=== PATIENT | female | born 1970 | race Caucasian/White ===

== ENCOUNTER 2016-09-13 22:39 | Inpatient (IN) ==
[2016-09-13 23:31] LABS: Basophils % 0.4 %; Eosinophils # 0.3 K/mcL (0.0-0.6); Eosinophils % 2.6 %; Hematocrit 38.8 % (35.3-44.9); Hemoglobin 12.3 g/dL (11.5-15.4); Immature Granulocytes % 0.3 % (0-4); Immature Platelets 3.5 % (1.1-6.1); Lymphocytes # 3.1 K/mcL (0.6-4.6); Lymphocytes % 28.1 %; Mean Corpuscular HGB Conc 31.7 g/dL (31.6-35.5); Mean Corpuscular Hemoglobin 29.4 pg (28.0-33.3); Mean Corpuscular Volume 92.6 fL (83.0-100.0); Mean Platelet Volume 9.7 fL (9.4-12.4); Monocytes # 0.9 K/mcL (0.0-1.3); Monocytes % 8.6 %; Neutrophils # 6.6 K/mcL (1.6-8.9); Platelet Count 336 K/mcL (140-400); Red Blood Count 4.19 M/mcL (3.82-4.97); Red Cell Distribution Width 13.5 % (11.5-14.5)
[2016-09-13 23:36] LABS: INR 1.1; Prothrombin Time 11.4 Seconds (9.4-12.1)
[2016-09-13 23:39] LABS: Activated Partial Thrombo Time 29.7 Seconds (26.0-36.0)
[2016-09-13 23:43] LABS: BUN/Creatinine Ratio 13 (6-26); Blood Urea Nitrogen 10 mg/dL (7-20); Calcium 8.6 mg/dL (8.6-10.8); Carbon Dioxide 24 mEq/L (19-29); Chloride 104 mEq/L (98-109); Glucose 146 mg/dL (70-99); Osmolality,Calculated 288 (280-300); Potassium 4.5 mEq/L (3.5-4.5); Sodium 138 mEq/L (136-145); eGFR For African Americans > 60 (> 60); eGFR For Non-African Americans > 60 (> 60)
[2016-09-14] MEDS ORDERED: 0.9 % Sodium Chloride 1,000 ML IVC ONE ×2 (00:11→02:40)
[2016-09-14] MEDS ORDERED: Ondansetron 4 MG/2 ML VIAL IVP ONE (00:11)
[2016-09-14] MEDS ORDERED: Aspirin 81 MG TAB.CHEW PO ONE (00:12)
--- NOTE | 2016-09-14 00:16 | Emergency Department Note ---
Disposition Clinical Impression: Syncope and collapse Disposition: Admitted As Inpatient Condition: Fair Referrals: Unassigned,Provider [Non-Partnered Physician] - Forms: ED Satisfaction Letter Time of Disposition: 02:39 Syncope HPI - General Chief Complaint: ED Syncope Stated Complaint: syncope Time Seen by Provider: 09/13/16 23:57 Source: patient, family Limitations: no limitations Nursing Notes Reviewed: Yes Vital Signs Reviewed: Yes - History of Present Illness HPI Narrative: 45-year-old nontoxic-appearing female presents to the emergency department with multiple complaints. The patient states that just prior to arrival, she was standing in her kitchen, when she experienced a syncopal episode. She complains of prodromal symptoms of left-sided chest pain, and lightheadedness. She states that everything went dark and then she passed out, striking her chest against a kitchen chair, and her chin against the same chair as she fell. She now complains of a headache that she rates a 7 out of 10 on a 10 point scale. She states she has had intermittent left-sided chest pain for "quite some time now". She complains of multiple syncopal episodes as of recent. She states that she was evaluated at [facility] this past Friday for the same. She complains of intermittent left-sided chest pain that occurs at rest. She denies any fever, cough, abdominal pain, or diarrhea. She does complain of frequent episodes of nausea. She states that she has a history of migraines on an almost daily basis. She states that immediately after she collapsed, her checked her blood pressure at home, and states that it was "extremely low". Pt Subjective Complaint: loss of consciousness, collapsed Onset (ago): Just [employer] Prodromal Symptoms: headache, lightheaded, chest pain, nausea/vomiting Witnessed: yes - by bystander Injuries Sustained Associated with Event: head, chest (chest wall pain) Current Symptoms: lightheaded, headache, chest pain, shortness of breath, nausea - Related Data Home Medications Medication Instructions Recorded Confirmed Duloxetine [Cymbalta] 30 mg PO DAILY 04/05/15 05/30/16 Exenatide Microspheres [Bydureon] 2 mg SQ QWEEK 04/05/15 05/30/16 FLUoxetine HCl [Fluoxetine HCl] 60 mg PO QAM 04/05/15 05/30/16 Gabapentin [Neurontin] 300 mg PO HS 04/05/15 05/30/16 Loratadine [Claritin] 10 mg PO DAILY PRN 04/05/15 05/30/16 Montelukast [Singulair] 10 mg PO DAILY 04/05/15 05/30/16 Naratriptan HCl [Amerge] 2.5 mg PO DAILY PRN 04/05/15 05/30/16 Ondansetron HCl [Zofran] 4 - 8 mg PO Q8H PRN 04/05/15 05/30/16 Ropinirole [Requip] 1 mg PO HS 04/05/15 05/30/16 Topiramate [Topiramate ER] 50 mg PO DAILY 04/05/15 05/30/16 Trazodone HCl 300 mg PO HS 04/05/15 05/30/16 Albuterol Neb [Proventil Neb] 2.5 mg IH QID PRN 05/30/16 05/30/16 Amitriptyline [Elavil] 50 mg PO HS 05/30/16 05/30/16 Fluticasone Propionate Nasal 50 mcg NS DAILY 05/30/16 05/30/16 [Flonase] Fluticasone/Salmeterol [Advair Hfa 2 puff IH BID 05/30/16 05/30/16 115-21 Mcg Inhaler] Ipratropium [place] 2 spray NS BID 05/30/16 05/30/16 Lidocaine Patch [Lidoderm 5% patch] 1 each TP DAILY 05/30/16 05/30/16 Meclizine [Antivert] 25 mg PO Q6H PRN 05/30/16 05/30/16 Oxycodone HCl/Acetaminophen 1 each PO TID PRN 05/30/16 05/30/16 [Percocet 7.5-325 mg Tablet] Tizanidine HCl [Zanaflex] 4 mg PO TID PRN 05/30/16 05/30/16 Previous Rx's Medication Instructions Recorded Promethazine [Phenergan] 25 mg PO Q6HR PRN #16 tablet 02/24/16 Cyanocobalamin (Vitamin B-12) 1,000 mcg IM QMONTH #12 mls 04/03/16 [Vitamin B-12] Bisacodyl [Dulcolax] 5 mg PO DAILY PRN #20 tablet 06/05/16 Docusate [Colace] 100 mg PO BID #30 capsule 06/05/16 Hydrocodone/Acetaminophen [[place] 1 tab PO Q6H PRN #10 tab 06/27/16 5-325 Tablet] Ibuprofen [Motrin] 600 mg PO Q6HR PRN #20 tablet 06/27/16 Butalb/Acetaminophen/Caffeine 1 each PO Q6HR PRN #10 capsule 08/12/16 [Fioricet 50-300-40 mg Capsule] Allergies Allergy/AdvReac Type Severity Reaction Status Date / Time sumatriptan [From Imitrex] Allergy Swelling Verified 02/24/16 17:33 of Lip/Tongue/Throat All systems ED: reviewed and negative except as stated. Constitutional: Denies: fever, chills, weakness, weight change Eyes: Denies: eye pain, eye discharge, vision change ENT ED: Denies: ear pain, throat pain, dental pain, hearing loss, epistaxis, congestion, dysphagia Cardiovascular: Reports: as per HPI, chest pain, dyspnea on exertion. Denies: palpitations, edema, syncope Respiratory: Denies: cough, dyspnea, wheezes, hemoptysis, stridor Gastrointestinal: Reports: as per HPI, nausea. Denies: abdominal pain, vomiting , diarrhea, constipation, hematemesis, melena, hematochezia Genitourinary: Denies: dysuria, frequency, hematuria, discharge Musculoskeletal: Denies: back pain, neck pain, arthralgia, myalgia Integumentary: Denies: rash, abrasion, lesions Neurological: Reports: as per HPI, headache, other (Intermittent episodes of facial numbness). Denies: weakness, numbness, paresthesias, confusion, abnormal gait, vertigo Psychiatric: Denies: anxiety, depression, suicidal thoughts, homicidal thoughts , auditory hallucinations, visual hallucinations Endocrine: Denies: fatigue Hematological/Lymphatic: Denies: easy bleeding, easy bruising Allergic/Immunologic: Denies: facial swelling, urticaria Past Medical History - Past Medical History Attestation: Yes The following information was validated with the patient. Source: patient Medical history: Reports: diabetes, kidney stones, migraine Surgical history: Reports: cholecystectomy, orthopedic, other, other (gastric bypass surgery) Psychiatric history: Reports: anxiety, depression, PTSD DAMPPROOFER history: Reports: bilateral tubal ligation, other - Social History Smoking Status: Never smoker Smokeless Tobacco Status: No Alcohol use: Reports: none Drug use: Reports: none Physical Exam - General Limitations: no limitations General appearance: alert, in no apparent distress - Head Head exam: atraumatic, normocephalic, normal inspection - Eye Eye exam: Present: normal appearance, PERRL, EOMI. Absent: nystagmus - Expanded Eye Exam Pupils: Bilateral: regular, round, reactive, size (2) - ENT ENT exam: mucous membranes moist - Neck Neck exam: Present: normal inspection, full ROM, trachea midline. Absent: tenderness, lymphadenopathy - Chest Chest inspection: Present: normal inspection, symmetric chest wall rise. Absent : tenderness - Respiratory Respiratory exam: Present: normal lung sounds bilaterally. Absent: respiratory distress, wheezes, stridor, accessory muscle use, prolonged expiratory phase - Cardiovascular Cardiovascular exam: Present: regular rate, normal rhythm, normal heart sounds - Abdominal Exam Abdominal exam: Present: soft, Non-Tender, normal bowel sounds. Absent: tenderness, distention, guarding, rebound, rigidity, trauma - Extremities Exam Extremities exam: Present: normal inspection, full ROM. Absent: tenderness, pedal edema - Back Exam Back exam: Present: normal inspection, full ROM. Absent: tenderness - Neurological Exam Neurological exam: Present: alert, oriented X3 - Psychiatric Psychiatric exam: Present: normal affect, normal mood - Skin Skin exam: Present: warm, dry, intact, normal color. Absent: rash, cyanosis, diaphoresis, erythema, pallor, mottled Course Course Narrative: I discussed his case with Dr. Mcqueen. Dr. Mcqueen had a [id number] evaluation with the patient. Dr. Mcqueen recommends admission to the hospital service for further evaluation of syncope. [id number]: Spoke with Dr. Novak of the hospitalist service. Dr. Novak accepts patient for admission to the hospital. Vital Signs Temperature 97.5 F L 09/13/16 22:40 Pulse Rate 77 09/13/16 22:40 Respiratory Rate 20 09/13/16 22:40 Blood Pressure 98/70 09/13/16 22:40 O2 Sat by Pulse Oximetry 97 09/13/16 22:40 Temperature 97.5 F L 09/13/16 22:40 Pulse Rate 74 09/14/16 00:56 Respiratory Rate 20 09/14/16 00:56 Blood Pressure 101/64 09/14/16 00:56 O2 Sat by Pulse Oximetry 99 09/14/16 00:56 Oxygen Delivery Oxygen Delivery Room Air Syncope - Lab Data Result diagrams: 09/13/16 23:24 09/13/16 23:24 Lab Results 09/13/16 09/13/16 09/13/16 Range/Units 23:24 23:24 23:24 WBC 10.9 (4.3-11.1) K/mcL RBC 4.19 (3.82-4.97) M/mcL Hgb 12.3 (11.5-15.4) g/dL Hct 38.8 (35.3-44.9) % MCV 92.6 (83.0-100.0) fL MCH 29.4 (28.0-33.3) pg MCHC 31.7 (31.6-35.5) g/dL RDW 13.5 (11.5-14.5) % Plt Count 336 (140-400) K/mcL MPV 9.7 (9.4-12.4) fL Immature Gran % 0.3 (0-4) % Seg Neutrophils % 60.0 % Lymphocytes % 28.1 % Monocytes % 8.6 % Eosinophils % 2.6 % Basophils % 0.4 % Neutrophils # 6.6 (1.6-8.9) K/mcL Lymphocytes # 3.1 (0.6-4.6) K/mcL Monocytes # 0.9 (0.0-1.3) K/mcL Eosinophils # 0.3 (0.0-0.6) K/mcL Basophils # 0.0 (0.0-0.2) K/mcL Immature Plt Fraction 3.5 (1.1-6.1) % PT 11.4 (9.4-12.1) Seconds INR 1.1 APTT 29.7 (26.0-36.0) Seconds Sodium 138 (136-145) mEq/L Potassium 4.5 (3.5-4.5) mEq/L Chloride 104 (98-109) mEq/L Carbon Dioxide 24 (19-29) mEq/L BUN 10 (7-20) mg/dL Creatinine 0.77 (0.57-1.11) mg/dL Est GFR ( Amer) > 60 (> 60) Est GFR (Non-Af Amer) > 60 (> 60) BUN/Creatinine Ratio 13 (6-26) Glucose 146 H (70-99) mg/dL Calculated Osmolality 288 (280-300) Calcium 8.6 (8.6-10.8) mg/dL Troponin I (0-0.03) ng/mL Urine Color (Yellow) Urine Clarity (Clear) Urine pH (5.0-8.0) pH Units Ur Specific [place] (1.010-1.025) Urine Protein (Neg-Trace) mg/dL Urine Glucose (UA) (Normal) mg/dL Urine Ketones (Negative) mg/dL Urine Blood (Negative) Urine Nitrite (Negative) Urine Bilirubin (Negative) Urine Urobilinogen (Normal) mg/dL Ur Leukocyte Esterase (Negative) Urine Microscopic RBC (0-3) per hpf Urine Microscopic WBC (0-3) per hpf Ur Squamous Epith Cells (None-Few) per lpf Urine Bacteria (None-Few) per hpf Hyaline Casts (None-Few) per lpf Ur Culture Indicated? (NO) Urine Opiates Screen (Jaitxa=579) ng/mL Ur Barbiturates Screen (Celzvz=530) ng/mL Ur Phencyclidine Scrn (Cutoff=25) ng/mL Ur Amphetamines Screen (Oulfui=6506) ng/mL U Benzodiazepines Scrn (Redksb=954) ng/mL Urine Cocaine Screen (Cutoff= 300) ng/mL U Marijuana (THC) Screen (Cutoff = 50) ng/mL 09/13/16 09/14/16 09/14/16 Range/Units 23:24 01:13 01:22 WBC (4.3-11.1) K/mcL RBC (3.82-4.97) M/mcL Hgb (11.5-15.4) g/dL Hct (35.3-44.9) % MCV (83.0-100.0) fL MCH (28.0-33.3) pg MCHC (31.6-35.5) g/dL RDW (11.5-14.5) % Plt Count (140-400) K/mcL MPV (9.4-12.4) fL Immature Gran % (0-4) % Seg Neutrophils % % Lymphocytes % % Monocytes % % Eosinophils % % Basophils % % Neutrophils # (1.6-8.9) K/mcL Lymphocytes # (0.6-4.6) K/mcL Monocytes # (0.0-1.3) K/mcL Eosinophils # (0.0-0.6) K/mcL Basophils # (0.0-0.2) K/mcL Immature Plt Fraction (1.1-6.1) % PT (9.4-12.1) Seconds INR APTT (26.0-36.0) Seconds Sodium (136-145) mEq/L Potassium (3.5-4.5) mEq/L Chloride (98-109) mEq/L Carbon Dioxide (19-29) mEq/L BUN (7-20) mg/dL Creatinine (0.57-1.11) mg/dL Est GFR ( Amer) (> 60) Est GFR (Non-Af Amer) (> 60) BUN/Creatinine Ratio (6-26) Glucose (70-99) mg/dL Calculated Osmolality (280-300) Calcium (8.6-10.8) mg/dL Troponin I 0.00 (0-0.03) ng/mL Urine Color Yellow (Yellow) Urine Clarity Cloudy A (Clear) Urine pH 6.0 (5.0-8.0) pH Units Ur Specific [place] 1.009 L (1.010-1.025) Urine Protein Negative (Neg-Trace) mg/dL Urine Glucose (UA) Normal (Normal) mg/dL Urine Ketones Negative (Negative) mg/dL Urine Blood Negative (Negative) Urine Nitrite Positive A (Negative) Urine Bilirubin Negative (Negative) Urine Urobilinogen Normal (Normal) mg/dL Ur Leukocyte Esterase Small H (Negative) Urine Microscopic RBC 0-3 (0-3) per hpf Urine Microscopic WBC 5-15 H (0-3) per hpf Ur Squamous Epith Cells Many H (None-Few) per lpf Urine Bacteria Moderate H (None-Few) per hpf Hyaline Casts None Seen (None-Few) per lpf Ur Culture Indicated? YES A (NO) Urine Opiates Screen Negative (Qzdooe=338) ng/mL Ur Barbiturates Screen Positive H (Ucetpv=044) ng/mL Ur Phencyclidine Scrn Negative (Cutoff=25) ng/mL Ur Amphetamines Screen Negative (Mmtvxe=6556) ng/mL U Benzodiazepines Scrn Positive H (Ojnqvv=857) ng/mL Urine Cocaine Screen Negative (Cutoff= 300) ng/mL U Marijuana (THC) Screen Negative (Cutoff = 50) ng/mL
[2016-09-14 01:21] LABS: Bilirubin,Urine Negative (Negative); Blood,Urine Negative (Negative); Clarity,Urine Cloudy (Clear); Color,Urine Yellow (Yellow); Glucose,Urine (UA) Normal (Normal); Ketones,Urine Negative (Negative); Leukocyte Esterase,Urine Small (Negative); Nitrite,Urine Positive (Negative); Protein,Urine Negative (Neg-Trace); Specific Gravity,Urine 1.009 (1.010-1.025); Urobilinogen,Urine Normal (Normal)
[2016-09-14 01:24] LABS: Bacteria,Urine Moderate per hpf (None-Few); Hyaline Casts,Urine None Seen per lpf (None-Few); RBC,Urine 0-3 per hpf (0-3); Squamous Epithelial Cell,Urine Many per lpf (None-Few)
[2016-09-14 01:36] LABS: Amphetamine Screen,Urine Negative ng/mL (Cutoff=1000); Benzodiazepines Screen,Urine Positive ng/mL (Cutoff=200); Cannabinoid Screen,Urine Negative ng/mL (Cutoff = 50); Cocaine Screen,Urine Negative ng/mL (Cutoff= 300); Opiate Screen,Urine Negative ng/mL (Cutoff=300); Phencyclidine Screen,Urine Negative ng/mL (Cutoff=25)
[2016-09-14 01:37] LABS: Barbiturate Screen,Urine Positive ng/mL (Cutoff=200)
--- NOTE | 2016-09-14 03:54 | Internal Med History&Physical ---
<GustafsonPavan - Last Filed: 09/14/16 04:44> Date of Encounter: 09/14/16 Time of Encounter: 03:51 Assessment and Plan (1) Syncope Status: Acute Etiology unclear at this time; working up metabolic vs. cardiac vs. vascular; cannot rule out psychiatric Certainly polypharmacy may play a role as she is on many psychiatric/sedating medications Will obtain carotid and echocardiogram, B12, folate, MMA, TSH levels Obtain lipid panel, orthostatic vital signs, MRI for further evaluation Start on ASA/statin and consult neurology; appreciate recommendations She may be candidate for EEG and outpatient sleep study Qualifiers: Qualified Code(s): R55 - Syncope and collapse (2) UTI (urinary tract infection) Status: Suspected Patient does not have signs/symptoms of UTI and initial UA may be contaminant of vaginal saba Will re-obtain UA via straight cath prior to initiating antibiotics Qualifiers: Qualified Code(s): N39.0 - Urinary tract infection, site not specified (3) Non-insulin dependent type 2 diabetes mellitus Status: Chronic Discontinue home anti-diabetics while in hospital Start on low dose SSI ACHS accuchecks (4) DVT prophylaxis Status: Acute Heparin 5000 units BID Internal Medicine - H&P: HPI Chief complaint: Syncope Admitted From: Home Plans for Post Hospital Care: Home History of present illness: Ms. Mora is a 45 year old female who presents with a syncopal episode that occurred earlier this evening. She states that she was standing up in the kitchen and felt some left-sided chest pain and lightheadedness, and fell forward hitting her chest and chin on a chair. was nearby and witnessed the event. He states that she was only unconscious for a few seconds and when she regained consciousness she was herself and not confused. checked her blood pressure shortly after this episode and states it was 70/40. She denies any tongue bite, incontinence but does complain of headache and mild shortness of breath. She states that these syncopal episodes and left side chest pain began roughly 2 months ago. She has been seen by doctors in the past for this, however had not found the etiology. Of note, she states that she had a syncopal episode Friday which cause her to fracture her right ankle. She is currently in a brace but is still able to ambulate. She complains of constant nausea and has a history of migraines and vertigo. Patient denies any fever or chills, constipation. Past Med Surg Social Fam HX - Past Medical History Medical history: diabetes, kidney stones, migraine Psychiatric history: anxiety, depression, PTSD - Past Surgical History Surgical History: cholecystectomy, orthopedic, other, other (gastric bypass surgery) - Social History Smoking Status: Never smoker Smokeless Tobacco Status: No Alcohol use: none Drug use: none - Family History Mother Adopted: Yes Internal Medicine - H&P: Meds Duloxetine [Cymbalta] 30 mg PO DAILY 04/05/15 [History] Exenatide Microspheres [Bydureon] 2 mg SQ QWEEK 04/05/15 [History] FLUoxetine HCl [Fluoxetine HCl] 60 mg PO QAM 04/05/15 [History] Gabapentin [Neurontin] 300 mg PO HS 04/05/15 [History] Loratadine [Claritin] 10 mg PO DAILY PRN 04/05/15 [History] Naratriptan HCl [Amerge] 2.5 mg PO DAILY PRN 04/05/15 [History] Ondansetron HCl [Zofran] 4 - 8 mg PO Q8H PRN 04/05/15 [History] Ropinirole [Requip] 1 mg PO HS 04/05/15 [History] Promethazine [Phenergan] 25 mg PO Q6HR PRN #16 tablet 02/24/16 [Rx] Cyanocobalamin (Vitamin B-12) [Vitamin B-12] 1,000 mcg IM QMONTH #12 mls [Rx] Albuterol Neb [Proventil Neb] 2.5 mg IH QID PRN 05/30/16 [History] Amitriptyline [Elavil] 50 mg PO HS 05/30/16 [History] Fluticasone Propionate Nasal [Flonase] 50 mcg NS DAILY 05/30/16 [History] Oxycodone HCl/Acetaminophen [Percocet 7.5-325 mg Tablet] 1 tab PO TID PRN [History] Tizanidine HCl [Zanaflex] 4 mg PO TID PRN 05/30/16 [History] Bisacodyl [Dulcolax] 5 mg PO DAILY PRN #20 tablet 06/05/16 [Rx] Docusate [Colace] 100 mg PO BID #30 capsule 06/05/16 [Rx] Escitalopram [Lexapro] 10 mg PO DAILY 09/14/16 [History] Rizatriptan Benzoate [Rizatriptan] 10 mg PO AD PRN 09/14/16 [History] Topiramate [Topamax] 25 mg PO HS 09/14/16 [History] Cefdinir [Omnicef] 300 mg PO BID #8 capsule 09/17/16 [Rx] Allergies Hydromorphone [From Dilaudid] Allergy (Severe, Verified 09/14/16 14:43) Anaphylaxis sumatriptan [From Imitrex] Allergy (Severe, Verified 09/14/16 14:43) Anaphylaxis adhesive tape Allergy (Verified 09/14/16 14:43) Rash ziconotide [From Prialt] Adverse Reaction (Verified 09/14/16 14:43) Hallucinating All Systems PM: A 10-system review of systems was performed and is negative for pertinent findings except as documented above in the HPI. - Constitutional Constitutional: falls, no chills, no fever(s), no night sweats - EENT Eyes: no change in vision, no discharge, no pain, no photophobia Ears: no ear discharge, no ear pain, no tinnitus Nose, mouth and throat: no dysphagia, no nasal discharge, no neck pain, no sore throat - Cardiovascular Cardiovascular ROS IM: chest pain, dyspnea, lightheadedness, syncope, no diaphoresis, no palpitations - Respiratory Respiratory: dyspnea, no cough, no wheezing, no excessive phlegm production - Gastrointestinal Gastrointestinal: nausea, no abdominal pain, no diarrhea, no hematemesis, no hematochezia, no melena, no vomiting - Genitourinary Genitourinary: no change in urinary stream, no dysuria, no flank pain, no hematuria - Musculoskeletal Musculoskeletal ROS IM: no numbness, no tingling - Integumentary Integumentary IM: no rash, no unusual bruising - Neurological Neurological ROS: no confusion, no convulsions, no focal weakness, no numbness, no tingling, no tremor(s) - Hematologic/Lymphatic Hematologic/Lymphatic: no easy bruising - Constitutional Vitals: Temp Pulse Resp BP Pulse Ox 97.5 F L 74 20 105/70 99 09/13/16 22:40 09/14/16 00:56 09/14/16 03:27 09/14/16 03:27 09/14/16 00:56 General appearance: Present: cooperative, pleasant, no acute distress, answers questions appropriately - Head Head exam: Present: atraumatic, normocephalic - Eye Eye exam: Present: PERRL, conjuntiva pink, sclera anicteric - Neck Neck exam general surgery: Present: supple, trachea midline. Absent: lymphadenopathy - Respiratory Respiratory exam: Present: CTAB. Absent: accessory muscle use, rales, rhonchi, wheezes - Cardiovascular Cardiovascular exam: Present: RRR, +S1, +S2. Absent: diastolic murmur, gallop, rubs, systolic murmur - GI/Abdominal GI/Abdominal exam: Present: normal bowel sounds, soft, no peritoneal signs. Absent: distended, tenderness - Extremities Exam Extremities exam: Present: warm, radial pulses palpable and symetrical. Absent : calf tenderness, cyanotic, pedal edema Additional comments: brace on right ankle s/p fracture - Neurological Exam Neurological exam: Present: alert, no focal deficits. Absent: facial droop, speech deficit - Skin Skin exam: Present: dry, intact Internal Med - H&P Results - Labs CBC & Chem 7: 09/13/16 23:24 09/13/16 23:24 <Kendall Villegas - Last Filed: 09/18/16 01:03> Assessment and Plan (1) Acute chest wall pain Status: Acute . (2) Chest pain, rule out acute myocardial infarction Status: Acute . (3) Chest pain with low risk of acute coronary syndrome Status: Acute . (4) Chronic headache disorder Status: Chronic . Qualifiers: Headache type: unspecified Intractability: not intractable Qualified Code (s): R51 - Headache (5) Postural hypotension Status: Acute . (6) Postural dizziness with near syncope Status: Acute . (7) H/O atypical migraine Status: Chronic . (8) Anxiety associated with depression Status: Chronic . (9) History of posttraumatic stress disorder (PTSD) Status: Chronic . (10) Polypharmacy Status: Chronic . (11) At risk for accident in home Status: Acute . (12) At risk for activity intolerance Status: Acute . (13) At risk for acute confusion Status: Acute . (14) At risk for adverse drug event Status: Acute . (15) At risk for abuse of opiates Status: Acute . (16) Obesity (BMI 30-39.9) Status: Chronic . (17) Restless legs syndrome (RLS) Status: Chronic . (18) RAD (reactive airway disease) Status: Chronic . Qualifiers: Asthma severity: unspecified severity Asthma complication type: uncomplicated Qualified Code(s): J45.909 - Unspecified asthma, uncomplicated (19) POTS (postural orthostatic tachycardia syndrome) Status: Acute . (20) Chronic pain associated with significant psychosocial dysfunction Status: Chronic . (21) H/O fracture of ankle Status: Acute . (22) Multiple falls Status: Chronic . (23) History of Erin-en-Y gastric bypass Status: Chronic . (24) Bipolar 1 disorder Status: Chronic . (25) Fibromyalgia affecting multiple sites Status: Chronic . (26) Fibromyalgia syndrome Status: Chronic . (27) Vitamin deficiency syndrome Status: Chronic . (28) Folate deficiency Status: Chronic . (29) B12 deficiency Status: Chronic . (30) Multiple contusions Status: Acute . (31) Sinus tachycardia Status: Acute . (32) Syncope and collapse Status: Acute . (33) UTI (urinary tract infection) Status: Acute . Qualifiers: Urinary tract infection type: acute cystitis Hematuria presence: without hematuria Qualified Code(s): N30.00 - Acute cystitis without hematuria (34) Chest wall soft tissue injury Status: Acute . Qualifiers: Encounter type: sequela Qualified Code(s): S29.9XXS - Unspecified injury of thorax, sequela (35) ANA (iron deficiency anemia) Status: Chronic . Qualifiers: Iron deficiency anemia type: unspecified iron deficiency Qualified Code(s) : D50.9 - Iron deficiency anemia, unspecified (36) Type 2 diabetes mellitus Status: Chronic . 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 Internal Medicine - H&P: HPI History of present illness: Ms. Mora is a 45 year old female was admitted to [facility] via the emergency department when she presented with chief complaint of acute loss of consciousness (syncope). The patient was visited and interviewed and examined. For this encounter, I have reviewed the documentation, treatment plan, and medical decision making. I examined this patient and my medical decision-making was reviewed with the Resident Physician. I agree with the documented findings, disposition and treatment plan as described except to the extent set forth below. Cumulative laboratory and radiographic database was reviewed, considered and discussed. Given the patient's presenting concerns, past medical history, clinical findings and symptoms, she is admitted at this time to undergo further evaluation and disposition. Orders written. Past Med Surg Social Fam HX - Past Medical History Source: old records reviewed Medical history: arthritis (Failed back surgery syndrome.), asthma, diabetes, fibromyalgia (Plantar fasciitis. Disorder of sacrum. Chronic fatigue. Flank pain. Right arm weakness. Right shoulder pain. Cervicalgia.), GERD, hypertension, kidney stones, migraine, osteoporosis, renal disease (Polycystic ovarian disease.), syncope, other (Iron deficiency anemia secondary to Erin-en- Y gastric bypass. Vitamin B12 deficiency.. Folic acid deficiency.) Psychiatric history: anxiety, bipolar, depression, PTSD, other - Past Surgical History Surgical History: cholecystectomy, orthopedic, other (Cervical disc surgery. Spondylolisthesis back surgery.), other (Gastric bypass Erin-en-Y. Eye surgery. ) - Social History Occupational status: disabled Current living situation: With Family Activity Level: Independent ambulation, Mostly sedentary Recent Out of Country Travel Within the Last 8 Weeks: No Exposure or Possible Exposure to Illness During Travel: No All Systems PM: A 10-system review of systems was performed and is negative for pertinent findings except as documented above in the HPI. - Constitutional Vitals: Temp Pulse Resp BP Pulse Ox 98.0 F 97 16 127/81 95 09/17/16 10:48 09/17/16 10:48 09/17/16 10:48 09/17/16 10:48 09/17/16 10:48 Internal Med - H&P Results - Labs CBC & Chem 7: 09/16/16 04:27 09/16/16 04:27 Labs: Vital Signs Temp Pulse Resp BP Pulse Ox 09/17/16 10:48 98.0 F 97 16 127/81 95 09/17/16 09:30 95 09/17/16 06:46 97.9 F 99 16 121/86 95 09/17/16 04:07 97.9 F 80 16 142/89 96 Intake and Output 09/17/16 09/17/16 09/18/16 15:59 23:59 07:59 Intake Total 1440 / 1440 Output Total 1150 / 1150 Balance 290 / 290 Intake: IV Fluids 1200 / 1200 0.9 % Sodium Chloride 1, 1100 / 1100 000 ML @ 100 mls/hr IVC . Q10H ROC Rx#:[id number] Rocephin 1,000 MG In 100 / 100 Dextrose 5% (Minibag+) 100 ML 100 ML @ 200 mls/ hr IVPB Q24H ROC Rx#: [id number] Oral 240 / 240 Output: Urine 100 / 100 Catheter 1050 / 1050 Other: Meal Lunch Percent of Meal Consumed 85% Blood Glucose* 156 - Impressions Abnormal lab results WBC 12.4 K/mcL (4.3-11.1) H 09/16/16 04:27 MCHC 31.2 g/dL (31.6-35.5) L 09/16/16 04:27 ESR 52 mm/hr (0-15) H 09/14/16 15:50 BUN 5 mg/dL (7-20) L 09/16/16 04:27 Glucose 134 mg/dL (70-99) H 09/16/16 04:27 POC Glucose 122 (58-89) H 09/16/16 20:31 Hemoglobin A1c 6.0 % (-5.6) H 09/14/16 04:56 Alkaline Phosphatase 128 Units/L (38-126) H 09/14/16 04:56 C-Reactive Protein 5 mg/L (Less than 5) H 09/14/16 04:56 Serum Total Protein 5.9 g/dL (6.0-8.3) L 09/14/16 04:56 Albumin 2.4 g/dL (3.5-5.0) L 09/14/16 04:56 Albumin/Globulin Ratio 0.7 (1.1-2.2) L 09/14/16 04:56 Folate 5.2 ng/mL (7.0-31.4) L 09/14/16 04:56 Urine Clarity Cloudy (Clear) A 09/15/16 10:06 Ur Specific [place] > 1.030 (1.010-1.025) H 09/15/16 10:06 Urine Nitrite Positive (Negative) A 09/15/16 10:06 Ur Leukocyte Esterase Small (Negative) H 09/15/16 10:06 Urine Microscopic WBC 15-30 per hpf (0-3) H 09/15/16 10:06 Ur Squamous Epith Cells Moderate per lpf (None-Few) H 09/15/16 10:06 Urine Bacteria Many per hpf (None-Few) H 09/15/16 10:06 Ur Culture Indicated? YES (NO) A 09/15/16 10:06 Ur Barbiturates Screen Positive ng/mL (Yjhaxy=103) H 09/14/16 01:22 U Benzodiazepines Scrn Positive ng/mL (Cltuji=000) H 09/14/16 01:22 Laboratory Results WBC 12.4 K/mcL (4.3-11.1) H 09/16/16 04:27 RBC 4.60 M/mcL (3.82-4.97) 09/16/16 04:27 Hgb 13.3 g/dL (11.5-15.4) 09/16/16 04:27 Hct 42.6 % (35.3-44.9) 09/16/16 04:27 MCV 92.6 fL (83.0-100.0) 09/16/16 04:27 MCH 28.9 pg (28.0-33.3) 09/16/16 04:27 MCHC 31.2 g/dL (31.6-35.5) L 09/16/16 04:27 RDW 13.7 % (11.5-14.5) 09/16/16 04:27 Plt Count 312 K/mcL (140-400) 09/16/16 04:27 MPV 10.0 fL (9.4-12.4) 09/16/16 04:27 Immature Gran % 0.4 % (0-4) 09/15/16 05:09 Seg Neutrophils % 64.8 % 09/15/16 05:09 Lymphocytes % 24.5 % 09/15/16 05:09 Monocytes % 9.4 % 09/15/16 05:09 Eosinophils % 0.5 % 09/15/16 05:09 Basophils % 0.4 % 09/15/16 05:09 Neutrophils # 6.6 K/mcL (1.6-8.9) 09/15/16 05:09 Lymphocytes # 2.5 K/mcL (0.6-4.6) 09/15/16 05:09 Monocytes # 1.0 K/mcL (0.0-1.3) 09/15/16 05:09 Eosinophils # 0.1 K/mcL (0.0-0.6) 09/15/16 05:09 Basophils # 0.0 K/mcL (0.0-0.2) 09/15/16 05:09 Immature Plt Fraction 3.5 % (1.1-6.1) 09/13/16 23:24 ESR 52 mm/hr (0-15) H 09/14/16 15:50 PT 11.4 Seconds (9.4-12.1) 09/13/16 23:24 INR 1.1 09/13/16 23:24 APTT 29.7 Seconds (26.0-36.0) 09/13/16 23:24 Sodium 138 mEq/L (136-145) 09/16/16 04:27 Potassium 4.1 mEq/L (3.5-4.5) 09/16/16 04:27 Chloride 104 mEq/L (98-109) 09/16/16 04:27 Carbon Dioxide 25 mEq/L (19-29) 09/16/16 04:27 BUN 5 mg/dL (7-20) L 09/16/16 04:27 Creatinine 0.67 mg/dL (0.57-1.11) 09/16/16 04:27 Est GFR ( Amer) > 60 (> 60) 09/16/16 04:27 Est GFR (Non-Af Amer) > 60 (> 60) 09/16/16 04:27 BUN/Creatinine Ratio 7 (6-26) 09/16/16 04:27 Glucose 134 mg/dL (70-99) H 09/16/16 04:27 POC Glucose 122 (58-89) H 09/16/16 20:31 Est Mean Plasma Glucose 126 mg/dl 09/14/16 04:56 Hemoglobin A1c 6.0 % (-5.6) H 09/14/16 04:56 Calculated Osmolality 285 (280-300) 09/16/16 04:27 Lactic Acid 1.1 mmol/L (0.5-2.2) 09/16/16 08:53 Calcium 8.9 mg/dL (8.6-10.8) 09/16/16 04:27 Total Bilirubin 0.2 mg/dL (0.2-1.2) 09/14/16 04:56 Direct Bilirubin 0.1 mg/dL (0.0-0.5) 09/14/16 04:56 Indirect Bilirubin 0.1 mg/dL (0.0-1.2) 09/14/16 04:56 AST 15 Units/L (5-34) 09/14/16 04:56 ALT 15 Units/L (0-55) 09/14/16 04:56 Alkaline Phosphatase 128 Units/L (38-126) H 09/14/16 04:56 Troponin I 0.00 ng/mL (0-0.03) 09/13/16 23:24 C-Reactive Protein 5 mg/L (Less than 5) H 09/14/16 04:56 Serum Total Protein 5.9 g/dL (6.0-8.3) L 09/14/16 04:56 Albumin 2.4 g/dL (3.5-5.0) L 09/14/16 04:56 Globulin 3.5 g/dL (2.4-3.5) 09/14/16 04:56 Albumin/Globulin Ratio 0.7 (1.1-2.2) L 09/14/16 04:56 Triglycerides 115 mg/dL (< 150) 09/14/16 04:56 Cholesterol 138 mg/dL (< 200) 09/14/16 04:56 LDL Cholesterol, Calc 62 mg/dL (0-99) 09/14/16 04:56 VLDL Cholesterol, Calc 23 mg/dL (< 31) 09/14/16 04:56 HDL Cholesterol 53 mg/dL (40-59) 09/14/16 04:56 Cholesterol/HDL Ratio 2.6 (0-4.9) 09/14/16 04:56 Vitamin B12 604 pg/mL (213-816) 09/14/16 04:56 Folate 5.2 ng/mL (7.0-31.4) L 09/14/16 04:56 TSH 1.785 mcIU/mL (0.350-4.840) 09/14/16 04:56 Urine Color Yellow (Yellow) 09/15/16 10:06 Urine Clarity Cloudy (Clear) A 09/15/16 10:06 Urine pH 6.5 pH Units (5.0-8.0) 09/15/16 10:06 Ur Specific [place] > 1.030 (1.010-1.025) H 09/15/16 10:06 Urine Protein Negative mg/dL (Neg-Trace) 09/15/16 10:06 Urine Glucose (UA) Normal mg/dL (Normal) 09/15/16 10:06 Urine Ketones Negative mg/dL (Negative) 09/15/16 10:06 Urine Blood Negative (Negative) 09/15/16 10:06 Urine Nitrite Positive (Negative) A 09/15/16 10:06 Urine Bilirubin Negative (Negative) 09/15/16 10:06 Urine Urobilinogen Normal mg/dL (Normal) 09/15/16 10:06 Ur Leukocyte Esterase Small (Negative) H 09/15/16 10:06 Urine Microscopic RBC 0-3 per hpf (0-3) 09/15/16 10:06 Urine Microscopic WBC 15-30 per hpf (0-3) H 09/15/16 10:06 Ur Squamous Epith Cells Moderate per lpf (None-Few) H 09/15/16 10:06 Urine Bacteria Many per hpf (None-Few) H 09/15/16 10:06 Hyaline Casts None Seen per lpf (None-Few) 09/15/16 10:06 Ur Culture Indicated? YES (NO) A 09/15/16 10:06 Urine Opiates Screen Negative ng/mL (Qlkfok=146) 09/14/16 01:22 Ur Barbiturates Screen Positive ng/mL (Qqznku=065) H 09/14/16 01:22 Ur Phencyclidine Scrn Negative ng/mL (Cutoff=25) 09/14/16 01:22 Ur Amphetamines Screen Negative ng/mL (Nyobuj=3447) 09/14/16 01:22 U Benzodiazepines Scrn Positive ng/mL (Deblte=009) H 09/14/16 01:22 Urine Cocaine Screen Negative ng/mL (Cutoff= 300) 09/14/16 01:22 U Marijuana (THC) Screen Negative ng/mL (Cutoff = 50) 09/14/16 01:22 Impressions Chest X-Ray 09/13/16 22:47 IMPRESSION: No acute cardiopulmonary abnormality. D/ / Clay Arshad MD / Clay Arshad MD Interpreting Provider: Clay Arshad MD Head CT 09/14/16 00:11 IMPRESSION: No acute intracranial abnormality. D/ / Edgar Acuña MD / Edgar Acuña MD Interpreting Provider: Edgar Acuña MD Brain MRI 09/14/16 04:42 IMPRESSION: 1. There are a few scattered nonspecific white matter lesions noted supratentorially. These are likely related to minimal chronic microvascular white matter ischemic disease. Other etiologies could include vasculitis and migraine headaches. 2. No evidence of acute infarct or intracranial mass. D/ / 09/14/2016 10:10:32 Alvarado Umanzor MD / zachary Interpreting Provider: Alvarado Umanzor MD Chest CTA 09/15/16 00:00 IMPRESSION: 1. No definite scan evidence for pulmonary embolus. 2. Soft tissue gas and inflammatory changes surrounding the right pectoralis musculature. D/ / Paul Beltran MD / Paul Beltran MD Interpreting Provider: Paul Beltran MD - Attending Attestation My signature below is to certify that this patient is under my care and that I, or the Resident Physician working with me, has had a [id number] encounter with this patient. Plan of care has been reviewed and discussed in detail with the patient. Questions addressed. Advance care directive discussion briefly addressed. Patient does not declare any healthcare restrictions at this time. Outpatient medications schedules will be reviewed, confirmed and facilitated as appropriate. Reconciliation of home treatments including adjustments, substitutions and reintroduction into the treatment regimen will address necessary maintenance therapies for chronic pre-existing medical conditions. Smoking cessation counseling briefly addressed. The patient declares herself a nonsmoker. Hospital course will be dependent upon clinical findings, treatment response and potential consultative interventions. The patient is at risk for acute clinical decline and morbidity given this presenting chief complaint, findings and comorbidities. Condition is serious. Prognosis is guarded. CODE STATUS is full.
[2016-09-14] MEDS ORDERED: *HR* Dextrose 50 % in Water (Syg) 50 ML SYRINGE IVP PRN (04:32)
[2016-09-14] MEDS ORDERED: Naloxone 0.4 MG/ML INJ IVP PRN (04:32)
[2016-09-14] MEDS ORDERED: D5% in Water 1,000 ML IV PRN (04:32)
[2016-09-14] MEDS ORDERED: Dextrose Gel 15 GM PO PRN ×2 (04:32)
[2016-09-14 05:23] LABS: Albumin 2.4 g/dL (3.5-5.0); Albumin/Globulin Ratio 0.7 (1.1-2.2); Bilirubin,Direct 0.1 mg/dL (0.0-0.5); Bilirubin,Indirect 0.1 mg/dL (0.0-1.2); Bilirubin,Total 0.2 mg/dL (0.2-1.2); Chol/HDL Ratio 2.6 (0-4.9); Globulin 3.5 g/dL (2.4-3.5); Total Protein 5.9 g/dL (6.0-8.3)
[2016-09-14] MEDS: *HR* OxyCODONE/APAP 7.5/325 TABLET PO PRN ×2 (05:27→20:15)
[2016-09-14] MEDS: *HR* Heparin 5,000 UNIT/ML VIAL SQ SCH ×2 (05:28→18:16)
[2016-09-14] MEDS: Albuterol 2.5 MG/3 ML NEBULIZER IH SCH ×4 (05:32→22:27)
[2016-09-14 05:56] LABS: Folate 5.2 ng/mL (7.0-31.4)
[2016-09-14] MEDS ORDERED: Ondansetron 4 MG/2 ML VIAL IVP PRN (06:20)
[2016-09-14] MEDS ORDERED: Acetaminophen 325 MG TABLET PO PRN (06:20)
[2016-09-14] MEDS ORDERED: 0.9 % Sodium Chloride 1,000 ML IVC SCH ×2 (06:30→16:30)
[2016-09-14] MEDS: Aspirin 81 MG TAB.CHEW PO SCH (10:01)
[2016-09-14] MEDS: Insulin LISPRO 300 UNITS/3 ML VIAL SQ SCH ×4 (10:01→22:25)
[2016-09-14] MEDS: *HR* OxyCODONE Immed Rel 5 MG TABLET PO PRN (10:04)
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
[2016-09-14] MEDS: *HR* LORazepam 2 MG/ML VIAL IVP PRN ×2 (13:49→18:51)
--- NOTE | 2016-09-14 14:06 | Event Note ---
<Naseem Dejesus - Last Filed: 09/14/16 14:00> Date of Encounter: 09/14/16 Time of Encounter: 14:00 Was paged by RN that patient was tachycardic and complaining of Headache and facial numbness. I arrived to the room shortly after. Patietn appears anxious. She was hyperventlating and complaining of perioral numbness. Numbness resolved after I had her breath slowly. She stated that her headache was all over and that lights and sounds made this worse. She stated that " dilauded and pushed phenergan" were the only thing that worked. We repeated her vitals. Notable for HR in the 140s and Systolic blood pressure of 173. Normal O2 saturation on room air. EKG showed sinus tachycardia. she did state that this was similar to her " episodes". Given this I think that a psychiatic reason or possibly psychogenic nonepileptic seizure disorder should be consider as the cause of her syncope. However given her injuries and incontinence I think we will still need to R/O epilepsy. We may also consider psychiatric consultation depending on her clinical course. we will continue to follow her closely. <Thierry Bingham - Last Filed: 09/14/16 15:26> Date of Encounter: 09/14/16 CT gloria of chest
[2016-09-14] MEDS: *HR* Morphine 2 MG/ML SYRINGE IVP PRN ×2 (14:56→18:13)
[2016-09-14] MEDS: Acetaminophen/Butalbital/CaffeineTABLET PO PRN (14:56)
--- NOTE | 2016-09-14 15:33 | ECHO - Doppler Report ---
Echocardiogram Name: Isabella Mora Date of Study: 09/14/2016 Date: 1970 Ht: 62.0 in Medical Record#: [id number] Age: 45 Wt: 220.0 lb Gender: Female BSA: 1.99 Order #: [id number] Location: [facility] Room #: 3B12 Reading Physician: Yanna Jones DO Twisting Frame Fixer: Katya Flynn RVT, [facility] Ordering Physician: Pavan Gustafson DO Primary Physician: Alfa Santos MD Indications: Syncope Impressions: LVEF 70%. Indeterminate LV diastolic function. Normal right ventricular size and function. No significant valvular dysfunction. No pulmonary hypertension. Left Ventricular Wall Motion: Rest Echo Findings All wall segments showed normal motion. Findings: Study Quality * Technically adequate exam. ECG Findings * Sinus tachycardia. Left Ventricle * Indeterminate diastolic function. * Normal LV chamber size, wall thickness and function. * LVEF 70%. Aortic Valve * Aortic valve not well visualized. * No aortic stenosis. * Trace aortic regurgitation. Mitral Valve * No mitral regurgitation. * Normal mitral valve structure. * No mitral stenosis. Tricuspid Valve * Tricuspid valve not well visualized. * No tricuspid regurgitation. * Estimated RA pressure is 3 mmHg. Pulmonic Valve * Pulmonic valve is not well visualized. * No pulmonic stenosis. * No pulmonic regurgitation. Pulmonary Artery * Pulmonary artery not well visualized. Right Ventricle * Normal right ventricular structure and function. Left Atrium * Normal left atrial size. Right Atrium * Normal right atrial size. IVC * Normal IVC dimensions and inspiratory collapse. Interatrial Septum * Interatrial septum not well evaluated. Pericardium * There is no pericardial effusion present. Aorta * Normally sized aortic root. History Diabetes Measurements: BP: 134/ 85 2D Normal Values IVSd: 1.20 cm 0.6 - 1.0 cm LVIDd: 3.70 cm 3.7 - 5.6 cm LVPWd: 1.20 cm 0.6 - 1.1 cm LVIDs: 2.60 cm 1.5 - 3.6 cm AO: 2.80 cm < 4.0 cm LA: 2.70 cm 2.0 - 4.0cm %FS: 29.70 cm >25 % LA volume: 27 Mitral Valve Dec Time:222.00 msec Peak E:.81 m/sec Peak A:1.11 m/sec E/A Ratio:0.7 Peak E' Lat Feliciano:12.5 cm/s Peak E' Med Feliciano:8.19 cm/s E/E' Lat Ratio:6.5 E/E' Med Ratio:9.9 Aortic Valve AI pressure Half-time: 273.00 msec Updated by Yanna Jones on 09/14/2016 3:28:49 PM electronically signed on 09/14/2016 3:29:31 PM with status of Final Wall Motion Purcell: 1=Normal, 2=Hypokinesis, 3=Akinesis, 4=Dyskinesis, 5=Aneurysmal, 6=Hyperkinetic, X=Not Visualized (Blank)=Missing
--- NOTE | 2016-09-14 16:13 | Carotid Imaging Report ---
Carotid Duplex Patient Name:Isabella Mora Order Number:[id number] Procedure Date:09/14/2016 Date:1970Age:45 yrs Gender:Female Lt BP:130 / 60 mmHg Location:[facility] Room #: 3B12 Farm Operator:Katya Flynn, RVT, CS Referring MD:Pavan Gustafson DO turbine engineer:Alfa Santos MD Reading MD:Naseem Puga MD Primary Indications:SYNCOPE Risk Factors Yes/No Diabetes Yes Hypertension No Hypercholesterolemia No Smoking Current No Impressions: The right internal carotid artery has a 40-59% stenosis. The left internal carotid artery has a 40-59% stenosis. Recommendations: Risk factor reduction. Follow-up carotid duplex in 1 year. Findings Carotid Duplex: Right: The right proximal common carotid artery has a PSV of 95 cm/s and a EDV of 25 cm/s. The right mid common carotid artery has turbulent flow without plaque with a PSV of 120 cm/s and a EDV of 28 cm/s. The right distal common carotid artery has turbulent flow without plaque with a PSV of 112 cm/s and a EDV of 28 cm/s. The right bifurcation has a PSV of 92 cm/s and a EDV of 18 cm/s. There is 40-59% stenosis in the right proximal internal carotid artery with a PSV of 142 cm/s and a EDV of 23 cm/s. There is 40-59% stenosis in the right mid internal carotid artery with a PSV of 155 cm/s and a EDV of 34 cm/s. The right distal internal carotid artery has a PSV of 107 cm/s and a EDV of 31 cm/s. The right eca has a PSV of 109 cm/s and a EDV of 20 cm/s. The right vertebral artery has a PSV of 55 cm/s and a EDV of 16 cm/s. Left: The left proximal common carotid artery has turbulent flow without plaque with a PSV of 140 cm/s and a EDV of 35 cm/s. The left mid common carotid artery has turbulent flow without plaque with a PSV of 129 cm/s and a EDV of 27 cm/s. The left distal common carotid artery has turbulent flow without plaque with a PSV of 127 cm/s and a EDV of 37 cm/s. The left bifurcation has turbulent flow with plaque with a PSV of 119 cm/s and a EDV of 30 cm/s. There is smooth homogeneous plaque. There is 40-59% stenosis in the left proximal internal carotid artery with a PSV of 142 cm/s and a EDV of 44 cm/s. The left mid internal carotid artery has a PSV of 92 cm/s and a EDV of 38 cm/s. The left distal internal carotid artery has a PSV of 106 cm/s and a EDV of 39 cm/s. The left eca has a PSV of 160 cm/s and a EDV of 30 cm/s. The left vertebral artery has a PSV of 79 cm/s and a EDV of 26 cm/s. Carotid Results Right PSV EDV Assessment Proximal CCA 95 25 Mid CCA 120 28 Distal CCA 112 28 Bifurcation 92 18 Proximal ICA 142 23 40-59% stenosis Mid ICA 155 34 40-59% stenosis Distal ICA 107 31 Normal ECA 109 20 Normal Vertebral Artery 55 16 Normal Left PSV EDV Assessment Proximal CCA 140 35 Mid CCA 129 27 Distal CCA 127 37 Bifurcation 119 30 Proximal ICA 142 44 40-59% stenosis Mid ICA 92 38 Distal ICA 106 39 ECA 160 30 Vertebral Artery 79 26 Normal Ratio's Right ICA/CCA Ratio: 1.29 Left ICA/CCA Ratio: 0.10 Updated by Naseem Puga MD on 09/14/2016 4:07:12 PM electronically signed on 09/14/2016 4:07:26 PM with status of Final
[2016-09-14] MEDS: Ondansetron ODT 4 MG TAB.RAPDIS SL PRN (17:40)
[2016-09-14] MEDS ORDERED: *HR* Promethazine 25 MG/ML VIAL IVP ONE (18:41)
[2016-09-14] MEDS: traZODone 50 MG TABLET PO SCH (20:15)
[2016-09-14] MEDS ORDERED: *HR* LORazepam 1 MG TABLET PO STA (21:02)
[2016-09-15] MEDS: *HR* Morphine 2 MG/ML SYRINGE IVP PRN ×4 (00:03→21:06)
[2016-09-15] MEDS ORDERED: *HR* Promethazine 25 MG/ML VIAL IVP ONE (01:09)
[2016-09-15] MEDS: *HR* LORazepam 2 MG/ML VIAL IVP PRN (01:57)
[2016-09-15] MEDS: Albuterol 2.5 MG/3 ML NEBULIZER IH SCH ×4 (05:02→22:48)
[2016-09-15 05:39] LABS: Basophils % 0.4 %; Eosinophils # 0.1 K/mcL (0.0-0.6); Eosinophils % 0.5 %; Hematocrit 40.5 % (35.3-44.9); Hemoglobin 12.8 g/dL (11.5-15.4); Immature Granulocytes % 0.4 % (0-4); Lymphocytes # 2.5 K/mcL (0.6-4.6); Lymphocytes % 24.5 %; Mean Corpuscular HGB Conc 31.6 g/dL (31.6-35.5); Mean Corpuscular Hemoglobin 29.2 pg (28.0-33.3); Mean Corpuscular Volume 92.5 fL (83.0-100.0); Mean Platelet Volume 9.7 fL (9.4-12.4); Monocytes % 9.4 %; Neutrophils # 6.6 K/mcL (1.6-8.9); Platelet Count 325 K/mcL (140-400); Red Blood Count 4.38 M/mcL (3.82-4.97); Red Cell Distribution Width 13.9 % (11.5-14.5); Segmented Neutrophils % 64.8 %
[2016-09-15 05:58] LABS: BUN/Creatinine Ratio 10 (6-26); Blood Urea Nitrogen 6 mg/dL (7-20); Calcium 8.5 mg/dL (8.6-10.8); Carbon Dioxide 24 mEq/L (19-29); Chloride 107 mEq/L (98-109); Glucose 97 mg/dL (70-99); Osmolality,Calculated 286 (280-300); Potassium 3.9 mEq/L (3.5-4.5); Sodium 139 mEq/L (136-145); eGFR For African Americans > 60 (> 60); eGFR For Non-African Americans > 60 (> 60)
[2016-09-15] MEDS: *HR* Heparin 5,000 UNIT/ML VIAL SQ SCH ×2 (07:24→17:31)
[2016-09-15] MEDS: Insulin LISPRO 300 UNITS/3 ML VIAL SQ SCH ×4 (07:30→20:49)
[2016-09-15] MEDS: *HR* OxyCODONE/APAP 7.5/325 TABLET PO PRN (07:58)
[2016-09-15] MEDS: Aspirin 81 MG TAB.CHEW PO SCH (07:58)
--- NOTE | 2016-09-15 08:44 | Internal Med Progress Note ---
<Naseem Dejesus - Last Filed: 09/15/16 08:41> Date of Encounter: 09/15/16 Time of Encounter: 08:41 - Assessment and plan (1) Syncope Current Visit: Yes Status: Acute Assessment and plan: No further events overnight. I reviewed her telemetry over the past 24 hours. Notable only for some occasional PVCs and sinus tachycardia. MRI revealed no acute findings. TTE and carotids were ordered and are pending. EEG pending. Mild elevation in ESR. Will follow up with results from above testing and also Neurologies input and recommendations. (2) Diabetes Current Visit: Yes Status: Acute Assessment and plan: well controlled with HgA1C of 6.0 continue sliding scale insulin (3) Ankle fracture Current Visit: Yes Status: Acute Assessment and plan: reportedly this past friday. we do not have those images in our system. will attempt to obtain to confirm. She will also need a follow up with an orthopedist as she states she dose not have a follow up appointment. (4) Memory loss Current Visit: Yes Status: Acute Assessment and plan: patient reports ongoing short term memory loss that she states began 7 years ago. (5) Chest wall soft tissue injury Current Visit: Yes Status: Acute Assessment and plan: Ct of the chest reveals some air in the right pectoralis muscle. She has very minimal pain on exam and without crepitus. Possibly from hitting her table? If clinically worsens will consider further investigation however at this time she has very benign clinical findings. (6) Sinus tachycardia Current Visit: Yes Status: Acute Assessment and plan: Likely from anxiety. We will continue to monitor her. (7) DVT prophylaxis Current Visit: Yes Status: Acute Assessment and plan: SQ heparin - Subjective Interval history: No major events overnight. The patient states that she slept well overnight and that she did not have any further "episodes". She states that her headache has improved but not completely resolved. she denies any chest pain or tenderness. She denies any dyspnea. She has no further complaints or concerns at this time. - Constitutional Vitals: Temp Pulse Resp BP Pulse Ox 98.5 F 120 16 159/86 91 L 09/15/16 06:52 09/15/16 06:52 09/15/16 06:52 09/15/16 06:52 09/15/16 06:52 General appearance: Present: cooperative, A&O X 3, morbidly obese, pleasant, no acute distress, answers questions appropriately - Head Head exam: Present: atraumatic, normal inspection, normocephalic - Eye Eye exam: Present: PERRL, conjuntiva pink, sclera anicteric Pupils: Present: PERRL - Neck Neck exam general surgery: Present: supple, trachea midline. Absent: lymphadenopathy - Respiratory Respiratory exam: Present: CTAB. Absent: accessory muscle use, rales, rhonchi, wheezes - Cardiovascular Cardiovascular exam: Present: RRR, +S1, +S2, tachycardia (mild). Absent: diastolic murmur, gallop, rubs, systolic murmur Additional comments: Palpation of the right chest wall reveals no crepitus. She has mild tenderness. She states this is where she hit the table. - GI/Abdominal GI/Abdominal exam: Present: normal bowel sounds, soft, no peritoneal signs. Absent: distended, tenderness Additional comments: obese. striae present. - Extremities Exam Extremities exam: Present: warm, radial pulses palpable and symetrical. Absent : calf tenderness, cyanotic, pedal edema Additional comments: right leg in brace. - Skin Skin exam: Present: dry, intact Internal Medicine: Result - Labs CBC & Chem 7: 09/15/16 05:09 09/15/16 05:09 Labs: Short CBC 09/15/16 Range/Units 05:09 WBC 10.2 (4.3-11.1) K/mcL Hgb 12.8 (11.5-15.4) g/dL Hct 40.5 (35.3-44.9) % Plt Count 325 (140-400) K/mcL Neutrophils # 6.6 (1.6-8.9) K/mcL BMP 09/15/16 05:09 Sodium 139 Potassium 3.9 Chloride 107 Carbon Dioxide 24 BUN 6 L Creatinine 0.60 Glucose 97 Calcium 8.5 L - ABG Interpretation ABG results: PT/INR, D-dimer PT 11.4 Seconds (9.4-12.1) 09/13/16 23:24 - Impressions Impressions Brain MRI 09/14/16 04:42 IMPRESSION: 1. There are a few scattered nonspecific white matter lesions noted supratentorially. These are likely related to minimal chronic microvascular white matter ischemic disease. Other etiologies could include vasculitis and migraine headaches. 2. No evidence of acute infarct or intracranial mass. D/ / 09/14/2016 10:10:32 Alvarado Umanzor MD / zachary Interpreting Provider: Alvarado Umanzor MD Chest CTA 09/15/16 00:00 IMPRESSION: 1. No definite scan evidence for pulmonary embolus. 2. Soft tissue gas and inflammatory changes surrounding the right pectoralis musculature. D/ / Paul Beltran MD / Paul Beltran MD Interpreting Provider: Paul Beltran MD - VTE Documentation of Mechanical Device: Graduated compression elastic hosiery Consult Discharge Plan - Plan Referrals: Alfa Santos MD [Primary Care Provider] - <Thierry Bingham - Last Filed: 09/15/16 09:51> Date of Encounter: 09/15/16 - Constitutional Vitals: Temp Pulse Resp BP Pulse Ox 98.5 F 120 16 159/86 91 L 09/15/16 06:52 09/15/16 06:52 09/15/16 06:52 09/15/16 06:52 09/15/16 06:52 Internal Medicine: Result - Labs CBC & Chem 7: 09/15/16 05:09 09/15/16 05:09 Labs: Short CBC 09/15/16 Range/Units 05:09 WBC 10.2 (4.3-11.1) K/mcL Hgb 12.8 (11.5-15.4) g/dL Hct 40.5 (35.3-44.9) % Plt Count 325 (140-400) K/mcL Neutrophils # 6.6 (1.6-8.9) K/mcL BMP 09/15/16 05:09 Sodium 139 Potassium 3.9 Chloride 107 Carbon Dioxide 24 BUN 6 L Creatinine 0.60 Glucose 97 Calcium 8.5 L - ABG Interpretation ABG results: PT/INR, D-dimer PT 11.4 Seconds (9.4-12.1) 09/13/16 23:24 - Impressions Impressions Brain MRI 09/14/16 04:42 IMPRESSION: 1. There are a few scattered nonspecific white matter lesions noted supratentorially. These are likely related to minimal chronic microvascular white matter ischemic disease. Other etiologies could include vasculitis and migraine headaches. 2. No evidence of acute infarct or intracranial mass. D/ / 09/14/2016 10:10:32 Alvarado Umanzor MD / zachary Interpreting Provider: Alvarado Umanzor MD Chest CTA 09/15/16 00:00 IMPRESSION: 1. No definite scan evidence for pulmonary embolus. 2. Soft tissue gas and inflammatory changes surrounding the right pectoralis musculature. D/ / Paul Beltran MD / Paul Beltran MD Interpreting Provider: Paul Beltran MD - Attending Attestation repeat ua start Rocephin for possible UTI ( no clear source for tachycardia) I examined this patient and my medical decision-making was reviewed with the GEOGRAPHY PROFESSOR/PA/Advanced Practice Nurse/Resident Physician. I agree with the documented findings, disposition and treatment plan as described except to the extent set forth below.
[2016-09-15 10:21] LABS: Bilirubin,Urine Negative (Negative); Blood,Urine Negative (Negative); Clarity,Urine Cloudy (Clear); Color,Urine Yellow (Yellow); Glucose,Urine (UA) Normal (Normal); Ketones,Urine Negative (Negative); Leukocyte Esterase,Urine Small (Negative); Nitrite,Urine Positive (Negative); PH,Urine 6.5 pH Units (5.0-8.0); Protein,Urine Negative (Neg-Trace); Specific Gravity,Urine > 1.030 (1.010-1.025); Urobilinogen,Urine Normal (Normal)
[2016-09-15 10:23] LABS: Bacteria,Urine Many per hpf (None-Few); Hyaline Casts,Urine None Seen per lpf (None-Few); RBC,Urine 0-3 per hpf (0-3); Squamous Epithelial Cell,Urine Moderate per lpf (None-Few); WBC,Urine 15-30 per hpf (0-3)
--- NOTE | 2016-09-15 13:49 | Neurology - Consult Note ---
Date of Encounter: 09/15/16 Time of Encounter: 13:42 Assessment and Plan (1) Syncope Current Visit: Yes Status: Acute At this juncture a primary neurologic etiology to explain this presentation particularly going back over the last 3 years is doubtful. She has had a previous EEG which was negative, and generally speaking a central nervous system etiology for syncope in most cases is rare. Certainly she has had hypotensive readings around the time of admission which may be contributory. I am also doubtful that she has epilepsy. It would be unusual to develop recurrent seizure in mid-life without an easily identifiable cause. Her neuroimaging, EEG and neurologic exam are normal. I do not recommend starting AED's at this time. Polypharmacy may be contributing as well. I will interpret her EEG tomorrow. Psychogenic etiologies are likely contributing. Qualifiers: Qualified Code(s): R55 - Syncope and collapse History of Present Illness HPI: Ms. Mora is a 45 year old female who is being seen for neurologic consultation regarding ongoing spells of altered consciusness and intractable headaches. I' ve seen her multiple times in 2016 as an outpatient for treatment of her headachs which were ultimately unresponsive even to Botox. She was seen by Dr. Jimenes in 2014 for syncope. EEG in 2016 was normal. She has apparently been having more episodes of abrupt altered consciousness without a clear cause. MRI of the brain reveals a few scattered punctate white matter hyperintensities, common in migraineurs. She is currently awake and alert in NAD. She was reported to have been hypotensive with a systolic of 70 which may certainly have cause an episode of syncope. She is on multiple different meds, owning to polypharmacy. EEG is pending. Urine was positive for nitrites, small amount of leukocyte esterase and bacteria were present. Perhaps a UTI may be contributing. Past Med Surg Social Fam HX - Past Medical History Medical history: diabetes, kidney stones, migraine Psychiatric history: anxiety, depression, PTSD - Past Surgical History Surgical History: cholecystectomy, orthopedic, other, other (gastric bypass surgery) - Social History Smoking Status: Never smoker Smokeless Tobacco Status: No Alcohol use: none Drug use: none - Family History Maternal Grandmother Living Status: Hx Family Endocrine Disorder: Yes Mother Adopted: Yes Living Status: Hx Family Cancer: Yes (Liver cancer and hepatitis.) Medications and Allergies Duloxetine [Cymbalta] 30 mg PO DAILY 04/05/15 [History] Exenatide Microspheres [Bydureon] 2 mg SQ QWEEK 04/05/15 [History] FLUoxetine HCl [Fluoxetine HCl] 60 mg PO QAM 04/05/15 [History] Gabapentin [Neurontin] 300 mg PO HS 04/05/15 [History] Loratadine [Claritin] 10 mg PO DAILY PRN 04/05/15 [History] Naratriptan HCl [Amerge] 2.5 mg PO DAILY PRN 04/05/15 [History] Ondansetron HCl [Zofran] 4 - 8 mg PO Q8H PRN 04/05/15 [History] Ropinirole [Requip] 1 mg PO HS 04/05/15 [History] Promethazine [Phenergan] 25 mg PO Q6HR PRN #16 tablet 02/24/16 [Rx] Cyanocobalamin (Vitamin B-12) [Vitamin B-12] 1,000 mcg IM QMONTH #12 mls [Rx] Albuterol Neb [Proventil Neb] 2.5 mg IH QID PRN 05/30/16 [History] Amitriptyline [Elavil] 50 mg PO HS 05/30/16 [History] Fluticasone Propionate Nasal [Flonase] 50 mcg NS DAILY 05/30/16 [History] Oxycodone HCl/Acetaminophen [Percocet 7.5-325 mg Tablet] 1 tab PO TID PRN [History] Tizanidine HCl [Zanaflex] 4 mg PO TID PRN 05/30/16 [History] Bisacodyl [Dulcolax] 5 mg PO DAILY PRN #20 tablet 06/05/16 [Rx] Docusate [Colace] 100 mg PO BID #30 capsule 06/05/16 [Rx] Escitalopram [Lexapro] 10 mg PO DAILY 09/14/16 [History] Rizatriptan Benzoate [Rizatriptan] 10 mg PO AD PRN 09/14/16 [History] Topiramate [Topamax] 25 mg PO HS 09/14/16 [History] Allergies Hydromorphone [From Dilaudid] Allergy (Severe, Verified 09/14/16 14:43) Anaphylaxis sumatriptan [From Imitrex] Allergy (Severe, Verified 09/14/16 14:43) Anaphylaxis adhesive tape Allergy (Verified 09/14/16 14:43) Rash ziconotide [From Prialt] Adverse Reaction (Verified 09/14/16 14:43) Hallucinating All Systems: A 10-system review of systems was performed and is negative for pertinent findings except as documented above in the HPI. Review of Systems: 10 point review of systems is consistent with a history of present illness and otherwise negative. Physical Examination - Vital Signs Vital Signs: Initial Vital Signs Temp Pulse Resp BP Pulse Ox 97.5 F L 77 20 98/70 97 09/13/16 22:40 09/13/16 22:40 09/13/16 22:40 09/13/16 22:40 09/13/16 22:40 - Exam Exam: Mental status exam finds that the patient was sleeping when I entered the room she is easily arousable to voice. She does recognize me as I have seen her multiple times in the outpatient setting. She is currently alert and oriented 3. No agnosia, aphasia, or apraxia are present. She follows commands and answers questions appropriately. Cranial nerve examination-pupils are equal and reactive to light and accommodation, extraocular motility is intact, sensory to face is intact, mastication is intact, there is no facial asymmetry, speech is not dysarthric. Hearing was intact symmetrically. Soft palate elevates bilaterally upon phonation. Tongue protrudes midline. Cerebellar exam-no dysdiadochokinesis or dysmetria. She performs finger-to- nose and [id number] without ataxia. I did not assess her gait. Motor exam-she does have diffuse weakness of the upper and lower extremities throughout. However she has normal bulk and tone throughout. No involuntary movements or atrophy are present. She does have an ankle support brace on the right ankle. Sensory exam-light touch and deep touch are globally intact. Deep tendon reflexes-symmetrically of the biceps triceps and brachial radialis and patellar. The left Achilles reflexes 2/4. No long tract signs are identified on her examination. Results - Laboratory Findings CBC and BMP: 09/15/16 05:09 09/15/16 05:09 Abnormal lab findings: Abnormal lab results ESR 52 mm/hr (0-15) H 09/14/16 15:50 BUN 6 mg/dL (7-20) L 09/15/16 05:09 POC Glucose 117 (58-89) H 09/15/16 11:08 Hemoglobin A1c 6.0 % (-5.6) H 09/14/16 04:56 Calcium 8.5 mg/dL (8.6-10.8) L 09/15/16 05:09 Alkaline Phosphatase 128 Units/L (38-126) H 09/14/16 04:56 C-Reactive Protein 5 mg/L (Less than 5) H 09/14/16 04:56 Serum Total Protein 5.9 g/dL (6.0-8.3) L 09/14/16 04:56 Albumin 2.4 g/dL (3.5-5.0) L 09/14/16 04:56 Albumin/Globulin Ratio 0.7 (1.1-2.2) L 09/14/16 04:56 Folate 5.2 ng/mL (7.0-31.4) L 09/14/16 04:56 Urine Clarity Cloudy (Clear) A 09/15/16 10:06 Ur Specific [place] > 1.030 (1.010-1.025) H 09/15/16 10:06 Urine Nitrite Positive (Negative) A 09/15/16 10:06 Ur Leukocyte Esterase Small (Negative) H 09/15/16 10:06 Urine Microscopic WBC 15-30 per hpf (0-3) H 09/15/16 10:06 Ur Squamous Epith Cells Moderate per lpf (None-Few) H 09/15/16 10:06 Urine Bacteria Many per hpf (None-Few) H 09/15/16 10:06 Ur Culture Indicated? YES (NO) A 09/15/16 10:06 Ur Barbiturates Screen Positive ng/mL (Peonya=918) H 09/14/16 01:22 U Benzodiazepines Scrn Positive ng/mL (Xbvdjp=414) H 09/14/16 01:22 Consult Discharge Plan - Plan Referrals: Alfa Santos MD [Primary Care Provider] -
[2016-09-15] MEDS: *HR* OxyCODONE Immed Rel 5 MG TABLET PO PRN (13:59)
[2016-09-15] MEDS: *HR* Promethazine 25 MG/ML VIAL IVP PRN ×2 (14:12→20:32)
[2016-09-15] MEDS: traZODone 50 MG TABLET PO SCH (20:32)
[2016-09-16] MEDS: *HR* Morphine 2 MG/ML SYRINGE IVP PRN (03:24)
[2016-09-16] MEDS: *HR* LORazepam 2 MG/ML VIAL IVP PRN ×2 (03:25→11:46)
[2016-09-16] MEDS: Albuterol 2.5 MG/3 ML NEBULIZER IH SCH ×4 (04:35→23:08)
[2016-09-16 05:51] LABS: Hematocrit 42.6 % (35.3-44.9); Hemoglobin 13.3 g/dL (11.5-15.4); Mean Corpuscular HGB Conc 31.2 g/dL (31.6-35.5); Mean Corpuscular Hemoglobin 28.9 pg (28.0-33.3); Mean Corpuscular Volume 92.6 fL (83.0-100.0); Platelet Count 312 K/mcL (140-400); Red Cell Distribution Width 13.7 % (11.5-14.5)
[2016-09-16 06:05] LABS: BUN/Creatinine Ratio 7 (6-26); Calcium 8.9 mg/dL (8.6-10.8); Carbon Dioxide 25 mEq/L (19-29); Chloride 104 mEq/L (98-109); Glucose 134 mg/dL (70-99); Osmolality,Calculated 285 (280-300); Potassium 4.1 mEq/L (3.5-4.5); Sodium 138 mEq/L (136-145); eGFR For African Americans > 60 (> 60); eGFR For Non-African Americans > 60 (> 60)
[2016-09-16 06:08] LABS: Blood Urea Nitrogen 5 mg/dL (7-20)
[2016-09-16] MEDS: *HR* Heparin 5,000 UNIT/ML VIAL SQ SCH ×2 (06:20→16:59)
[2016-09-16] MEDS: *HR* Promethazine 25 MG/ML VIAL IVP PRN (06:27)
[2016-09-16] MEDS: Aspirin 81 MG TAB.CHEW PO SCH (08:14)
[2016-09-16] MEDS: *HR* OxyCODONE/APAP 7.5/325 TABLET PO PRN ×2 (08:14→18:34)
[2016-09-16] MEDS: Insulin LISPRO 300 UNITS/3 ML VIAL SQ SCH ×4 (08:15→22:57)
[2016-09-16] MEDS ORDERED: CefTRIAXone 1,000 MG VIAL ONE (10:35)
--- NOTE | 2016-09-16 11:44 | Internal Med Progress Note ---
<Ivana Mejia - Last Filed: 09/16/16 13:22> Date of Encounter: 09/16/16 Time of Encounter: 11:42 - Assessment and plan (1) Syncope Current Visit: Yes Status: Acute Assessment and plan: No further events overnight. I reviewed her telemetry over the past 24 hours. Notable only for some occasional PVCs and sinus tachycardia. MRI revealed no acute findings. ECHO LVEF 70%, indetermnate diastolic dysfunctin, normal valvular function Carotid US, pending. EEG pending. Mild elevation in ESR. Will follow up with results from above testing and also Neurologies input and recommendations. Qualifiers: Syncope type: unspecified Qualified Code(s): R55 - Syncope and collapse (2) Migraine Current Visit: Yes Status: Acute (3) Memory loss Current Visit: Yes Status: Acute Assessment and plan: patient reports ongoing short term memory loss that she states began 7 years ago. (4) Sinus tachycardia Current Visit: Yes Status: Acute Assessment and plan: Likely from anxiety. We will continue to monitor her. (5) Ankle fracture Current Visit: Yes Status: Acute Assessment and plan: Records requested from [facility] Qualifiers: Laterality: right Qualified Code(s): S82.891A - Other fracture of right lower leg, initial encounter for closed fracture (6) Diabetes Current Visit: Yes Status: Acute (7) DVT prophylaxis Current Visit: Yes Status: Acute Assessment and plan: SQ heparin - Time Spent With Patient 25 - 35 minutes (including time with patient and coordination of care) - Subjective Interval history: Patient is complaining of headache at this time. Headache is located in frontal scalp. Despite treatment with morphine, the headache persists. She states that she gets migraines on a daily basis. She denies any chest pain, dyspnea, abdominal pain, nausea, vomiting, diarrhea, constipation. - Constitutional Vitals: Temp Pulse Resp BP Pulse Ox 98.2 F 122 20 155/95 96 09/16/16 07:58 09/16/16 07:58 09/16/16 07:58 09/16/16 07:58 09/16/16 08:37 General appearance: Present: cooperative, disheveled, A&O X 3, morbidly obese, pleasant, no acute distress, answers questions appropriately - Head Head exam: Present: atraumatic, normocephalic - Eye Eye exam: Present: EOMI, PERRL, conjuntiva pink, sclera anicteric Pupils: Present: PERRL - Neck Neck exam general surgery: Present: supple, trachea midline - Respiratory Respiratory exam: Present: CTAB. Absent: accessory muscle use, rales, rhonchi, wheezes - Cardiovascular Cardiovascular exam: Present: +S1, +S2, tachycardia (regular rhythm). Absent: diastolic murmur, gallop, rubs, systolic murmur - GI/Abdominal GI/Abdominal exam: Present: normal bowel sounds, soft, no peritoneal signs. Absent: distended - Extremities Exam Extremities exam: Present: warm. Absent: calf tenderness, cyanotic, pedal edema Additional comments: Right foot in boot cast - Neurological Exam Neurological exam: Present: CN II-XII intact, oriented X3, no focal deficits. Absent: pronater drift, facial droop, speech deficit - Skin Skin exam: Present: dry, intact Internal Medicine: Result - Labs CBC & Chem 7: 09/16/16 04:27 09/16/16 04:27 Labs: Short CBC 09/16/16 Range/Units 04:27 WBC 12.4 H (4.3-11.1) K/mcL Hgb 13.3 (11.5-15.4) g/dL Hct 42.6 (35.3-44.9) % Plt Count 312 (140-400) K/mcL BMP 09/16/16 04:27 Sodium 138 Potassium 4.1 Chloride 104 Carbon Dioxide 25 BUN 5 L Creatinine 0.67 Glucose 134 H Calcium 8.9 - ABG Interpretation ABG results: PT/INR, D-dimer PT 11.4 Seconds (9.4-12.1) 09/13/16 23:24 - VTE Documentation of Mechanical Device: Graduated compression elastic hosiery Consult Discharge Plan - Plan Referrals: Alfa Santos MD [Primary Care Provider] - <Thierry Bingham H - Last Filed: 09/16/16 14:25> Date of Encounter: 09/16/16 - Constitutional Vitals: Temp Pulse Resp BP Pulse Ox 97.7 F 126 16 140/64 95 09/16/16 12:28 09/16/16 12:28 09/16/16 12:28 09/16/16 12:28 09/16/16 12:28 Internal Medicine: Result - Labs CBC & Chem 7: 09/16/16 04:27 09/16/16 04:27 Labs: Short CBC 09/16/16 Range/Units 04:27 WBC 12.4 H (4.3-11.1) K/mcL Hgb 13.3 (11.5-15.4) g/dL Hct 42.6 (35.3-44.9) % Plt Count 312 (140-400) K/mcL BMP 09/16/16 04:27 Sodium 138 Potassium 4.1 Chloride 104 Carbon Dioxide 25 BUN 5 L Creatinine 0.67 Glucose 134 H Calcium 8.9 - ABG Interpretation ABG results: PT/INR, D-dimer PT 11.4 Seconds (9.4-12.1) 09/13/16 23:24 - Attending Attestation please read/refer to the progress note written later
[2016-09-16] MEDS: Ondansetron ODT 4 MG TAB.RAPDIS SL PRN (12:39)
--- NOTE | 2016-09-16 13:41 | Internal Med Progress Note ---
Date of Encounter: 09/16/16 Time of Encounter: 13:35 - Time Spent With Patient 1. Syncopal episodes likely secondary to sepsis from urinary tract infection, last culture grew Escherichia coli pansensitive Continue Rocephin IV day 2 Second culture growing gram-negative bacteria, final report pending. Start IV fluids due to dehydration and tachycardia Brain MRI 09/14/16 04:42 IMPRESSION: 1. There are a few scattered nonspecific white matter lesions noted supratentorially. These are likely related to minimal chronic microvascular white matter ischemic disease. Other etiologies could include vasculitis and migraine headaches. 2. No evidence of acute infarct or intracranial mass. Chest CTA 09/15/16 00:00 IMPRESSION: 1. No definite scan evidence for pulmonary embolus. 2. Soft tissue gas and inflammatory changes surrounding the right pectoralis musculature. Was evaluated by neurology, EEG was performed earlier today, final report pending Unlikely seizure disorder 2. Dehydration secondary to sepsis Continue IV fluids 3. Diabetes type 2 well controlled, continue sliding scale 4. Right ankle fracture. Stable continue brace and follow-up as an outpatient. 5. Ct of the chest reveals some air in the right pectoralis muscle. Patient is asymptomatic She has very minimal pain on exam and without crepitus. Possibly from hitting her table? High risk for falling . Greater than 35 minutes - Subjective Interval history: Patient is very sleepy, gets very anxious at times, denies any dysuria but has still tachycardia, denies any abdominal pain, no diarrhea. No fevers, no chest pain or shortness of breath - Constitutional Vitals: Temp Pulse Resp BP Pulse Ox 97.7 F 126 16 140/64 95 09/16/16 12:28 09/16/16 12:28 09/16/16 12:28 09/16/16 12:28 09/16/16 12:28 General appearance: Present: cooperative, disheveled, A&O X 3, morbidly obese, pleasant, no acute distress, answers questions appropriately - Head Head exam: Present: atraumatic, normocephalic - Eye Eye exam: Present: PERRL, conjuntiva pink, sclera anicteric Pupils: Present: PERRL - Neck Neck exam general surgery: Present: supple, trachea midline. Absent: lymphadenopathy - Respiratory Respiratory exam: Present: CTAB. Absent: accessory muscle use, rales, rhonchi, wheezes - Cardiovascular Cardiovascular exam: Present: RRR, +S1, +S2, tachycardia. Absent: diastolic murmur, gallop, rubs, systolic murmur - GI/Abdominal GI/Abdominal exam: Present: normal bowel sounds, soft, no peritoneal signs. Absent: distended, tenderness - Extremities Exam Extremities exam: Present: warm, radial pulses palpable and symetrical. Absent : calf tenderness, cyanotic, pedal edema Additional comments: Right ankle brace - Neurological Exam Neurological exam: Present: CN II-XII intact, oriented X3, no focal deficits. Absent: pronater drift, facial droop, speech deficit - Skin Skin exam: Present: dry, intact Internal Medicine: Result - Labs CBC & Chem 7: 09/16/16 04:27 09/16/16 04:27 Labs: Short CBC 09/16/16 Range/Units 04:27 WBC 12.4 H (4.3-11.1) K/mcL Hgb 13.3 (11.5-15.4) g/dL Hct 42.6 (35.3-44.9) % Plt Count 312 (140-400) K/mcL BMP 09/16/16 04:27 Sodium 138 Potassium 4.1 Chloride 104 Carbon Dioxide 25 BUN 5 L Creatinine 0.67 Glucose 134 H Calcium 8.9 - ABG Interpretation ABG results: PT/INR, D-dimer PT 11.4 Seconds (9.4-12.1) 09/13/16 23:24 - VTE Documentation of Mechanical Device: Graduated compression elastic hosiery Consult Discharge Plan - Plan Referrals: Alfa Santos MD [Primary Care Provider] -
[2016-09-16] MEDS: Acetaminophen/Butalbital/CaffeineTABLET PO PRN ×2 (14:27→23:26)
[2016-09-16] MEDS: 0.9 % Sodium Chloride 1,000 ML IVC SCH (14:48)
--- NOTE | 2016-09-16 15:46 | Electrocardiograph Report ---
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
--- NOTE | 2016-09-16 17:44 | EEG/EMG/Oth Biometrics Report ---
EEG Procedure Report Date of procedure: 09/16/16 EEG Procedure: Routine EEG Procedure Note: This is a report of a 21 channel bipolar and referential montage EEG. The posterior dominant rhythm starts off with mixed theta and beta frequencies of low voltage. This rhythm does not attenuate with eye opening. Patient moves from drowsiness to stage I and stage II sleep is referenced by dropout of posterior dominant rhythm and emergence of vertex activity K complexes and sleep spindles. Frequencies are identified anteriorly during brief periods of wakefulness. Over the subject remains drowsy and in stage II sleep throughout much of the recording. Hyperventilation is not performed due to recording Photic stimulation is performed and produces a symmetric driving response. The EKG rhythm strip reveals sinus tachycardia at 114 bpm. Impressions: This EEG recording is within normal limits. There is no evidence of epileptiform activity identified during this study. During much of the recording the subject is drowsy and in stage II sleep. Comment: Beta frequencies are indeed recognized as a normal variant. They may also however be reflective of a host of metabolic conditions, anxiety, and medication effect. Please correlate clinically. The documentation in the history of HPI and plan were at least partially created by [employer] voice recognition technology by Dr. Rendon. Errors in grammar, wording or other phrases may exist. If errors are found after the documentation signed, they will be addressed individually in the addendum section of this document when appropriate.
[2016-09-16] MEDS ORDERED: Topiramate 25 MG TABLET PO SCH (21:00)
[2016-09-16] MEDS ORDERED: Gabapentin 300 MG CAPSULE PO SCH (21:00)
[2016-09-16] MEDS ORDERED: rOPINIRole 1 MG TABLET PO SCH (21:00)
[2016-09-16] MEDS: traZODone 50 MG TABLET PO SCH (22:54)
[2016-09-17] MEDS: 0.9 % Sodium Chloride 1,000 ML IVC SCH ×2 (01:04→11:05)
[2016-09-17] MEDS: Albuterol 2.5 MG/3 ML NEBULIZER IH SCH ×2 (05:15→10:29)
[2016-09-17] MEDS: *HR* Heparin 5,000 UNIT/ML VIAL SQ SCH (05:37)
--- NOTE | 2016-09-17 06:10 | Electrocardiograph Report ---
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
[2016-09-17] MEDS: Insulin LISPRO 300 UNITS/3 ML VIAL SQ SCH ×2 (06:45→12:04)
[2016-09-17] MEDS: Aspirin 81 MG TAB.CHEW PO SCH (09:48)
[2016-09-17] MEDS: *HR* OxyCODONE Immed Rel 5 MG TABLET PO PRN (09:54)
[2016-09-17 10:53] VITALS: BP 127/81
[2016-09-17] MEDS: *HR* LORazepam 2 MG/ML VIAL IVP PRN (12:04)
[2016-09-17] MEDS: Acetaminophen/Butalbital/CaffeineTABLET PO PRN (13:20)
--- NOTE | 2016-09-17 13:49 | Discharge Summary ---
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 insulin use: without longterm use Qualified Code(s): E11.9 - Type 2 diabetes mellitus without complications (4) UTI (urinary tract infection) Priority: Primary Status: Acute Qualifiers: Urinary tract infection type: acute cystitis Hematuria presence: without hematuria Qualified Code(s): N30.00 - Acute cystitis without hematuria (5) Diabetes Priority: Secondary Status: Chronic Qualifiers: Diabetes mellitus type: type 2 Diabetes mellitus complication status: without complication Diabetes mellitus spa manager/esthetician insulin use: without longterm use Qualified Code(s): E11.9 - Type 2 diabetes mellitus without complications (6) Chest wall soft tissue injury Priority: Secondary Status: Chronic Qualifiers: Encounter type: sequela Qualified Code(s): S29.9XXS - Unspecified injury of thorax, sequela - Discharge Medications Prescriptions: Cefdinir [Omnicef] 300 mg PO BID #8 capsule Home Medications: Duloxetine [Cymbalta] 30 mg PO DAILY 04/05/15 [History] Exenatide Microspheres [Bydureon] 2 mg SQ QWEEK 04/05/15 [History] FLUoxetine HCl [Fluoxetine HCl] 60 mg PO QAM 04/05/15 [History] Gabapentin [Neurontin] 300 mg PO HS 04/05/15 [History] Loratadine [Claritin] 10 mg PO DAILY PRN 04/05/15 [History] Naratriptan HCl [Amerge] 2.5 mg PO DAILY PRN 04/05/15 [History] Ondansetron HCl [Zofran] 4 - 8 mg PO Q8H PRN 04/05/15 [History] Ropinirole [Requip] 1 mg PO HS 04/05/15 [History] Promethazine [Phenergan] 25 mg PO Q6HR PRN #16 tablet 02/24/16 [Rx] Cyanocobalamin (Vitamin B-12) [Vitamin B-12] 1,000 mcg IM QMONTH #12 mls [Rx] Albuterol Neb [Proventil Neb] 2.5 mg IH QID PRN 05/30/16 [History] Amitriptyline [Elavil] 50 mg PO HS 05/30/16 [History] Fluticasone Propionate Nasal [Flonase] 50 mcg NS DAILY 05/30/16 [History] Oxycodone HCl/Acetaminophen [Percocet 7.5-325 mg Tablet] 1 tab PO TID PRN [History] Tizanidine HCl [Zanaflex] 4 mg PO TID PRN 05/30/16 [History] Bisacodyl [Dulcolax] 5 mg PO DAILY PRN #20 tablet 06/05/16 [Rx] Docusate [Colace] 100 mg PO BID #30 capsule 06/05/16 [Rx] Escitalopram [Lexapro] 10 mg PO DAILY 09/14/16 [History] Rizatriptan Benzoate [Rizatriptan] 10 mg PO AD PRN 09/14/16 [History] Topiramate [Topamax] 25 mg PO HS 09/14/16 [History] Cefdinir [Omnicef] 300 mg PO BID #8 capsule 09/17/16 [Rx] Allergies/Adverse Reactions: Allergies Hydromorphone [From Dilaudid] Allergy (Severe, Verified 09/14/16 14:43) Anaphylaxis sumatriptan [From Imitrex] Allergy (Severe, Verified 09/14/16 14:43) Anaphylaxis adhesive tape Allergy (Verified 09/14/16 14:43) Rash ziconotide [From Prialt] Adverse Reaction (Verified 09/14/16 14:43) Hallucinating Date of admission: 09/16/16 17:58 Primary care physician: Alfa Santos MD Discharging clinician: Thiago Broussard Anticipated date of discharge: 09/17/16 - Patient Status Disposition: Home, Self-Care Condition: Fair Functional capacity at discharge: independent ambulation Overall status at discharge: patient is back to baseline - Discharge Instructions Instructions: Cefdinir (By mouth), Syncope (GEN), Diabetes Mellitus Type 2 in Adults, 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 was nearby and witnessed the event. He states that she was only unconscious for a few seconds and when she regained consciousness she was herself and not confused. checked her blood pressure shortly after this episode and states it was 70/40. She denies any tongue bite, incontinence but does complain of headache and mild shortness of breath. She states that these syncopal episodes and left side chest pain began roughly 2 months ago She has a PMH of diabetes, kidney stones, migraine, anxiety, depression, PTSD Physical examination upon admission was remarkable for initial low blood pressure, otherwise unremarkable Etiology is possible orthostatic vs vasovagal vs psychogenic/psychiatric Patient on multiple sedating medications especially psych and opiates She has episodes of tachycardia related to anxiety and possible withdrawal from psych meds while awaiting confrmation of medications from pharmacy Work up included carotid doppler with non-obstructive plaques, Brain MRI and EEG unremarkable for acute events or seizure activity respectively Patient was evaluated by neurology and recommendations were followed Echocardiogram, B12, folate, MMA, TSH levels, A1C all WNL UA showed UTI, with kim-sensitive E.coli Chest CT revealed soft tissue inflammation and gas possibly from trauma as patient had a history of hitting her chest on a chair during fall, no crepitus on exam Patient seen at bedside, no new complains She is stable clinically and is stable to discharge home Of note, patient requesting benzodiazepines and opiates prescriptions to go home with. Patient with drug seeking behaviour On checking OARSS, patient received a prescription for Percocet from her PCP for 30 days, she has been in the hospital since around midnight 09/13. Also, Patient not on any forms of benzodiazepines, but Utox resulted at 0100 revealed NO OPIATES IN URINE, BUT BENZO AND BARBITURATES present Patient will be discharged on oral antibiotics, to follow up with PCP 2/27, medications needs to be titrated down slowly, patient educated Plan of care discussed , verbalized understanding - Time Spent with Patient Total time spent providing and/or coordinating discharge services: Greater than 30 minutes (50 minutes spent reviewing chart, face to face with patient, checking OARSS, prescrptions and documentation) - Constitutional Vitals: Temp Pulse Resp BP Pulse Ox 98.0 F 97 16 127/81 95 09/17/16 10:48 09/17/16 10:48 09/17/16 10:48 09/17/16 10:48 09/17/16 10:48 General appearance: Present: cooperative, disheveled, A&O X 3, morbidly obese, pleasant, no acute distress, answers questions appropriately - Head Head exam: Present: atraumatic, normocephalic - Eye Eye exam: Present: PERRL, conjuntiva pink, sclera anicteric Pupils: Present: PERRL - Neck Neck exam general surgery: Present: supple, trachea midline. Absent: lymphadenopathy - Respiratory Respiratory exam: Present: CTAB. Absent: accessory muscle use, rales, rhonchi, wheezes Additional comments: No chest wall crepitus - Cardiovascular Cardiovascular exam: Present: RRR, +S1, +S2. Absent: diastolic murmur, gallop, rubs, systolic murmur - GI/Abdominal GI/Abdominal exam: Present: normal bowel sounds, soft, no peritoneal signs. Absent: distended, tenderness - Extremities Exam Extremities exam: Present: warm, radial pulses palpable and symetrical. Absent : calf tenderness, cyanotic, pedal edema Additional comments: R ankle in boots - Neurological Exam Neurological exam: Present: CN II-XII intact, oriented X3, no focal deficits. Absent: pronater drift, facial droop, speech deficit - Skin Skin exam: Present: dry, intact - VTE Documentation of Mechanical Device: Graduated compression elastic hosiery
== END 2016-09-17 15:21 | disposition home or self-care (01) | DRG 690 ==
LOC: 3BNU 22:39 → EMEROO 22:39 → SUATTDRO 09-14 03:08 → 3BNU 09-14 03:27 → SUATTDRO 09-16 17:58
PROVIDERS: ADMIT Internal Medicine; ATTEND Internal Medicine

== ENCOUNTER 2016-11-19 16:56 | Observation (INO) ==
[2016-11-19] MEDS ORDERED: 0.9 % Sodium Chloride 1,000 ML IVC ONE ×2 (17:26→19:02)
--- NOTE | 2016-11-19 17:49 | Emergency Department Note ---
Disposition Clinical Impression: UTI (urinary tract infection), Altered mental status Disposition: Admitted As Inpatient Weakness HPI - General Chief complaint: ED Weakness Stated complaint: weak, sluggish Time Seen by Provider: 11/19/16 17:00 Source: patient, family Mode of arrival: wheelchair Limitations: no limitations Nursing Notes Reviewed: Yes Vital Signs Reviewed: Yes - History of Present Illness HPI Narrative: 45 yo F with PMH revios syncopal episodes, gastric bypass, chronic pain, depression, anxiety,c/o generalized weakness and near syncopal episode at about 5 pm today. Pt was sitting at restaurant with family for dinner. At that time pt's states she appeared very pale and developed a "cold clammy sweat and looked like she was going to pass out. . Pt states that she has seemed more confused and "out of it" since almost passing out earlier. Pt states that she has been randomly fainting for the past 6 months. She cannot think of anything related to the episodes. She states she has been worked up several times for her passing out and nothing has been uncovered yet. Pt does admit to some watery diarrhea earlier today, which she has on and off after her gastric bypass. Pt denies confusion, chest pain, palpitations, headache, dizziness, dyspnea, numbness/tingling prior to or after near syncope. Pt did not have LOC or trauma to head or anywhere else. She denies change in medications, nausea, vomiting, blood in stools or urine. Pt Subjective Complaint: generalized weakness/fatigue Onset (ago): minute(s) Duration: intermittent Location: generalized Migration: none Pain Severity: severe Pain Scale: 8 If pain, quality: aching Improves with: none Worsens with: movement, exertion Context: other - Related Data Home Medications Medication Instructions Recorded Confirmed Duloxetine [Cymbalta] 30 mg PO DAILY 04/05/15 11/19/16 Exenatide Microspheres [Bydureon] 2 mg SQ QWEEK 04/05/15 11/19/16 Gabapentin [Neurontin] 300 mg PO HS 04/05/15 11/19/16 Loratadine [Claritin] 10 mg PO DAILY PRN 04/05/15 11/19/16 Naratriptan HCl [Amerge] 2.5 mg PO DAILY PRN 04/05/15 11/19/16 Ondansetron HCl [Zofran] 4 - 8 mg PO Q8H PRN 04/05/15 11/19/16 Ropinirole [Requip] 1 mg PO HS 04/05/15 11/19/16 Albuterol Neb [Proventil Neb] 2.5 mg IH QID PRN 05/30/16 11/19/16 Amitriptyline [Elavil] 50 mg PO HS 05/30/16 11/19/16 Fluticasone Propionate Nasal 50 mcg NS DAILY 05/30/16 11/19/16 [Flonase] Tizanidine HCl [Zanaflex] 4 mg PO TID PRN 05/30/16 11/19/16 Escitalopram [Lexapro] 10 mg PO DAILY 09/14/16 11/19/16 Rizatriptan Benzoate [Rizatriptan] 10 mg PO AD PRN 09/14/16 11/19/16 Topiramate [Topamax] 25 mg PO HS 09/14/16 11/19/16 Acetaminophen/Butalbital/Caffe 1 each PO BID 10/23/16 11/19/16 [Fioricet] Hydroxyzine HCl 25 mg PO TID PRN 10/23/16 11/19/16 Meclizine HCl [Verticalm] 25 mg PO Q6H PRN 10/23/16 11/19/16 Metoclopramide [Reglan] 10 mg PO Q8H 10/23/16 11/19/16 Montelukast [Singulair] 10 mg PO DAILY 10/23/16 11/19/16 Propranolol [Inderal] 20 mg PO BID 10/23/16 11/19/16 Trazodone HCl 300 mg PO HS 10/23/16 11/19/16 Oxycodone HCl/Acetaminophen 1 each PO Q6H PRN 11/19/16 11/19/16 [Percocet 7.5-325 mg Tablet] SUMAtriptan Succinate [Imitrex] 4 mg SQ ONCE PRN 11/19/16 11/19/16 SUMAtriptan [Imitrex] 6 mg SQ ONCE PRN 11/19/16 11/19/16 Previous Rx's Medication Instructions Recorded Promethazine [Phenergan] 25 mg PO Q6HR PRN #16 tablet 02/24/16 Folic Acid 1 mg PO DAILY #30 tablet 10/26/16 Cyanocobalamin (Vitamin B-12) 1,000 mcg IM QMONTH #12 mls 10/29/16 [Vitamin B-12] Allergies Allergy/AdvReac Type Severity Reaction Status Date / Time Hydromorphone [From Dilaudid] Allergy Severe Anaphylaxis Verified 11/19/16 17:11 adhesive tape Allergy Rash Verified 11/19/16 17:11 morphine AdvReac Severe Anaphylaxis Verified 11/20/16 03:19 ziconotide [From Prialt] AdvReac Hallucinati Verified 11/19/16 17:11 ng All systems ED: reviewed and negative except as stated. Constitutional: Reports: weakness. Denies: fever, chills, weight change Eyes: Denies: eye pain, eye discharge, vision change ENT ED: Denies: ear pain, throat pain, dental pain, hearing loss, epistaxis, congestion, dysphagia Cardiovascular: Reports: syncope. Denies: chest pain, palpitations, dyspnea on exertion, orthopnea, edema Respiratory: Denies: cough, dyspnea, wheezes, hemoptysis Gastrointestinal: Reports: diarrhea. Denies: abdominal pain, nausea, vomiting, hematemesis, melena, hematochezia Genitourinary: Denies: urgency, dysuria, frequency, hematuria, discharge Musculoskeletal: Denies: back pain, neck pain Integumentary: Denies: rash, abrasion, lesions Neurological: Reports: weakness, confusion Psychiatric: Reports: anxiety Endocrine: Denies: fatigue Hematological/Lymphatic: Denies: easy bleeding, easy bruising Allergic/Immunologic: Denies: facial swelling, urticaria Past Medical History - Past Medical History Attestation: Yes The following information was validated with the patient. Source: patient, old records reviewed, obtained from family Medical history: Reports: arthritis, asthma, diabetes, fibromyalgia, GERD, hypertension, kidney stones, migraine, osteoporosis, renal disease, syncope, other Surgical history: Reports: cholecystectomy, orthopedic, other (Cervical disc surgery. Spondylolisthesis back surgery.), other (Gastric bypass [place] 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 Absent: tenderness, lymphadenopathy - Chest Chest inspection: Present: normal inspection, symmetric chest wall rise. Absent : tenderness, rash - Respiratory Respiratory exam: Present: normal lung sounds bilaterally. Absent: respiratory distress, wheezes, stridor, accessory muscle use, prolonged expiratory phase - Cardiovascular Cardiovascular exam: Present: regular rate, normal rhythm, normal heart sounds, +S1, +S2 - Abdominal Exam Abdominal exam: Present: soft, Non-Tender, other (superficial burn to RLQ skin) . Absent: tenderness, distention, guarding, rebound, rigidity - Rectal Exam Rectal exam: Present: deferred - Extremities Exam Extremities exam: Present: normal capillary refill, pedal edema (trace). Absent : tenderness, joint swelling, calf tenderness - Back Exam Back exam: Present: full ROM, CVA tenderness (R). Absent: CVA tenderness (L), muscle spasm - Neurological Exam Neurological exam: Present: alert, oriented X3, CN II-XII intact - Psychiatric Psychiatric exam: Present: agitated, anxious - Skin Skin exam: Present: warm, intact, diaphoresis, pallor Course Course Narrative: pt hypotensive and diaphoretic alternates between lethargy and agitation IVF bolus UDS, UA CBC, CMP EKG NSR Vital Signs Temperature 97.7 F 11/19/16 17:05 Pulse Rate 96 11/19/16 17:05 Respiratory Rate 20 11/19/16 17:05 Blood Pressure 86/49 11/19/16 17:05 O2 Sat by Pulse Oximetry 20 11/19/16 17:05 Temperature 97.9 F 11/20/16 07:14 Pulse Rate 79 11/20/16 07:14 Respiratory Rate 16 11/20/16 07:14 Blood Pressure 133/91 11/20/16 07:14 O2 Sat by Pulse Oximetry 95 11/20/16 07:14 Oxygen Delivery Oxygen Delivery Room Air Weakness - MDM Narrative Medical decision making narrative: pt hypotensive,diaphoretic with lethargy and intermittent agitation unclear etiology: electrolyte abnormality, vs bleed, intoxication, withdrawal, anemia, metabolic disturbance EKG NSR glucose 227 hepatic panel, ammonia, CBC, CMP, Mg - Medical Records Medical records reviewed: Yes I reviewed the patient's medical records. - Lab Data Lab results reviewed: Yes I reviewed the patient's lab results. Result diagrams: 11/19/16 17:53 11/19/16 17:53 Lab Results 11/19/16 11/19/16 11/19/16 Range/Units 16:58 17:52 17:52 WBC (4.3-11.1) K/mcL RBC (3.82-4.97) M/mcL Hgb (11.5-15.4) g/dL Hct (35.3-44.9) % MCV (83.0-100.0) fL MCH (28.0-33.3) pg MCHC (31.6-35.5) g/dL RDW (11.5-14.5) % Plt Count (140-400) K/mcL MPV (9.4-12.4) fL Immature Gran % (0-4) % Seg Neutrophils % % Lymphocytes % % Monocytes % % Eosinophils % % Basophils % % Neutrophils # (1.6-8.9) K/mcL Lymphocytes # (0.6-4.6) K/mcL Monocytes # (0.0-1.3) K/mcL Eosinophils # (0.0-0.6) K/mcL Basophils # (0.0-0.2) K/mcL PT (9.4-12.1) Seconds INR APTT (26.0-36.0) Seconds Sodium (136-145) mEq/L Potassium (3.5-4.5) mEq/L Chloride (98-109) mEq/L Carbon Dioxide (19-29) mEq/L BUN (7-20) mg/dL Creatinine (0.57-1.11) mg/dL Est GFR ( Amer) (> 60) Est GFR (Non-Af Amer) (> 60) BUN/Creatinine Ratio (6-26) Glucose (70-99) mg/dL POC Glucose 227 H (58-89) Calculated Osmolality (280-300) Lactic Acid 2.3 H (0.5-2.2) mmol/L Calcium (8.6-10.8) mg/dL Phosphorus (2.3-4.7) mg/dL Magnesium (1.6-2.6) mg/dL Total Bilirubin (0.2-1.2) mg/dL Direct Bilirubin (0.0-0.5) mg/dL Indirect Bilirubin (0.0-1.2) mg/dL AST (5-34) Units/L ALT (0-55) Units/L Alkaline Phosphatase (38-126) Units/L Ammonia 24 (18-72) mcmol/L Troponin I (0-0.03) ng/mL Serum Total Protein (6.0-8.3) g/dL Albumin (3.5-5.0) g/dL Globulin (2.4-3.5) g/dL Albumin/Globulin Ratio (1.1-2.2) TSH (0.350-4.840) mcIU/mL Urine Color (Yellow) Urine Clarity (Clear) Urine pH (5.0-8.0) pH Units Ur Specific [place] (1.010-1.025) Urine Protein (Neg-Trace) mg/dL Urine Glucose (UA) (Normal) mg/dL Urine Ketones (Negative) mg/dL Urine Blood (Negative) Urine Nitrite (Negative) Urine Bilirubin (Negative) Urine Urobilinogen (Normal) mg/dL Ur Leukocyte Esterase (Negative) Urine Microscopic RBC (0-3) per hpf Urine Microscopic WBC (0-3) per hpf Ur Squamous Epith Cells (None-Few) per lpf Calcium Oxalate Crystal Urine Bacteria (None-Few) per hpf Hyaline Casts (None-Few) per lpf Urine Mucus (Few) Urine Opiates Screen (Uoivbs=242) ng/mL Ur Barbiturates Screen (Jdxvah=897) ng/mL Ur Phencyclidine Scrn (Cutoff=25) ng/mL Ur Amphetamines Screen (Wfvoxi=7154) ng/mL U Benzodiazepines Scrn (Kwceno=004) ng/mL Urine Cocaine Screen (Cutoff= 300) ng/mL U Marijuana (THC) Screen (Cutoff = 50) ng/mL Ethyl Alcohol (0-10) mg/dL 11/19/16 11/19/16 11/19/16 Range/Units 17:53 17:53 17:53 WBC 13.0 H (4.3-11.1) K/mcL RBC 3.91 (3.82-4.97) M/mcL Hgb 11.4 L (11.5-15.4) g/dL Hct 36.3 (35.3-44.9) % MCV 92.8 (83.0-100.0) fL MCH 29.2 (28.0-33.3) pg MCHC 31.4 L (31.6-35.5) g/dL RDW 13.2 (11.5-14.5) % Plt Count 317 (140-400) K/mcL MPV 9.4 (9.4-12.4) fL Immature Gran % 0.5 (0-4) % Seg Neutrophils % 71.7 % Lymphocytes % 19.9 % Monocytes % 7.1 % Eosinophils % 0.6 % Basophils % 0.2 % Neutrophils # 9.3 H (1.6-8.9) K/mcL Lymphocytes # 2.6 (0.6-4.6) K/mcL Monocytes # 0.9 (0.0-1.3) K/mcL Eosinophils # 0.1 (0.0-0.6) K/mcL Basophils # 0.0 (0.0-0.2) K/mcL PT 9.9 (9.4-12.1) Seconds INR 0.9 APTT 26.8 (26.0-36.0) Seconds Sodium 140 (136-145) mEq/L Potassium 3.6 (3.5-4.5) mEq/L Chloride 108 (98-109) mEq/L Carbon Dioxide 24 (19-29) mEq/L BUN 13 (7-20) mg/dL Creatinine 0.75 (0.57-1.11) mg/dL Est GFR ( Amer) > 60 (> 60) Est GFR (Non-Af Amer) > 60 (> 60) BUN/Creatinine Ratio 17 (6-26) Glucose 113 H (70-99) mg/dL POC Glucose (58-89) Calculated Osmolality 291 (280-300) Lactic Acid (0.5-2.2) mmol/L Calcium 8.4 L (8.6-10.8) mg/dL Phosphorus 4.0 (2.3-4.7) mg/dL Magnesium 1.5 L (1.6-2.6) mg/dL Total Bilirubin 0.2 (0.2-1.2) mg/dL Direct Bilirubin (0.0-0.5) mg/dL Indirect Bilirubin (0.0-1.2) mg/dL AST 13 (5-34) Units/L ALT 14 (0-55) Units/L Alkaline Phosphatase 144 H (38-126) Units/L Ammonia (18-72) mcmol/L Troponin I (0-0.03) ng/mL Serum Total Protein 6.1 (6.0-8.3) g/dL Albumin 2.4 L (3.5-5.0) g/dL Globulin 3.7 H (2.4-3.5) g/dL Albumin/Globulin Ratio 0.6 L (1.1-2.2) TSH (0.350-4.840) mcIU/mL Urine Color (Yellow) Urine Clarity (Clear) Urine pH (5.0-8.0) pH Units Ur Specific [place] (1.010-1.025) Urine Protein (Neg-Trace) mg/dL Urine Glucose (UA) (Normal) mg/dL Urine Ketones (Negative) mg/dL Urine Blood (Negative) Urine Nitrite (Negative) Urine Bilirubin (Negative) Urine Urobilinogen (Normal) mg/dL Ur Leukocyte Esterase (Negative) Urine Microscopic RBC (0-3) per hpf Urine Microscopic WBC (0-3) per hpf Ur Squamous Epith Cells (None-Few) per lpf Calcium Oxalate Crystal Urine Bacteria (None-Few) per hpf Hyaline Casts (None-Few) per lpf Urine Mucus (Few) Urine Opiates Screen (Qkxjio=538) ng/mL Ur Barbiturates Screen (Hvyxga=859) ng/mL Ur Phencyclidine Scrn (Cutoff=25) ng/mL Ur Amphetamines Screen (Jqmcpq=9049) ng/mL U Benzodiazepines Scrn (Sqjqsf=025) ng/mL Urine Cocaine Screen (Cutoff= 300) ng/mL U Marijuana (THC) Screen (Cutoff = 50) ng/mL Ethyl Alcohol (0-10) mg/dL 11/19/16 11/19/16 11/19/16 Range/Units 17:53 17:53 17:53 WBC (4.3-11.1) K/mcL RBC (3.82-4.97) M/mcL Hgb (11.5-15.4) g/dL Hct (35.3-44.9) % MCV (83.0-100.0) fL MCH (28.0-33.3) pg MCHC (31.6-35.5) g/dL RDW (11.5-14.5) % Plt Count (140-400) K/mcL MPV (9.4-12.4) fL Immature Gran % (0-4) % Seg Neutrophils % % Lymphocytes % % Monocytes % % Eosinophils % % Basophils % % Neutrophils # (1.6-8.9) K/mcL Lymphocytes # (0.6-4.6) K/mcL Monocytes # (0.0-1.3) K/mcL Eosinophils # (0.0-0.6) K/mcL Basophils # (0.0-0.2) K/mcL PT (9.4-12.1) Seconds INR APTT (26.0-36.0) Seconds Sodium (136-145) mEq/L Potassium (3.5-4.5) mEq/L Chloride (98-109) mEq/L Carbon Dioxide (19-29) mEq/L BUN (7-20) mg/dL Creatinine (0.57-1.11) mg/dL Est GFR ( Amer) (> 60) Est GFR (Non-Af Amer) (> 60) BUN/Creatinine Ratio (6-26) Glucose (70-99) mg/dL POC Glucose (58-89) Calculated Osmolality (280-300) Lactic Acid (0.5-2.2) mmol/L Calcium (8.6-10.8) mg/dL Phosphorus (2.3-4.7) mg/dL Magnesium (1.6-2.6) mg/dL Total Bilirubin 0.2 (0.2-1.2) mg/dL Direct Bilirubin 0.1 (0.0-0.5) mg/dL Indirect Bilirubin 0.1 (0.0-1.2) mg/dL AST 13 (5-34) Units/L ALT 13 (0-55) Units/L Alkaline Phosphatase 145 H (38-126) Units/L Ammonia (18-72) mcmol/L Troponin I 0.00 (0-0.03) ng/mL Serum Total Protein 6.2 (6.0-8.3) g/dL Albumin 2.4 L (3.5-5.0) g/dL Globulin 3.8 H (2.4-3.5) g/dL Albumin/Globulin Ratio 0.6 L (1.1-2.2) TSH 1.646 (0.350-4.840) mcIU/mL Urine Color (Yellow) Urine Clarity (Clear) Urine pH (5.0-8.0) pH Units Ur Specific [place] (1.010-1.025) Urine Protein (Neg-Trace) mg/dL Urine Glucose (UA) (Normal) mg/dL Urine Ketones (Negative) mg/dL Urine Blood (Negative) Urine Nitrite (Negative) Urine Bilirubin (Negative) Urine Urobilinogen (Normal) mg/dL Ur Leukocyte Esterase (Negative) Urine Microscopic RBC (0-3) per hpf Urine Microscopic WBC (0-3) per hpf Ur Squamous Epith Cells (None-Few) per lpf Calcium Oxalate Crystal Urine Bacteria (None-Few) per hpf Hyaline Casts (None-Few) per lpf Urine Mucus (Few) Urine Opiates Screen (Kndtto=592) ng/mL Ur Barbiturates Screen (Yryxtf=155) ng/mL Ur Phencyclidine Scrn (Cutoff=25) ng/mL Ur Amphetamines Screen (Apzgrz=1852) ng/mL U Benzodiazepines Scrn (Jigktw=539) ng/mL Urine Cocaine Screen (Cutoff= 300) ng/mL U Marijuana (THC) Screen (Cutoff = 50) ng/mL Ethyl Alcohol < 10 (0-10) mg/dL 11/19/16 11/19/16 Range/Units 18:31 18:33 WBC (4.3-11.1) K/mcL RBC (3.82-4.97) M/mcL Hgb (11.5-15.4) g/dL Hct (35.3-44.9) % MCV (83.0-100.0) fL MCH (28.0-33.3) pg MCHC (31.6-35.5) g/dL RDW (11.5-14.5) % Plt Count (140-400) K/mcL MPV (9.4-12.4) fL Immature Gran % (0-4) % Seg Neutrophils % % Lymphocytes % % Monocytes % % Eosinophils % % Basophils % % Neutrophils # (1.6-8.9) K/mcL Lymphocytes # (0.6-4.6) K/mcL Monocytes # (0.0-1.3) K/mcL Eosinophils # (0.0-0.6) K/mcL Basophils # (0.0-0.2) K/mcL PT (9.4-12.1) Seconds INR APTT (26.0-36.0) Seconds Sodium (136-145) mEq/L Potassium (3.5-4.5) mEq/L Chloride (98-109) mEq/L Carbon Dioxide (19-29) mEq/L BUN (7-20) mg/dL Creatinine (0.57-1.11) mg/dL Est GFR ( Amer) (> 60) Est GFR (Non-Af Amer) (> 60) BUN/Creatinine Ratio (6-26) Glucose (70-99) mg/dL POC Glucose (58-89) Calculated Osmolality (280-300) Lactic Acid (0.5-2.2) mmol/L Calcium (8.6-10.8) mg/dL Phosphorus (2.3-4.7) mg/dL Magnesium (1.6-2.6) mg/dL Total Bilirubin (0.2-1.2) mg/dL Direct Bilirubin (0.0-0.5) mg/dL Indirect Bilirubin (0.0-1.2) mg/dL AST (5-34) Units/L ALT (0-55) Units/L Alkaline Phosphatase (38-126) Units/L Ammonia (18-72) mcmol/L Troponin I (0-0.03) ng/mL Serum Total Protein (6.0-8.3) g/dL Albumin (3.5-5.0) g/dL Globulin (2.4-3.5) g/dL Albumin/Globulin Ratio (1.1-2.2) TSH (0.350-4.840) mcIU/mL Urine Color Yellow (Yellow) Urine Clarity Cloudy A (Clear) Urine pH 5.5 (5.0-8.0) pH Units Ur Specific [place] 1.025 (1.010-1.025) Urine Protein Negative (Neg-Trace) mg/dL Urine Glucose (UA) Normal (Normal) mg/dL Urine Ketones Trace H (Negative) mg/dL Urine Blood Negative (Negative) Urine Nitrite Positive A (Negative) Urine Bilirubin Small H (Negative) Urine Urobilinogen Normal (Normal) mg/dL Ur Leukocyte Esterase Moderate H (Negative) Urine Microscopic RBC 0-3 (0-3) per hpf Urine Microscopic WBC 15-30 H (0-3) per hpf Ur Squamous Epith Cells Many H (None-Few) per lpf Calcium Oxalate Crystal Present Urine Bacteria Many H (None-Few) per hpf Hyaline Casts Moderate H (None-Few) per lpf Urine Mucus Moderate H (Few) Urine Opiates Screen Negative (Oeesvf=712) ng/mL Ur Barbiturates Screen Positive H (Rzsniu=127) ng/mL Ur Phencyclidine Scrn Negative (Cutoff=25) ng/mL Ur Amphetamines Screen Negative (Pkxjyb=4135) ng/mL U Benzodiazepines Scrn Positive H (Xjarjt=190) ng/mL Urine Cocaine Screen Negative (Cutoff= 300) ng/mL U Marijuana (THC) Screen Negative (Cutoff = 50) ng/mL Ethyl Alcohol (0-10) mg/dL - Radiology Data Radiology results reviewed: Yes I reviewed the patient's radiology results. - EKG Data EKG attestation: Yes I reviewed and interpreted this EKG. EKG shows normal: sinus rhythm Rate: normal Rhythm: NSR Interpretation: normal EKG - Core Measures AMI Core Measures Followed: Yes Critical Care Time Critical Care Time: No S.B.A.R. - S.B.A.R. Recommendation: Recommendation based on pending studies, treatments, or consults S.B.A.R. Report Given to: Dr. Lewis S.B.A.R. Repor Time: 19:00 Attestation Statement - Attestation Attestation: I examined this patient and my medical decision-making was reviewed with the SUPERVISOR HISTOLOGY/PA/Advanced Practice Nurse/Resident Physician. I agree with the documented findings, disposition and treatment plan as described except to the extent set forth below. [id number] time with the patient patient comes in with altered mental status acting more tired according the and sluggish. Physical examination the patient arouses but is somnolent. Will obtain lab and imaging. Patient's initial blood pressure was 78 systolic was given a liter fluid with improvement to 101.
[2016-11-19 18:04] LABS: Basophils % 0.2 %; Eosinophils # 0.1 K/mcL (0.0-0.6); Eosinophils % 0.6 %; Hematocrit 36.3 % (35.3-44.9); Hemoglobin 11.4 g/dL (11.5-15.4); Immature Granulocytes % 0.5 % (0-4); Lymphocytes # 2.6 K/mcL (0.6-4.6); Lymphocytes % 19.9 %; Mean Corpuscular HGB Conc 31.4 g/dL (31.6-35.5); Mean Corpuscular Hemoglobin 29.2 pg (28.0-33.3); Mean Corpuscular Volume 92.8 fL (83.0-100.0); Mean Platelet Volume 9.4 fL (9.4-12.4); Monocytes # 0.9 K/mcL (0.0-1.3); Monocytes % 7.1 %; Neutrophils # 9.3 K/mcL (1.6-8.9); Platelet Count 317 K/mcL (140-400); Red Blood Count 3.91 M/mcL (3.82-4.97); Red Cell Distribution Width 13.2 % (11.5-14.5); Segmented Neutrophils % 71.7 %
[2016-11-19 18:11] LABS: INR 0.9; Prothrombin Time 9.9 Seconds (9.4-12.1)
[2016-11-19 18:13] LABS: Activated Partial Thrombo Time 26.8 Seconds (26.0-36.0)
[2016-11-19 18:19] LABS: Alanine Aminotransferase 13 Units/L (0-55); Albumin 2.4 g/dL (3.5-5.0); Albumin/Globulin Ratio 0.6 (1.1-2.2); Alkaline Phosphatase 145 Units/L (38-126); Aspartate Amino Transferase 13 Units/L (5-34); Bilirubin,Direct 0.1 mg/dL (0.0-0.5); Bilirubin,Indirect 0.1 mg/dL (0.0-1.2); Bilirubin,Total 0.2 mg/dL (0.2-1.2); Globulin 3.8 g/dL (2.4-3.5); Total Protein 6.2 g/dL (6.0-8.3)
[2016-11-19 18:20] LABS: Alanine Aminotransferase 14 Units/L (0-55); Albumin 2.4 g/dL (3.5-5.0); Albumin/Globulin Ratio 0.6 (1.1-2.2); Alkaline Phosphatase 144 Units/L (38-126); Aspartate Amino Transferase 13 Units/L (5-34); BUN/Creatinine Ratio 17 (6-26); Bilirubin,Total 0.2 mg/dL (0.2-1.2); Blood Urea Nitrogen 13 mg/dL (7-20); Calcium 8.4 mg/dL (8.6-10.8); Carbon Dioxide 24 mEq/L (19-29); Chloride 108 mEq/L (98-109); Ethanol < 10 mg/dL (0-10); Globulin 3.7 g/dL (2.4-3.5); Glucose 113 mg/dL (70-99); Magnesium 1.5 mg/dL (1.6-2.6); Osmolality,Calculated 291 (280-300); Potassium 3.6 mEq/L (3.5-4.5); Sodium 140 mEq/L (136-145); Total Protein 6.1 g/dL (6.0-8.3); eGFR For African Americans > 60 (> 60); eGFR For Non-African Americans > 60 (> 60)
[2016-11-19 18:39] LABS: Bilirubin,Urine Small (Negative); Blood,Urine Negative (Negative); Clarity,Urine Cloudy (Clear); Color,Urine Yellow (Yellow); Glucose,Urine (UA) Normal (Normal); Ketones,Urine Trace mg/dL (Negative); Leukocyte Esterase,Urine Moderate (Negative); Nitrite,Urine Positive (Negative); PH,Urine 5.5 pH Units (5.0-8.0); Protein,Urine Negative (Neg-Trace); Specific Gravity,Urine 1.025 (1.010-1.025); Urobilinogen,Urine Normal (Normal)
[2016-11-19 18:41] LABS: Bacteria,Urine Many per hpf (None-Few); Squamous Epithelial Cell,Urine Many per lpf (None-Few); WBC,Urine 15-30 per hpf (0-3)
[2016-11-19 18:47] LABS: Amphetamine Screen,Urine Negative ng/mL (Cutoff=1000); Benzodiazepines Screen,Urine Positive ng/mL (Cutoff=200); Cannabinoid Screen,Urine Negative ng/mL (Cutoff = 50); Cocaine Screen,Urine Negative ng/mL (Cutoff= 300); Opiate Screen,Urine Negative ng/mL (Cutoff=300); Phencyclidine Screen,Urine Negative ng/mL (Cutoff=25)
[2016-11-19 18:49] LABS: Barbiturate Screen,Urine Positive ng/mL (Cutoff=200)
[2016-11-19] MEDS ORDERED: 0.9 % Sodium Chloride 1,000 ML ONE (18:57)
[2016-11-19 19:05] LABS: Calcium Oxalate Crystals,Urine Present; Hyaline Casts,Urine Moderate per lpf (None-Few); Mucus,Urine Moderate (Few); RBC,Urine 0-3 per hpf (0-3)
--- NOTE | 2016-11-19 20:07 | Emergency Department Note ---
Disposition Clinical Impression: UTI (urinary tract infection) Qualifiers: Urinary tract infection type: acute cystitis Hematuria presence: without hematuria Qualified Code(s): N30.00 - Acute cystitis without hematuria Altered mental status Qualifiers: Altered mental status type: unspecified Qualified Code(s): R41.82 - Altered mental status, unspecified Disposition: Admitted As Inpatient Time of Disposition: 22:20 Weakness HPI - General Chief complaint: ED Weakness Stated complaint: weak, sluggish Time Seen by Provider: 11/19/16 17:00 Source: patient, family Mode of arrival: wheelchair Limitations: no limitations Nursing Notes Reviewed: Yes Vital Signs Reviewed: Yes - History of Present Illness HPI Narrative: 45 year old female with HX of weakness and fatigue with chills that started today when she was at a restaurant eating. Mikal state that it hit her all of a sudden and she felt increasingly more drowsy and fatigue. Patient states denies fevers, vomitting, chest pain, shortnesss of breath, cold like symptoms. She states that two days ago she did burn herself on the RLQ of her abdomen with a hot kim when she was pulling out a turkey from the oven, however it appears to be healing well and denies any increased drainage. Clive states that she feels a bit more drowsy than from her baseline and attributes this to her many medications she takes. Clive states that she typically has a blood pressure in the 90s and is hardly ever in the 100s systolic. Zain sates that a few days ago her blood presssure droppe dinto the 70s systolic and she appeared increasingly drowsy then as well. NO HX OF CAD, no HX OF PEs, or recent surgeries or cancer. Clive states that she is being worked up for recurrent syncope and has had increased falls in the past and supposedly has a fracture to her leg due to it but is unsure of the fracture type and usually wears a boot but did not today. Clive states she is going to follow up with [facility] for her recent syncopal episodes. But she DID NOT have a syncopal episode today. Pt Subjective Complaint: generalized weakness/fatigue Location: generalized Pain Severity: severe Pain Scale: 8 If pain, quality: aching Improves with: none Worsens with: movement, exertion Context: other - Related Data Home Medications Medication Instructions Recorded Confirmed Duloxetine [Cymbalta] 30 mg PO DAILY 04/05/15 11/19/16 Exenatide Microspheres [Bydureon] 2 mg SQ QWEEK 04/05/15 11/19/16 Gabapentin [Neurontin] 300 mg PO HS 04/05/15 11/19/16 Loratadine [Claritin] 10 mg PO DAILY PRN 04/05/15 11/19/16 Naratriptan HCl [Amerge] 2.5 mg PO DAILY PRN 04/05/15 11/19/16 Ondansetron HCl [Zofran] 4 - 8 mg PO Q8H PRN 04/05/15 11/19/16 Ropinirole [Requip] 1 mg PO HS 04/05/15 11/19/16 Albuterol Neb [Proventil Neb] 2.5 mg IH QID PRN 05/30/16 11/19/16 Amitriptyline [Elavil] 50 mg PO HS 05/30/16 11/19/16 Fluticasone Propionate Nasal 50 mcg NS DAILY 05/30/16 11/19/16 [Flonase] Tizanidine HCl [Zanaflex] 4 mg PO TID PRN 05/30/16 11/19/16 Escitalopram [Lexapro] 10 mg PO DAILY 09/14/16 11/19/16 Rizatriptan Benzoate [Rizatriptan] 10 mg PO AD PRN 09/14/16 11/19/16 Topiramate [Topamax] 25 mg PO HS 09/14/16 11/19/16 Acetaminophen/Butalbital/Caffe 1 each PO BID 10/23/16 11/19/16 [Fioricet] Hydroxyzine HCl 25 mg PO TID PRN 10/23/16 11/19/16 Meclizine HCl [Verticalm] 25 mg PO Q6H PRN 10/23/16 11/19/16 Metoclopramide [Reglan] 10 mg PO Q8H 10/23/16 11/19/16 Montelukast [Singulair] 10 mg PO DAILY 10/23/16 11/19/16 Propranolol [Inderal] 20 mg PO BID 10/23/16 11/19/16 Trazodone HCl 300 mg PO HS 10/23/16 11/19/16 Oxycodone HCl/Acetaminophen 1 each PO Q6H PRN 11/19/16 11/19/16 [Percocet 7.5-325 mg Tablet] SUMAtriptan Succinate [Imitrex] 4 mg SQ ONCE PRN 11/19/16 11/19/16 SUMAtriptan [Imitrex] 6 mg SQ ONCE PRN 11/19/16 11/19/16 Previous Rx's Medication Instructions Recorded Promethazine [Phenergan] 25 mg PO Q6HR PRN #16 tablet 02/24/16 Folic Acid 1 mg PO DAILY #30 tablet 10/26/16 Cyanocobalamin (Vitamin B-12) 1,000 mcg IM QMONTH #12 mls 10/29/16 [Vitamin B-12] Allergies Allergy/AdvReac Type Severity Reaction Status Date / Time Hydromorphone [From Dilaudid] Allergy Severe Anaphylaxis Verified 11/19/16 17:11 adhesive tape Allergy Rash Verified 11/19/16 17:11 morphine AdvReac Severe Anaphylaxis Verified 11/20/16 03:19 ziconotide [From Prialt] AdvReac Hallucinati Verified 11/19/16 17:11 ng Constitutional: Reports: weakness. Denies: fever, chills, weight change Eyes: Denies: eye pain, eye discharge, vision change ENT ED: Denies: ear pain, throat pain, dental pain, hearing loss, epistaxis, congestion, dysphagia Cardiovascular: Reports: syncope. Denies: chest pain, palpitations, dyspnea on exertion, orthopnea, edema Respiratory: Denies: cough, dyspnea, wheezes, hemoptysis Gastrointestinal: Reports: diarrhea. Denies: abdominal pain, nausea, vomiting, hematemesis, melena, hematochezia Genitourinary: Denies: urgency, dysuria, frequency, hematuria, discharge Musculoskeletal: Denies: back pain, neck pain Integumentary: Denies: rash, abrasion, lesions Neurological: Reports: weakness, confusion Psychiatric: Reports: anxiety Endocrine: Denies: fatigue Hematological/Lymphatic: Denies: easy bleeding, easy bruising Allergic/Immunologic: Denies: facial swelling, urticaria Past Medical History - Past Medical History Medical history: Reports: arthritis, asthma, diabetes, fibromyalgia, GERD, hypertension, kidney stones, migraine, osteoporosis, renal disease, syncope, other Surgical history: Reports: cholecystectomy, orthopedic, other (Cervical disc surgery. Spondylolisthesis back surgery.), other (Gastric bypass [place]. Eye surgery.) Psychiatric history: Reports: anxiety, bipolar, depression, PTSD, other [employer] history: Reports: bilateral tubal ligation, other - Social History Smoking Status: Never smoker Smokeless Tobacco Status: No Alcohol use: Reports: rarely Drug use: Reports: none Physical Exam - General Limitations: no limitations General appearance: alert, anxious, lethargic - Head Head exam: atraumatic, normocephalic, normal inspection - Eye Eye exam: Present: normal appearance, PERRL, EOMI - Expanded Eye Exam Pupils: Left: reactive - ENT ENT exam: normal exam, normal oropharynx, mucous membranes moist - Expanded ENT Exam External ear exam: Present: normal external inspection Mouth exam: Present: normal external inspection Teeth exam: Present: normal inspection Throat exam: Present: normal inspection - Neck Neck exam: Present: normal inspection, full ROM, trachea midline - Chest Chest inspection: Present: normal inspection, symmetric chest wall rise - Respiratory Respiratory exam: Present: normal lung sounds bilaterally - Cardiovascular Cardiovascular exam: Present: regular rate, normal rhythm, normal heart sounds - Abdominal Exam Abdominal exam: Present: soft, Non-Tender, other (RLQ superficial burn without signs of infection with flunctuant areas. Erytematous, dried, and crusted. ). Absent: tenderness, distention, guarding, rebound, rigidity - Extremities Exam Extremities exam: Present: normal inspection, full ROM. Absent: tenderness, pedal edema - Expanded Upper Extremity Exam Shoulder exam: Present: normal inspection, full ROM Arm exam: Present: normal inspection, full ROM Elbow exam: Present: normal inspection, full ROM Forearm/Wrist exam: Present: normal inspection, full ROM Hand exam: Present: normal inspection, full ROM Vascular exam: Normal: capillary refill, radial pulse - Expanded Lower Extremity Exam Hip/Pelvis exam: Present: normal inspection, full ROM Upper leg exam: Present: normal inspection, full ROM Knee exam: Present: normal inspection, full ROM Lower leg exam: Present: normal inspection, full ROM Ankle exam: Present: normal inspection, full ROM Foot/toe exam: Present: normal inspection, full ROM Neurovascular/Tendon exam: Absent: motor deficit, sensory deficit, tendon deficit - Back Exam Back exam: Present: normal inspection, full ROM. Absent: tenderness - Neurological Exam Neurological exam: Present: alert, oriented X3 - Expanded Neurological Exam Patient oriented to: Present: person, place, time Speech: Present: fluid speech Cranial nerves: EOM function (II, III, IV, ): Normal, facial sensation (V): Normal, facial palsy (VII): Normal, gag reflex (IX): Normal Cerebellar function: finger to nose: Normal Motor strength - LUE: 4/5 Motor strength - RUE: 4/5 Motor strength - LLE: 4/5 Motor strength - RLE: 4/5 Upper motor neuron exam: jose m neglect: Absent bilaterally, pronator drift: Absent bilaterally Sensory exam upper extremity: light touch: Normal, pin prick: Normal Sensory exam lower extremity: light touch: Normal, pin prick: Normal Coma Scale Eye Opening: Spontaneous Coma Scale Motor Response: Obeys Commands Coma Scale Verbal Response: Oriented Coma Scale Total: 15 - Psychiatric Psychiatric exam: Present: normal affect, normal mood - Skin Skin exam: Present: warm, dry, intact, normal color Course Course Narrative: we will likely admit patinet due to increased fall risk and SIRS with source and likely early sepsis with an elevated lactic acid of 2.3 after 2L of NS. Patinets blood pressure is not 97/60. Rocephin given for therapy. Vital Signs Temperature 97.7 F 11/19/16 17:05 Pulse Rate 96 11/19/16 17:05 Respiratory Rate 20 11/19/16 17:05 Blood Pressure 86/49 11/19/16 17:05 O2 Sat by Pulse Oximetry 20 11/19/16 17:05 Temperature 98.2 F 11/19/16 23:57 Pulse Rate 85 11/19/16 23:57 Respiratory Rate 16 11/19/16 23:57 Blood Pressure 104/63 11/19/16 23:57 O2 Sat by Pulse Oximetry 96 11/20/16 02:25 Oxygen Delivery Oxygen Delivery Room Air Weakness - Lab Data Result diagrams: 11/19/16 17:53 11/19/16 17:53 Lab Results 11/19/16 11/19/16 11/19/16 Range/Units 16:58 17:52 17:52 WBC (4.3-11.1) K/mcL RBC (3.82-4.97) M/mcL Hgb (11.5-15.4) g/dL Hct (35.3-44.9) % MCV (83.0-100.0) fL MCH (28.0-33.3) pg MCHC (31.6-35.5) g/dL RDW (11.5-14.5) % Plt Count (140-400) K/mcL MPV (9.4-12.4) fL Immature Gran % (0-4) % Seg Neutrophils % % Lymphocytes % % Monocytes % % Eosinophils % % Basophils % % Neutrophils # (1.6-8.9) K/mcL Lymphocytes # (0.6-4.6) K/mcL Monocytes # (0.0-1.3) K/mcL Eosinophils # (0.0-0.6) K/mcL Basophils # (0.0-0.2) K/mcL PT (9.4-12.1) Seconds INR APTT (26.0-36.0) Seconds Sodium (136-145) mEq/L Potassium (3.5-4.5) mEq/L Chloride (98-109) mEq/L Carbon Dioxide (19-29) mEq/L BUN (7-20) mg/dL Creatinine (0.57-1.11) mg/dL Est GFR ( Amer) (> 60) Est GFR (Non-Af Amer) (> 60) BUN/Creatinine Ratio (6-26) Glucose (70-99) mg/dL POC Glucose 227 H (58-89) Calculated Osmolality (280-300) Lactic Acid 2.3 H (0.5-2.2) mmol/L Calcium (8.6-10.8) mg/dL Phosphorus (2.3-4.7) mg/dL Magnesium (1.6-2.6) mg/dL Total Bilirubin (0.2-1.2) mg/dL Direct Bilirubin (0.0-0.5) mg/dL Indirect Bilirubin (0.0-1.2) mg/dL AST (5-34) Units/L ALT (0-55) Units/L Alkaline Phosphatase (38-126) Units/L Ammonia 24 (18-72) mcmol/L Troponin I (0-0.03) ng/mL Serum Total Protein (6.0-8.3) g/dL Albumin (3.5-5.0) g/dL Globulin (2.4-3.5) g/dL Albumin/Globulin Ratio (1.1-2.2) TSH (0.350-4.840) mcIU/mL Urine Color (Yellow) Urine Clarity (Clear) Urine pH (5.0-8.0) pH Units Ur Specific [place] (1.010-1.025) Urine Protein (Neg-Trace) mg/dL Urine Glucose (UA) (Normal) mg/dL Urine Ketones (Negative) mg/dL Urine Blood (Negative) Urine Nitrite (Negative) Urine Bilirubin (Negative) Urine Urobilinogen (Normal) mg/dL Ur Leukocyte Esterase (Negative) Urine Microscopic RBC (0-3) per hpf Urine Microscopic WBC (0-3) per hpf Ur Squamous Epith Cells (None-Few) per lpf Calcium Oxalate Crystal Urine Bacteria (None-Few) per hpf Hyaline Casts (None-Few) per lpf Urine Mucus (Few) Urine Opiates Screen (Ibimut=444) ng/mL Ur Barbiturates Screen (Xulefv=559) ng/mL Ur Phencyclidine Scrn (Cutoff=25) ng/mL Ur Amphetamines Screen (Xmxkwg=1068) ng/mL U Benzodiazepines Scrn (Bzwbzm=391) ng/mL Urine Cocaine Screen (Cutoff= 300) ng/mL U Marijuana (THC) Screen (Cutoff = 50) ng/mL Ethyl Alcohol (0-10) mg/dL 11/19/16 11/19/16 11/19/16 Range/Units 17:53 17:53 17:53 WBC 13.0 H (4.3-11.1) K/mcL RBC 3.91 (3.82-4.97) M/mcL Hgb 11.4 L (11.5-15.4) g/dL Hct 36.3 (35.3-44.9) % MCV 92.8 (83.0-100.0) fL MCH 29.2 (28.0-33.3) pg MCHC 31.4 L (31.6-35.5) g/dL RDW 13.2 (11.5-14.5) % Plt Count 317 (140-400) K/mcL MPV 9.4 (9.4-12.4) fL Immature Gran % 0.5 (0-4) % Seg Neutrophils % 71.7 % Lymphocytes % 19.9 % Monocytes % 7.1 % Eosinophils % 0.6 % Basophils % 0.2 % Neutrophils # 9.3 H (1.6-8.9) K/mcL Lymphocytes # 2.6 (0.6-4.6) K/mcL Monocytes # 0.9 (0.0-1.3) K/mcL Eosinophils # 0.1 (0.0-0.6) K/mcL Basophils # 0.0 (0.0-0.2) K/mcL PT 9.9 (9.4-12.1) Seconds INR 0.9 APTT 26.8 (26.0-36.0) Seconds Sodium 140 (136-145) mEq/L Potassium 3.6 (3.5-4.5) mEq/L Chloride 108 (98-109) mEq/L Carbon Dioxide 24 (19-29) mEq/L BUN 13 (7-20) mg/dL Creatinine 0.75 (0.57-1.11) mg/dL Est GFR ( Amer) > 60 (> 60) Est GFR (Non-Af Amer) > 60 (> 60) BUN/Creatinine Ratio 17 (6-26) Glucose 113 H (70-99) mg/dL POC Glucose (58-89) Calculated Osmolality 291 (280-300) Lactic Acid (0.5-2.2) mmol/L Calcium 8.4 L (8.6-10.8) mg/dL Phosphorus 4.0 (2.3-4.7) mg/dL Magnesium 1.5 L (1.6-2.6) mg/dL Total Bilirubin 0.2 (0.2-1.2) mg/dL Direct Bilirubin (0.0-0.5) mg/dL Indirect Bilirubin (0.0-1.2) mg/dL AST 13 (5-34) Units/L ALT 14 (0-55) Units/L Alkaline Phosphatase 144 H (38-126) Units/L Ammonia (18-72) mcmol/L Troponin I (0-0.03) ng/mL Serum Total Protein 6.1 (6.0-8.3) g/dL Albumin 2.4 L (3.5-5.0) g/dL Globulin 3.7 H (2.4-3.5) g/dL Albumin/Globulin Ratio 0.6 L (1.1-2.2) TSH (0.350-4.840) mcIU/mL Urine Color (Yellow) Urine Clarity (Clear) Urine pH (5.0-8.0) pH Units Ur Specific [place] (1.010-1.025) Urine Protein (Neg-Trace) mg/dL Urine Glucose (UA) (Normal) mg/dL Urine Ketones (Negative) mg/dL Urine Blood (Negative) Urine Nitrite (Negative) Urine Bilirubin (Negative) Urine Urobilinogen (Normal) mg/dL Ur Leukocyte Esterase (Negative) Urine Microscopic RBC (0-3) per hpf Urine Microscopic WBC (0-3) per hpf Ur Squamous Epith Cells (None-Few) per lpf Calcium Oxalate Crystal Urine Bacteria (None-Few) per hpf Hyaline Casts (None-Few) per lpf Urine Mucus (Few) Urine Opiates Screen (Jizled=161) ng/mL Ur Barbiturates Screen (Hhywvz=213) ng/mL Ur Phencyclidine Scrn (Cutoff=25) ng/mL Ur Amphetamines Screen (Nxnlhl=8049) ng/mL U Benzodiazepines Scrn (Dnvdbt=239) ng/mL Urine Cocaine Screen (Cutoff= 300) ng/mL U Marijuana (THC) Screen (Cutoff = 50) ng/mL Ethyl Alcohol (0-10) mg/dL 11/19/16 11/19/16 11/19/16 Range/Units 17:53 17:53 17:53 WBC (4.3-11.1) K/mcL RBC (3.82-4.97) M/mcL Hgb (11.5-15.4) g/dL Hct (35.3-44.9) % MCV (83.0-100.0) fL MCH (28.0-33.3) pg MCHC (31.6-35.5) g/dL RDW (11.5-14.5) % Plt Count (140-400) K/mcL MPV (9.4-12.4) fL Immature Gran % (0-4) % Seg Neutrophils % % Lymphocytes % % Monocytes % % Eosinophils % % Basophils % % Neutrophils # (1.6-8.9) K/mcL Lymphocytes # (0.6-4.6) K/mcL Monocytes # (0.0-1.3) K/mcL Eosinophils # (0.0-0.6) K/mcL Basophils # (0.0-0.2) K/mcL PT (9.4-12.1) Seconds INR APTT (26.0-36.0) Seconds Sodium (136-145) mEq/L Potassium (3.5-4.5) mEq/L Chloride (98-109) mEq/L Carbon Dioxide (19-29) mEq/L BUN (7-20) mg/dL Creatinine (0.57-1.11) mg/dL Est GFR ( Amer) (> 60) Est GFR (Non-Af Amer) (> 60) BUN/Creatinine Ratio (6-26) Glucose (70-99) mg/dL POC Glucose (58-89) Calculated Osmolality (280-300) Lactic Acid (0.5-2.2) mmol/L Calcium (8.6-10.8) mg/dL Phosphorus (2.3-4.7) mg/dL Magnesium (1.6-2.6) mg/dL Total Bilirubin 0.2 (0.2-1.2) mg/dL Direct Bilirubin 0.1 (0.0-0.5) mg/dL Indirect Bilirubin 0.1 (0.0-1.2) mg/dL AST 13 (5-34) Units/L ALT 13 (0-55) Units/L Alkaline Phosphatase 145 H (38-126) Units/L Ammonia (18-72) mcmol/L Troponin I 0.00 (0-0.03) ng/mL Serum Total Protein 6.2 (6.0-8.3) g/dL Albumin 2.4 L (3.5-5.0) g/dL Globulin 3.8 H (2.4-3.5) g/dL Albumin/Globulin Ratio 0.6 L (1.1-2.2) TSH 1.646 (0.350-4.840) mcIU/mL Urine Color (Yellow) Urine Clarity (Clear) Urine pH (5.0-8.0) pH Units Ur Specific [place] (1.010-1.025) Urine Protein (Neg-Trace) mg/dL Urine Glucose (UA) (Normal) mg/dL Urine Ketones (Negative) mg/dL Urine Blood (Negative) Urine Nitrite (Negative) Urine Bilirubin (Negative) Urine Urobilinogen (Normal) mg/dL Ur Leukocyte Esterase (Negative) Urine Microscopic RBC (0-3) per hpf Urine Microscopic WBC (0-3) per hpf Ur Squamous Epith Cells (None-Few) per lpf Calcium Oxalate Crystal Urine Bacteria (None-Few) per hpf Hyaline Casts (None-Few) per lpf Urine Mucus (Few) Urine Opiates Screen (Iobwdl=482) ng/mL Ur Barbiturates Screen (Pahxrg=203) ng/mL Ur Phencyclidine Scrn (Cutoff=25) ng/mL Ur Amphetamines Screen ([place]=2368) ng/mL U Benzodiazepines Scrn (Edbhis=843) ng/mL Urine Cocaine Screen (Cutoff= 300) ng/mL U Marijuana (THC) Screen (Cutoff = 50) ng/mL Ethyl Alcohol < 10 (0-10) mg/dL 11/19/16 11/19/16 Range/Units 18:31 18:33 WBC (4.3-11.1) K/mcL RBC (3.82-4.97) M/mcL Hgb (11.5-15.4) g/dL Hct (35.3-44.9) % MCV (83.0-100.0) fL MCH (28.0-33.3) pg MCHC (31.6-35.5) g/dL RDW (11.5-14.5) % Plt Count (140-400) K/mcL MPV (9.4-12.4) fL Immature Gran % (0-4) % Seg Neutrophils % % Lymphocytes % % Monocytes % % Eosinophils % % Basophils % % Neutrophils # (1.6-8.9) K/mcL Lymphocytes # (0.6-4.6) K/mcL Monocytes # (0.0-1.3) K/mcL Eosinophils # (0.0-0.6) K/mcL Basophils # (0.0-0.2) K/mcL PT (9.4-12.1) Seconds INR APTT (26.0-36.0) Seconds Sodium (136-145) mEq/L Potassium (3.5-4.5) mEq/L Chloride (98-109) mEq/L Carbon Dioxide (19-29) mEq/L BUN (7-20) mg/dL Creatinine (0.57-1.11) mg/dL Est GFR ( Amer) (> 60) Est GFR (Non-Af Amer) (> 60) BUN/Creatinine Ratio (6-26) Glucose (70-99) mg/dL POC Glucose (58-89) Calculated Osmolality (280-300) Lactic Acid (0.5-2.2) mmol/L Calcium (8.6-10.8) mg/dL Phosphorus (2.3-4.7) mg/dL Magnesium (1.6-2.6) mg/dL Total Bilirubin (0.2-1.2) mg/dL Direct Bilirubin (0.0-0.5) mg/dL Indirect Bilirubin (0.0-1.2) mg/dL AST (5-34) Units/L ALT (0-55) Units/L Alkaline Phosphatase (38-126) Units/L Ammonia (18-72) mcmol/L Troponin I (0-0.03) ng/mL Serum Total Protein (6.0-8.3) g/dL Albumin (3.5-5.0) g/dL Globulin (2.4-3.5) g/dL Albumin/Globulin Ratio (1.1-2.2) TSH (0.350-4.840) mcIU/mL Urine Color Yellow (Yellow) Urine Clarity Cloudy A (Clear) Urine pH 5.5 (5.0-8.0) pH Units Ur Specific [place] 1.025 (1.010-1.025) Urine Protein Negative (Neg-Trace) mg/dL Urine Glucose (UA) Normal (Normal) mg/dL Urine Ketones Trace H (Negative) mg/dL Urine Blood Negative (Negative) Urine Nitrite Positive A (Negative) Urine Bilirubin Small H (Negative) Urine Urobilinogen Normal (Normal) mg/dL Ur Leukocyte Esterase Moderate H (Negative) Urine Microscopic RBC 0-3 (0-3) per hpf Urine Microscopic WBC 15-30 H (0-3) per hpf Ur Squamous Epith Cells Many H (None-Few) per lpf Calcium Oxalate Crystal Present Urine Bacteria Many H (None-Few) per hpf Hyaline Casts Moderate H (None-Few) per lpf Urine Mucus Moderate H (Few) Urine Opiates Screen Negative (Bgovlq=884) ng/mL Ur Barbiturates Screen Positive H (Ksewpd=764) ng/mL Ur Phencyclidine Scrn Negative (Cutoff=25) ng/mL Ur Amphetamines Screen Negative (Qjqlkn=2201) ng/mL U Benzodiazepines Scrn Positive H (Lpnxkd=662) ng/mL Urine Cocaine Screen Negative (Cutoff= 300) ng/mL U Marijuana (THC) Screen Negative (Cutoff = 50) ng/mL Ethyl Alcohol (0-10) mg/dL - EKG Data EKG attestation: Yes I reviewed and interpreted this EKG. EKG results narrative: NSR with rate of 95. NO STEMI. normal intervals. no old ekg. 1709 Critical Care Time Critical Care Time: Yes Total Critical Care Time: 30 Attestation: The high probability of a clinically significant, sudden or life threatening deterioration of the [] system(s) required my full and direct attention, intervention and personal management. The aggregate critical care time was [30] minutes. This time is in addition to time spent performing reported procedures but includes the following: [X] Data Review and interpretation [X] Patient assessment and monitoring of vital signs [X] Documentation [X] Medication orders and management Attestation Statement - Attestation Attestation: I personally interviewed and examined this patient and my medical decision- making was reviewed with the ED Resident Physician, Dr. Pabon. I agree with the documented findings, disposition and treatment plan as described except to the extent set forth below. She is a 45-year-old white female who was signed out as by Dr. Srinivasan for presentation of generalized weakness and near syncope today. After speaking with the patient at length at bedside patient states that she has been having recurrent syncopal episodes at home for which she has had an exhaustive medical evaluation and found no etiology. Patient states she is actually scheduled for an appointment at the [facility] next week for further testing to determine the cause of these recurrent syncopal episodes. Patient states she even fell approximately a week ago and sustained a proximal fibular head fracture to her left lower extremity secondary to the syncope. Patient states today she and her were at a restaurant she was just feeling generally weak and somewhat chilled and then began to feel worse over the course of the time they were at the restaurant. Patient states that she felt lightheaded and was concerned with her current history of syncope that she may pass out. Patient denies any fevers, no URI sore throat or cough, no diaphoresis, no chest pain shortness of breath, no abdominal pain or flank pain and no urinary symptoms. She is also on a number of sedating medications for anxiety which include barbiturates and benzos which were both found in her drug screen. Prior to my arrival in the department patient had a full lab evaluation and upon review of the lab results patient has a mild leukocytosis with a left shift , urinalysis is positive for UTI and patient's blood pressure has been continuous throughout her ED course. On arrival for Dr. Srinivasan she was hypotensive she received 1 L fluid bolus and had a nice response with a systolic blood pressure of 110. Patient again was hypotensive was given a second liter just prior to my taking over the case at 1900. Patient has had a total of 2 L and were starting a maintenance IV at this time and she still remains hypotensive with a systolic blood pressure at 86. Patient is not tachycardic or febrile. We added a lactate to her laboratory evaluation and this was mildly elevated at 2.3. Point to go ahead and send off the urine for culture and administer IV antibiotics and continue IV fluids for possible early sepsis. Patient at this time is not having any mental status change she is awake alert and oriented 4, GCS of 15 with no focal neurologic deficits on exam. Patient has no complaints of abdominal pain, flank pain, nausea vomiting , or urinary enzymes. I am also concerned with her current state as well as her current nonweightbearing status on her left lower extremity that she is an extreme fall risk and risk for recurrent syncopal episodes at home. Our plan is to admit the patient for ongoing antibiotic therapy and close observation of her blood pressure.
[2016-11-19] MEDS ORDERED: Ondansetron 4 MG/2 ML VIAL IVP ONE (22:39)
[2016-11-20] MEDS: 0.9 % Sodium Chloride 1,000 ML IVC SCH ×3 (01:37→20:15)
[2016-11-20] MEDS ORDERED: Loratadine 10 MG TABLET PO PRN (01:44)
[2016-11-20] MEDS ORDERED: hydrOXYzine pamoate 25 MG CAPSULE PO PRN (01:44)
[2016-11-20] MEDS ORDERED: Albuterol 2.5 MG/3 ML NEBULIZER IH PRN (01:44)
[2016-11-20] MEDS ORDERED: Magnesium Sulfate 2 GM in D5% in Water 100 ML IVPB ONE (02:05)
[2016-11-20] MEDS ORDERED: Calcium Gluconate 1,000 MG in D5% in Water 100 ML IVPB ONE (02:05)
[2016-11-20] MEDS ORDERED: Naloxone 0.4 MG/ML INJ IVP PRN (02:10)
[2016-11-20] MEDS ORDERED: Ketorolac 30 MG/ML VIAL IVP PRN (02:10)
[2016-11-20] MEDS ORDERED: Acetaminophen 325 MG TABLET PO PRN (02:10)
[2016-11-20] MEDS ORDERED: *HR* Promethazine 25 MG/ML VIAL IVP PRN (02:10)
[2016-11-20] MEDS ORDERED: *HR* OxyCODONE Immed Rel 5 MG TABLET PO PRN (02:10)
[2016-11-20] MEDS: *HR* OxyCODONE/APAP 7.5/325 TABLET PO PRN ×3 (02:12→20:48)
--- NOTE | 2016-11-20 02:16 | Internal Med History&Physical ---
Date of Encounter: 11/20/16 Time of Encounter: 02:00 Assessment and Plan (1) UTI (urinary tract infection) Status: Acute . Qualifiers: Urinary tract infection type: acute cystitis Hematuria presence: without hematuria Qualified Code(s): N30.00 - Acute cystitis without hematuria (2) Multiple falls Status: Acute . (3) Generalized weakness Status: Acute . Internal Medicine - H&P: HPI Chief complaint: Frequent falls. UTI. Admitted From: Emergency Dept Plans for Post Hospital Care: Home History of present illness: Ms. Mora is a 45 year old female with history significant of major depression/ anxiety/bipolar, reactive airway disease/asthma, BRISSA?OHS, type II dm, GERD/ gastroparesis, anemia/iron def, RLS, nephrolithiasis, OA/OP, chr pain synd/ postlaminectomy synd, migraine H/As, morbid obesity/bariatric surgery, former smoker, etc.. Patient was admitted to [facility] via the emergency department when she presented following an acute near syncopal episode and mechanical fall reporting generalized weakness and easy fatigability. Repeated falling has recurred for many years this became more frequent in the last 6 months. Today's episode began approximately 5 PM while sitting at a restaurant with family for dinner. Family witnessed her to acutely appear pale developed cold clammy profuse sweating and appears that she might pass out. Cannot relate anything consistent with these episodes. She has undergone multiple evaluations. A definitive cause has not been given. In fact she is scheduled an appointment at the [facility] next week to undergo further testing to determine the cause of these recurrent syncopal/near syncopal episodes. Denied postevent confusion chest pain palpitations or headache dizziness and dyspnea paresthesias or altered mental status. She did not formally have loss of consciousness nor did she suffered trauma with fall. There has not been any significant changes in her medications. She has not experienced any associated fevers chills sweats nausea vomiting diarrhea. Findings in the ED temperature 98.9 pulse 78-96 respirations 16-20 BP 86-101/49- 90 O2 saturation 98% room air. Lactic acid 2.3. Glucose 227. Ammonia 24. WBC 13. Hemoglobin 11.4 platelets 317,000. Differential most increase in neutrophils. PT 9.9 INR 0.9. Comprehensive metabolic panel normal except as 113 osmolality 291. Calcium 8.4 and magnesium 1.5. Alkaline phosphatase 144. Albumin 2.4 TP 6.1. TSH 1.646. Troponin 0.00. Alcohol less than 10. UDS positive for barbiturates and benzodiazepine. Urinalysis trace ketones positive nitrite and small bilirubin moderate leukocyte esterase. 3 RBC. 30 WBC. Many epithelial cells. Calcium oxalate crystals. Many bacteria. Moderate hyalin casts. Moderate mucus. Patient presents today, continue to history of recurring episodes of syncope and near-syncope of unclear etiology. Her history of diabetes mellitus and known gastroparesis may point to an underlying autonomic dysfunction with episodes of postural hypotension or episodes of postural orthostatic tachycardia or vasovagal/neurocardiogenic events. Further evaluation is important. Studies support the presence of urinary tract sediment consistent with infection. The patient is at risk for further clinical decline and morbidity. Workup and treatments will proceed comprehensively. The patient was visited and interviewed and examined. Cumulative laboratory and radiographic data base will be considered and discussed. Pertinent ancillary medical records including ECW and PCI documentation when available was reviewed and considered. Given the patient's presenting concerns, past medical history, clinical findings and symptoms, she is admitted at this time will undergo further evaluation and disposition. Orders were written as per the computerized physician order filler system.......................................................................... .................... Consultative opinions will be sought as clinical circumstances justify. Pain management needs will be addressed. Laboratory+radiographic data base will be updated as appropriate. Studies include: Cultures of blood and urine and sputum, prolactin, pt/inr, aptt, ddimer , UA, UDS, cardiac injury panel, BNP, metabolic and hematologic panel, magnesium, phosphorus, ionized calcium, thyroid panel, lipid profile, A1c, C- peptide, CRP, sedimentation rate, respiratory virus panel, blood gas, lactic acid, cortisol, serologies, etc. Precautions: Aspiration, fall, delirium protocol/surveillance initiated. Telemetry with continuous hemodynamic monitoring and pulse oximetry initiated. Orthostatic vital signs Empiric antibiotic coverage: Intravenous Rocephin pending culture data. Special studies: CT chest, chest x-ray, telemetry, EKG, 2D echo. Pulmonary toilet: Incentive spirometry, aerosol bronchodilator, mucolytic, antitussive, supplemental oxygen. Corticosteroid therapyPRN. CPAP/BiPAP supplemental oxygen delivery employedPRN. Aerosol Mucomyst therapy may be employedPRN. Fluid and electrolyte repletion efforts will proceed. Careful attention to fluid balance and renal recovery will be emphasized. Avoidance of nephrotoxic exposure and adverse drug drug interaction in the setting of impaired renal function will be monitored closely. Acute coronary syndrome protocol/surveillance initiated. DVT and PUD prophylaxis initiated: PPI therapy, intermittent pneumatic cuffs. Subcutaneous heparin/Lovenox. Early ambulation will be encouraged. Immunization updates recommended. Influenza and pneumococcal vaccinations as part of ongoing preventative healthcare recommendations strongly recommended. Smoking cessation counseling briefly addressed. Patient is a former smoker. Advanced care directive discussion briefly addressed. Patient does not declare any healthcare restrictions at this time. Cardiovascular risk appraisal and cardiovascular risk reduction efforts will be emphasized. Physical+occupational therapy asked to evaluate patient's functional capacity and progressive mobility if her circumstances justify. Sliding scale insulin, ADA dietary restraint, scheduled and as needed fingerstick glucose assessments initiated. Nutrition/diabetes education counseling may be considered as circumstances justify. Outpatient medication schedules will be reviewed, confirmed and facilitated as appropriate. Reconciliation of home treatments including adjustments, substitutions and reintroduction into the treatment regimen will address necessary maintenance therapies for chronic pre-existing medical conditions. Plan of care has been reviewed and discussed in detail with the patient. Questions addressed. Hospital course dictated by clinical findings, treatment response and potential consultative interventions. Patient is at risk for further acute clinical decline due to her presenting chief complaints and comorbid conditions. Condition is serious. Prognosis is guarded. CODE STATUS is full. Past Med Surg Social Fam HX - Past Medical History Source: old records reviewed Medical history: arthritis, asthma, diabetes, fibromyalgia, GERD, hypertension, kidney stones, migraine, renal disease (CKD III. Polycsytic ovarian synd.), syncope, other Psychiatric history: anxiety, bipolar, depression, panic disorder, PTSD, other - Past Surgical History Surgical History: , cholecystectomy, orthopedic, other, other, bariatric surgery - Social History Smoking Status: Never smoker Smokeless Tobacco Status: No Alcohol use: rarely, occasionally Drug use: none, unknown Occupational status: unemployed Current living situation: Home, With Family Activity Level: Independent ambulation, Uses cane/walker, Mostly sedentary Recent Out of Country Travel Within the Last 8 Weeks: No Exposure or Possible Exposure to Illness During Travel: No - Family History Maternal Grandmother Living Status: Hx Family Endocrine Disorder: Yes Mother Adopted: Yes Living Status: Cause of : Liver Cancer Hx Family Cardiac Disorders: No Hx Family Cancer: Yes Hx Family Endocrine Disorder: Yes Hx Family Neuromuscular Disorders: Yes Internal Medicine - H&P: Meds Duloxetine [Cymbalta] 30 mg PO DAILY 04/05/15 [History] Exenatide Microspheres [Bydureon] 2 mg SQ QWEEK 04/05/15 [History] Loratadine [Claritin] 10 mg PO DAILY PRN 04/05/15 [History] Ropinirole [Requip] 1 mg PO HS 04/05/15 [History] Albuterol Neb [Proventil Neb] 2.5 mg IH QID PRN 05/30/16 [History] Amitriptyline [Elavil] 50 mg PO HS 05/30/16 [History] Fluticasone Propionate Nasal [Flonase] 50 mcg NS DAILY 05/30/16 [History] Escitalopram [Lexapro] 10 mg PO DAILY 09/14/16 [History] Topiramate [Topamax] 25 mg PO HS 09/14/16 [History] Acetaminophen/Butalbital/Caffe [Fioricet] 1 each PO BID 10/23/16 [History] Hydroxyzine HCl 25 mg PO TID PRN 10/23/16 [History] Trazodone HCl 300 mg PO HS 10/23/16 [History] Folic Acid 1 mg PO DAILY #30 tablet 10/26/16 [Rx] Cyanocobalamin (Vitamin B-12) [Vitamin B-12] 1,000 mcg IM QMONTH #12 mls [Rx] Oxycodone HCl/Acetaminophen [Percocet 7.5-325 mg Tablet] 1 each PO Q6H PRN #10 tablet 11/23/16 [Rx] Allergies Hydromorphone [From Dilaudid] Allergy (Severe, Verified 11/19/16 17:11) Anaphylaxis Pt states "only in high doses. I used to have a pain pump." adhesive tape Allergy (Verified 11/19/16 17:11) Rash morphine Adverse Reaction (Severe, Verified 11/20/16 03:19) Anaphylaxis States allergic to Morphine in "high doses" reports used to have a pain pump that has since been removed. ziconotide [From Prialt] Adverse Reaction (Verified 11/19/16 17:11) Hallucinating All Systems PM: A 10-system review of systems was performed and is negative for pertinent findings except as documented above in the HPI. - Constitutional Constitutional: as per HPI, fatigue, falls, malaise, weakness, other, no chills , no fever(s), no night sweats - EENT Eyes: as per HPI, no change in vision, no discharge, no pain, no photophobia Ears: as per HPI, no ear discharge, no ear pain, no tinnitus Nose, mouth and throat: as per HPI, no dysphagia, no nasal discharge, no neck pain, no sore throat - Cardiovascular Cardiovascular ROS IM: as per HPI, diaphoresis, lightheadedness, syncope, no chest pain, no dyspnea, no palpitations - Respiratory Respiratory: as per HPI, no cough, no dyspnea, no wheezing, no excessive phlegm production - Gastrointestinal Gastrointestinal: as per HPI, no abdominal pain, no diarrhea, no hematemesis, no hematochezia, no melena, no nausea, no vomiting - Genitourinary Genitourinary: as per HPI, no change in urinary stream, no dysuria, no flank pain, no hematuria - Musculoskeletal Musculoskeletal ROS IM: as per HPI, no numbness, no tingling - Integumentary Integumentary IM: as per HPI, no rash, no unusual bruising - Neurological Neurological ROS: as per HPI, no confusion, no convulsions, no focal weakness, no numbness, no tingling, no tremor(s) - Psychiatric Psychiatric: as per HPI - Endocrine Endocrine IM: as per HPI - Hematologic/Lymphatic Hematologic/Lymphatic: as per HPI, no easy bruising - Allergic/Immunologic Allergic/Immunologic: as per HPI - Constitutional Vitals: Temp Pulse Resp BP Pulse Ox 98.2 F 85 16 104/63 94 11/19/16 23:57 11/19/16 23:57 11/19/16 23:57 11/19/16 23:57 11/19/16 23:57 Vital Signs Temp Pulse Resp BP Pulse Ox 11/19/16 23:57 98.2 F 85 16 104/63 94 11/19/16 21:30 15 95/60 11/19/16 19:45 98.9 F 11/19/16 19:37 96.8 F L 78 16 97/63 98 11/19/16 19:03 80 16 86/63 97 11/19/16 18:33 82 16 85/58 96 11/19/16 17:47 88 16 101/90 96 11/19/16 17:31 90 16 78/59 95 11/19/16 17:05 97.7 F 96 20 86/49 20 Intake and Output 11/19/16 11/19/16 11/20/16 15:59 23:59 07:59 Intake Total 1999 Balance 1999 Intake: IV Fluids 1999 0.9 % Sodium Chloride 1, 1000 / 1000 000 ML As .ROUTE .STK-MED ONE Rx#:[id number] 0.9 % Sodium Chloride 1, 1000 / 1000 000 ML @ 3750 mls/hr IVC .Q16M ONE Rx#:[id number] Other: Weight 102.2 kg Blood Glucose* 134 General appearance: Present: mild distress, A&O X 3, morbidly obese, answers questions appropriately - Head Head exam: Present: atraumatic, normocephalic - Eye Eye exam: Present: EOMI, PERRL, conjuntiva pink, sclera anicteric Pupils: Present: normal accommodation, PERRL - ENT ENT exam: Present: mucous membranes moist, normal oropharynx - Neck Neck exam general surgery: Present: supple, trachea midline. Absent: lymphadenopathy - Respiratory Respiratory exam: Present: decreased breath sounds, CTAB. Absent: accessory muscle use, rales, rhonchi, wheezes - Cardiovascular Cardiovascular exam: Present: distant heart sounds, RRR, +S1, +S2. Absent: diastolic murmur, gallop, rubs, systolic murmur - GI/Abdominal GI/Abdominal exam: Present: normal bowel sounds, soft, no peritoneal signs. Absent: distended, tenderness - Extremities Exam Extremities exam: Present: full ROM, warm, radial pulses palpable and symetrical. Absent: calf tenderness, cyanotic, pedal edema - Neurological Exam Neurological exam: Present: alert, CN II-XII intact, oriented X3, no focal deficits. Absent: pronater drift, facial droop, speech deficit - Psychiatric Psychiatric exam: Present: normal affect, normal mood - Skin Skin exam: Present: dry, intact Internal Med - H&P Results - Labs CBC & Chem 7: 11/23/16 05:41 11/23/16 05:41 Labs: Short CBC 11/19/16 Range/Units 17:53 WBC 13.0 H (4.3-11.1) K/mcL Hgb 11.4 L (11.5-15.4) g/dL Hct 36.3 (35.3-44.9) % Plt Count 317 (140-400) K/mcL Neutrophils # 9.3 H (1.6-8.9) K/mcL BMP 11/19/16 Range/Units 17:53 Sodium 140 (136-145) mEq/L Potassium 3.6 (3.5-4.5) mEq/L Chloride 108 (98-109) mEq/L Carbon Dioxide 24 (19-29) mEq/L BUN 13 (7-20) mg/dL Creatinine 0.75 (0.57-1.11) mg/dL Glucose 113 H (70-99) mg/dL Calcium 8.4 L (8.6-10.8) mg/dL Cardiac Enzymes 11/19/16 Range/Units 17:53 Troponin I 0.00 (0-0.03) ng/mL Liver Function 11/19/16 11/19/16 Range/Units 17:53 17:53 Total Bilirubin 0.2 0.2 (0.2-1.2) mg/dL Direct Bilirubin 0.1 (0.0-0.5) mg/dL AST 13 13 (5-34) Units/L ALT 13 14 (0-55) Units/L Alkaline Phosphatase 145 H 144 H (38-126) Units/L Albumin 2.4 L 2.4 L (3.5-5.0) g/dL Urine 11/19/16 Range/Units 18:33 Urine Color Yellow (Yellow) Urine Clarity Cloudy A (Clear) Urine pH 5.5 (5.0-8.0) pH Units Ur Specific [place] 1.025 (1.010-1.025) Urine Protein Negative (Neg-Trace) mg/dL Urine Glucose (UA) Normal (Normal) mg/dL Abnormal lab results WBC 13.0 K/mcL (4.3-11.1) H 11/19/16 17:53 Hgb 11.4 g/dL (11.5-15.4) L 11/19/16 17:53 MCHC 31.4 g/dL (31.6-35.5) L 11/19/16 17:53 Neutrophils # 9.3 K/mcL (1.6-8.9) H 11/19/16 17:53 Glucose 113 mg/dL (70-99) H 11/19/16 17:53 POC Glucose 227 (58-89) H 11/19/16 16:58 Lactic Acid 2.3 mmol/L (0.5-2.2) H 11/19/16 17:52 Calcium 8.4 mg/dL (8.6-10.8) L 11/19/16 17:53 Magnesium 1.5 mg/dL (1.6-2.6) L 11/19/16 17:53 Alkaline Phosphatase 144 Units/L (38-126) H 11/19/16 17:53 Albumin 2.4 g/dL (3.5-5.0) L 11/19/16 17:53 Globulin 3.7 g/dL (2.4-3.5) H 11/19/16 17:53 Albumin/Globulin Ratio 0.6 (1.1-2.2) L 11/19/16 17:53 Urine Clarity Cloudy (Clear) A 11/19/16 18:33 Urine Ketones Trace mg/dL (Negative) H 11/19/16 18:33 Urine Nitrite Positive (Negative) A 11/19/16 18:33 Urine Bilirubin Small (Negative) H 11/19/16 18:33 Ur Leukocyte Esterase Moderate (Negative) H 11/19/16 18:33 Urine Microscopic WBC 15-30 per hpf (0-3) H 11/19/16 18:33 Ur Squamous Epith Cells Many per lpf (None-Few) H 11/19/16 18:33 Urine Bacteria Many per hpf (None-Few) H 11/19/16 18:33 Hyaline Casts Moderate per lpf (None-Few) H 11/19/16 18:33 Urine Mucus Moderate (Few) H 11/19/16 18:33 Ur Barbiturates Screen Positive ng/mL (Nywddv=372) H 11/19/16 18:31 U Benzodiazepines Scrn Positive ng/mL (Magpjd=930) H 11/19/16 18:31 Laboratory Results WBC 13.0 K/mcL (4.3-11.1) H 11/19/16 17:53 RBC 3.91 M/mcL (3.82-4.97) 11/19/16 17:53 Hgb 11.4 g/dL (11.5-15.4) L 11/19/16 17:53 Hct 36.3 % (35.3-44.9) 11/19/16 17:53 MCV 92.8 fL (83.0-100.0) 11/19/16 17:53 MCH 29.2 pg (28.0-33.3) 11/19/16 17:53 MCHC 31.4 g/dL (31.6-35.5) L 11/19/16 17:53 RDW 13.2 % (11.5-14.5) 11/19/16 17:53 Plt Count 317 K/mcL (140-400) 11/19/16 17:53 MPV 9.4 fL (9.4-12.4) 11/19/16 17:53 Immature Gran % 0.5 % (0-4) 11/19/16 17:53 Seg Neutrophils % 71.7 % 11/19/16 17:53 Lymphocytes % 19.9 % 11/19/16 17:53 Monocytes % 7.1 % 11/19/16 17:53 Eosinophils % 0.6 % 11/19/16 17:53 Basophils % 0.2 % 11/19/16 17:53 Neutrophils # 9.3 K/mcL (1.6-8.9) H 11/19/16 17:53 Lymphocytes # 2.6 K/mcL (0.6-4.6) 11/19/16 17:53 Monocytes # 0.9 K/mcL (0.0-1.3) 11/19/16 17:53 Eosinophils # 0.1 K/mcL (0.0-0.6) 11/19/16 17:53 Basophils # 0.0 K/mcL (0.0-0.2) 11/19/16 17:53 PT 9.9 Seconds (9.4-12.1) 11/19/16 17:53 INR 0.9 11/19/16 17:53 APTT 26.8 Seconds (26.0-36.0) 11/19/16 17:53 Sodium 140 mEq/L (136-145) 11/19/16 17:53 Potassium 3.6 mEq/L (3.5-4.5) 11/19/16 17:53 Chloride 108 mEq/L (98-109) 11/19/16 17:53 Carbon Dioxide 24 mEq/L (19-29) 11/19/16 17:53 BUN 13 mg/dL (7-20) 11/19/16 17:53 Creatinine 0.75 mg/dL (0.57-1.11) 11/19/16 17:53 Est GFR ( Amer) > 60 (> 60) 11/19/16 17:53 Est GFR (Non-Af Amer) > 60 (> 60) 11/19/16 17:53 BUN/Creatinine Ratio 17 (6-26) 11/19/16 17:53 Glucose 113 mg/dL (70-99) H 11/19/16 17:53 POC Glucose 227 (58-89) H 11/19/16 16:58 Calculated Osmolality 291 (280-300) 11/19/16 17:53 Lactic Acid 2.3 mmol/L (0.5-2.2) H 11/19/16 17:52 Calcium 8.4 mg/dL (8.6-10.8) L 11/19/16 17:53 Phosphorus 4.0 mg/dL (2.3-4.7) 11/19/16 17:53 Magnesium 1.5 mg/dL (1.6-2.6) L 11/19/16 17:53 Total Bilirubin 0.2 mg/dL (0.2-1.2) 11/19/16 17:53 Direct Bilirubin 0.1 mg/dL (0.0-0.5) 11/19/16 17:53 Indirect Bilirubin 0.1 mg/dL (0.0-1.2) 11/19/16 17:53 AST 13 Units/L (5-34) 11/19/16 17:53 ALT 14 Units/L (0-55) 11/19/16 17:53 Alkaline Phosphatase 144 Units/L (38-126) H 11/19/16 17:53 Ammonia 24 mcmol/L (18-72) 11/19/16 17:52 Troponin I 0.00 ng/mL (0-0.03) 11/19/16 17:53 Serum Total Protein 6.1 g/dL (6.0-8.3) 11/19/16 17:53 Albumin 2.4 g/dL (3.5-5.0) L 11/19/16 17:53 Globulin 3.7 g/dL (2.4-3.5) H 11/19/16 17:53 Albumin/Globulin Ratio 0.6 (1.1-2.2) L 11/19/16 17:53 TSH 1.646 mcIU/mL (0.350-4.840) 11/19/16 17:53 Urine Color Yellow (Yellow) 11/19/16 18:33 Urine Clarity Cloudy (Clear) A 11/19/16 18:33 Urine pH 5.5 pH Units (5.0-8.0) 11/19/16 18:33 Ur Specific [place] 1.025 (1.010-1.025) 11/19/16 18:33 Urine Protein Negative mg/dL (Neg-Trace) 11/19/16 18:33 Urine Glucose (UA) Normal mg/dL (Normal) 11/19/16 18:33 Urine Ketones Trace mg/dL (Negative) H 11/19/16 18:33 Urine Blood Negative (Negative) 11/19/16 18:33 Urine Nitrite Positive (Negative) A 11/19/16 18:33 Urine Bilirubin Small (Negative) H 11/19/16 18:33 Urine Urobilinogen Normal mg/dL (Normal) 11/19/16 18:33 Ur Leukocyte Esterase Moderate (Negative) H 11/19/16 18:33 Urine Microscopic RBC 0-3 per hpf (0-3) 11/19/16 18:33 Urine Microscopic WBC 15-30 per hpf (0-3) H 11/19/16 18:33 Ur Squamous Epith Cells Many per lpf (None-Few) H 11/19/16 18:33 Calcium Oxalate Crystal Present 11/19/16 18:33 Urine Bacteria Many per hpf (None-Few) H 11/19/16 18:33 Hyaline Casts Moderate per lpf (None-Few) H 11/19/16 18:33 Urine Mucus Moderate (Few) H 11/19/16 18:33 Urine Opiates Screen Negative ng/mL (Gzbgfm=339) 11/19/16 18:31 Ur Barbiturates Screen Positive ng/mL (Natwtv=356) H 11/19/16 18:31 Ur Phencyclidine Scrn Negative ng/mL (Cutoff=25) 11/19/16 18:31 Ur Amphetamines Screen Negative ng/mL (Qbziox=5039) 11/19/16 18:31 U Benzodiazepines Scrn Positive ng/mL (Asohmd=378) H 11/19/16 18:31 Urine Cocaine Screen Negative ng/mL (Cutoff= 300) 11/19/16 18:31 U Marijuana (THC) Screen Negative ng/mL (Cutoff = 50) 11/19/16 18:31 Ethyl Alcohol < 10 mg/dL (0-10) 11/19/16 17:53 Impressions Chest X-Ray 11/19/16 17:27 IMPRESSION: Negative portable study. D/ / Melanie Alicea Cha, MD / Melanie Alicea Cha, MD Interpreting Provider: Melanie Alicea Cha, MD Head CT 11/19/16 17:28 IMPRESSION: No acute intracranial abnormality. D/ / Myron Mayes MD / Myron Mayes MD Interpreting Provider: Myron Mayes MD
[2016-11-20 04:23] LABS: Chol/HDL Ratio 2.5 (0-4.9)
[2016-11-20] MEDS: Pantoprazole 40 MG VIAL IVP SCH (05:18)
[2016-11-20] MEDS ORDERED: Dextrose Gel 15 GM PO PRN ×2 (05:39)
[2016-11-20] MEDS ORDERED: *HR* Dextrose 50 % in Water (Syg) 50 ML SYRINGE IVP PRN (05:39)
[2016-11-20] MEDS ORDERED: D5% in Water 1,000 ML IVC PRN (05:39)
--- NOTE | 2016-11-20 08:24 | Event Note ---
Date of Encounter: 11/20/16 Time of Encounter: 08:21 PCP: Dr. Bojorquez 45-year-old female Admitted with presyncopal episode. She has been extensively worked up in the past for the same. Her workup in terms of MRI brain/ultrasound carotid/echocardiogram/EEG was within normal limits. Patient is presently on IV ceftriaxone for possible UTI. Noted that on arrival to the emergency room her blood pressure was 70 systolic. Lactic acid was mildly elevated. Her blood pressure is within the normal range now. We will repeat lactic acid now. We will continue present treatment. She needs close follow-up with the PCP/neurology as outpatient.
[2016-11-20] MEDS: Insulin LISPRO 300 UNITS/3 ML VIAL SQ SCH ×3 (08:31→17:30)
[2016-11-20] MEDS: Acetaminophen/Butalbital/CaffeineTABLET PO SCH ×2 (09:27→20:47)
--- NOTE | 2016-11-20 18:22 | Electrocardiograph Report ---
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
[2016-11-20] MEDS: rOPINIRole 1 MG TABLET PO SCH (20:47)
[2016-11-20] MEDS: Gabapentin 300 MG CAPSULE PO SCH (20:47)
[2016-11-20] MEDS: Topiramate 25 MG TABLET PO SCH (20:47)
[2016-11-20] MEDS: traZODone 50 MG TABLET PO SCH (20:48)
[2016-11-20] MEDS: Promethazine 12.5 MG in 0.9 % Sodium Chloride 50 ML IVPB PRN (21:39)
[2016-11-21] MEDS: 0.9 % Sodium Chloride 1,000 ML IVC SCH (04:20)
[2016-11-21 05:01] LABS: Basophils # 0.1 K/mcL (0.0-0.2); Basophils % 0.5 %; Eosinophils # 0.3 K/mcL (0.0-0.6); Hematocrit 36.5 % (35.3-44.9); Hemoglobin 11.6 g/dL (11.5-15.4); Immature Granulocytes % 0.4 % (0-4); Lymphocytes # 3.3 K/mcL (0.6-4.6); Lymphocytes % 33.9 %; Mean Corpuscular HGB Conc 31.8 g/dL (31.6-35.5); Mean Corpuscular Hemoglobin 29.9 pg (28.0-33.3); Mean Corpuscular Volume 94.1 fL (83.0-100.0); Mean Platelet Volume 9.2 fL (9.4-12.4); Monocytes # 0.7 K/mcL (0.0-1.3); Monocytes % 7.5 %; Neutrophils # 5.2 K/mcL (1.6-8.9); Platelet Count 282 K/mcL (140-400); Red Blood Count 3.88 M/mcL (3.82-4.97); Red Cell Distribution Width 13.3 % (11.5-14.5); Segmented Neutrophils % 54.7 %
[2016-11-21 05:20] LABS: BUN/Creatinine Ratio 11 (6-26); Blood Urea Nitrogen 7 mg/dL (7-20); Calcium 8.2 mg/dL (8.6-10.8); Carbon Dioxide 27 mEq/L (19-29); Chloride 109 mEq/L (98-109); Glucose 98 mg/dL (70-99); Osmolality,Calculated 292 (280-300); Potassium 3.8 mEq/L (3.5-4.5); Sodium 142 mEq/L (136-145); eGFR For African Americans > 60 (> 60); eGFR For Non-African Americans > 60 (> 60)
[2016-11-21] MEDS: Pantoprazole 40 MG VIAL IVP SCH (06:13)
[2016-11-21] MEDS: Insulin LISPRO 300 UNITS/3 ML VIAL SQ SCH ×3 (09:29→17:32)
[2016-11-21] MEDS: Acetaminophen/Butalbital/CaffeineTABLET PO SCH ×2 (09:37→20:26)
[2016-11-21] MEDS: *HR* OxyCODONE/APAP 7.5/325 TABLET PO PRN ×2 (09:38→17:55)
[2016-11-21] MEDS: tiZANidine 4 MG TABLET PO PRN ×2 (12:32→17:55)
--- NOTE | 2016-11-21 17:33 | Internal Med Progress Note ---
Date of Encounter: 11/21/16 Time of Encounter: 17:33 - Assessment and plan (1) UTI (urinary tract infection) Current Visit: Yes Status: Acute Assessment and plan: Sepsis: Likely source urinary system. Noted that lactic acid was elevated. Patient responded well to hydration and antibiotics treatment. Plan: Will continue same medication/treatment for now. Possible home tomorrow. Qualifiers: Urinary tract infection type: acute cystitis Hematuria presence: without hematuria Qualified Code(s): N30.00 - Acute cystitis without hematuria (2) Altered mental status Current Visit: Yes Status: Acute Assessment and plan: Patient is now alert oriented 3. The etiology for altered mental status is likely secondary to sepsis. Her altered mental status is completely resolved now. Qualifiers: Altered mental status type: unspecified Qualified Code(s): R41.82 - Altered mental status, unspecified (3) Multiple falls Current Visit: Yes Status: Acute Assessment and plan: Possibility of fall is secondary to sepsis. Patient has been extensively worked up in the past. Her EKG/echocardiogram/MRI brain/EEG/ultrasound carotid was within normal limits. - Subjective Interval history: Patient seen and examined. Chart reviewed. Patient's and kids at the bedside. Patient denies dizziness, chest pain, palpitations, shortness of breath, abdominal pain or vomiting. - Constitutional Vitals: Temp Pulse Resp BP Pulse Ox 98.1 F 81 18 117/73 97 11/21/16 16:43 11/21/16 16:43 11/21/16 16:43 11/21/16 16:43 11/21/16 16:43 General appearance: Present: mild distress, A&O X 3, morbidly obese, answers questions appropriately - Head Head exam: Present: atraumatic, normocephalic - Eye Eye exam: Present: PERRL, conjuntiva pink, sclera anicteric Pupils: Present: PERRL - Neck Neck exam general surgery: Present: supple, trachea midline. Absent: lymphadenopathy - Respiratory Respiratory exam: Present: CTAB. Absent: accessory muscle use, rales, rhonchi, wheezes - Cardiovascular Cardiovascular exam: Present: RRR, +S1, +S2. Absent: diastolic murmur, gallop, rubs, systolic murmur - GI/Abdominal GI/Abdominal exam: Present: normal bowel sounds, soft, no peritoneal signs. Absent: distended, tenderness - Extremities Exam Extremities exam: Present: warm, radial pulses palpable and symetrical. Absent : calf tenderness, cyanotic, pedal edema - Neurological Exam Neurological exam: Present: CN II-XII intact, oriented X3, no focal deficits. Absent: pronater drift, facial droop, speech deficit - Skin Skin exam: Present: dry, intact Internal Medicine: Result - Labs CBC & Chem 7: 11/21/16 04:50 11/21/16 04:50 Labs: Short CBC 11/21/16 Range/Units 04:50 WBC 9.6 (4.3-11.1) K/mcL Hgb 11.6 (11.5-15.4) g/dL Hct 36.5 (35.3-44.9) % Plt Count 282 (140-400) K/mcL Neutrophils # 5.2 (1.6-8.9) K/mcL BMP 11/21/16 04:50 Sodium 142 Potassium 3.8 Chloride 109 Carbon Dioxide 27 BUN 7 Creatinine 0.63 Glucose 98 Calcium 8.2 L - ABG Interpretation ABG results: PT/INR, D-dimer PT 9.9 Seconds (9.4-12.1) 11/19/16 17:53 Consult Discharge Plan - Plan Referrals: Alfa Santos MD [Primary Care Provider] - 11/28/16 10:00 am
[2016-11-21] MEDS: rOPINIRole 1 MG TABLET PO SCH (20:26)
[2016-11-21] MEDS: Topiramate 25 MG TABLET PO SCH (20:26)
[2016-11-21] MEDS: Gabapentin 300 MG CAPSULE PO SCH (20:26)
[2016-11-21] MEDS: traZODone 50 MG TABLET PO SCH (20:27)
[2016-11-21] MEDS: Promethazine 12.5 MG in 0.9 % Sodium Chloride 50 ML IVPB PRN (20:30)
[2016-11-22] MEDS: *HR* OxyCODONE/APAP 7.5/325 TABLET PO PRN ×3 (03:46→16:27)
[2016-11-22] MEDS: Pantoprazole 40 MG VIAL IVP SCH (08:29)
[2016-11-22] MEDS: Insulin LISPRO 300 UNITS/3 ML VIAL SQ SCH ×3 (08:30→18:02)
[2016-11-22] MEDS: Acetaminophen/Butalbital/CaffeineTABLET PO SCH ×2 (09:43→21:08)
[2016-11-22] MEDS: levoFLOXacin 500 MG TABLET PO SCH (09:43)
[2016-11-22] MEDS: tiZANidine 4 MG TABLET PO PRN ×2 (09:44→16:27)
--- NOTE | 2016-11-22 18:51 | Internal Med Progress Note ---
Date of Encounter: 11/22/16 Time of Encounter: 18:46 - Assessment and plan (1) UTI (urinary tract infection) Current Visit: Yes Status: Acute Assessment and plan: Sepsis: Likely source urinary system. Noted that lactic acid was elevated. Patient responded well to hydration and antibiotics treatment. Plan: Will continue same medication/treatment for now. Possible home tomorrow. 11/22/2016 Symptoms getting better. Lactic acid downward trend. We will continue present treatment. Likely home tomorrow Qualifiers: Urinary tract infection type: acute cystitis Hematuria presence: without hematuria Qualified Code(s): N30.00 - Acute cystitis without hematuria (2) Altered mental status Current Visit: Yes Status: Acute Assessment and plan: Patient is now alert oriented 3. The etiology for altered mental status is likely secondary to sepsis. Her altered mental status is completely resolved now. Qualifiers: Altered mental status type: unspecified Qualified Code(s): R41.82 - Altered mental status, unspecified (3) Multiple falls Current Visit: Yes Status: Acute Assessment and plan: Possibility of fall is secondary to sepsis. Patient has been extensively worked up in the past. Her EKG/echocardiogram/MRI brain/EEG/ultrasound carotid was within normal limits. - Subjective Interval history: Patient seen and examined. Chart reviewed. Patient's and kids at the bedside. Patient denies dizziness, chest pain, palpitations, shortness of breath, abdominal pain or vomiting. 11/22/2016 Patient seen and examined. Chart reviewed. Patient's family at bedside. Patient denies any chest pain, shortness of breath, abdominal pain, dysuria. - Constitutional Vitals: Temp Pulse Resp BP Pulse Ox 98.3 F 86 18 112/77 96 11/22/16 15:19 11/22/16 15:19 11/22/16 15:19 11/22/16 15:19 11/22/16 15:19 General appearance: Present: mild distress, A&O X 3, morbidly obese, answers questions appropriately - Head Head exam: Present: atraumatic, normocephalic - Eye Eye exam: Present: PERRL, conjuntiva pink, sclera anicteric Pupils: Present: PERRL - Neck Neck exam general surgery: Present: supple, trachea midline. Absent: lymphadenopathy - Respiratory Respiratory exam: Present: CTAB. Absent: accessory muscle use, rales, rhonchi, wheezes - Cardiovascular Cardiovascular exam: Present: RRR, +S1, +S2. Absent: diastolic murmur, gallop, rubs, systolic murmur - GI/Abdominal GI/Abdominal exam: Present: normal bowel sounds, soft, no peritoneal signs. Absent: distended, tenderness - Extremities Exam Extremities exam: Present: warm, radial pulses palpable and symetrical. Absent : calf tenderness, cyanotic, pedal edema - Neurological Exam Neurological exam: Present: CN II-XII intact, oriented X3, no focal deficits. Absent: pronater drift, facial droop, speech deficit - Skin Skin exam: Present: dry, intact Internal Medicine: Result - Labs CBC & Chem 7: 11/21/16 04:50 11/21/16 04:50 - ABG Interpretation ABG results: PT/INR, D-dimer PT 9.9 Seconds (9.4-12.1) 11/19/16 17:53 Consult Discharge Plan - Plan Referrals: Alfa Santos MD [Primary Care Provider] - 11/28/16 10:00 am
[2016-11-22] MEDS: traZODone 50 MG TABLET PO SCH (21:08)
[2016-11-22] MEDS: Gabapentin 300 MG CAPSULE PO SCH (21:08)
[2016-11-22] MEDS: Topiramate 25 MG TABLET PO SCH (21:08)
[2016-11-22] MEDS: rOPINIRole 1 MG TABLET PO SCH (21:08)
[2016-11-23 06:11] LABS: Basophils % 0.4 %; Eosinophils # 0.2 K/mcL (0.0-0.6); Hematocrit 33.6 % (35.3-44.9); Hemoglobin 10.6 g/dL (11.5-15.4); Immature Granulocytes % 0.4 % (0-4); Lymphocytes # 2.3 K/mcL (0.6-4.6); Lymphocytes % 28.6 %; Mean Corpuscular HGB Conc 31.5 g/dL (31.6-35.5); Mean Corpuscular Hemoglobin 29.5 pg (28.0-33.3); Mean Corpuscular Volume 93.6 fL (83.0-100.0); Mean Platelet Volume 9.6 fL (9.4-12.4); Monocytes # 0.7 K/mcL (0.0-1.3); Monocytes % 8.4 %; Neutrophils # 4.9 K/mcL (1.6-8.9); Platelet Count 261 K/mcL (140-400); Red Blood Count 3.59 M/mcL (3.82-4.97); Red Cell Distribution Width 13.2 % (11.5-14.5); Segmented Neutrophils % 60.2 %
[2016-11-23] MEDS: *HR* OxyCODONE/APAP 7.5/325 TABLET PO PRN (06:20)
[2016-11-23 06:31] LABS: Alanine Aminotransferase 11 Units/L (0-55); Albumin 2.2 g/dL (3.5-5.0); Albumin/Globulin Ratio 0.6 (1.1-2.2); Alkaline Phosphatase 97 Units/L (38-126); Aspartate Amino Transferase 10 Units/L (5-34); BUN/Creatinine Ratio 19 (6-26); Bilirubin,Total 0.1 mg/dL (0.2-1.2); Blood Urea Nitrogen 12 mg/dL (7-20); Calcium 8.6 mg/dL (8.6-10.8); Carbon Dioxide 29 mEq/L (19-29); Chloride 106 mEq/L (98-109); Globulin 3.5 g/dL (2.4-3.5); Glucose 98 mg/dL (70-99); Osmolality,Calculated 288 (280-300); Potassium 3.7 mEq/L (3.5-4.5); Sodium 139 mEq/L (136-145); Total Protein 5.7 g/dL (6.0-8.3); eGFR For African Americans > 60 (> 60); eGFR For Non-African Americans > 60 (> 60)
[2016-11-23] MEDS: levoFLOXacin 500 MG TABLET PO SCH (08:59)
[2016-11-23] MEDS: Acetaminophen/Butalbital/CaffeineTABLET PO SCH (08:59)
[2016-11-23] MEDS: Insulin LISPRO 300 UNITS/3 ML VIAL SQ SCH ×2 (09:00→12:23)
[2016-11-23 15:06] VITALS: BP 107/79
--- NOTE | 2016-11-23 15:17 | Discharge Summary ---
Date of Encounter: 11/23/16 Time of Encounter: 15:12 - Discharge Diagnosis (1) UTI (urinary tract infection) Priority: Primary Status: Acute Qualifiers: Urinary tract infection type: acute cystitis Hematuria presence: without hematuria Qualified Code(s): N30.00 - Acute cystitis without hematuria (2) Altered mental status Priority: Primary Status: Acute Qualifiers: Altered mental status type: unspecified Qualified Code(s): R41.82 - Altered mental status, unspecified (3) Multiple falls Priority: Secondary Status: Acute - Discharge Medications Prescriptions: Oxycodone HCl/Acetaminophen [Percocet 7.5-325 mg Tablet] 1 each PO Q6H PRN #10 tablet PRN Reason: Pain Home Medications: Duloxetine [Cymbalta] 30 mg PO DAILY 04/05/15 [History] Exenatide Microspheres [Bydureon] 2 mg SQ QWEEK 04/05/15 [History] Loratadine [Claritin] 10 mg PO DAILY PRN 04/05/15 [History] Ropinirole [Requip] 1 mg PO HS 04/05/15 [History] Albuterol Neb [Proventil Neb] 2.5 mg IH QID PRN 05/30/16 [History] Amitriptyline [Elavil] 50 mg PO HS 05/30/16 [History] Fluticasone Propionate Nasal [Flonase] 50 mcg NS DAILY 05/30/16 [History] Escitalopram [Lexapro] 10 mg PO DAILY 09/14/16 [History] Topiramate [Topamax] 25 mg PO HS 09/14/16 [History] Acetaminophen/Butalbital/Caffe [Fioricet] 1 each PO BID 10/23/16 [History] Hydroxyzine HCl 25 mg PO TID PRN 10/23/16 [History] Trazodone HCl 300 mg PO HS 10/23/16 [History] Folic Acid 1 mg PO DAILY #30 tablet 10/26/16 [Rx] Cyanocobalamin (Vitamin B-12) [Vitamin B-12] 1,000 mcg IM QMONTH #12 mls [Rx] Oxycodone HCl/Acetaminophen [Percocet 7.5-325 mg Tablet] 1 each PO Q6H PRN #10 tablet 11/23/16 [Rx] Allergies/Adverse Reactions: Allergies Hydromorphone [From Dilaudid] Allergy (Severe, Verified 11/19/16 17:11) Anaphylaxis Pt states "only in high doses. I used to have a pain pump." adhesive tape Allergy (Verified 11/19/16 17:11) Rash morphine Adverse Reaction (Severe, Verified 11/20/16 03:19) Anaphylaxis States allergic to Morphine in "high doses" reports used to have a pain pump that has since been removed. ziconotide [From Prialt] Adverse Reaction (Verified 11/19/16 17:11) Hallucinating Date of admission: 11/19/16 21:12 Primary care physician: Alfa Santos MD Consults: 11/20/16 02:13 Consult to Occupational Therapy [CONS] Routine Comment: Evaluate, develop and implement POC Consult to Physical Therapy [CONS] Routine Comment: Evaluate, develop and implement POC 11/20/16 03:42 Consult to Corporate Webmaster [CONS] Routine Reason for SW Consult: Financial concerns 11/20/16 03:43 Consult to Pastoral Services [CONS] Routine Comment: Discharging clinician: Stanley Santacruz - Patient Status Disposition: Home, Self-Care Condition: Good Functional capacity at discharge: independent ambulation Overall status at discharge: patient is progressing back to baseline - Discharge Instructions Follow Up With: Alfa Santos MD [Primary Care Provider] - 11/28/16 10:00 am Myron Rendon DO [Partnered Physician] - - Diet and Activity Activity: increase activity as tolerated Diet: diabetic diet, low fat, low cholesterol, low salt diet Interval History: Ms. Mora is a 45 year old female with history significant of major depression/ anxiety/bipolar, reactive airway disease/asthma, BRISSA?OHS, type II dm, GERD/ gastroparesis, anemia/iron def, RLS, nephrolithiasis, OA/OP, chr pain synd/ postlaminectomy synd, migraine H/As, morbid obesity/bariatric surgery, former smoker, etc.. Patient was admitted to [facility] via the emergency department when she presented following an acute near syncopal episode and mechanical fall reporting generalized weakness and easy fatigability. Repeated falling has recurred for many years this became more frequent in the last 6 months. Today's episode began approximately 5 PM while sitting at a restaurant with family for dinner. Family witnessed her to acutely appear pale developed cold clammy profuse sweating and appears that she might pass out. Cannot relate anything consistent with these episodes. She has undergone multiple evaluations. A definitive cause has not been given. In fact she is scheduled an appointment at the [facility] next week to undergo further testing to determine the cause of these recurrent syncopal/near syncopal episodes. Denied postevent tiny confusion chest pain palpitations or headache dizziness and dyspnea paresthesias or altered mental status. She did not formally have loss of consciousness nor did she suffered trauma with fall. There has not been any significant changes in her medications. She has not experienced any associated fevers chills sweats nausea vomiting diarrhea. Findings in the ED temperature 98.9 pulse 78-96 respirations 16-20 BP 86-101/49- 90 O2 saturation 98% room air. Lactic acid 2.3. Glucose 227. Ammonia 24. WBC 13. Hemoglobin 11.4 platelets 317,000. Differential most increase in neutrophils. PT 9.9 INR 0.9. Comprehensive metabolic panel normal except as 113 osmolality 291. Calcium 8.4 and magnesium 1.5. Alkaline phosphatase 144. Albumin 2.4 TP 6.1. TSH 1.646. Troponin 0.00. Alcohol less than 10. UDS positive for barbiturates and benzodiazepine. Urinalysis trace ketones positive nitrite and small bilirubin moderate leukocyte esterase. 3 RBC. 30 WBC. Many epithelial cells. Calcium oxalate crystals. Many bacteria. Moderate hyalin casts. Moderate mucus. Patient presents today, continue to history of recurring episodes of syncope and near-syncope of unclear etiology. Her history of diabetes mellitus and known gastroparesis may point to an underlying autonomic dysfunction with episodes of postural hypotension or episodes of postural orthostatic tachycardia or vasovagal/neurocardiogenic event. Further evaluation is important. Studies support the presence of urinary tract sediment consistent with infection. Hospital course: Patient was hospitalized. She decided IV fluids. She started on IV ceftriaxone. Patient responded to IV antibiotics/IV fluids extremely well. Her lactic acid was trending down. Patient was switched to oral antibiotics. I discussed at length with the patient and her family regarding possibility of a multiple syncopal episodes/prolonged headaches. Patient had a previous bariatric surgery. To me, this is most likely a dumping syndrome which is etiological factor for her multiple passing out episodes/headaches. Past patient's to get all the medications from home. Patient's brought the medication in a big bag. I counted altogether medication bottles with 69. Week classified medication according to the need for which they were prescribed. We realized that many of his medications where duplicate. I reconciled all her medications. Recommended patient to take only medications which are necessary. Please see medication reconsultation. Plan Home today. I gave her 10 tablets of pain pills and recommended her to gradually wean off pain medication. I also recommended to have a follow-up with neurology in 1-2 weeks. I also recommended follow-up with primary care provider in 1-2 weeks. Patient might benefit from evaluation by bariatric surgery center for possible dumping syndrome. Follow explained to the patient and she verbalized understanding Patient's family at bedside. At the time of discharge patient does not have any questions, concerns, update or recommendations. - Time Spent with Patient Total time spent providing and/or coordinating discharge services: - Constitutional Vitals: Temp Pulse Resp BP Pulse Ox 97.8 F 75 16 107/79 98 11/23/16 15:03 11/23/16 15:03 11/23/16 15:03 11/23/16 15:03 11/23/16 15:03 General appearance: Present: mild distress, A&O X 3, morbidly obese, answers questions appropriately - Head Head exam: Present: atraumatic, normocephalic - Eye Eye exam: Present: PERRL, conjuntiva pink, sclera anicteric Pupils: Present: PERRL - Neck Neck exam general surgery: Present: supple, trachea midline. Absent: lymphadenopathy - Respiratory Respiratory exam: Present: CTAB. Absent: accessory muscle use, rales, rhonchi, wheezes - Cardiovascular Cardiovascular exam: Present: RRR, +S1, +S2. Absent: diastolic murmur, gallop, rubs, systolic murmur - GI/Abdominal GI/Abdominal exam: Present: normal bowel sounds, soft, no peritoneal signs. Absent: distended, tenderness - Extremities Exam Extremities exam: Present: warm, radial pulses palpable and symetrical. Absent : calf tenderness, cyanotic, pedal edema - Neurological Exam Neurological exam: Present: CN II-XII intact, oriented X3, no focal deficits. Absent: pronater drift, facial droop, speech deficit - Skin Skin exam: Present: dry, intact
== END 2016-11-23 17:27 | disposition home or self-care (01) ==
LOC: EMEROO 16:56 → 2NENU 16:56
PROVIDERS: ADMIT Family Medicine; ATTEND Internal Medicine

== ENCOUNTER 2016-12-02 19:19 | Inpatient (IN) ==
[2016-12-02] MEDS ORDERED: *HR* LORazepam 2 MG/ML VIAL IM ONE (19:27)
--- NOTE | 2016-12-02 19:39 | Emergency Department Note ---
Disposition Clinical Impression: Suicidal ideation Depression Qualifiers: Depression Type: unspecified Qualified Code(s): F32.9 - Major depressive disorder, single episode, unspecified Migraine headache Qualifiers: Migraine type: unspecified Status migrainosus presence: without status migrainosus Intractability: not intractable Qualified Code(s): G43.909 - Migraine, unspecified, not intractable, without status migrainosus Disposition: Still a Patient Referrals: NO,PCP [Primary Care Provider] - Forms: ED Satisfaction Letter Time of Disposition: 22:42 Psych HPI - General Chief Complaint: ED Psychiatric Symptoms Stated Complaint: SI Time Seen by Provider: 12/02/16 19:21 Source: patient, family Mode of arrival: ambulatory Limitations: other Nursing Notes Reviewed: Yes Vital Signs Reviewed: Yes (Hypertensive, tachycardic) - History of Present Illness HPI Narrative: Patient feels depressed and suicidal. She has a history of bipolar disorder. She has been experiencing anxiety lately. She has a remote history of hearing auditory hallucinations and experiencing visual hallucinations. She denies drug or alcohol use Pt complaint: suicidal ideation, feels depressed, anxiety Onset (ago): day(s) Duration: constant History of similar episodes: Yes Improves with: none Worsens with: none Associated Psychiatric Symptoms: depression, suicidal ideation, anxiety Associated symptoms: Reports: other (Chronic back and neck pain) Traumatic symptoms: denies traumatic injury Treatments prior to arrival: other (Prescribed Xanax last week) Self harm or harm to others: admits thoughts of self harm - Related Data Home Medications Medication Instructions Recorded Confirmed Duloxetine [Cymbalta] 30 mg PO DAILY 04/05/15 11/19/16 Exenatide Microspheres [Bydureon] 2 mg SQ QWEEK 04/05/15 11/19/16 Loratadine [Claritin] 10 mg PO DAILY PRN 04/05/15 11/19/16 Ropinirole [Requip] 1 mg PO HS 04/05/15 11/19/16 Albuterol Neb [Proventil Neb] 2.5 mg IH QID PRN 05/30/16 11/19/16 Amitriptyline [Elavil] 50 mg PO HS 05/30/16 11/19/16 Fluticasone Propionate Nasal 50 mcg NS DAILY 05/30/16 11/19/16 [Flonase] Escitalopram [Lexapro] 10 mg PO DAILY 09/14/16 11/19/16 Topiramate [Topamax] 25 mg PO HS 09/14/16 11/19/16 Acetaminophen/Butalbital/Caffe 1 each PO BID 10/23/16 11/19/16 [Fioricet] Hydroxyzine HCl 25 mg PO TID PRN 10/23/16 11/19/16 Trazodone HCl 300 mg PO HS 10/23/16 11/19/16 Previous Rx's Medication Instructions Recorded Folic Acid 1 mg PO DAILY #30 tablet 10/26/16 Cyanocobalamin (Vitamin B-12) 1,000 mcg IM QMONTH #12 mls 10/29/16 [Vitamin B-12] Oxycodone HCl/Acetaminophen 1 each PO Q6H PRN #10 tablet 11/23/16 [Percocet 7.5-325 mg Tablet] LORazepam [Ativan] 1 mg PO TID PRN #7 tablet 11/30/16 Allergies Allergy/AdvReac Type Severity Reaction Status Date / Time Hydromorphone [From Dilaudid] Allergy Severe Anaphylaxis Verified 11/19/16 17:11 adhesive tape Allergy Rash Verified 11/19/16 17:11 morphine AdvReac Severe Anaphylaxis Verified 11/20/16 03:19 ziconotide [From Prialt] AdvReac Hallucinati Verified 11/19/16 17:11 ng All systems ED: reviewed and negative except as stated. Constitutional: Reports: as per HPI Eyes: Reports: as per HPI ENT ED: Reports: as per HPI Cardiovascular: Reports: as per HPI Respiratory: Reports: as per HPI Gastrointestinal: Reports: as per HPI Genitourinary: Reports: as per HPI Musculoskeletal: Reports: back pain, neck pain Integumentary: Reports: as per HPI Neurological: Reports: headache Psychiatric: Reports: anxiety, depression, suicidal thoughts Endocrine: Reports: as per HPI Hematological/Lymphatic: Reports: as per HPI Allergic/Immunologic: Reports: as per HPI Past Medical History - Past Medical History Source: patient Medical history: Reports: arthritis, asthma, diabetes, fibromyalgia, GERD, hypertension, kidney stones, migraine, renal disease, syncope, other Surgical history: Reports: , cholecystectomy, orthopedic, other, other , bariatric surgery Psychiatric history: Reports: anxiety, bipolar, depression, panic disorder, PTSD , other SUPPORT DBA history: Reports: bilateral tubal ligation, other - Social History Smoking Status: Never smoker Smokeless Tobacco Status: No Alcohol use: Reports: rarely, occasionally Drug use: Reports: none Physical Exam Flat affect and very anxious. teary - General Limitations: no limitations, other General appearance: alert, anxious, other - Head Head exam: atraumatic - Eye Eye exam: Present: normal appearance - ENT ENT exam: normal exam - Neck Neck exam: Present: normal inspection - Chest Chest inspection: Present: normal inspection, symmetric chest wall rise - Respiratory Respiratory exam: Present: normal lung sounds bilaterally - Cardiovascular Cardiovascular exam: Present: tachycardia, normal heart sounds - Rectal Exam Rectal exam: Present: deferred - Extremities Exam Extremities exam: Present: normal inspection - Neurological Exam Neurological exam: Present: alert, oriented X3, CN II-XII intact - Psychiatric Psychiatric exam: Present: anxious, flat affect - Skin Skin exam: Present: warm, dry, intact Course Course Narrative: She presents feeling suicidal. I will attempt to clear her medically for behavioral evaluation. She is anxious appearing intramuscular benzodiazepines offered. - Reevaluation(s) Reevaluation #1: 1A called at 21:10 Reevaluation #2: Care to be endorsed to at 23:00 pending psychiatric disposition Vital Signs Temperature 99.1 F 12/02/16 19:21 Pulse Rate 112 12/02/16 19:21 Respiratory Rate 18 12/02/16 19:21 Blood Pressure 177/136 12/02/16 19:21 O2 Sat by Pulse Oximetry 97 12/02/16 19:21 Temperature 98.6 F 12/02/16 20:54 Pulse Rate 90 12/02/16 20:54 Respiratory Rate 20 12/02/16 20:54 Blood Pressure 153/110 12/02/16 20:54 O2 Sat by Pulse Oximetry 100 12/02/16 20:54 Oxygen Delivery Oxygen Delivery Room Air Psych - Lab Data Lab results reviewed: Yes I reviewed the patient's lab results. Result diagrams: 12/02/16 19:34 12/02/16 19:34 Lab Results 12/02/16 12/02/16 12/02/16 Range/Units 19:34 19:34 20:38 WBC 10.5 (4.3-11.1) K/mcL RBC 4.58 (3.82-4.97) M/mcL Hgb 13.8 (11.5-15.4) g/dL Hct 43.3 (35.3-44.9) % MCV 94.5 (83.0-100.0) fL MCH 30.1 (28.0-33.3) pg MCHC 31.9 (31.6-35.5) g/dL RDW 13.6 (11.5-14.5) % Plt Count 396 (140-400) K/mcL MPV 9.9 (9.4-12.4) fL Immature Gran % 0.2 (0-4) % Seg Neutrophils % 64.0 % Lymphocytes % 27.0 % Monocytes % 6.8 % Eosinophils % 1.4 % Basophils % 0.6 % Neutrophils # 6.7 (1.6-8.9) K/mcL Lymphocytes # 2.8 (0.6-4.6) K/mcL Monocytes # 0.7 (0.0-1.3) K/mcL Eosinophils # 0.2 (0.0-0.6) K/mcL Basophils # 0.1 (0.0-0.2) K/mcL Immature Plt Fraction 4.0 (1.1-6.1) % Sodium 143 (136-145) mEq/L Potassium 3.7 (3.5-4.5) mEq/L Chloride 111 H (98-109) mEq/L Carbon Dioxide 23 (19-29) mEq/L BUN 8 (7-20) mg/dL Creatinine 0.86 (0.57-1.11) mg/dL Est GFR ( Amer) > 60 (> 60) Est GFR (Non-Af Amer) > 60 (> 60) BUN/Creatinine Ratio 9 (6-26) Glucose 181 H (70-99) mg/dL POC Glucose (58-89) Calculated Osmolality 299 (280-300) Calcium 9.0 (8.6-10.8) mg/dL TSH 0.584 (0.350-4.840) mcIU/mL Urine Color Yellow (Yellow) Urine Clarity Cloudy A (Clear) Urine pH 5.5 (5.0-8.0) pH Units Ur Specific Sisters 1.026 H (1.010-1.025) Urine Protein Negative (Neg-Trace) mg/dL Urine Glucose (UA) Normal (Normal) mg/dL Urine Ketones Negative (Negative) mg/dL Urine Blood Negative (Negative) Urine Nitrite Negative (Negative) Urine Bilirubin Negative (Negative) Urine Urobilinogen Normal (Normal) mg/dL Ur Leukocyte Esterase Negative (Negative) Urine Microscopic RBC 0-3 (0-3) per hpf Urine Microscopic WBC 0-3 (0-3) per hpf Ur Squamous Epith Cells Many H (None-Few) per lpf Urine Bacteria None Seen (None-Few) per hpf Urine Mucus Few (Few) Salicylates < 5.0 L (15-30) mg/dL Urine Opiates Screen (Zfqpva=996) ng/mL Acetaminophen < 1.0 L (10-30) mcg/mL Ur Barbiturates Screen (Tvxioq=454) ng/mL Ur Phencyclidine Scrn (Cutoff=25) ng/mL Ur Amphetamines Screen (Wqpjcb=3135) ng/mL U Benzodiazepines Scrn (Ncvqqo=452) ng/mL Urine Cocaine Screen (Cutoff= 300) ng/mL U Marijuana (THC) Screen (Cutoff = 50) ng/mL Ethyl Alcohol < 10 (0-10) mg/dL 12/02/16 12/02/16 Range/Units 20:38 20:50 WBC (4.3-11.1) K/mcL RBC (3.82-4.97) M/mcL Hgb (11.5-15.4) g/dL Hct (35.3-44.9) % MCV (83.0-100.0) fL MCH (28.0-33.3) pg MCHC (31.6-35.5) g/dL RDW (11.5-14.5) % Plt Count (140-400) K/mcL MPV (9.4-12.4) fL Immature Gran % (0-4) % Seg Neutrophils % % Lymphocytes % % Monocytes % % Eosinophils % % Basophils % % Neutrophils # (1.6-8.9) K/mcL Lymphocytes # (0.6-4.6) K/mcL Monocytes # (0.0-1.3) K/mcL Eosinophils # (0.0-0.6) K/mcL Basophils # (0.0-0.2) K/mcL Immature Plt Fraction (1.1-6.1) % Sodium (136-145) mEq/L Potassium (3.5-4.5) mEq/L Chloride (98-109) mEq/L Carbon Dioxide (19-29) mEq/L BUN (7-20) mg/dL Creatinine (0.57-1.11) mg/dL Est GFR ( Amer) (> 60) Est GFR (Non-Af Amer) (> 60) BUN/Creatinine Ratio (6-26) Glucose (70-99) mg/dL POC Glucose 116 H (58-89) Calculated Osmolality (280-300) Calcium (8.6-10.8) mg/dL TSH (0.350-4.840) mcIU/mL Urine Color (Yellow) Urine Clarity (Clear) Urine pH (5.0-8.0) pH Units Ur Specific Sisters (1.010-1.025) Urine Protein (Neg-Trace) mg/dL Urine Glucose (UA) (Normal) mg/dL Urine Ketones (Negative) mg/dL Urine Blood (Negative) Urine Nitrite (Negative) Urine Bilirubin (Negative) Urine Urobilinogen (Normal) mg/dL Ur Leukocyte Esterase (Negative) Urine Microscopic RBC (0-3) per hpf Urine Microscopic WBC (0-3) per hpf Ur Squamous Epith Cells (None-Few) per lpf Urine Bacteria (None-Few) per hpf Urine Mucus (Few) Salicylates (15-30) mg/dL Urine Opiates Screen Negative (Gobmii=761) ng/mL Acetaminophen (10-30) mcg/mL Ur Barbiturates Screen Positive H (Cycvdp=715) ng/mL Ur Phencyclidine Scrn Negative (Cutoff=25) ng/mL Ur Amphetamines Screen Negative (Rlczsm=7117) ng/mL U Benzodiazepines Scrn Positive H (Pzwdhx=204) ng/mL Urine Cocaine Screen Negative (Cutoff= 300) ng/mL U Marijuana (THC) Screen Negative (Cutoff = 50) ng/mL Ethyl Alcohol (0-10) mg/dL Psychiatric Medical Clearance - Medical Clearance Checklist Medical History: No Social History Section defined Current Vitals: Last Vital Signs Temp 98.6 F 12/02/16 20:54 Pulse 90 12/02/16 20:54 Resp 20 12/02/16 20:54 BP 153/110 12/02/16 20:54 Pulse Ox 100 12/02/16 20:54 Psychiatric Lab Panel: Drug Levels and Toxicity 12/02/16 12/02/16 19:34 20:38 Urine Opiates Screen Negative Acetaminophen < 1.0 L Ur Barbiturates Screen Positive H Ur Phencyclidine Scrn Negative Ur Amphetamines Screen Negative U Benzodiazepines Scrn Positive H Urine Cocaine Screen Negative U Marijuana (THC) Screen Negative Ethyl Alcohol < 10 Abnormal Labs: Abnormal lab results Chloride 111 mEq/L (98-109) H 12/02/16 19:34 Glucose 181 mg/dL (70-99) H 12/02/16 19:34 POC Glucose 116 (58-89) H 12/02/16 20:50 Urine Clarity Cloudy (Clear) A 12/02/16 20:38 Ur Specific Sisters 1.026 (1.010-1.025) H 12/02/16 20:38 Ur Squamous Epith Cells Many per lpf (None-Few) H 12/02/16 20:38 Salicylates < 5.0 mg/dL (15-30) L 12/02/16 19:34 Acetaminophen < 1.0 mcg/mL (10-30) L 12/02/16 19:34 Ur Barbiturates Screen Positive ng/mL (Wosieu=233) H 12/02/16 20:38 U Benzodiazepines Scrn Positive ng/mL (Nqjmiy=275) H 12/02/16 20:38 Statement of Medical Clearance: I have evaluated the patient, reviewed diagnostic information, and certify that the patient's medical condition is sufficiently stable that transfer to the psychiatric unit does not pose a significant risk of deterioration.
[2016-12-02 19:50] LABS: Basophils # 0.1 K/mcL (0.0-0.2); Basophils % 0.6 %; Eosinophils # 0.2 K/mcL (0.0-0.6); Eosinophils % 1.4 %; Hematocrit 43.3 % (35.3-44.9); Hemoglobin 13.8 g/dL (11.5-15.4); Immature Granulocytes % 0.2 % (0-4); Lymphocytes # 2.8 K/mcL (0.6-4.6); Mean Corpuscular HGB Conc 31.9 g/dL (31.6-35.5); Mean Corpuscular Hemoglobin 30.1 pg (28.0-33.3); Mean Corpuscular Volume 94.5 fL (83.0-100.0); Mean Platelet Volume 9.9 fL (9.4-12.4); Monocytes # 0.7 K/mcL (0.0-1.3); Monocytes % 6.8 %; Neutrophils # 6.7 K/mcL (1.6-8.9); Platelet Count 396 K/mcL (140-400); Red Blood Count 4.58 M/mcL (3.82-4.97); Red Cell Distribution Width 13.6 % (11.5-14.5)
[2016-12-02 20:04] LABS: BUN/Creatinine Ratio 9 (6-26); Blood Urea Nitrogen 8 mg/dL (7-20); Carbon Dioxide 23 mEq/L (19-29); Chloride 111 mEq/L (98-109); Glucose 181 mg/dL (70-99); Osmolality,Calculated 299 (280-300); Potassium 3.7 mEq/L (3.5-4.5); Sodium 143 mEq/L (136-145); eGFR For African Americans > 60 (> 60); eGFR For Non-African Americans > 60 (> 60)
[2016-12-02 20:05] LABS: Acetaminophen < 1.0 mcg/mL (10-30); Ethanol < 10 mg/dL (0-10); Salicylate < 5.0 mg/dL (15-30)
[2016-12-02 20:24] LABS: Thyroid Stimulating Hormone 0.584 mcIU/mL (0.350-4.840)
[2016-12-02 20:47] LABS: Bilirubin,Urine Negative (Negative); Blood,Urine Negative (Negative); Clarity,Urine Cloudy (Clear); Color,Urine Yellow (Yellow); Glucose,Urine (UA) Normal (Normal); Ketones,Urine Negative (Negative); Leukocyte Esterase,Urine Negative (Negative); Nitrite,Urine Negative (Negative); PH,Urine 5.5 pH Units (5.0-8.0); Protein,Urine Negative (Neg-Trace); Specific Gravity,Urine 1.026 (1.010-1.025); Urobilinogen,Urine Normal (Normal)
[2016-12-02 20:49] LABS: Bacteria,Urine None Seen per hpf (None-Few); RBC,Urine 0-3 per hpf (0-3); Squamous Epithelial Cell,Urine Many per lpf (None-Few); WBC,Urine 0-3 per hpf (0-3)
[2016-12-02 20:54] LABS: Amphetamine Screen,Urine Negative ng/mL (Cutoff=1000); Benzodiazepines Screen,Urine Positive ng/mL (Cutoff=200); Cannabinoid Screen,Urine Negative ng/mL (Cutoff = 50); Cocaine Screen,Urine Negative ng/mL (Cutoff= 300); Opiate Screen,Urine Negative ng/mL (Cutoff=300); Phencyclidine Screen,Urine Negative ng/mL (Cutoff=25)
[2016-12-02 21:02] LABS: Barbiturate Screen,Urine Positive ng/mL (Cutoff=200)
[2016-12-02 21:09] LABS: Mucus,Urine Few (Few)
[2016-12-02] MEDS ORDERED: SUMAtriptan succinate 50 MG TABLET PO ONE (21:23)
[2016-12-02] MEDS ORDERED: *HR* LORazepam 1 MG TABLET PO PRN (23:53)
[2016-12-02] MEDS ORDERED: *HR* LORazepam 2 MG/ML VIAL IM PRN (23:53)
[2016-12-02] MEDS ORDERED: Haloperidol Lactate 5 MG/ML VIAL IM PRN (23:53)
[2016-12-02] MEDS ORDERED: Albuterol 2.5 MG/3 ML NEBULIZER IH PRN (23:57)
[2016-12-02] MEDS ORDERED: Loratadine 10 MG TABLET PO PRN (23:57)
--- NOTE | 2016-12-03 01:08 | Emergency Department Note ---
Disposition Clinical Impression: Suicidal ideation Depression Qualifiers: Depression Type: unspecified Qualified Code(s): F32.9 - Major depressive disorder, single episode, unspecified Migraine headache Qualifiers: Migraine type: unspecified Status migrainosus presence: without status migrainosus Intractability: not intractable Qualified Code(s): G43.909 - Migraine, unspecified, not intractable, without status migrainosus Disposition: Admitted As Inpatient Condition: Good Time of Disposition: 23:45 Psych HPI - General Chief Complaint: ED Psychiatric Symptoms Stated Complaint: SI Time Seen by Provider: 12/02/16 19:21 Source: patient, family Mode of arrival: ambulatory Limitations: no limitations Nursing Notes Reviewed: Yes Vital Signs Reviewed: Yes - History of Present Illness Duration: constant Improves with: none Worsens with: none Associated symptoms: Reports: other (Chronic back and neck pain) Treatments prior to arrival: other (Prescribed Xanax last week) - Related Data Home Medications Medication Instructions Recorded Confirmed Duloxetine [Cymbalta] 30 mg PO DAILY 04/05/15 11/19/16 Exenatide Microspheres [Bydureon] 2 mg SQ QWEEK 04/05/15 11/19/16 Loratadine [Claritin] 10 mg PO DAILY PRN 04/05/15 11/19/16 Ropinirole [Requip] 1 mg PO HS 04/05/15 11/19/16 Albuterol Neb [Proventil Neb] 2.5 mg IH QID PRN 05/30/16 11/19/16 Amitriptyline [Elavil] 50 mg PO HS 05/30/16 11/19/16 Fluticasone Propionate Nasal 50 mcg NS DAILY 05/30/16 11/19/16 [Flonase] Escitalopram [Lexapro] 10 mg PO DAILY 09/14/16 11/19/16 Topiramate [Topamax] 25 mg PO HS 09/14/16 11/19/16 Acetaminophen/Butalbital/Caffe 1 each PO BID 10/23/16 11/19/16 [Fioricet] Hydroxyzine HCl 25 mg PO TID PRN 10/23/16 11/19/16 Trazodone HCl 300 mg PO HS 10/23/16 11/19/16 Previous Rx's Medication Instructions Recorded Folic Acid 1 mg PO DAILY #30 tablet 10/26/16 Cyanocobalamin (Vitamin B-12) 1,000 mcg IM QMONTH #12 mls 10/29/16 [Vitamin B-12] Oxycodone HCl/Acetaminophen 1 each PO Q6H PRN #10 tablet 11/23/16 [Percocet 7.5-325 mg Tablet] LORazepam [Ativan] 1 mg PO TID PRN #7 tablet 11/30/16 Allergies Allergy/AdvReac Type Severity Reaction Status Date / Time Hydromorphone [From Dilaudid] Allergy Severe Anaphylaxis Verified 11/19/16 17:11 adhesive tape Allergy Rash Verified 11/19/16 17:11 morphine AdvReac Severe Anaphylaxis Verified 11/20/16 03:19 ziconotide [From Prialt] AdvReac Hallucinati Verified 11/19/16 17:11 ng Constitutional: Reports: as per HPI Eyes: Reports: as per HPI ENT ED: Reports: as per HPI Cardiovascular: Reports: as per HPI Respiratory: Reports: as per HPI Gastrointestinal: Reports: as per HPI Genitourinary: Reports: as per HPI Musculoskeletal: Reports: back pain, neck pain Integumentary: Reports: as per HPI Neurological: Reports: headache Psychiatric: Reports: anxiety, depression, suicidal thoughts Endocrine: Reports: as per HPI Hematological/Lymphatic: Reports: as per HPI Allergic/Immunologic: Reports: as per HPI Past Medical History - Past Medical History Medical history: Reports: arthritis, asthma, diabetes, fibromyalgia, GERD, hypertension, kidney stones, migraine, renal disease, syncope, other Surgical history: Reports: , cholecystectomy, orthopedic, other, other , bariatric surgery Psychiatric history: Reports: anxiety, bipolar, depression, panic disorder, PTSD , 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, other - Social History Smoking Status: Never smoker Smokeless Tobacco Status: No Alcohol use: Reports: rarely, occasionally Drug use: Reports: none Physical Exam - General Limitations: no limitations, other General appearance: alert, anxious, other Course Vital Signs Temperature 99.1 F 12/02/16 19:21 Pulse Rate 112 12/02/16 19:21 Respiratory Rate 18 12/02/16 19:21 Blood Pressure 177/136 12/02/16 19:21 O2 Sat by Pulse Oximetry 97 12/02/16 19:21 Temperature 98.1 F 12/03/16 00:25 Pulse Rate 99 05/09/17 00:25 Respiratory Rate 16 12/03/16 00:25 Blood Pressure 155/107 12/03/16 00:25 O2 Sat by Pulse Oximetry 97 12/02/16 23:15 Oxygen Delivery Oxygen Delivery Room Air Psych - MDM Narrative Medical decision making narrative: I, Carlos A Gillespie, examined this patient and my medical decision-making was reviewed with the MANAGING MANAGER/PA/Advanced Practice Nurse/Resident Physician. I agree with the documented findings, disposition and treatment plan as described except to the extent set forth below. 46-year-old female received in sign out from Dr. Russell pending behavioral health evaluation and disposition for suicidal ideation and auditory and visual hallucinations. Patient afebrile evaluated the patient in the emergency department and felt she required inpatient therapy. Patient will be admitted to the 1 a unit at [facility]. - Lab Data Result diagrams: 12/02/16 19:34 12/02/16 19:34 Lab Results 12/02/16 12/02/16 12/02/16 Range/Units 19:34 19:34 20:38 WBC 10.5 (4.3-11.1) K/mcL RBC 4.58 (3.82-4.97) M/mcL Hgb 13.8 (11.5-15.4) g/dL Hct 43.3 (35.3-44.9) % MCV 94.5 (83.0-100.0) fL MCH 30.1 (28.0-33.3) pg MCHC 31.9 (31.6-35.5) g/dL RDW 13.6 (11.5-14.5) % Plt Count 396 (140-400) K/mcL MPV 9.9 (9.4-12.4) fL Immature Gran % 0.2 (0-4) % Seg Neutrophils % 64.0 % Lymphocytes % 27.0 % Monocytes % 6.8 % Eosinophils % 1.4 % Basophils % 0.6 % Neutrophils # 6.7 (1.6-8.9) K/mcL Lymphocytes # 2.8 (0.6-4.6) K/mcL Monocytes # 0.7 (0.0-1.3) K/mcL Eosinophils # 0.2 (0.0-0.6) K/mcL Basophils # 0.1 (0.0-0.2) K/mcL Immature Plt Fraction 4.0 (1.1-6.1) % Sodium 143 (136-145) mEq/L Potassium 3.7 (3.5-4.5) mEq/L Chloride 111 H (98-109) mEq/L Carbon Dioxide 23 (19-29) mEq/L BUN 8 (7-20) mg/dL Creatinine 0.86 (0.57-1.11) mg/dL Est GFR ( Amer) > 60 (> 60) Est GFR (Non-Af Amer) > 60 (> 60) BUN/Creatinine Ratio 9 (6-26) Glucose 181 H (70-99) mg/dL POC Glucose (58-89) Calculated Osmolality 299 (280-300) Calcium 9.0 (8.6-10.8) mg/dL TSH 0.584 (0.350-4.840) mcIU/mL Urine Color Yellow (Yellow) Urine Clarity Cloudy A (Clear) Urine pH 5.5 (5.0-8.0) pH Units Ur Specific [place] 1.026 H (1.010-1.025) Urine Protein Negative (Neg-Trace) mg/dL Urine Glucose (UA) Normal (Normal) mg/dL Urine Ketones Negative (Negative) mg/dL Urine Blood Negative (Negative) Urine Nitrite Negative (Negative) Urine Bilirubin Negative (Negative) Urine Urobilinogen Normal (Normal) mg/dL Ur Leukocyte Esterase Negative (Negative) Urine Microscopic RBC 0-3 (0-3) per hpf Urine Microscopic WBC 0-3 (0-3) per hpf Ur Squamous Epith Cells Many H (None-Few) per lpf Urine Bacteria None Seen (None-Few) per hpf Urine Mucus Few (Few) Salicylates < 5.0 L (15-30) mg/dL Urine Opiates Screen (Bxnzru=317) ng/mL Acetaminophen < 1.0 L (10-30) mcg/mL Ur Barbiturates Screen (Pnheby=656) ng/mL Ur Phencyclidine Scrn (Cutoff=25) ng/mL Ur Amphetamines Screen (Hnjyuw=5147) ng/mL U Benzodiazepines Scrn (Zhzhpe=435) ng/mL Urine Cocaine Screen (Cutoff= 300) ng/mL U Marijuana (THC) Screen (Cutoff = 50) ng/mL Ethyl Alcohol < 10 (0-10) mg/dL 12/02/16 12/02/16 Range/Units 20:38 20:50 WBC (4.3-11.1) K/mcL RBC (3.82-4.97) M/mcL Hgb (11.5-15.4) g/dL Hct (35.3-44.9) % MCV (83.0-100.0) fL MCH (28.0-33.3) pg MCHC (31.6-35.5) g/dL RDW (11.5-14.5) % Plt Count (140-400) K/mcL MPV (9.4-12.4) fL Immature Gran % (0-4) % Seg Neutrophils % % Lymphocytes % % Monocytes % % Eosinophils % % Basophils % % Neutrophils # (1.6-8.9) K/mcL Lymphocytes # (0.6-4.6) K/mcL Monocytes # (0.0-1.3) K/mcL Eosinophils # (0.0-0.6) K/mcL Basophils # (0.0-0.2) K/mcL Immature Plt Fraction (1.1-6.1) % Sodium (136-145) mEq/L Potassium (3.5-4.5) mEq/L Chloride (98-109) mEq/L Carbon Dioxide (19-29) mEq/L BUN (7-20) mg/dL Creatinine (0.57-1.11) mg/dL Est GFR ( Amer) (> 60) Est GFR (Non-Af Amer) (> 60) BUN/Creatinine Ratio (6-26) Glucose (70-99) mg/dL POC Glucose 116 H (58-89) Calculated Osmolality (280-300) Calcium (8.6-10.8) mg/dL TSH (0.350-4.840) mcIU/mL Urine Color (Yellow) Urine Clarity (Clear) Urine pH (5.0-8.0) pH Units Ur Specific [place] (1.010-1.025) Urine Protein (Neg-Trace) mg/dL Urine Glucose (UA) (Normal) mg/dL Urine Ketones (Negative) mg/dL Urine Blood (Negative) Urine Nitrite (Negative) Urine Bilirubin (Negative) Urine Urobilinogen (Normal) mg/dL Ur Leukocyte Esterase (Negative) Urine Microscopic RBC (0-3) per hpf Urine Microscopic WBC (0-3) per hpf Ur Squamous Epith Cells (None-Few) per lpf Urine Bacteria (None-Few) per hpf Urine Mucus (Few) Salicylates (15-30) mg/dL Urine Opiates Screen Negative (Bihpzw=401) ng/mL Acetaminophen (10-30) mcg/mL Ur Barbiturates Screen Positive H (Rmhxpd=661) ng/mL Ur Phencyclidine Scrn Negative (Cutoff=25) ng/mL Ur Amphetamines Screen Negative (Uuombh=2060) ng/mL U Benzodiazepines Scrn Positive H (Xklrde=566) ng/mL Urine Cocaine Screen Negative (Cutoff= 300) ng/mL U Marijuana (THC) Screen Negative (Cutoff = 50) ng/mL Ethyl Alcohol (0-10) mg/dL Psychiatric Medical Clearance - Medical Clearance Checklist Medical History: No Social History Section defined Current Vitals: Last Vital Signs Temp 98.1 F 12/03/16 00:25 Pulse 99 12/03/16 00:25 Resp 16 12/03/16 00:25 BP 155/107 12/03/16 00:25 Pulse Ox 97 12/02/16 23:15 Psychiatric Lab Panel: Drug Levels and Toxicity 12/02/16 12/02/16 19:34 20:38 Urine Opiates Screen Negative Acetaminophen < 1.0 L Ur Barbiturates Screen Positive H Ur Phencyclidine Scrn Negative Ur Amphetamines Screen Negative U Benzodiazepines Scrn Positive H Urine Cocaine Screen Negative U Marijuana (THC) Screen Negative Ethyl Alcohol < 10 Abnormal Labs: Abnormal lab results Chloride 111 mEq/L (98-109) H 12/02/16 19:34 Glucose 181 mg/dL (70-99) H 12/02/16 19:34 POC Glucose 116 (58-89) H 12/02/16 20:50 Urine Clarity Cloudy (Clear) A 12/02/16 20:38 Ur Specific [place] 1.026 (1.010-1.025) H 12/02/16 20:38 Ur Squamous Epith Cells Many per lpf (None-Few) H 12/02/16 20:38 Salicylates < 5.0 mg/dL (15-30) L 12/02/16 19:34 Acetaminophen < 1.0 mcg/mL (10-30) L 12/02/16 19:34 Ur Barbiturates Screen Positive ng/mL (Qwxdeb=279) H 12/02/16 20:38 U Benzodiazepines Scrn Positive ng/mL (Dyhqot=835) H 12/02/16 20:38 Statement of Medical Clearance: I have evaluated the patient, reviewed diagnostic information, and certify that the patient's medical condition is sufficiently stable that transfer to the psychiatric unit does not pose a significant risk of deterioration.
[2016-12-03] MEDS: *HR* LORazepam 1 MG TABLET PO PRN ×3 (01:12→17:38)
[2016-12-03] MEDS: Topiramate 25 MG TABLET PO SCH ×2 (01:13→21:53)
[2016-12-03] MEDS: traZODone 50 MG TABLET PO SCH ×2 (01:13→21:53)
[2016-12-03] MEDS: rOPINIRole 1 MG TABLET PO SCH ×2 (01:13→21:53)
[2016-12-03] MEDS: *HR* OxyCODONE/APAP 7.5/325 TABLET PO PRN ×2 (01:13→11:23)
[2016-12-03] MEDS: Ibuprofen 400 MG TABLET PO PRN (07:19)
[2016-12-03] MEDS ORDERED: Cyanocobalamin (B-12) 1,000 MCG/ML VIAL IM SCH (09:00)
[2016-12-03] MEDS: Acetaminophen/Butalbital/CaffeineTABLET PO SCH ×2 (09:09→21:56)
[2016-12-03] MEDS: Folic Acid 1 MG TABLET PO SCH (09:10)
[2016-12-03] MEDS: Fluticasone Propionate Nasal 50 MCG/SPRAY BOTTLE NS SCH (09:11)
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
[2016-12-03] MEDS: Ondansetron ODT 4 MG TAB.RAPDIS SL PRN (17:39)
[2016-12-03] MEDS: hydrOXYzine pamoate 25 MG CAPSULE PO PRN (21:54)
[2016-12-04] MEDS: Ondansetron ODT 4 MG TAB.RAPDIS SL PRN ×2 (08:37→18:21)
[2016-12-04] MEDS: *HR* OxyCODONE/APAP 7.5/325 TABLET PO PRN (09:26)
[2016-12-04] MEDS: Acetaminophen/Butalbital/CaffeineTABLET PO SCH ×2 (09:26→20:58)
[2016-12-04] MEDS: Folic Acid 1 MG TABLET PO SCH (09:27)
[2016-12-04] MEDS: *HR* LORazepam 1 MG TABLET PO PRN ×2 (09:27→13:56)
[2016-12-04] MEDS: Fluticasone Propionate Nasal 50 MCG/SPRAY BOTTLE NS SCH (09:29)
[2016-12-04] MEDS: Ibuprofen 400 MG TABLET PO PRN (13:56)
--- NOTE | 2016-12-04 14:07 | Psychiatry Progress Note ---
Date of Encounter: 12/04/16 Time of Encounter: 14:00 Subjective Interval history: Looks better today. Brighter affect. Able to smile. Reports she feels better as well. Still having headaches and nausea. 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 Staff report she was sitting on her bed resting on a trash can. Isabella reports she still has a migraine today but physically she is moving around and she appears in far less distress. Feels medication changes have been helpful. Wondering if she is on too many meds. Yesterday this filing writer eliminated her SSRI and went up on her Cymbalta. Discussed maximizing doses of medications before adding new ones to help eliminate risk for med interaction. Also taking Ativan prn as she reported this was really helping her. Will see if she can get by without prn today and if she is still feeling well will plan to discharge tomorrow. Isabella reports home is a supportive environment for her. Discussed her cousin and she no longer feels homicidal thoughts toward her. Believes in "karma" and thinks her cousin will get what she deserves without Isabella needing to take any part in it. Review of Systems Constitutional: Denies: fever, chills, weakness, weight change Eyes: Denies: eye pain, vision change Ears, Nose, Throat: Denies: ear pain, throat pain, dental pain, hearing loss, congestion Cardiovascular: Denies: chest pain, palpitations, dyspnea on exertion Respiratory: Denies: cough, dyspnea, wheezes Gastrointestinal: Reports: nausea. Denies: abdominal pain, vomiting, diarrhea, constipation Musculoskeletal: Reports: back pain, myalgia. Denies: joint swelling, joint pain Neurological: Reports: headache, memory loss. Denies: weakness, numbness Objective: Exam Patient orientation: Yes Person, Yes Time, Yes Place Level of alertness: Alert Patient appearance: Appropriate, Well Groomed Behavior: calm, cooperative Psychomotor activity: Normal Eye contact: Maintains Eye Contact Mood description: Euthymic/stable Affect description: congruent with mood, full range Speech pattern: Normal rate, Normal rhythm, Normal tone Speech volume: Normal Thought process: Linear, Goal Oriented Thought content: No Suicidal ideation, No Homicidal ideation, No Overt delusions Perceptual disturbances: No Auditory hallucinations, No Visual hallucinations Judgment: Fair Insight: Partial Results - Vital Signs Vital Signs: Temp Pulse Resp BP Pulse Ox 98 F 107 16 144/110 97 12/04/16 09:00 12/04/16 09:00 12/04/16 09:00 12/04/16 09:00 12/02/16 23:15 - Labs Labs: Laboratory Results - last 24 hr 12/04/16 08:13 POC Glucose 120 H Assessment and Plan (1) Anxiety associated with depression Current visit: No Status: Acute Plan: Continue hospitalization, Close observation, Suicide Precautions per unit protocol, Encourage participation in unit milieu, Group Therapy, Monitor sleep, Monitor appetite, Secure weapons Risks, benefits, side effects, alternatives discussed w/pt: Yes Patient agreeable to treatment: Yes Consult Discharge Plan - Plan Referrals: [facility] [Outside] - 12/18/16 10:00 am (The above appointment is with Neeru Lopez for counseling. Please arrive 10 minutes early for all appointments to complete the check-in process. Please bring your insurance card or HCAP award letter, and photo ID to this appointment. If you are unable to keep this appointment, 24 hour business notice of cancellation is expected. If you miss your new patient appointment, you cannot be re-scheduled in this practice. The [facility] is the 1st building behind [facility] in [place], [place]. This is the first available appointment. You may contact the office regularly to check for cancellations that may allow you to be seen sooner. ) [facility] [employer] [facility] [Outside] - 02/26/17 1:00 pm (The above appointment is with Sheri Botello, psychiatric provider. Please arrive 15 minutes early to complete paperwork. Please bring your insurance card, photo ID and medications in their original bottles. If you do not have insurance, bring proof of income to apply for the sliding fee scale. If you are unable to keep this appointment, 24 hour business notice of cancellation is expected. This is the first available appointment. You may contact the office regularly to check for cancellations that may allow you to be seen sooner. ) Alfa Santos MD [Partnered Physician] - 12/09/16 10:00 am (The above appointment is with Dr. Santos.)
[2016-12-04] MEDS: rOPINIRole 1 MG TABLET PO SCH (20:58)
[2016-12-04] MEDS: hydrOXYzine pamoate 25 MG CAPSULE PO PRN (20:58)
[2016-12-04] MEDS: traZODone 50 MG TABLET PO SCH (20:58)
[2016-12-04] MEDS: Topiramate 25 MG TABLET PO SCH (20:59)
[2016-12-04 21:34] VITALS: BP 134/100
[2016-12-05] MEDS: *HR* OxyCODONE/APAP 7.5/325 TABLET PO PRN ×2 (06:57→13:02)
[2016-12-05] MEDS: Fluticasone Propionate Nasal 50 MCG/SPRAY BOTTLE NS SCH (08:43)
[2016-12-05] MEDS: Acetaminophen/Butalbital/CaffeineTABLET PO SCH (08:43)
[2016-12-05] MEDS: Folic Acid 1 MG TABLET PO SCH (08:44)
[2016-12-05] MEDS: *HR* LORazepam 1 MG TABLET PO PRN ×2 (08:50→15:24)
--- NOTE | 2016-12-05 13:17 | Discharge Summary ---
Date of Encounter: 12/05/16 Time of Encounter: 13:09 Diagnosis - Discharge Diagnosis (1) Anxiety associated with depression Status: Acute Medications - Discharge Medications Prescriptions: DULoxetine [Cymbalta] 60 mg PO DAILY #30 capsule. hydrOXYzine pamoate [HydrOXYzine Pamoate] 25 mg PO TID PRN #90 capsule PRN Reason: Anxiety LORazepam [Ativan] 1 mg PO TID PRN #9 tablet PRN Reason: Anxiety Oxycodone HCl/Acetaminophen [Percocet 7.5-325 mg Tablet] 1 tab PO Q6H PRN #12 tablet PRN Reason: Pain Exenatide Microspheres [Bydureon] 2 mg SQ MO 04/05/15 [History] Loratadine [Claritin] 10 mg PO DAILY PRN 04/05/15 [History] rOPINIRole [Requip] 1 mg PO HS 04/05/15 [History] Albuterol Neb [Proventil Neb] 2.5 mg IH QID PRN 05/30/16 [History] Amitriptyline [Elavil] 50 mg PO HS 05/30/16 [History] Fluticasone Propionate Nasal [Flonase] 2 spray NS DAILY 05/30/16 [History] Topiramate [Topamax] 25 mg PO HS 09/14/16 [History] Acetaminophen/Butalbital/Caffe [Fioricet] 1 each PO BID 10/23/16 [History] Trazodone HCl 300 mg PO HS 10/23/16 [History] Folic Acid 1 mg PO DAILY #30 tablet 10/26/16 [Rx] Cyanocobalamin (Vitamin B-12) [Vitamin B-12] 1,000 mcg IM QMONTH #12 mls [Rx] Gabapentin [Neurontin] 300 mg PO HS 12/03/16 [History] Naratriptan HCl [Amerge] 2.5 mg PO DAILY PRN 12/03/16 [History] Ondansetron HCl [Zofran] 4 mg PO Q4H PRN 12/03/16 [History] Propranolol [Inderal] 20 mg PO BID 12/03/16 [History] Rizatriptan Benzoate [Maxalt] 10 mg PO DAILY PRN 12/03/16 [History] SUMAtriptan [Imitrex] 6 mg SQ ONCE PRN 12/03/16 [History] Tizanidine HCl 4 mg PO TID PRN 12/03/16 [History] DULoxetine [Cymbalta] 60 mg PO DAILY #30 capsule. 12/05/16 [Rx] LORazepam [Ativan] 1 mg PO TID PRN #9 tablet 12/05/16 [Rx] Oxycodone HCl/Acetaminophen [Percocet 7.5-325 mg Tablet] 1 tab PO Q6H PRN #12 tablet 12/05/16 [Rx] Patient Taking Own Medication 1 each SQ Mckenzie@0900 each 12/05/16 [Rx] hydrOXYzine pamoate [HydrOXYzine Pamoate] 25 mg PO TID PRN #90 capsule 12/05/16 [Rx] Allergies Hydromorphone [From Dilaudid] Allergy (Severe, Verified 11/19/16 17:11) Anaphylaxis Pt states "only in high doses. I used to have a pain pump." adhesive tape Allergy (Verified 11/19/16 17:11) Rash morphine Adverse Reaction (Severe, Verified 11/20/16 03:19) Anaphylaxis States allergic to Morphine in "high doses" reports used to have a pain pump that has since been removed. ziconotide [From Prialt] Adverse Reaction (Verified 11/19/16 17:11) Hallucinating Provider Date of admission: 12/02/16 23:51 Primary care physician: PCP NO Discharging clinician: Teri Ontiveros Assessment and Plan - Patient/Caregiver Discharge Instructions Activity: resume usual activities as tolerated Diet: low fat, low cholesterol - Follow up Plan Follow up with: [facility] [Outside] - 12/18/16 10:00 am (The above appointment is with Neeru Lopez for counseling. Please arrive 10 minutes early for all appointments to complete the check-in process. Please bring your insurance card or HCAP award letter, and photo ID to this appointment. If you are unable to keep this appointment, 24 hour business notice of cancellation is expected. If you miss your new patient appointment, you cannot be re-scheduled in this practice. The [facility] is the 1st building behind [facility] in [place], [place]. This is the first available appointment. You may contact the office regularly to check for cancellations that may allow you to be seen sooner. ) [facility] [employer] [facility] [Outside] - 02/26/17 1:00 pm (The above appointment is with Sheri Botello, psychiatric provider. Please arrive 15 minutes early to complete paperwork. Please bring your insurance card, photo ID and medications in their original bottles. If you do not have insurance, bring proof of income to apply for the sliding fee scale. If you are unable to keep this appointment, 24 hour business notice of cancellation is expected. This is the first available appointment. You may contact the office regularly to check for cancellations that may allow you to be seen sooner. ) Alfa Santos MD [Partnered Physician] - 12/09/16 10:00 am (The above appointment is with Dr. Santos.) Functional capacity at discharge: independent ambulation Overall status at discharge: Stable Disposition: Home, Self-Care Hospital Course Hospital course: Ms. Mora is a 46 year old female who was initially admitted secondary to SI and HI toward her cousin. At the time of admission she was on multiple medications. She reported being over medicated and wanting to streamline her regimen. However, she was always very punctual for her pain and anxiety prns. After the first night she was denying all suicidal and homicidal ideation, plan , or intent. She continued to deny any SI or HI up through her discharge. She was smiling and she had a bright affect on the day of discharge because she learned her father had a surprise for her. She reported he was buying her a new house and she also reported he had recently bought her two new cars. Her meds were adjusted slightly during her stay. Her Lexapro was discontinued in favor of maximizing Cymbalta. She was also given prn Vistaril for sleep and anxiety and Isabella felt this medication was very effective. - Time Spent with Patient Total time spent providing and/or coordinating discharge services: Quality - Multiple Antipsychotics Patient discharged on 2 or more antipsychotic medications: No Procedures - Procedures Procedures: Medication Management, Crisis Stabilization, Supportive Therapy, Group Therapy Mental Status Exam - Mental Status Exam Patient orientation: Yes Person, Yes Time, Yes Place Level of alertness: Alert Patient appearance: Appropriate, Well Groomed Behavior: calm, cooperative Psychomotor activity: Normal Eye contact: Maintains Eye Contact Mood description: Euthymic/stable Affect description: congruent with mood, full range Speech pattern: Normal rate, Normal rhythm, Normal tone Speech Volume: Normal Thought process: Linear, Goal Oriented Thought Content: No Suicidal ideation, No Homicidal ideation, No Overt delusions Perceptual Disturbances: No Auditory hallucinations, No Visual hallucinations Judgment: Fair Insight: Partial
== END 2016-12-05 16:10 | disposition home or self-care (01) | DRG 880 ==
LOC: EMEROO 19:19 → 1ANU 23:51
PROVIDERS: ADMIT Student in an Organized Health Care Education/Training Program; ATTEND Student in an Organized Health Care Education/Training Program

== ENCOUNTER 2017-01-22 19:57 | Observation (INO) ==
--- NOTE | 2017-01-22 21:31 | Emergency Department Note ---
Disposition Clinical Impression: UTI (urinary tract infection) Qualifiers: Urinary tract infection type: acute cystitis Hematuria presence: with hematuria Qualified Code(s): N30.01 - Acute cystitis with hematuria Sepsis Qualifiers: Sepsis type: sepsis due to unspecified organism Qualified Code(s): A41.9 - Sepsis, unspecified organism Altered mental status Qualifiers: Altered mental status type: delirium Qualified Code(s): R41.0 - Disorientation , unspecified Medication overdose Qualifiers: Encounter type: initial encounter Injury intent: accidental or unintentional Qualified Code(s): T50.901A - Poisoning by unspecified drugs, medicaments and biological substances, accidental (unintentional), initial encounter Disposition: Admitted As Inpatient Condition: Fair Time of Disposition: 00:53 General Adult HPI - General Chief complaint: ED Headache Stated complaint: Migraine Time Seen by Provider: 01/22/17 20:25 Source: family Limitations: no limitations Nursing Notes Reviewed: Yes Vital Signs Reviewed: Yes - History of Present Illness HPI Narrative: Patient presenting to the emergency department complaining of a headache that started after she was discharged from the hospital earlier today. She does have an altered level of consciousness. She thinks that it is May 2017. She also thinks that she is at [facility]. Pain Scale: 9 - Related Data Home Medications Medication Instructions Recorded Confirmed Exenatide Microspheres [Bydureon] 2 mg SQ MO 04/05/15 01/22/17 Loratadine [Claritin] 10 mg PO DAILY PRN 04/05/15 01/22/17 rOPINIRole [Requip] 1 mg PO HS 04/05/15 01/22/17 Fluticasone Propionate Nasal 2 spray NS DAILY 05/30/16 01/22/17 [Flonase] Topiramate [Topamax] 25 mg PO HS 09/14/16 01/22/17 Acetaminophen/Butalbital/Caffe 1 each PO BID 10/23/16 01/22/17 [Fioricet] Trazodone HCl 300 mg PO HS 10/23/16 01/22/17 Gabapentin [Neurontin] 300 mg PO HS 12/03/16 01/22/17 Naratriptan HCl [Amerge] 2.5 mg PO DAILY PRN 12/03/16 01/22/17 Propranolol [Inderal] 20 mg PO BID 12/03/16 01/22/17 Rizatriptan Benzoate [Maxalt] 10 mg PO DAILY PRN 12/03/16 01/22/17 SUMAtriptan [Imitrex] 6 mg SQ ONCE PRN 12/03/16 01/22/17 Tizanidine HCl 4 mg PO TID PRN 12/03/16 01/22/17 Escitalopram [Lexapro] 10 mg PO DAILY 01/22/17 01/22/17 Fluticasone/Salmeterol [Advair Hfa 1 puff IH Q6H PRN 01/22/17 01/22/17 115-21 Mcg Inhaler] LORazepam [Ativan] 0.5 mg PO BID PRN 01/22/17 01/22/17 Metoclopramide [Reglan] 10 mg PO TID PRN 01/22/17 01/22/17 hydrOXYzine pamoate [HydrOXYzine 25 mg PO QID PRN 01/22/17 01/22/17 Pamoate] Previous Rx's Medication Instructions Recorded Folic Acid 1 mg PO DAILY #30 tablet 10/26/16 DULoxetine [Cymbalta] 60 mg PO DAILY #30 capsule. 12/05/16 Cyanocobalamin (Vitamin B-12) 1,000 mcg IM QMONTH #12 mls 12/31/16 [Vitamin B-12] Allergies Allergy/AdvReac Type Severity Reaction Status Date / Time Hydromorphone [From Dilaudid] Allergy Severe Anaphylaxis Verified 01/15/17 14:25 adhesive tape Allergy Rash Verified 01/15/17 14:25 morphine AdvReac Severe Anaphylaxis Verified 01/15/17 14:25 ziconotide [From Prialt] AdvReac Hallucinati Verified 01/15/17 14:25 ng Review of Systems: Patient denies any fevers or chills. She reports a headache to the right side of her head. She denies any nausea vomiting or diarrhea. She denies any chest pain or shortness of breath. She denies any abdominal pain. She denies any swelling to her extremities. All systems ED: reviewed and negative except as stated. Past Medical History - Past Medical History Medical history: Reports: arthritis, asthma, diabetes, fibromyalgia, GERD, hypertension, kidney stones, migraine, renal disease, syncope, other Surgical history: Reports: , cholecystectomy, orthopedic, other, other , bariatric surgery Psychiatric history: Reports: anxiety, depression, PTSD [employer]IPAL [employer]RARIAN history: Reports: bilateral tubal ligation, other - Social History Smoking Status: Never smoker Smokeless Tobacco Status: No Alcohol use: Reports: occasionally Drug use: Reports: none Physical Exam - General Limitations: altered mental status General appearance: alert, appears intoxicated - Head Head exam: atraumatic, normocephalic, normal inspection - Eye Eye exam: Present: normal appearance, PERRL, EOMI. Absent: scleral icterus - ENT ENT exam: normal exam, normal oropharynx, mucous membranes moist - Neck Neck exam: Present: normal inspection, full ROM, trachea midline. Absent: tenderness, meningismus, lymphadenopathy - Chest Chest inspection: Present: normal inspection, symmetric chest wall rise. Absent : tenderness - Respiratory Respiratory exam: Present: normal lung sounds bilaterally - Cardiovascular Cardiovascular exam: Present: normal rhythm, bradycardia, normal heart sounds - Abdominal Exam Abdominal exam: Present: soft, Non-Tender, normal bowel sounds. Absent: tenderness, distention, guarding, rebound, rigidity, organomegaly - Extremities Exam Extremities exam: Present: normal inspection, full ROM, normal capillary refill. Absent: tenderness, pedal edema - Back Exam Back exam: Present: normal inspection, full ROM. Absent: tenderness - Neurological Exam Neurological exam: Present: alert, oriented X3 - Skin Skin exam: Present: warm, intact, normal color, diaphoresis (About her head.). Absent: rash, cyanosis, erythema Course Course Narrative: Female patient presenting to the emergency department complaining of headache. She was seen earlier today and had a head CTA as well as a neck CTA. Patient states that after she got home her headache returned. That is her complaint today. When I walk into the room she is sitting at bedside leaning forward. Her head is diaphoretic. She has an altered level of consciousness. She thinks she is at [facility]. She tells me that is May 2017. Patient states she went home and took some of her muscle relaxers and Ativan to help with her headache. Patient said she has no relief of her headache. She describes these like her previous setting except for worse in intensity. Currently she has no family here. She states that they did bring her but they have since stayed in the waiting room. We have looked for the patient's family and triage nursing states that they decided to take the children home. Patient does not appear to be able to give a good history of what is going on. We have helped her back in bed. I placed her on a air sampling and monitoring. She is bradycardic while she is here however she is hypertensive. Unreactive. She is maintaining her airway well. Her lung sounds are clear and her heart tones are normal. Her abdomen is soft and nontender. I do not appreciate any edema to her extremities. We will get a basic lab workup on patient. She denies any trauma and not see any evidence of trauma to her body. She appears well kept. We will get basic lab workup on patient as well as a UA. She had a head CT done earlier today I do not feel that it is necessary at this time to repeat this. We will establish an IV and start patient on fluids. She was initially placed on the crash cart monitor due to her paced rhythm and altered mentation. However this was discontinued. - Reevaluation(s) Reevaluation #1: The is now at bedside. He states that after they got home from the emergency department earlier she went and sat down in the living room. She started to get a headache again so he gave her her headache medication. This was an injection. Patient states she also took some of her anxiety medicine which appears to be Ativan. She took her hydroxyzine, and her muscle relaxer. The states that every time the patient takes her muscle relaxer she begins to hallucinate and act like she is acting tonight. He states that last night she was hallucinating and stated that she saw dragons. He states that she was attempting to pet them. He states tonight on the way to the hospital she states there was dust and "stuff" in the air. This was not there. Patient denies any SI or HI at this time. She denies any visual or audio hallucinations. We are moving the patient to the [facility] so she can have a sitter. I Feel this is safer for the patient. We will work patient up. I do not feel that we need to rescan patients had a she had imaging earlier today. We will admit patient to the hospital for possible medication reaction as well as a 1 a consult. Time: 21:28 Reevaluation #2: Patient has a urinary tract infection. We are adding on a lactic acid at this time. Will give her a fluid challenge as well as Rocephin. We will admit patient to the hospital for urinary tract infection, altered mental status, medication overdose. Time: 22:39 Reevaluation #3: Patient's lactic acid is elevated. We are adding a second liter of fluid on this time. We will add urosepsis to her diagnosis. Time: 23:22 - Consultations Consultation #1: Dr Leroy accepted patient stable condition. Time: 00:31 Vital Signs Temperature 97.5 F L 01/22/17 19:58 Pulse Rate 52 01/22/17 19:58 Respiratory Rate 18 01/22/17 19:58 Blood Pressure 170/97 01/22/17 19:58 O2 Sat by Pulse Oximetry 97 01/22/17 19:58 Temperature 97.8 F 01/23/17 01:13 Pulse Rate 50 01/23/17 01:13 Respiratory Rate 14 01/23/17 01:13 Blood Pressure 142/83 01/23/17 01:13 O2 Sat by Pulse Oximetry 98 01/23/17 01:13 Oxygen Delivery Oxygen Delivery Room Air Medical Decision Making - Lab Data Lab results reviewed: Yes I reviewed the patient's lab results. Result diagrams: 01/22/17 21:05 01/22/17 21:05 Lab Results 01/22/17 01/22/17 01/22/17 Range/Units 21:05 21:05 21:05 WBC 13.3 H (4.3-11.1) K/mcL RBC 4.59 (3.82-4.97) M/mcL Hgb 13.2 (11.5-15.4) g/dL Hct 41.5 (35.3-44.9) % MCV 90.4 (83.0-100.0) fL MCH 28.8 (28.0-33.3) pg MCHC 31.8 (31.6-35.5) g/dL RDW 13.0 (11.5-14.5) % Plt Count 279 (140-400) K/mcL MPV 10.2 (9.4-12.4) fL Immature Gran % 0.5 (0-4) % Seg Neutrophils % 73.0 % Lymphocytes % 19.0 % Monocytes % 6.4 % Eosinophils % 0.7 % Basophils % 0.4 % Neutrophils # 9.7 H (1.6-8.9) K/mcL Lymphocytes # 2.5 (0.6-4.6) K/mcL Monocytes # 0.9 (0.0-1.3) K/mcL Eosinophils # 0.1 (0.0-0.6) K/mcL Basophils # 0.1 (0.0-0.2) K/mcL Sodium 140 (136-145) mEq/L Potassium 4.2 (3.5-4.5) mEq/L Chloride 106 (98-109) mEq/L Carbon Dioxide 24 (19-29) mEq/L BUN 8 (7-20) mg/dL Creatinine 0.85 (0.57-1.11) mg/dL Est GFR ( Amer) > 60 (> 60) Est GFR (Non-Af Amer) > 60 (> 60) BUN/Creatinine Ratio 9 (6-26) Glucose 200 H (70-99) mg/dL Calculated Osmolality 294 (280-300) Lactic Acid (0.5-2.2) mmol/L Calcium 8.7 (8.6-10.8) mg/dL Phosphorus (2.3-4.7) mg/dL Magnesium (1.6-2.6) mg/dL Total Bilirubin 0.3 (0.2-1.2) mg/dL Direct Bilirubin 0.1 (0.0-0.5) mg/dL Indirect Bilirubin 0.2 (0.0-1.2) mg/dL AST 28 (5-34) Units/L ALT 26 (0-55) Units/L Alkaline Phosphatase 169 H (38-126) Units/L Ammonia 25 (18-72) mcmol/L Troponin I (0-0.03) ng/mL Serum Total Protein 7.5 (6.0-8.3) g/dL Albumin 3.1 L (3.5-5.0) g/dL Globulin 4.4 H (2.4-3.5) g/dL Albumin/Globulin Ratio 0.7 L (1.1-2.2) Urine Color (Yellow) Urine Clarity (Clear) Urine pH (5.0-8.0) pH Units Ur Specific [place] (1.010-1.025) Urine Protein (Neg-Trace) mg/dL Urine Glucose (UA) (Normal) mg/dL Urine Ketones (Negative) mg/dL Urine Blood (Negative) Urine Nitrite (Negative) Urine Bilirubin (Negative) Urine Urobilinogen (Normal) mg/dL Ur Leukocyte Esterase (Negative) Urine Microscopic RBC Urine Microscopic WBC (0-3) per hpf Ur Squamous Epith Cells (None-Few) per lpf Urine Bacteria (None-Few) per hpf Hyaline Casts (None-Few) per lpf Ur Culture Indicated? (NO) Urine Opiates Screen (Bvmdfq=134) ng/mL Ur Barbiturates Screen (Dynvfp=836) ng/mL Ur Phencyclidine Scrn (Cutoff=25) ng/mL Ur Amphetamines Screen (Zswllq=7110) ng/mL U Benzodiazepines Scrn (Txsgmi=092) ng/mL Urine Cocaine Screen (Cutoff= 300) ng/mL U Marijuana (THC) Screen (Cutoff = 50) ng/mL Ethyl Alcohol < 10 (0-10) mg/dL 01/22/17 01/22/17 01/22/17 Range/Units 21:05 22:11 22:14 WBC (4.3-11.1) K/mcL RBC (3.82-4.97) M/mcL Hgb (11.5-15.4) g/dL Hct (35.3-44.9) % MCV (83.0-100.0) fL MCH (28.0-33.3) pg MCHC (31.6-35.5) g/dL RDW (11.5-14.5) % Plt Count (140-400) K/mcL MPV (9.4-12.4) fL Immature Gran % (0-4) % Seg Neutrophils % % Lymphocytes % % Monocytes % % Eosinophils % % Basophils % % Neutrophils # (1.6-8.9) K/mcL Lymphocytes # (0.6-4.6) K/mcL Monocytes # (0.0-1.3) K/mcL Eosinophils # (0.0-0.6) K/mcL Basophils # (0.0-0.2) K/mcL Sodium (136-145) mEq/L Potassium (3.5-4.5) mEq/L Chloride (98-109) mEq/L Carbon Dioxide (19-29) mEq/L BUN (7-20) mg/dL Creatinine (0.57-1.11) mg/dL Est GFR ( Amer) (> 60) Est GFR (Non-Af Amer) (> 60) BUN/Creatinine Ratio (6-26) Glucose (70-99) mg/dL Calculated Osmolality (280-300) Lactic Acid (0.5-2.2) mmol/L Calcium (8.6-10.8) mg/dL Phosphorus (2.3-4.7) mg/dL Magnesium (1.6-2.6) mg/dL Total Bilirubin (0.2-1.2) mg/dL Direct Bilirubin (0.0-0.5) mg/dL Indirect Bilirubin (0.0-1.2) mg/dL AST (5-34) Units/L ALT (0-55) Units/L Alkaline Phosphatase (38-126) Units/L Ammonia (18-72) mcmol/L Troponin I 0.00 (0-0.03) ng/mL Serum Total Protein (6.0-8.3) g/dL Albumin (3.5-5.0) g/dL Globulin (2.4-3.5) g/dL Albumin/Globulin Ratio (1.1-2.2) Urine Color Yellow (Yellow) Urine Clarity Cloudy A (Clear) Urine pH 6.0 (5.0-8.0) pH Units Ur Specific [place] > 1.030 H (1.010-1.025) Urine Protein Negative (Neg-Trace) mg/dL Urine Glucose (UA) Normal (Normal) mg/dL Urine Ketones Negative (Negative) mg/dL Urine Blood Negative (Negative) Urine Nitrite Positive A (Negative) Urine Bilirubin Negative (Negative) Urine Urobilinogen Normal (Normal) mg/dL Ur Leukocyte Esterase Moderate H (Negative) Urine Microscopic RBC Test Not Performed Urine Microscopic WBC TNTC H (0-3) per hpf Ur Squamous Epith Cells Many H (None-Few) per lpf Urine Bacteria Many H (None-Few) per hpf Hyaline Casts Moderate H (None-Few) per lpf Ur Culture Indicated? YES A (NO) Urine Opiates Screen Negative (Raenek=895) ng/mL Ur Barbiturates Screen Positive H (Xhzdgf=044) ng/mL Ur Phencyclidine Scrn Negative (Cutoff=25) ng/mL Ur Amphetamines Screen Negative (Bxdwha=5727) ng/mL U Benzodiazepines Scrn Positive H (Mjhjce=486) ng/mL Urine Cocaine Screen Negative (Cutoff= 300) ng/mL U Marijuana (THC) Screen Negative (Cutoff = 50) ng/mL Ethyl Alcohol (0-10) mg/dL 01/22/17 01/22/17 01/23/17 Range/Units 22:52 22:52 00:16 WBC (4.3-11.1) K/mcL RBC (3.82-4.97) M/mcL Hgb (11.5-15.4) g/dL Hct (35.3-44.9) % MCV (83.0-100.0) fL MCH (28.0-33.3) pg MCHC (31.6-35.5) g/dL RDW (11.5-14.5) % Plt Count (140-400) K/mcL MPV (9.4-12.4) fL Immature Gran % (0-4) % Seg Neutrophils % % Lymphocytes % % Monocytes % % Eosinophils % % Basophils % % Neutrophils # (1.6-8.9) K/mcL Lymphocytes # (0.6-4.6) K/mcL Monocytes # (0.0-1.3) K/mcL Eosinophils # (0.0-0.6) K/mcL Basophils # (0.0-0.2) K/mcL Sodium (136-145) mEq/L Potassium (3.5-4.5) mEq/L Chloride (98-109) mEq/L Carbon Dioxide (19-29) mEq/L BUN (7-20) mg/dL Creatinine (0.57-1.11) mg/dL Est GFR ( Amer) (> 60) Est GFR (Non-Af Amer) (> 60) BUN/Creatinine Ratio (6-26) Glucose (70-99) mg/dL Calculated Osmolality (280-300) Lactic Acid 2.8 H 2.6 H (0.5-2.2) mmol/L Calcium (8.6-10.8) mg/dL Phosphorus 3.7 (2.3-4.7) mg/dL Magnesium 1.7 (1.6-2.6) mg/dL Total Bilirubin (0.2-1.2) mg/dL Direct Bilirubin (0.0-0.5) mg/dL Indirect Bilirubin (0.0-1.2) mg/dL AST (5-34) Units/L ALT (0-55) Units/L Alkaline Phosphatase (38-126) Units/L Ammonia (18-72) mcmol/L Troponin I (0-0.03) ng/mL Serum Total Protein (6.0-8.3) g/dL Albumin (3.5-5.0) g/dL Globulin (2.4-3.5) g/dL Albumin/Globulin Ratio (1.1-2.2) Urine Color (Yellow) Urine Clarity (Clear) Urine pH (5.0-8.0) pH Units Ur Specific [place] (1.010-1.025) Urine Protein (Neg-Trace) mg/dL Urine Glucose (UA) (Normal) mg/dL Urine Ketones (Negative) mg/dL Urine Blood (Negative) Urine Nitrite (Negative) Urine Bilirubin (Negative) Urine Urobilinogen (Normal) mg/dL Ur Leukocyte Esterase (Negative) Urine Microscopic RBC Urine Microscopic WBC (0-3) per hpf Ur Squamous Epith Cells (None-Few) per lpf Urine Bacteria (None-Few) per hpf Hyaline Casts (None-Few) per lpf Ur Culture Indicated? (NO) Urine Opiates Screen (Ylqpvo=553) ng/mL Ur Barbiturates Screen (Ammqjg=888) ng/mL Ur Phencyclidine Scrn (Cutoff=25) ng/mL Ur Amphetamines Screen (Bqxefg=5550) ng/mL U Benzodiazepines Scrn (Wgnwwd=989) ng/mL Urine Cocaine Screen (Cutoff= 300) ng/mL U Marijuana (THC) Screen (Cutoff = 50) ng/mL Ethyl Alcohol (0-10) mg/dL Attestation Statement - Attestation Attestation: I personally interviewed and examined this patient and my medical decision- making was reviewed with the ED Resident Physician, I agree with the documented findings, disposition and treatment plan as described except to the extent set forth below. Patient is a 46-year-old white female who was seen earlier today in the emergency department and evaluated for chronic right-sided headaches who returns with ongoing headache and acute mental status change. Patient had a CTA of the head and neck a few hours ago in the emergency department, both studies were within normal limits with no acute abnormalities. Patient was discharged home to follow up with her doctor. Upon arriving home patient took a number of sedating medications as listed in the initial documentation. Patient arrives here awake verbally responsive to questions but oriented to person only. Patient was found to be bradycardic and hypertensive. We initially started management at bedside due to unstable vitals and altered mental status. Patient was placed on pacer pads, cardiac monitoring, supple no oxygen, continuous pulse ox and IV was established. Labs are drawn and sent and she was started on IV fluids. Patient was maintaining an airway with no respiratory distress or hypoxia. We suspect patient's altered mental status is multifactorial, involving self- reported numerous sedating medications. Family who are at bedside reports that on frequent occasions after taking all of these medicines in the evening patient has had altered mental status at home including hallucinations and not oriented to place or time. This is happened before and unclear whether or not patient intentionally took large doses of these medications in an attempt to harm herself. Upon review of patient's records she was recently admitted and evaluated for suicidal ideation. Patient was placed where she can be watched by a sitter. Labs showed a urinary tract infection, additional IV fluids were added and patient was started on IV antibiotics and urine was sent for culture. Blood cultures were also obtained. Patient also with an elevated lactate. Patient additionally has possible urosepsis, blood pressure has remained stable over time. Heart rate has been labile with periods of bradycardia. Patient's case was discussed with the hospitalist and patient will be admitted for further evaluation of altered mental status, UTI, early urosepsis, lactic acidosis, and medication side effects. We also feel the patient should be watched by a sitter and evaluated by psychiatry once her mental status improves.
[2017-01-22 21:37] LABS: Basophils # 0.1 K/mcL (0.0-0.2); Basophils % 0.4 %; Eosinophils # 0.1 K/mcL (0.0-0.6); Eosinophils % 0.7 %; Hematocrit 41.5 % (35.3-44.9); Hemoglobin 13.2 g/dL (11.5-15.4); Immature Granulocytes % 0.5 % (0-4); Lymphocytes # 2.5 K/mcL (0.6-4.6); Mean Corpuscular HGB Conc 31.8 g/dL (31.6-35.5); Mean Corpuscular Hemoglobin 28.8 pg (28.0-33.3); Mean Corpuscular Volume 90.4 fL (83.0-100.0); Mean Platelet Volume 10.2 fL (9.4-12.4); Monocytes # 0.9 K/mcL (0.0-1.3); Monocytes % 6.4 %; Neutrophils # 9.7 K/mcL (1.6-8.9); Platelet Count 279 K/mcL (140-400); Red Blood Count 4.59 M/mcL (3.82-4.97)
[2017-01-22 21:48] LABS: Alanine Aminotransferase 26 Units/L (0-55); Albumin 3.1 g/dL (3.5-5.0); Albumin/Globulin Ratio 0.7 (1.1-2.2); Alkaline Phosphatase 169 Units/L (38-126); Aspartate Amino Transferase 28 Units/L (5-34); BUN/Creatinine Ratio 9 (6-26); Bilirubin,Indirect 0.2 mg/dL (0.0-1.2); Bilirubin,Total 0.3 mg/dL (0.2-1.2); Blood Urea Nitrogen 8 mg/dL (7-20); Calcium 8.7 mg/dL (8.6-10.8); Carbon Dioxide 24 mEq/L (19-29); Chloride 106 mEq/L (98-109); Globulin 4.4 g/dL (2.4-3.5); Glucose 200 mg/dL (70-99); Osmolality,Calculated 294 (280-300); Potassium 4.2 mEq/L (3.5-4.5); Sodium 140 mEq/L (136-145); Total Protein 7.5 g/dL (6.0-8.3); eGFR For African Americans > 60 (> 60); eGFR For Non-African Americans > 60 (> 60)
[2017-01-22 21:56] LABS: Bilirubin,Direct 0.1 mg/dL (0.0-0.5)
[2017-01-22 22:10] LABS: Ethanol < 10 mg/dL (0-10)
[2017-01-22 22:19] LABS: Bilirubin,Urine Negative (Negative); Blood,Urine Negative (Negative); Clarity,Urine Cloudy (Clear); Color,Urine Yellow (Yellow); Glucose,Urine (UA) Normal (Normal); Ketones,Urine Negative (Negative); Leukocyte Esterase,Urine Moderate (Negative); Nitrite,Urine Positive (Negative); Protein,Urine Negative (Neg-Trace); Specific Gravity,Urine > 1.030 (1.010-1.025); Urobilinogen,Urine Normal (Normal)
[2017-01-22 22:23] LABS: Bacteria,Urine Many per hpf (None-Few); Hyaline Casts,Urine Moderate per lpf (None-Few); Squamous Epithelial Cell,Urine Many per lpf (None-Few); WBC,Urine TNTC per hpf (0-3)
[2017-01-22 22:23] LABS: Amphetamine Screen,Urine Negative ng/mL (Cutoff=1000); Benzodiazepines Screen,Urine Positive ng/mL (Cutoff=200); Cannabinoid Screen,Urine Negative ng/mL (Cutoff = 50); Cocaine Screen,Urine Negative ng/mL (Cutoff= 300); Opiate Screen,Urine Negative ng/mL (Cutoff=300); Phencyclidine Screen,Urine Negative ng/mL (Cutoff=25)
[2017-01-22 22:26] LABS: Barbiturate Screen,Urine Positive ng/mL (Cutoff=200)
[2017-01-22] MEDS ORDERED: 0.9 % Sodium Chloride 1,000 ML IVC ONE ×2 (22:36→23:21)
[2017-01-22 23:13] LABS: Magnesium 1.7 mg/dL (1.6-2.6); Phosphorous 3.7 mg/dL (2.3-4.7)
[2017-01-23] MEDS ORDERED: Naloxone 0.4 MG/ML INJ IVP PRN (02:37)
[2017-01-23] MEDS ORDERED: Ondansetron 4 MG/2 ML VIAL IVP PRN ×2 (02:37→12:51)
[2017-01-23] MEDS ORDERED: Loratadine 10 MG TABLET PO PRN (02:39)
[2017-01-23] MEDS ORDERED: Budesonide/Formoterol 80/4.5 MDI IH PRN (02:39)
[2017-01-23] MEDS: 0.9 % Sodium Chloride 1,000 ML IVC SCH ×3 (02:54→21:37)
[2017-01-23] MEDS: Ketorolac 30 MG/ML VIAL IVP PRN ×3 (02:54→20:10)
--- NOTE | 2017-01-23 03:37 | Internal Med History&Physical ---
Date of Encounter: 01/23/17 Time of Encounter: 15:05 Assessment and Plan (1) Altered mental status Current visit: Yes Status: Acute Likely secondary to polypharmacy Mental status back to baseline at this time continue to hold all sedative agents, patient will need med reconciliation prior to discharge Holding Gabapentin, Hydroxyzine, Lorazepam at this time Qualifiers: Altered mental status type: unspecified Qualified Code(s): R41.82 - Altered mental status, unspecified (2) Bradycardia Current visit: Yes Status: Acute Likely drug induced Clinically asymptomatic holding Propranolol at this time continue tele monitoring (3) Migraine headache Current visit: No Status: Chronic continue Triptan therapy consider neurology evaluation if headaches persist Qualifiers: Migraine type: unspecified Status migrainosus presence: without status migrainosus Intractability: not intractable Qualified Code(s): G43.909 - Migraine, unspecified, not intractable, without status migrainosus (4) Polypharmacy Current visit: No Status: Chronic Holding sedative agents at this time Will need med reconciliation prior to discharge patient needs to be educated further on medication administration and risks associated with polypharmacy (5) UTI (urinary tract infection) Current visit: No Status: Acute clinically asymptomatic however UA consistent with UTI started on Ceftriaxone in the ER, will continue follow up urine cultures Qualifiers: Urinary tract infection type: acute cystitis Hematuria presence: without hematuria Qualified Code(s): N30.00 - Acute cystitis without hematuria (6) Morbid obesity with BMI of 40.0-44.9, adult Current visit: Yes Status: Chronic Internal Medicine - H&P: HPI Chief complaint: change in mental status Admitted From: Home Plans for Post Hospital Care: Home History of present illness: Ms. Mora is a 46 year old female with extensive medical history who is brought to the ER by family for evaluation of severe headache and change in mental status. Patient was seen in the ER earlier today for worsening migraine headache for which she was treated and discharged to home. As per family, the patient reported of having persistent headache for which she took Ativan, Hydroxyzine, muscle relaxant, Propranolol and Sumatriptan SQ all at once. As per , shortly after her mentation changed and she started hallucinating. This has happened in the past when she takes her muscle relaxant. Upon initial evaluation in the ER, she was found to be altered and only oriented to self. At this time she is AAO x 3. Reports of still having a headache however she is sitting comfortably in her bed, watching a movie on her person laptop. Patient has history of polysubstance abuse and was recently hospitalized in psych inpatient unit for suicidal ideation. She denies any SI or HI at this time. Denies any other symptoms at this time. PMH: Major depression, Anxiety disorder, Bipolar disorder, Asthma, BRISSA, GERD, Iron def anemia, RLS, Nephrolithiasis, Chronic pain syndrome s/p laminectomy, Migraine Headaches, Morbid obesity s/p bariatric surgery, former smoker Past Med Surg Social Fam HX - Past Medical History Medical history: arthritis, asthma, diabetes, fibromyalgia, GERD, hypertension, kidney stones, migraine, renal disease, syncope, other Psychiatric history: anxiety, depression, PTSD - Past Surgical History Surgical History: , cholecystectomy, orthopedic, other, other, bariatric surgery - Social History Smoking Status: Never smoker Smokeless Tobacco Status: No Alcohol use: occasionally Drug use: none - Family History Maternal Grandmother Living Status: Hx Family Endocrine Disorder: Yes Mother Adopted: Yes Living Status: Hx Family Cardiac Disorders: No Hx Family Cancer: Yes Hx Family Endocrine Disorder: Yes Hx Family Neuromuscular Disorders: Yes Internal Medicine - H&P: Meds Exenatide Microspheres [Bydureon] 2 mg SQ MO 04/05/15 [History] Loratadine [Claritin] 10 mg PO DAILY PRN 04/05/15 [History] rOPINIRole [Requip] 1 mg PO HS 04/05/15 [History] Fluticasone Propionate Nasal [Flonase] 2 spray NS DAILY 05/30/16 [History] Topiramate [Topamax] 25 mg PO HS 09/14/16 [History] Acetaminophen/Butalbital/Caffe [Fioricet] 1 each PO BID 10/23/16 [History] Trazodone HCl 300 mg PO HS 10/23/16 [History] Folic Acid 1 mg PO DAILY #30 tablet 10/26/16 [Rx] Gabapentin [Neurontin] 300 mg PO HS 12/03/16 [History] Naratriptan HCl [Amerge] 2.5 mg PO DAILY PRN 12/03/16 [History] Propranolol [Inderal] 20 mg PO BID 12/03/16 [History] Rizatriptan Benzoate [Maxalt] 10 mg PO DAILY PRN 12/03/16 [History] SUMAtriptan [Imitrex] 6 mg SQ ONCE PRN 12/03/16 [History] Tizanidine HCl 4 mg PO TID PRN 12/03/16 [History] DULoxetine [Cymbalta] 60 mg PO DAILY #30 capsule. 12/05/16 [Rx] Cyanocobalamin (Vitamin B-12) [Vitamin B-12] 1,000 mcg IM QMONTH #12 mls [Rx] Escitalopram [Lexapro] 10 mg PO DAILY 01/22/17 [History] Fluticasone/Salmeterol [Advair Hfa 115-21 Mcg Inhaler] 1 puff IH Q6H PRN [History] LORazepam [Ativan] 0.5 mg PO BID PRN 01/22/17 [History] Metoclopramide [Reglan] 10 mg PO TID PRN 01/22/17 [History] hydrOXYzine pamoate [HydrOXYzine Pamoate] 25 mg PO QID PRN 01/22/17 [History] Allergies Hydromorphone [From Dilaudid] Allergy (Severe, Verified 01/15/17 14:25) Anaphylaxis Pt states "only in high doses. I used to have a pain pump." adhesive tape Allergy (Verified 01/15/17 14:25) Rash morphine Adverse Reaction (Severe, Verified 01/15/17 14:25) Anaphylaxis States allergic to Morphine in "high doses" reports used to have a pain pump that has since been removed. ziconotide [From Prialt] Adverse Reaction (Verified 01/15/17 14:25) Hallucinating All Systems PM: A 10-system review of systems was performed and is negative for pertinent findings except as documented above in the HPI. - Constitutional Constitutional: as per HPI, no chills, no fatigue, no fever(s) Additional comments: Denies any dysuria, urinary urgency or increased frequency - Constitutional Vitals: Temp Pulse Resp BP Pulse Ox 97.8 F 50 14 142/83 98 01/23/17 01:13 01/23/17 01:13 01/23/17 01:13 01/23/17 01:13 01/23/17 01:13 General appearance: Present: A&O X 3, morbidly obese, no acute distress, answers questions appropriately - Head Head exam: Present: atraumatic, normocephalic - Eye Eye exam: Present: normal appearance, conjuntiva pink, sclera anicteric - Respiratory Respiratory exam: Present: CTAB. Absent: respiratory distress, wheezes - Cardiovascular Cardiovascular exam: Present: bradycardia, +S1, +S2. Absent: diastolic murmur, gallop, rubs, systolic murmur - GI/Abdominal GI/Abdominal exam: Present: normal bowel sounds, soft, no peritoneal signs. Absent: distended, tenderness - Extremities Exam Extremities exam: Present: warm, radial pulses palpable and symetrical. Absent : calf tenderness, cyanotic, pedal edema - Neurological Exam Neurological exam: Present: alert, oriented X3 - Psychiatric Psychiatric exam: Present: normal mood. Absent: homicidal ideation, suicidal ideation Internal Med - H&P Results - Labs CBC & Chem 7: 01/22/17 21:05 01/22/17 21:05
[2017-01-23 04:33] LABS: Basophils # 0.1 K/mcL (0.0-0.2); Basophils % 0.5 %; Eosinophils # 0.2 K/mcL (0.0-0.6); Eosinophils % 1.6 %; Hematocrit 38.2 % (35.3-44.9); Hemoglobin 12.2 g/dL (11.5-15.4); Immature Granulocytes % 0.3 % (0-4); Lymphocytes # 4.1 K/mcL (0.6-4.6); Lymphocytes % 36.5 %; Mean Corpuscular HGB Conc 31.9 g/dL (31.6-35.5); Mean Corpuscular Hemoglobin 29.4 pg (28.0-33.3); Mean Platelet Volume 10.5 fL (9.4-12.4); Monocytes # 0.8 K/mcL (0.0-1.3); Monocytes % 7.3 %; Platelet Count 200 K/mcL (140-400); Red Blood Count 4.15 M/mcL (3.82-4.97); Red Cell Distribution Width 13.2 % (11.5-14.5); Segmented Neutrophils % 53.8 %
[2017-01-23 04:39] LABS: Chloride 112 mEq/L (98-109); Potassium 4.3 mEq/L (3.5-4.5); Sodium 137 mEq/L (136-145)
[2017-01-23 05:25] LABS: BUN/Creatinine Ratio 9 (6-26); Blood Urea Nitrogen 6 mg/dL (7-20); Carbon Dioxide 14 mEq/L (19-29); Glucose 90 mg/dL (70-99); Osmolality,Calculated 281 (280-300); Phosphorous 3.2 mg/dL (2.3-4.7); eGFR For African Americans > 60 (> 60); eGFR For Non-African Americans > 60 (> 60)
[2017-01-23 05:28] LABS: Magnesium 1.7 mg/dL (1.6-2.6)
[2017-01-23] MEDS ORDERED: *HR* LORazepam 2 MG/ML VIAL ONE (06:06)
--- NOTE | 2017-01-23 06:54 | Event Note ---
Date of Encounter: 01/23/17 Time of Encounter: 06:05 A Rapid response was called due to acute onset of seizure like activity. Patient reported of having chest pain after which she was noted to have generalized shakiness similar to generalized tonic clonic seizure like activity. She was given Ativan 2mg IV which subsided her seizure like activity. Patient has history of pseudoseizures and has had a negative neuro work up. At this time, patient is resting in bed and is hemodynamically stable. If recurrent episodes occur, consider neurology evaluation.
[2017-01-23] MEDS: Folic Acid 1 MG TABLET PO SCH (07:41)
[2017-01-23] MEDS: Fluticasone Propionate Nasal 50 MCG/SPRAY BOTTLE NS SCH (07:41)
[2017-01-23] MEDS ORDERED: hydrOXYzine pamoate 25 MG CAPSULE PO PRN (08:17)
[2017-01-23] MEDS ORDERED: *HR* LORazepam 0.5 MG TABLET PO PRN ×2 (08:17→12:50)
[2017-01-23] MEDS ORDERED: *HR* LORazepam 2 MG/ML VIAL IVP ONE (08:48)
[2017-01-23] MEDS ORDERED: *HR* Water for inj. (sterile) 10 ML VIAL IV ONE (08:48)
--- NOTE | 2017-01-23 12:43 | Event Note ---
Date of Encounter: 01/23/17 Time of Encounter: 10:30 Patient seen and examined. On examination, patient resting on her side in the bed. Patient is alert and oriented 3 and currently complains of a severe migraine. She states she has severe migraines "all the time" and states that she has essentially had a severe migraine for approximately 2 years. She was seen in the emergency department yesterday and was given a migraine cocktail and then discharged. She states that she was home for approximately half an hour when her severe migraine returned and she proceeded to take several medications in an attempt to abort her migraine. Patient denies any focal neurological weaknesses or vision changes. Patient is requesting medication to help with pain and to help her "pass out." She states she is very fatigued and did not sleep much last night. Mild leukocytosis trending down. Lactic acidosis resolved. Urinary tract infection noted the patient is on ceftriaxone with urine culture pending. Patient stating she is eating well. She is also reporting diarrhea for the past 1.5 weeks. We will check a stool culture. Regarding her chronic migraine, at home, she takes Reglan as needed, hydroxyzine as needed, terazosin and again as needed, Imitrex as needed, Maxalt as needed, nerve trip 10 as needed, Ativan as needed, as well as Fioricet twice a day. At night to help her sleep, she takes Requip, trazodone, Topamax and gabapentin. Polypharmacy noted. We will give her migraine cocktail to abort her headache. He spoke to neurologist Dr. Snow who states he will follow up with her outpatient regarding possible Botox injections as the next level of treatment as she appears to be maxed out she appears to be maxed out on all oral medications. Patient did have a nonepileptic episode earlier this morning that was consistent with a pseudoseizure. She has been worked up extensively outpatient and is not on any seizure medications. Due to her tendency to have these episodes when she is left alone, his sitter has been placed at the bedside , we will continue to reevaluate whether or not a sitter is appropriate throughout the day. Patient stating that she was admitted to inpatient psychiatry and may however she states her current mood is stable and she denies suicidal or homicidal ideations. Her biggest concern at this point is her uncontrolled headache and lack of sleep. No indication for psychiatric consult at this time. ITS Impressions Chest X-Ray 01/22/17 21:10 IMPRESSION: No acute process. D/ / Dada Moncada MD / Dada Moncada MD Interpreting Provider: Dada Moncada MD
[2017-01-23] MEDS ORDERED: Prochlorperazine 10 MG/2 ML VIAL IVP ONE ×2 (12:46→19:59)
[2017-01-23] MEDS ORDERED: *HR* Promethazine 25 MG/ML VIAL IVP PRN (12:48)
[2017-01-23] MEDS ORDERED: *HR* LORazepam 2 MG/ML VIAL IVP PRN (12:49)
[2017-01-23] MEDS ORDERED: Pantoprazole 40 MG VIAL IVP ONE (19:59)
[2017-01-23] MEDS ORDERED: Topiramate 25 MG TABLET PO SCH (21:00)
[2017-01-23] MEDS ORDERED: rOPINIRole 1 MG TABLET PO SCH (21:00)
[2017-01-23] MEDS ORDERED: traZODone 50 MG TABLET PO SCH (21:00)
[2017-01-23] MEDS ORDERED: Gabapentin 300 MG CAPSULE PO SCH (21:00)
[2017-01-24 04:34] LABS: Basophils % 0.4 %; Eosinophils # 0.1 K/mcL (0.0-0.6); Eosinophils % 1.4 %; Hematocrit 39.6 % (35.3-44.9); Hemoglobin 12.9 g/dL (11.5-15.4); Immature Granulocytes % 0.3 % (0-4); Lymphocytes # 3.3 K/mcL (0.6-4.6); Lymphocytes % 32.7 %; Mean Corpuscular HGB Conc 32.6 g/dL (31.6-35.5); Mean Corpuscular Hemoglobin 29.3 pg (28.0-33.3); Mean Platelet Volume 10.1 fL (9.4-12.4); Monocytes # 0.9 K/mcL (0.0-1.3); Monocytes % 9.2 %; Neutrophils # 5.7 K/mcL (1.6-8.9); Platelet Count 253 K/mcL (140-400); Red Cell Distribution Width 13.3 % (11.5-14.5)
[2017-01-24 05:00] LABS: BUN/Creatinine Ratio 5 (6-26); Calcium 8.8 mg/dL (8.6-10.8); Carbon Dioxide 27 mEq/L (19-29); Chloride 110 mEq/L (98-109); Glucose 97 mg/dL (70-99); Osmolality,Calculated 296 (280-300); eGFR For African Americans > 60 (> 60); eGFR For Non-African Americans > 60 (> 60)
[2017-01-24 05:01] LABS: Blood Urea Nitrogen 3 mg/dL (7-20); Potassium 3.2 mEq/L (3.5-4.5); Sodium 145 mEq/L (136-145)
[2017-01-24] MEDS: Ketorolac 30 MG/ML VIAL IVP PRN (05:37)
[2017-01-24] MEDS: Folic Acid 1 MG TABLET PO SCH (07:36)
[2017-01-24] MEDS: 0.9 % Sodium Chloride 1,000 ML IVC SCH (07:36)
[2017-01-24] MEDS: Fluticasone Propionate Nasal 50 MCG/SPRAY BOTTLE NS SCH (07:37)
[2017-01-24 14:53] VITALS: BP 141/94
--- NOTE | 2017-01-24 15:42 | Discharge Summary ---
Date of Encounter: 01/24/17 Time of Encounter: 14:00 - Discharge Diagnosis (1) Medication overdose Priority: Primary Status: Resolved (2) Altered mental status Priority: Primary Status: Resolved (3) Migraine headache Priority: Secondary Status: Chronic Comments: Responded well to migraine cocktail while admitted. There are no further migraine medications that are available. She has also tried Botox injections. Recommend follow-up outpatient. Qualifiers: Migraine type: unspecified Status migrainosus presence: without status migrainosus Intractability: not intractable Qualified Code(s): G43.909 - Migraine, unspecified, not intractable, without status migrainosus (4) UTI (urinary tract infection) Priority: Primary Status: Acute Comments: Preliminary report gram-negative rods. She was treated with ceftriaxone while admitted. She has a history of pansensitive Escherichia coli, we will send her home on Cipro. No antibiotic allergies noted. I will call her tomorrow if she needs to change antibiotics based upon sensitivity report which will be available tomorrow. (5) Psychogenic nonepileptic seizure Priority: Secondary Status: Chronic Comments: Patient had 2 episodes while admitted that were consistent with pseudoseizures. Patient was able to answer questions during her second event and per staff during her first event, she had a negative arm drop test. No postictal phases, no injuries, no incontinence. (6) Type 2 diabetes mellitus Priority: Secondary Status: Chronic Comments: Controlled, A1c 6.0%. Follow-up outpatient. Qualifiers: Diabetes mellitus complication status: with unspecified complications Diabetes mellitus fpc insulin use: without long term care phlebotomist use Qualified Code( s): E11.8 - Type 2 diabetes mellitus with unspecified complications (7) Drug-seeking behavior Priority: Primary Status: Acute Comments: Patient continually asked for IV Dilaudid during this admission, which was not indicated for migraines. (8) History of posttraumatic stress disorder (PTSD) Priority: Secondary Status: Chronic Comments: Patient was tearful at times during this admission but denied suicidal or homicidal ideations. (9) Polypharmacy Priority: Secondary Status: Chronic (10) Chronic pain associated with significant psychosocial dysfunction Priority: Secondary Status: Chronic (11) History of Erin-en-Y gastric bypass Priority: Secondary Status: Chronic (12) Fibromyalgia syndrome Priority: Secondary Status: Chronic (13) Depression Priority: Secondary Status: Chronic (14) Morbid obesity with BMI of 40.0-44.9, adult Priority: Secondary Status: Chronic (15) Bradycardia Priority: Primary Status: Resolved Comments: liekly secondary to polypharmacy. resolved; contnue BB and FU outpatient - Discharge Medications Prescriptions: Ciprofloxacin HCl [Cipro] 250 mg PO BID #14 tab Home Medications: Exenatide Microspheres [Bydureon] 2 mg SQ MO 04/05/15 [History] Loratadine [Claritin] 10 mg PO DAILY PRN 04/05/15 [History] rOPINIRole [Requip] 1 mg PO HS 04/05/15 [History] Fluticasone Propionate Nasal [Flonase] 2 spray NS DAILY 05/30/16 [History] Topiramate [Topamax] 25 mg PO HS 09/14/16 [History] Acetaminophen/Butalbital/Caffe [Fioricet] 1 each PO BID 10/23/16 [History] Trazodone HCl 300 mg PO HS 10/23/16 [History] Folic Acid 1 mg PO DAILY #30 tablet 10/26/16 [Rx] Gabapentin [Neurontin] 300 mg PO HS 12/03/16 [History] Naratriptan HCl [Amerge] 2.5 mg PO DAILY PRN 12/03/16 [History] Propranolol [Inderal] 20 mg PO BID 12/03/16 [History] Rizatriptan Benzoate [Maxalt] 10 mg PO DAILY PRN 12/03/16 [History] SUMAtriptan [Imitrex] 6 mg SQ ONCE PRN 12/03/16 [History] Tizanidine HCl 4 mg PO TID PRN 12/03/16 [History] DULoxetine [Cymbalta] 60 mg PO DAILY #30 capsule. 12/05/16 [Rx] Cyanocobalamin (Vitamin B-12) [Vitamin B-12] 1,000 mcg IM QMONTH #12 mls [Rx] Escitalopram [Lexapro] 10 mg PO DAILY 01/22/17 [History] Fluticasone/Salmeterol [Advair Hfa 115-21 Mcg Inhaler] 1 puff IH Q6H PRN [History] LORazepam [Ativan] 0.5 mg PO BID PRN 01/22/17 [History] Metoclopramide [Reglan] 10 mg PO TID PRN 01/22/17 [History] hydrOXYzine pamoate [HydrOXYzine Pamoate] 25 mg PO QID PRN 01/22/17 [History] Ciprofloxacin HCl [Cipro] 250 mg PO BID #14 tab 01/24/17 [Rx] Allergies/Adverse Reactions: Allergies Hydromorphone [From Dilaudid] Allergy (Severe, Verified 01/15/17 14:25) Anaphylaxis Pt states "only in high doses. I used to have a pain pump." adhesive tape Allergy (Verified 01/15/17 14:25) Rash morphine Adverse Reaction (Severe, Verified 01/15/17 14:25) Anaphylaxis States allergic to Morphine in "high doses" reports used to have a pain pump that has since been removed. ziconotide [From Prialt] Adverse Reaction (Verified 01/15/17 14:25) Hallucinating Procedures/tests Complete & Pending: Procedures Performed prior 72 hours Category Date Time Status ECG 12 lead ECG [ECG] Routine Y 01/23/17 06:09 Completed Date of admission: 01/23/17 00:41 Primary care physician: Alfa Santos MD Discharging clinician: Deandra Logan Anticipated date of discharge: 01/24/17 - Patient Status Disposition: Home, Self-Care Condition: Fair Functional capacity at discharge: independent ambulation Overall status at discharge: patient is back to baseline - Discharge Instructions Follow Up With: Alfa Santos MD [Primary Care Provider] - 01/31/17 9:00 am Additional Instructions: Follow-up with primary care provider as scheduled - Diet and Activity Activity: increase activity as tolerated Diet: diabetic diet, low fat, low cholesterol, low salt diet Hospital course: Ms. Mora is a 46 year old female with past medical history of asthma, diabetes , fibromyalgia, GERD, hypertension, chronic kidney disease, chronic migraines, PTSD, anxiety/depression, history of bariatric surgery. Patient presented to the emergency department with a chief complaint of a severe headache as well as altered mental status. Patient was seen in the emergency department earlier on in the same day of this presentation and at that time she was seen for worsening migraine headache. She was treated and discharged home. Family states that the patient went home and her headache persisted so she took Ativan , hydroxyzine, muscle relaxant, propanolol, and sumatriptan subcutaneously all at the same time. According to the patient's , shortly thereafter taking these medications, patient's mentation changed and she started to hallucinate. Her states this what happens in the past when she takes all his medications together. Patient was altered and only oriented 1 to self upon presentation. She was admitted to the hospitalist service for further evaluation and management. Throughout the course of her one night admission, patient was alert and oriented 3. She still complained of a severe headache consistent with her chronic migraines. Patient stating that she has had a severe migraine for approximately 2 years. She was treated with a migraine cocktail twice while admitted with some relief in her symptoms. There does not appear to be any other medications that the patient could utilize to abort her migraines. At home, patient takes Reglan as needed, hydroxyzine as needed, Teri Brown as needed, Imitrex as needed, Maxalt as needed, NARAtriptan as needed , Ativan as needed, and Fioricet twice a day. At night to help her sleep, she takes Requip, trazodone, Topamax, and gabapentin. Evidence of polypharmacy. She has also had Botox injections that were also not helpful. Patient continually asked for IV Dilaudid which she was not given as this was not indicated for a migraine. Patient had mild leukocytosis that resolved. Lactic acidosis resolved. She was noted to have a urinary tract infection was treated with ceftriaxone during the admission. On day of discharge, preliminary report consistent with gram-negative rachael. Patient has history of pansensitive Escherichia coli cultures so she was sent home on ciprofloxacin-she will be called tomorrow if her antibiotic needs to be changed. Patient was able to tolerate a regular diet while admitted. While admitted, patient had 2 episodes that were consistent with nonepileptic pseudoseizures. During the second episode, she was able to follow commands and answer questions while allegedly having a seizure. During the first episode, she had a negative drop arm test- her arm was lifted in the air by staff and the patient actively moved her arm and placed it back down her side consistent with full muscle control and pseudoseizure. She has been worked up extensively outpatient and is not on any seizure medications. Due to her tendency to have these episodes when she is left alone, she had a sitter during the first half of her admission. Patient stating that she was admitted to inpatient psychiatry in November however she stated her current mood was stable and she denied suicidal or homicidal ideations. No indication for psychiatric consult during this admission. She was discharged home in stable condition with close outpatient follow-up recommended. ITS Impressions Chest X-Ray 01/22/17 21:10 IMPRESSION: No acute process. D/ / Dada Moncada MD / Dada Moncada MD Interpreting Provider: Dada Moncada MD - Time Spent with Patient Total time spent providing and/or coordinating discharge services: - Constitutional Vitals: Temp Pulse Resp BP Pulse Ox 98.3 F 108 18 141/94 93 01/24/17 14:53 01/24/17 14:53 01/24/17 14:53 01/24/17 14:53 01/24/17 14:53 General appearance: Present: A&O X 3, morbidly obese, no acute distress, answers questions appropriately - Head Head exam: Present: atraumatic, normocephalic - Eye Eye exam: Present: PERRL, conjuntiva pink, sclera anicteric Pupils: Present: PERRL - Neck Neck exam general surgery: Present: supple, trachea midline. Absent: lymphadenopathy - Respiratory Respiratory exam: Present: CTAB. Absent: accessory muscle use, rales, respiratory distress, rhonchi, wheezes - Cardiovascular Cardiovascular exam: Present: RRR, +S1, +S2. Absent: diastolic murmur, gallop, rubs, systolic murmur - GI/Abdominal GI/Abdominal exam: Present: normal bowel sounds, soft, no peritoneal signs. Absent: distended, tenderness - Extremities Exam Extremities exam: Present: warm, radial pulses palpable and symetrical. Absent : calf tenderness, cyanotic, pedal edema - Neurological Exam Neurological exam: Present: alert, CN II-XII intact, normal gait, oriented X3, no focal deficits, strengths equal and symetr throughout. Absent: pronater drift, facial droop, speech deficit - Skin Skin exam: Present: dry, intact, normal color, warm
== END 2017-01-24 16:26 | disposition home or self-care (01) ==
LOC: EMEROO 19:57 → 3BNU 19:57
PROVIDERS: ADMIT Internal Medicine; ATTEND Nurse Practitioner Family

== ENCOUNTER 2018-03-31 07:43 | Observation (INO) ==
[2018-03-31] MEDS ORDERED: Ipratropium/Albuterol Neb 3 ML IH ONE (07:57)
[2018-03-31] MEDS ORDERED: 0.9 % Sodium Chloride 1,000 ML IVC ONE (07:57)
--- NOTE | 2018-03-31 08:12 | Emergency Department Note ---
Disposition Clinical Impression: Asthma exacerbation Qualifiers: Asthma severity: unspecified severity Asthma persistence: unspecified Qualified Code(s): J45.901 - Unspecified asthma with (acute) exacerbation Disposition: Admitted As Inpatient Condition: Good Chest Pain HPI - General Chief Complaint: ED Chest Pain Stated Complaint: CP,Cough,YEUNG Time Seen by Provider: 03/31/18 07:50 Source: patient, family Limitations: no limitations Vital Signs Reviewed: Yes Nursing Notes Reviewed: Yes - History of Present Illness HPI Narrative: Past medical history of diabetes, hypertension, hypercholesterol depression Patient presents today for evaluation of chest pressure, cough, headache. Patient states symptoms started approximately 1 week ago and been progressively worse in nature. She states she coughs worse when she lies down. Patient has no previous cardiac history. Patient's no family history as she was adopted and knows nothing about them. Worse with exertion. Worse with coughing. Patient has productive yellow sputum. Severity scale (1-10): 9 - Related Data Home Medications Medication Instructions Recorded Confirmed Exenatide Microspheres [Bydureon] 2 mg SQ QWEEK 04/05/15 03/31/18 Loratadine [Claritin] 10 mg PO DAILY PRN 04/05/15 03/31/18 Fluticasone Propionate Nasal 2 spray NS DAILY 05/30/16 03/31/18 [Flonase] Acetaminophen/Butalbital/Caffe 1 each PO BID 10/23/16 03/31/18 [Fioricet] Gabapentin [Neurontin] 300 mg PO HS 12/03/16 03/31/18 Tizanidine HCl 4 mg PO TID PRN 12/03/16 03/31/18 Fluticasone/Salmeterol [Advair Hfa 1 puff IH Q6H PRN 01/22/17 03/31/18 115-21 Mcg Inhaler] LORazepam [Ativan] 0.5 mg PO BID PRN 01/22/17 03/31/18 Atorvastatin [Lipitor] 10 mg PO HS 05/12/17 03/31/18 Escitalopram [Lexapro] 10 mg PO DAILY 05/12/17 03/31/18 DULoxetine [Cymbalta] 120 mg PO DAILY 02/06/18 03/31/18 Previous Rx's Medication Instructions Recorded Albuterol Sulfate [Albuterol 1 puff IH Q6HR PRN #1 inhaler 05/20/18 Inhaler] Cyanocobalamin (Vitamin B-12) 1,000 mcg IM QMONTH #4 mls 01/08/18 [Vitamin B-12] Allergies Allergy/AdvReac Type Severity Reaction Status Date / Time adhesive tape Allergy Rash Verified 02/06/18 15:03 ziconotide [From Prialt] AdvReac Hallucinati Verified 02/06/18 15:03 ng Review of Systems: CONSTITUTIONAL: Generalized weakness, fatigue, chills No weight loss, fever HEENT: Eyes: No visual changes. Ears, Nose, Throat: No hearing loss, difficulty talking or unable to swallow. SKIN: No rash or itching. CARDIOVASCULAR: Chest pain center chest that is worse with coughing. RESPIRATORY: As of breath worse with laying down as well as cough that is worse with lying down. GASTROINTESTINAL: No anorexia, nausea, vomiting or diarrhea. No abdominal pain or blood. GENITOURINARY: No burning on urination or hematuria. NEUROLOGICAL: Generalized headache No dizziness, syncope, paralysis, ataxia, numbness or tingling in the extremities. No change in bowel or bladder control. MUSCULOSKELETAL: Generalized body aches. Chest Pain PMH - Past Medical History Medical history: Reports: asthma, diabetes, hyperlipidemia, kidney stones, migraine, other Surgical history: Reports: , cholecystectomy, orthopedic, other, other , bariatric surgery Psychiatric history: Reports: anxiety, depression, PTSD [employer] history: Reports: bilateral tubal ligation, other - Social History Smoking Status: Never smoker Alcohol use: Reports: rarely Drug use: Reports: none Physical Exam General: Well appearing, nontoxic, no acute distress Head: Normocephalic Atraumatic Eyes: PERRL, EOMI ENT: Airway patent, no stridor Neck: supple, no meningismus Chest: Mild wheezing bilaterally. Cough with inspiration. Cardiac: Regular rate and rhythm, no murmurs, rubs or gallops Abdomen: soft, nontender, nondistended; no guarding, rebound, or tenderness to percussion Musculoskeletal: Calves symmetric, nontender, no palpable cord Skin: No rash, normal skin tone Neuro: Alert and Oriented to person, place, and time; No focal deficit - General Limitations: no limitations General appearance: alert, in no apparent distress Course - Reevaluation(s) Reevaluation #1: On reevaluation the patient has worsening wheezing. I believe that we have opened her lungs out. Troponin is negative. No EKG changes and negative d- dimer. History of asthma. Has been going on for a week since her recent upper respiratory tract infection. At this time her. Would work and vital signs and clinical appearance. Better than she feels. I will try to further improve her symptoms with steroids, further breathing treatments and a dose of magnesium as she does also have a low potassium. I do not believe that she is in acute respiratory distress at this time. She does not necessarily warrant admission and when she does not feel better after the interventions. She does improve after interventions she is a candidate to go home. Reevaluation #2: Patient was reevaluated and had significantly more wheezing after breathing treatments. Breathing treatments and steroids and magnesium have been ordered. Patient was then reevaluated and states that she feels somewhat better but is still concerned because she continues to have chest tightness which she describes as 8 out of 10. Wheezing continues. The patient has unremarkable chest x-ray and EKG. Blood work is also unremarkable. Her history of asthma has been only relatively controlled at home. She has not been using her inhaler for the last couple of days. Patient does have concerns about going home. She is requesting stay in the hospital. We did get the patient up to ambulate her and she states that her chest pain worsened as well as her dyspnea causing her to be unable to complete her ambulation trial. Patient will be admitted for continued symptoms. - Consultations Consultation #1: Discussed with hospitalist. Patient has asthma exacerbation. Patient attempted to be invalid in the emergency department without being able to complete secondary to respiratory distress. Her pulse ox was fine during this time however she does complain of chest pain. Initial troponin is negative. Chest pain is more related to her asthma as it has improved with breathing treatments however she may need repeat troponins. Vital Signs Temperature 98.5 F 03/31/18 07:47 Pulse Rate 114 03/31/18 07:47 Respiratory Rate 18 03/31/18 07:47 Blood Pressure 164/115 03/31/18 07:47 O2 Sat by Pulse Oximetry 96 03/31/18 07:47 Temperature 98.8 F 03/31/18 15:05 Pulse Rate 97 03/31/18 15:05 Respiratory Rate 15 03/31/18 15:05 Blood Pressure 158/106 03/31/18 15:05 O2 Sat by Pulse Oximetry 96 03/31/18 15:45 Oxygen Delivery Oxygen Delivery Room Air Chest Pain - Lab Data Result diagrams: 03/31/18 08:05 03/31/18 08:05 Lab Results 03/31/18 03/31/18 03/31/18 Range/Units 08:05 08:05 08:05 WBC 6.9 (4.3-11.1) K/mcL RBC 3.79 L (3.82-4.97) M/mcL Hgb 11.2 L (11.5-15.4) g/dL Hct 36.4 (35.3-44.9) % MCV 96.0 (83.0-100.0) fL MCH 29.6 (28.0-33.3) pg MCHC 30.8 L (31.6-35.5) g/dL RDW 14.1 (11.5-14.5) % Plt Count 287 (140-400) K/mcL MPV 9.4 (9.4-12.4) fL Immature Gran % 0.3 (0-4) % Seg Neutrophils % 56.6 % Lymphocytes % 29.4 % Monocytes % 10.1 % Eosinophils % 3.2 % Basophils % 0.4 % Neutrophils # 3.9 (1.6-8.9) K/mcL Lymphocytes # 2.0 (0.6-4.6) K/mcL Monocytes # 0.7 (0.0-1.3) K/mcL Eosinophils # 0.2 (0.0-0.6) K/mcL Basophils # 0.0 (0.0-0.2) K/mcL D-Dimer 423 (0-500) ng/mLFEU Sodium 139 (136-145) mEq/L Potassium 3.2 L (3.5-5.1) mEq/L Chloride 104 (98-107) mEq/L Carbon Dioxide 26 (23-29) mEq/L BUN 9 (6-20) mg/dL Creatinine 0.67 (0.60-1.20) mg/dL Est GFR ( Amer) > 60 (> 60) Est GFR (Non-Af Amer) > 60 (> 60) BUN/Creatinine Ratio 13 (6-26) Glucose 187 H (70-105) mg/dL Calculated Osmolality 292 (280-300) Calcium 9.0 (8.6-10.3) mg/dL Troponin I < 0.03 (< 0.04) ng/mL
[2018-03-31 08:18] LABS: Basophils % 0.4 %; Eosinophils # 0.2 K/mcL (0.0-0.6); Eosinophils % 3.2 %; Hematocrit 36.4 % (35.3-44.9); Hemoglobin 11.2 g/dL (11.5-15.4); Immature Granulocytes % 0.3 % (0-4); Lymphocytes % 29.4 %; Mean Corpuscular HGB Conc 30.8 g/dL (31.6-35.5); Mean Corpuscular Hemoglobin 29.6 pg (28.0-33.3); Mean Platelet Volume 9.4 fL (9.4-12.4); Monocytes # 0.7 K/mcL (0.0-1.3); Monocytes % 10.1 %; Neutrophils # 3.9 K/mcL (1.6-8.9); Platelet Count 287 K/mcL (140-400); Red Blood Count 3.79 M/mcL (3.82-4.97); Red Cell Distribution Width 14.1 % (11.5-14.5); Segmented Neutrophils % 56.6 %
[2018-03-31 08:36] LABS: BUN/Creatinine Ratio 13 (6-26); Blood Urea Nitrogen 9 mg/dL (6-20); Carbon Dioxide 26 mEq/L (23-29); Chloride 104 mEq/L (98-107); Glucose 187 mg/dL (70-105); Osmolality,Calculated 292 (280-300); Potassium 3.2 mEq/L (3.5-5.1); Sodium 139 mEq/L (136-145); eGFR For Non-African Americans > 60 (> 60)
[2018-03-31 08:37] LABS: Troponin I < 0.03 ng/mL (< 0.04)
[2018-03-31] MEDS ORDERED: methylPREDNISolone 125 MG/2 ML VIAL IVP ONE (10:15)
[2018-03-31] MEDS ORDERED: Albuterol 2.5 MG/3 ML NEBULIZER IH ONE (10:15)
[2018-03-31] MEDS ORDERED: Acetaminophen 325 MG TABLET PO PRN (14:22)
[2018-03-31] MEDS ORDERED: Naloxone 0.4 MG/ML INJ IVP PRN (14:22)
[2018-03-31] MEDS ORDERED: Ipratropium/Albuterol Neb 3 ML IH PRN (14:23)
[2018-03-31] MEDS ORDERED: Loratadine 10 MG TABLET PO PRN (14:24)
[2018-03-31] MEDS ORDERED: *HR* LORazepam 0.5 MG TABLET PO PRN (14:24)
[2018-03-31] MEDS ORDERED: tiZANidine 4 MG TABLET PO PRN (14:24)
[2018-03-31] MEDS ORDERED: MethylPREDNISolone 40 MG/ML VIAL IVP SCH (16:00)
[2018-03-31 16:14] LABS: Troponin I < 0.03 ng/mL (< 0.04)
[2018-03-31 16:28] LABS: Magnesium 2.1 mg/dL (1.6-2.6)
--- NOTE | 2018-03-31 18:00 | Internal Med History&Physical ---
Date of Encounter: 03/31/18 Time of Encounter: 16:30 Internal Medicine - H&P: HPI Chief complaint: Cough, congestion Admitted From: Emergency Dept Plans for Post Hospital Care: Home History of present illness: Ms. Mora is a 47 year old female with h/o- asthma and allergies presents to ER with 5-6 day h/o- dry cough and chest congestion. She reports upper respiratory tract symptoms of runny nose, dry cough, congestion, associated with subjective fever, shortness of breath and wheezing. Also has chest pain that is worse after a coughing bout. Patient reports positive history on almost all ROS pertinent to cardiopulmonary systems. She reports she has inhalers and nebulizers at home, however has not been using them for the last few days as inhalers given her tremors and anxiety. Patient is otherwise healthy, ADL independent, has no home oxygen. Past Med Surg Social Fam HX - Past Medical History Source: patient, old records reviewed Medical history: asthma, diabetes, hyperlipidemia, kidney stones, migraine, other Psychiatric history: anxiety, depression, PTSD - Past Surgical History Surgical History: , cholecystectomy, orthopedic, other, other ( Cervical and thoracic spine surgery, tubal ligation), bariatric surgery ( Gastric bypass surgery) Additional surgical history: laser sx on kidneys, neck, back, gastric bypass, D& C with ablasion - Social History Smoking Status: Never smoker Smokeless Tobacco Status: No Alcohol use: rarely Drug use: none Occupational status: disabled Current living situation: Home, With Family Activity Level: Independent ambulation Recent Out of Country Travel Within the Last 8 Weeks: No Exposure or Possible Exposure to Illness During Travel: No - Family History Maternal Grandmother Living Status: Hx Family Endocrine Disorder: Yes Sister Hx Family Neurologic Disorders: Yes (Multiple Scerlosis) Mother Adopted: Yes Living Status: Hx Family Cardiac Disorders: No Hx Family Cancer: Yes Hx Family Endocrine Disorder: Yes Hx Family Neuromuscular Disorders: Yes Internal Medicine - H&P: Meds Exenatide Microspheres [Bydureon] 2 mg SQ QWEEK 04/05/15 [History] Loratadine [Claritin] 10 mg PO DAILY PRN 04/05/15 [History] Fluticasone Propionate Nasal [Flonase] 2 spray NS DAILY 05/30/16 [History] Acetaminophen/Butalbital/Caffe [Fioricet] 1 each PO BID 10/23/16 [History] Gabapentin [Neurontin] 300 mg PO HS 12/03/16 [History] Tizanidine HCl 4 mg PO TID PRN 12/03/16 [History] Fluticasone/Salmeterol [Advair Hfa 115-21 Mcg Inhaler] 1 puff IH Q6H PRN [History] LORazepam [Ativan] 0.5 mg PO BID PRN 01/22/17 [History] Atorvastatin [Lipitor] 10 mg PO HS 05/12/17 [History] Escitalopram [Lexapro] 10 mg PO DAILY 05/12/17 [History] Albuterol Sulfate [Albuterol Inhaler] 1 puff IH Q6HR PRN #1 inhaler 12/14/17 [Rx ] Cyanocobalamin (Vitamin B-12) [Vitamin B-12] 1,000 mcg IM QMONTH #4 mls [Rx] DULoxetine [Cymbalta] 120 mg PO DAILY 02/06/18 [History] 3 Allergy/AdvReac Type Severity Reaction Status Date / Time adhesive tape Allergy Rash Verified 02/06/18 15:03 ziconotide [From Prialt] AdvReac Hallucinati Verified 02/06/18 15:03 ng All Systems PM: A 10-system review of systems was performed and is negative for pertinent findings except as documented above in the HPI. - Constitutional Constitutional: chills, fatigue, fever(s), malaise, weakness - EENT Eyes: discharge Ears: no ear discharge, no ear pain, no tinnitus Nose, mouth and throat: no dysphagia, no nasal discharge, no neck pain, no sore throat - Cardiovascular Cardiovascular ROS IM: chest pain, dyspnea on exertion - Respiratory Respiratory: cough, dyspnea, dyspnea on exertion, wheezing, chest congestion - Gastrointestinal Gastrointestinal: no abdominal pain, no diarrhea, no hematemesis, no hematochezia, no melena, no nausea, no vomiting - Genitourinary Genitourinary: no change in urinary stream, no dysuria, no flank pain, no hematuria - Musculoskeletal Musculoskeletal ROS IM: no numbness, no tingling - Integumentary Integumentary IM: no rash, no unusual bruising - Neurological Neurological ROS: no confusion, no convulsions, no focal weakness, no numbness, no tingling, no tremor(s) - Hematologic/Lymphatic Hematologic/Lymphatic: no easy bruising - Constitutional Vitals: Temp Pulse Resp BP Pulse Ox 98.8 F 97 15 158/106 96 03/31/18 15:05 03/31/18 15:05 03/31/18 15:05 03/31/18 15:05 03/31/18 15:45 General appearance: Present: A&O X 3, morbidly obese, answers questions appropriately Exam: . - Respiratory Respiratory exam: Present: CTAB (coarse breath sounds B/L, rare end-expiratory wheezing). Absent: accessory muscle use, rales, rhonchi, wheezes - Cardiovascular Cardiovascular exam: Present: RRR, +S1, +S2, tachycardia. Absent: diastolic murmur, gallop, rubs, systolic murmur - GI/Abdominal GI/Abdominal exam: Present: normal bowel sounds, soft (obese), no peritoneal signs. Absent: distended, tenderness - Extremities Exam Extremities exam: Present: full ROM, warm, radial pulses palpable and symmetrical. Absent: calf tenderness, cyanotic, pedal edema - Neurological Exam Neurological exam: Present: CN II-XII intact, oriented X3, no focal deficits. Absent: pronater drift, facial droop, speech deficit - Psychiatric Psychiatric exam: Present: flat affect - Skin Skin exam: Present: dry, intact Internal Med - H&P Results - Labs CBC & Chem 7: 03/31/18 08:05 03/31/18 08:05 Labs: Cardiac Enzymes 03/31/18 Range/Units 14:59 Troponin I < 0.03 (< 0.04) ng/mL - Assessment and plan (1) Asthma exacerbation Current Visit: Yes Status: Acute Assessment and plan: Patient reports history of mild intermittent asthma. Continue bronchodilators nebulization as needed, ICS, supplemental oxygen when necessary, enteral steroids. Supportive care. Qualifiers: Asthma severity: unspecified severity Asthma persistence: unspecified Qualified Code(s): J45.901 - Unspecified asthma with (acute) exacerbation (2) Morbid obesity Current Visit: Yes Status: Chronic (3) Anxiety associated with depression Current Visit: Yes Status: Chronic Assessment and plan: resume home meds; patient also has h/o- suicidal ideation in the past; mood stable currently; (4) Type 2 diabetes mellitus Current Visit: Yes Status: Chronic Assessment and plan: Steroid-induced hyperglycemia. Start basal insulin, medium dose sliding scale insulin. Continue Accu-Chek blood glucose monitoring. Diabetic diet. Check hemoglobin A1c. Qualifiers: Diabetes mellitus half-way insulin use: without half-way use Diabetes mellitus complication status: with unspecified complications Qualified Code(s) : E11.8 - Type 2 diabetes mellitus with unspecified complications - Time Spent With Patient Total time spent is greater than 50% in coordination of care (as documented) at patient's floor/unit and/or counseling patient:
[2018-03-31] MEDS ORDERED: Dextrose Gel 15 GM/37.5 ML TUBE PO PRN ×2 (18:08)
[2018-03-31] MEDS ORDERED: D5% in Water 1,000 ML IVC PRN (18:08)
[2018-03-31] MEDS ORDERED: *HR* Dextrose 50 % in Water (Syg) 50 ML SYRINGE IVP PRN (18:08)
[2018-03-31] MEDS ORDERED: Insulin LISPRO 300 UNITS/3 ML VIAL SQ SCH (21:00)
[2018-03-31] MEDS ORDERED: Gabapentin 300 MG CAPSULE PO SCH (21:00)
[2018-03-31] MEDS: Insulin DETEMIR 100 UNIT/ML X5UNITS SQ SCH (22:09)
[2018-03-31 23:20] LABS: Estimated Average Glucose 85 mg/dl; Hemoglobin A1C 4.6 %
[2018-03-31] MEDS: Budesonide/Formoterol 80/4.5 MDI IH SCH (23:36)
[2018-04-01 03:24] LABS: Basophils % 0.2 %; Hemoglobin 11.9 g/dL (11.5-15.4); Immature Granulocytes % 0.4 % (0-4); Lymphocytes # 1.4 K/mcL (0.6-4.6); Lymphocytes % 14.4 %; Mean Corpuscular HGB Conc 31.3 g/dL (31.6-35.5); Mean Corpuscular Hemoglobin 30.2 pg (28.0-33.3); Mean Corpuscular Volume 96.4 fL (83.0-100.0); Mean Platelet Volume 9.8 fL (9.4-12.4); Monocytes # 0.8 K/mcL (0.0-1.3); Monocytes % 8.6 %; Neutrophils # 7.2 K/mcL (1.6-8.9); Platelet Count 344 K/mcL (140-400); Red Blood Count 3.94 M/mcL (3.82-4.97); Segmented Neutrophils % 76.4 %
[2018-04-01 03:49] LABS: BUN/Creatinine Ratio 15 (6-26); Blood Urea Nitrogen 8 mg/dL (6-20); Calcium 9.1 mg/dL (8.6-10.3); Carbon Dioxide 27 mEq/L (23-29); Chloride 106 mEq/L (98-107); Glucose 116 mg/dL (70-105); Osmolality,Calculated 285 (280-300); Potassium 4.3 mEq/L (3.5-5.1); Sodium 138 mEq/L (136-145); eGFR For Non-African Americans > 60 (> 60)
[2018-04-01] MEDS: Budesonide/Formoterol 80/4.5 MDI IH SCH ×2 (04:53→11:26)
--- NOTE | 2018-04-01 06:13 | Electrocardiograph Report ---
[facility] Test Date: 2018-03-31 Pat Name: Isabella Mora Department: EXAM2 Room: Gender: F Cst: : 1970 Requested By: [id number] Order Number: [id number] Reading MD: Roberto Lee Measurements Intervals [place] Rate: 95 P: 42 CT: 130 QRS: -29 QRSD: 87 T: 17 QT: 365 QTc: 459 Interpretive Statements Sinus rhythm Electronically Signed On 04-01-2018 6:12:04 EDT by Roberto Lee
[2018-04-01] MEDS ORDERED: predniSONE 20 MG TABLET PO SCH (09:00)
[2018-04-01] MEDS ORDERED: Fluticasone Propionate Nasal 50 MCG/SPRAY BOTTLE NS SCH (09:00)
[2018-04-01] MEDS: Insulin LISPRO 300 UNITS/3 ML VIAL SQ SCH ×2 (09:44→11:43)
[2018-04-01] MEDS: Insulin DETEMIR 100 UNIT/ML X5UNITS SQ SCH (09:44)
[2018-04-01] MEDS ORDERED: Budesonide/Formoterol 80/4.5 MDI IH SCH (10:00)
[2018-04-01] MEDS ORDERED: Acetaminophen/Butalbital/CaffeineTABLET PO PRN (10:06)
--- NOTE | 2018-04-01 15:00 | Discharge Summary ---
- NOTES TO OUTPATIENT PROVIDER Notes to Outpatient Provider: Mild exacerbation of asthma, being discharged on steroids; to monitor BP; Date of Encounter: 04/01/18 Time of Encounter: 13:45 - Discharge Diagnosis (1) Asthma exacerbation Priority: Primary Status: Acute Qualifiers: Asthma severity: unspecified severity Asthma persistence: unspecified Qualified Code(s): J45.901 - Unspecified asthma with (acute) exacerbation (2) Morbid obesity Priority: Secondary Status: Chronic (3) Anxiety associated with depression Priority: Secondary Status: Chronic (4) Type 2 diabetes mellitus Priority: Secondary Status: Chronic Qualifiers: Diabetes mellitus assisted insulin use: without assisted use Diabetes mellitus complication status: with unspecified complications Qualified Code(s) : E11.8 - Type 2 diabetes mellitus with unspecified complications Hospital course: Ms. Mora is a 47 year old female with history of mild intermittent asthma, was admitted with worsening cough and chest congestion. Patient had no signs of sepsis, did not require supplemental oxygen since admission. Chest x-ray showed no infiltrates. She was started on bronchodilators, IV steroids and inhaled corticosteroids. She has steroid-induced hyperglycemia, which resolved with transitioning to enteral steroids. Hemoglobin A1c noted to be 4.6%. Patient is otherwise medically stable for discharge on oral steroids and outpatient follow-up. Discharge discussed with: patient, nurse - Time Spent with Patient Total time spent providing and/or coordinating discharge services: Greater than 30 minutes (40 min) - Discharge Medications Prescriptions: GuaiFENesin/Dextromethorphan [Robitussin/DM] 10 ml PO Q6HR PRN 10 Days #1 syrup PRN Reason: Cough predniSONE [PredniSONE] 40 mg PO DAILY #30 tablet Home Medications: Exenatide Microspheres [Bydureon] 2 mg SQ QWEEK 04/05/15 [History] Loratadine [Claritin] 10 mg PO DAILY PRN 04/05/15 [History] Fluticasone Propionate Nasal [Flonase] 2 spray NS DAILY 05/30/16 [History] Acetaminophen/Butalbital/Caffe [Fioricet] 1 each PO BID 10/23/16 [History] Gabapentin [Neurontin] 300 mg PO HS 12/03/16 [History] Tizanidine HCl 4 mg PO TID PRN 12/03/16 [History] Fluticasone/Salmeterol [Advair Hfa 115-21 Mcg Inhaler] 1 puff IH Q6H PRN [History] LORazepam [Ativan] 0.5 mg PO BID PRN 01/22/17 [History] Atorvastatin [Lipitor] 10 mg PO HS 05/12/17 [History] Escitalopram [Lexapro] 10 mg PO DAILY 05/12/17 [History] Albuterol Sulfate [Albuterol Inhaler] 1 puff IH Q6HR PRN #1 inhaler 12/14/17 [Rx ] Cyanocobalamin (Vitamin B-12) [Vitamin B-12] 1,000 mcg IM QMONTH #4 mls [Rx] DULoxetine [Cymbalta] 120 mg PO DAILY 02/06/18 [History] Acetaminophen [Tylenol] 650 mg PO Q6HR PRN tablet 04/01/18 [Rx] GuaiFENesin/Dextromethorphan [Robitussin/DM] 10 ml PO Q6HR PRN 10 Days #1 syrup 04/01/18 [Rx] Ipratropium/Albuterol Neb [Duoneb] 3 ml IH [id number] PRN inhsol 04/01/18 [Rx] predniSONE [PredniSONE] 40 mg PO DAILY #30 tablet 04/01/18 [Rx] Allergies/Adverse Reactions: 3 Allergy/AdvReac Type Severity Reaction Status Date / Time adhesive tape Allergy Rash Verified 02/06/18 15:03 ziconotide [From Prialt] AdvReac Hallucinati Verified 02/06/18 15:03 ng Date of admission: 03/31/18 12:53 Primary care physician: Alfa Santos MD Discharging clinician: Rachelle Gupta Anticipated date of discharge: 04/01/18 - Constitutional Vitals: Temp Pulse Resp BP Pulse Ox 98.1 F 101 16 143/97 93 04/01/18 11:33 04/01/18 11:33 04/01/18 11:33 04/01/18 11:33 04/01/18 11:33 General appearance: Present: A&O X 3, morbidly obese, answers questions appropriately Exam: . - Cardiovascular Cardiovascular exam: Present: RRR, +S1, +S2, tachycardia. Absent: diastolic murmur, gallop, rubs, systolic murmur - Patient Status Disposition: Home, Self-Care Condition: Good Functional capacity at discharge: independent ambulation Overall status at discharge: patient is progressing back to baseline - Discharge Instructions Follow Up With: Alfa Santos MD [Primary Care Provider] - Additional Instructions: F/up with PCP in 1-2 weeks - Diet and Activity Activity: resume usual activities as tolerated Diet: diabetic diet, low salt diet
[2018-04-01 15:33] VITALS: BP 143/97
== END 2018-04-01 16:40 | disposition home or self-care (01) ==
LOC: 3BNU 07:43 → EMEROOARM 07:43 → SUATTDRO 12:53 → 3BNU 14:47
PROVIDERS: ADMIT Internal Medicine; ATTEND Internal Medicine

== ENCOUNTER 2019-10-14 20:12 | Inpatient (IN) ==
[2019-10-14] MEDS ORDERED: *HR* FentaNYL (PF) 100 MCG/2 ML VIAL IVP ONE (20:25)
[2019-10-14] MEDS ORDERED: 0.9 % Sodium Chloride 1,000 ML IVC ONE (20:25)
[2019-10-14] MEDS ORDERED: Isovue-370 500 ML BOTTLE IVP ONE (20:26)
[2019-10-14] MEDS ORDERED: Ondansetron 4 MG/2 ML VIAL IVP ONE (20:29)
[2019-10-14 20:42] LABS: Basophils # 0.1 K/mcL (0.0-0.2); Basophils % 0.4 %; Eosinophils # 0.2 K/mcL (0.0-0.6); Eosinophils % 1.3 %; Hematocrit 45.2 % (35.3-44.9); Hemoglobin 14.1 g/dL (11.5-15.4); Immature Granulocytes % 0.6 % (0-4); Lymphocytes # 2.8 K/mcL (0.6-4.6); Lymphocytes % 19.5 %; Mean Corpuscular HGB Conc 31.2 g/dL (31.6-35.5); Mean Corpuscular Hemoglobin 29.1 pg (28.0-33.3); Mean Corpuscular Volume 93.4 fL (83.0-100.0); Mean Platelet Volume 9.5 fL (9.4-12.4); Monocytes # 1.1 K/mcL (0.0-1.3); Platelet Count 331 K/mcL (140-400); Red Blood Count 4.84 M/mcL (3.82-4.97); Red Cell Distribution Width 13.6 % (11.5-14.5); Segmented Neutrophils % 70.2 %; White Blood Count 14.2 K/mcL (4.3-11.1)
[2019-10-14 21:05] LABS: Alanine Aminotransferase 156 Units/L (7-52); Albumin 3.7 g/dL (3.5-5.7); Albumin/Globulin Ratio 0.9 (1.1-2.2); Alkaline Phosphatase 368 Units/L (34-104); Aspartate Amino Transferase 142 Units/L (13-39); BUN/Creatinine Ratio 16 (6-26); Bilirubin,Direct 0.1 mg/dL (0.0-0.2); Bilirubin,Indirect 0.3 mg/dL (0.0-1.0); Bilirubin,Total 0.4 mg/dL (0.3-1.0); Blood Urea Nitrogen 15 mg/dL (6-20); Carbon Dioxide 24 mEq/L (23-29); Chloride 107 mEq/L (98-107); Globulin 3.9 g/dL (2.4-3.5); Glucose 139 mg/dL (70-105); Magnesium 1.7 mg/dL (1.6-2.6); Osmolality,Calculated 289 (280-300); Phosphorous 4.6 mg/dL (2.7-4.5); Potassium 4.1 mEq/L (3.5-5.1); Sodium 138 mEq/L (136-145); Total Protein 7.6 g/dL (6.4-8.9); Troponin I < 0.03 ng/mL (< 0.04); eGFR For African Americans > 60 (> 60); eGFR For Non-African Americans > 60 (> 60)
[2019-10-14] MEDS ORDERED: Piperacillin/Tazobactam 3.375 GM in 0.9 % Sodium Chloride Mini Bag 100 ML IVPB ONE (21:10)
[2019-10-14] MEDS ORDERED: Morphine Sulfate 2 MG/ML SYRINGE IVP ONE (21:58)
[2019-10-14 22:27] LABS: Bilirubin,Urine Negative (Negative); Blood,Urine Negative (Negative); Clarity,Urine Clear (Clear); Color,Urine Yellow (Yellow); Glucose,Urine (UA) Normal (Normal); Ketones,Urine Negative (Negative); Leukocyte Esterase,Urine Negative (Negative); Nitrite,Urine Negative (Negative); Protein,Urine Negative (Neg-Trace); Specific Gravity,Urine 1.021 (1.010-1.025); Urobilinogen,Urine Normal (Normal)
[2019-10-14] MEDS ORDERED: *HR* Promethazine 25 MG/ML VIAL IVP ONE (22:45)
[2019-10-14 22:55] LABS: Hepatitis B Surface Antigen Nonreactive (Nonreactive)
[2019-10-14 23:24] LABS: Hepatitis C Virus Antibody Nonreactive (Nonreactive)
[2019-10-14 23:25] LABS: Hepatitis A Antibody IgM Nonreactive (Nonreactive); Hepatitis B Core IgM Nonreactive (Nonreactive)
[2019-10-14] MEDS ORDERED: Naloxone 0.4 MG/ML INJ IVP PRN ×2 (23:37→23:38)
[2019-10-14] MEDS ORDERED: Ringers Solution, Lactated 1,000 ML IVC SCH (23:45)
[2019-10-15] MEDS: Ondansetron 4 MG/2 ML VIAL IVP PRN ×3 (01:21→20:16)
[2019-10-15] MEDS ORDERED: Naloxone 0.4 MG/ML INJ IVP PRN (03:08)
[2019-10-15] MEDS ORDERED: MetroNIDAZOLE 500 MG/100 ML 500 MG/100 ML BAG IVPB SCH (04:00)
[2019-10-15] MEDS ORDERED: Vancomycin (wt based) 1,000 MG VIAL IVPB SCH (04:00)
[2019-10-15] MEDS ORDERED: Cefepime HCl 2,000 MG in 0.9 % Sodium Chloride Mini Bag 100 ML IVPB SCH (06:00)
[2019-10-15 06:14] LABS: Basophils # 0.1 K/mcL (0.0-0.2); Basophils % 0.6 %; Eosinophils % 0.4 %; Hematocrit 42.9 % (35.3-44.9); Hemoglobin 13.2 g/dL (11.5-15.4); Immature Granulocytes % 0.7 % (0-4); Lymphocytes # 1.4 K/mcL (0.6-4.6); Lymphocytes % 12.8 %; Mean Corpuscular HGB Conc 30.8 g/dL (31.6-35.5); Mean Corpuscular Volume 97.5 fL (83.0-100.0); Mean Platelet Volume 9.5 fL (9.4-12.4); Monocytes # 0.7 K/mcL (0.0-1.3); Monocytes % 6.7 %; Neutrophils # 8.7 K/mcL (1.6-8.9); Platelet Count 280 K/mcL (140-400); Red Cell Distribution Width 13.8 % (11.5-14.5); Segmented Neutrophils % 78.8 %
[2019-10-15 06:35] LABS: Alanine Aminotransferase 123 Units/L (7-52); Albumin 3.7 g/dL (3.5-5.7); Albumin/Globulin Ratio 1.2 (1.1-2.2); Alkaline Phosphatase 321 Units/L (34-104); Aspartate Amino Transferase 64 Units/L (13-39); BUN/Creatinine Ratio 15 (6-26); Bilirubin,Total 0.5 mg/dL (0.3-1.0); Blood Urea Nitrogen 11 mg/dL (6-20); Calcium 8.5 mg/dL (8.6-10.3); Carbon Dioxide 23 mEq/L (23-29); Chloride 106 mEq/L (98-107); Gamma Glutamyl Transpeptidase 187 Units/L (7-64); Globulin 3.2 g/dL (2.4-3.5); Glucose 219 mg/dL (70-105); Osmolality,Calculated 290 (280-300); Sodium 137 mEq/L (136-145); Total Protein 6.9 g/dL (6.4-8.9); eGFR For African Americans > 60 (> 60); eGFR For Non-African Americans > 60 (> 60)
[2019-10-15] MEDS ORDERED: 0.9 % Sodium Chloride 1,000 ML IVC SCH (08:00)
[2019-10-15 08:41] LABS: Estimated Average Glucose 171 mg/dl
[2019-10-15] MEDS: *HR* Promethazine 25 MG/ML VIAL IVP PRN ×2 (11:19→17:50)
[2019-10-15] MEDS ORDERED: D5% in Water 1,000 ML IVC PRN (13:30)
[2019-10-15] MEDS ORDERED: *HR* Dextrose 50 % in Water (Syg) 50 ML SYRINGE IVP PRN (13:30)
[2019-10-15] MEDS ORDERED: Dextrose Gel 15 GM/37.5 ML TUBE PO PRN ×2 (13:30)
[2019-10-15] MEDS ORDERED: ONABOTULINUMTOXINA 200 UNIT IM PRN (15:44)
[2019-10-15] MEDS ORDERED: Nitroglycerin 0.4 MG TAB.SUBL SL PRN ×2 (15:44→16:15)
[2019-10-15] MEDS ORDERED: Loratadine 10 MG TABLET PO PRN (15:44)
[2019-10-15] MEDS ORDERED: Cyanocobalamin (B-12) 1,000 MCG/ML VIAL IM SCH (15:45)
[2019-10-15] MEDS ORDERED: Insulin LISPRO 300 UNITS/3 ML VIAL SQ SCH ×2 (16:45→21:00)
[2019-10-15] MEDS: *HR* Heparin 5,000 UNIT/ML VIAL SQ SCH (17:50)
[2019-10-15] MEDS: Insulin LISPRO 300 UNITS/3 ML VIAL SQ SCH ×2 (17:51→20:44)
[2019-10-15] MEDS: FLUoxetine 20 MG CAPSULE PO SCH (20:15)
[2019-10-15] MEDS: Gabapentin 300 MG CAPSULE PO SCH (20:15)
[2019-10-15] MEDS: Topiramate 25 MG CAP.SPRINK PO SCH (20:15)
[2019-10-15] MEDS ORDERED: *HR* Promethazine 25 MG/ML VIAL IVP ONE (21:06)
[2019-10-15] MEDS: Ketorolac 15 MG/ML VIAL IVP PRN (21:37)
[2019-10-16 04:58] LABS: Albumin 3.2 g/dL (3.5-5.7); Albumin/Globulin Ratio 1.1 (1.1-2.2); Bilirubin,Direct 0.1 mg/dL (0.0-0.2); Bilirubin,Indirect 0.2 mg/dL (0.0-1.0); Bilirubin,Total 0.3 mg/dL (0.3-1.0); Total Protein 6.2 g/dL (6.4-8.9)
[2019-10-16] MEDS: *HR* Heparin 5,000 UNIT/ML VIAL SQ SCH ×2 (06:14→16:48)
[2019-10-16] MEDS: Topiramate 25 MG CAP.SPRINK PO SCH ×2 (08:39→20:29)
[2019-10-16] MEDS: Insulin LISPRO 300 UNITS/3 ML VIAL SQ SCH ×4 (08:39→20:30)
[2019-10-16] MEDS: Fluticasone Propionate Nasal 50 MCG/SPRAY BOTTLE NS SCH (08:40)
[2019-10-16] MEDS: Ketorolac 15 MG/ML VIAL IVP PRN (12:19)
[2019-10-16] MEDS: *HR* Promethazine 25 MG/ML VIAL IVP PRN (12:19)
[2019-10-16] MEDS: amLODIPine 5 MG TABLET PO SCH (12:20)
[2019-10-16] MEDS: Sennosides/Docusate Sodium TABLET PO SCH ×2 (12:20→20:28)
[2019-10-16] MEDS: Gabapentin 300 MG CAPSULE PO SCH (20:28)
[2019-10-16] MEDS: FLUoxetine 20 MG CAPSULE PO SCH (20:29)
[2019-10-17] MEDS: Ketorolac 15 MG/ML VIAL IVP PRN (03:16)
[2019-10-17] MEDS: *HR* Heparin 5,000 UNIT/ML VIAL SQ SCH ×2 (05:48→16:27)
[2019-10-17] MEDS: Insulin LISPRO 300 UNITS/3 ML VIAL SQ SCH ×4 (07:25→20:37)
[2019-10-17] MEDS: Fluticasone Propionate Nasal 50 MCG/SPRAY BOTTLE NS SCH (08:26)
[2019-10-17] MEDS: Sennosides/Docusate Sodium TABLET PO SCH ×2 (08:26→20:50)
[2019-10-17] MEDS: Topiramate 25 MG CAP.SPRINK PO SCH ×2 (08:26→20:50)
[2019-10-17] MEDS: amLODIPine 5 MG TABLET PO SCH (08:26)
[2019-10-17] MEDS ORDERED: Aminoglycoside Consult 1 EACH MC ONE (08:30)
[2019-10-17] MEDS ORDERED: Milk and Molasses Enema 200 ML RC ONE (11:07)
[2019-10-17 11:59] LABS: Albumin 3.6 g/dL (3.5-5.7); Albumin/Globulin Ratio 1.1 (1.1-2.2); Bilirubin,Direct 0.1 mg/dL (0.0-0.2); Bilirubin,Indirect 0.2 mg/dL (0.0-1.0); Bilirubin,Total 0.3 mg/dL (0.3-1.0); Globulin 3.4 g/dL (2.4-3.5)
[2019-10-17] MEDS ORDERED: NON-FORMULARY MEDICATION 1 EACH EACH (Exenatide Microspheres [Bydureon Pen] 2 MG) PO SCH (15:44)
[2019-10-17] MEDS: FLUoxetine 20 MG CAPSULE PO SCH (20:50)
[2019-10-17] MEDS: Gabapentin 300 MG CAPSULE PO SCH (20:50)
[2019-10-18] MEDS: *HR* Heparin 5,000 UNIT/ML VIAL SQ SCH (05:38)
[2019-10-18 08:36] LABS: Albumin 3.4 g/dL (3.5-5.7); Albumin/Globulin Ratio 1.1 (1.1-2.2); Bilirubin,Direct 0.1 mg/dL (0.0-0.2); Bilirubin,Indirect 0.2 mg/dL (0.0-1.0); Bilirubin,Total 0.3 mg/dL (0.3-1.0); Globulin 3.1 g/dL (2.4-3.5); Total Protein 6.5 g/dL (6.4-8.9)
[2019-10-18] MEDS: Topiramate 25 MG CAP.SPRINK PO SCH (09:35)
[2019-10-18] MEDS: Sennosides/Docusate Sodium TABLET PO SCH (09:36)
[2019-10-18] MEDS: Fluticasone Propionate Nasal 50 MCG/SPRAY BOTTLE NS SCH (09:36)
[2019-10-18] MEDS: Insulin LISPRO 300 UNITS/3 ML VIAL SQ SCH (09:36)
[2019-10-18] MEDS: amLODIPine 5 MG TABLET PO SCH (09:36)
[2019-10-18 10:20] VITALS: BP 119/83
== END 2019-10-18 13:37 | disposition home or self-care (01) | DRG 392 ==
LOC: 3ANU 20:12 → EMEROOARM 20:12 → SUATTDRO 22:58 → 3ANU 23:38
PROVIDERS: ADMIT Internal Medicine; ATTEND Internal Medicine

== ENCOUNTER 2020-01-11 19:01 | Observation (INO) ==
[2020-01-11] MEDS ORDERED: 0.9 % Sodium Chloride 500 ML IVC ONE (19:47)
[2020-01-11 20:33] LABS: Basophils # 0.1 K/mcL (0.0-0.2); Basophils % 0.6 %; Eosinophils # 0.2 K/mcL (0.0-0.6); Eosinophils % 1.7 %; Hematocrit 42.6 % (35.3-44.9); Hemoglobin 13.4 g/dL (11.5-15.4); Immature Granulocytes % 0.5 % (0-4); Lymphocytes # 1.4 K/mcL (0.6-4.6); Lymphocytes % 16.4 %; Mean Corpuscular HGB Conc 31.5 g/dL (31.6-35.5); Mean Corpuscular Hemoglobin 30.5 pg (28.0-33.3); Mean Platelet Volume 9.7 fL (9.4-12.4); Monocytes # 0.8 K/mcL (0.0-1.3); Monocytes % 8.7 %; Neutrophils # 6.2 K/mcL (1.6-8.9); Platelet Count 307 K/mcL (140-400); Red Blood Count 4.39 M/mcL (3.82-4.97); Red Cell Distribution Width 12.1 % (11.5-14.5); Segmented Neutrophils % 72.1 %; White Blood Count 8.6 K/mcL (4.3-11.1)
[2020-01-11] MEDS ORDERED: *HR* OxyCODONE/APAP 5/325 TABLET PO ONE (20:39)
[2020-01-11 20:48] LABS: Alanine Aminotransferase 29 Units/L (7-52); Albumin 3.3 g/dL (3.5-5.7); Alkaline Phosphatase 191 Units/L (34-104); Aspartate Amino Transferase 37 Units/L (13-39); BUN/Creatinine Ratio 10 (6-26); Bilirubin,Total 0.2 mg/dL (0.3-1.0); Blood Urea Nitrogen 8 mg/dL (6-20); Calcium 8.7 mg/dL (8.6-10.3); Carbon Dioxide 28 mEq/L (23-29); Chloride 98 mEq/L (98-107); Globulin 3.3 g/dL (2.4-3.5); Glucose 196 mg/dL (70-105); Osmolality,Calculated 284 (280-300); Potassium 4.2 mEq/L (3.5-5.1); Sodium 135 mEq/L (136-145); Total Protein 6.6 g/dL (6.4-8.9); Troponin I < 0.03 ng/mL (< 0.04); eGFR For African Americans > 60 (> 60); eGFR For Non-African Americans > 60 (> 60)
[2020-01-11] MEDS ORDERED: 0.9 % Sodium Chloride 1,000 ML IVC ONE (21:13)
[2020-01-12] MEDS ORDERED: Naloxone 0.4 MG/ML INJ IVP PRN (00:08)
[2020-01-12] MEDS ORDERED: Dextrose Gel 15 GM/37.5 ML TUBE PO PRN ×2 (00:10)
[2020-01-12] MEDS ORDERED: D5% in Water 1,000 ML IVC PRN (00:10)
[2020-01-12] MEDS ORDERED: *HR* Dextrose 50 % in Water (Syg) 50 ML SYRINGE IVP PRN (00:10)
[2020-01-12] MEDS ORDERED: 0.9 % Sodium Chloride 1,000 ML IVC SCH (00:15)
[2020-01-12 00:36] LABS: Bilirubin,Urine Negative (Negative); Blood,Urine Negative (Negative); Clarity,Urine Clear (Clear); Color,Urine Yellow (Yellow); Glucose,Urine (UA) Normal (Normal); Ketones,Urine Negative (Negative); Leukocyte Esterase,Urine Negative (Negative); Nitrite,Urine Negative (Negative); Protein,Urine Negative (Neg-Trace); Specific Gravity,Urine 1.015 (1.010-1.025); Urobilinogen,Urine Normal (Normal)
[2020-01-12] MEDS: Insulin LISPRO 300 UNITS/3 ML VIAL SQ SCH ×2 (00:36→08:12)
[2020-01-12] MEDS: Ketorolac 15 MG/ML VIAL IVP PRN ×2 (02:09→08:55)
[2020-01-12 06:46] VITALS: BP 139/87
[2020-01-12 08:57] LABS: Hematocrit 42.1 % (35.3-44.9); Hemoglobin 13.1 g/dL (11.5-15.4); Red Blood Count 4.35 M/mcL (3.82-4.97); White Blood Count 9.3 K/mcL (4.3-11.1)
[2020-01-12 08:58] LABS: Mean Corpuscular HGB Conc 31.1 g/dL (31.6-35.5); Mean Corpuscular Hemoglobin 30.1 pg (28.0-33.3); Mean Corpuscular Volume 96.8 fL (83.0-100.0); Mean Platelet Volume 9.6 fL (9.4-12.4); Platelet Count 283 K/mcL (140-400); Red Cell Distribution Width 12.5 % (11.5-14.5)
[2020-01-12] MEDS ORDERED: Loratadine 10 MG TABLET PO SCH (09:00)
[2020-01-12] MEDS ORDERED: DULOXETINE HCL PO SCH (09:00)
[2020-01-12 09:18] LABS: BUN/Creatinine Ratio 9 (6-26); Blood Urea Nitrogen 6 mg/dL (6-20); Calcium 8.2 mg/dL (8.6-10.3); Carbon Dioxide 28 mEq/L (23-29); Chloride 104 mEq/L (98-107); Glucose 90 mg/dL (70-105); Osmolality,Calculated 285 (280-300); Potassium 3.8 mEq/L (3.5-5.1); Sodium 139 mEq/L (136-145); eGFR For African Americans > 60 (> 60); eGFR For Non-African Americans > 60 (> 60)
[2020-01-12] MEDS ORDERED: *HR* HYDROcodone/Acet 5/325 mg TABLET PO PRN (09:41)
[2020-01-12] MEDS ORDERED: *HR* OxyCODONE Immed Rel 5 MG TABLET PO PRN (09:41)
[2020-01-12] MEDS ORDERED: Acetaminophen 325 MG TABLET PO PRN (09:41)
[2020-01-12 09:52] LABS: Estimated Average Glucose 148 mg/dl
[2020-01-12] MEDS ORDERED: FLUoxetine HCl 10 MG CAPSULE PO SCH (21:00)
== END 2020-01-12 12:42 | disposition home or self-care (01) ==
LOC: EMEROOARM 19:01 → 3ANU 19:01 → SUATTDRO 22:47 → 3ANU 23:54
PROVIDERS: ADMIT Internal Medicine; ATTEND Internal Medicine

== ENCOUNTER 2020-06-29 18:44 | Observation (INO) ==
[2020-06-29] MEDS ORDERED: 0.9 % Sodium Chloride 1,000 ML IVC ONE (19:15)
[2020-06-29 20:19] LABS: Basophils % 0.4 %; Eosinophils # 0.2 K/mcL (0.0-0.6); Eosinophils % 2.4 %; Hematocrit 42.1 % (35.3-44.9); Hemoglobin 13.5 g/dL (11.5-15.4); Immature Granulocytes % 0.3 % (0-4); Lymphocytes # 2.4 K/mcL (0.6-4.6); Lymphocytes % 31.8 %; Mean Corpuscular HGB Conc 32.1 g/dL (31.6-35.5); Mean Corpuscular Hemoglobin 30.7 pg (28.0-33.3); Mean Corpuscular Volume 95.7 fL (83.0-100.0); Mean Platelet Volume 9.7 fL (9.4-12.4); Monocytes # 0.7 K/mcL (0.0-1.3); Monocytes % 8.5 %; Neutrophils # 4.3 K/mcL (1.6-8.9); Platelet Count 303 K/mcL (140-400); Red Cell Distribution Width 12.6 % (11.5-14.5); Segmented Neutrophils % 56.6 %; White Blood Count 7.7 K/mcL (4.3-11.1)
[2020-06-29] MEDS ORDERED: Isovue-370 500 ML BOTTLE IVP ONE (20:31)
[2020-06-29 20:40] LABS: Alanine Aminotransferase 35 Units/L (7-52); Albumin 2.7 g/dL (3.5-5.7); Albumin/Globulin Ratio 0.8 (1.1-2.2); Alkaline Phosphatase 174 Units/L (34-104); Aspartate Amino Transferase 25 Units/L (13-39); BUN/Creatinine Ratio 12 (6-26); Bilirubin,Total 0.3 mg/dL (0.3-1.0); Blood Urea Nitrogen 8 mg/dL (6-20); Calcium 8.8 mg/dL (8.6-10.3); Carbon Dioxide 26 mEq/L (23-29); Chloride 102 mEq/L (98-107); Globulin 3.3 g/dL (2.4-3.5); Glucose 160 mg/dL (70-105); Osmolality,Calculated 282 (280-300); Potassium 4.1 mEq/L (3.5-5.1); Sodium 135 mEq/L (136-145); Troponin I < 0.03 ng/mL (< 0.04); eGFR For African Americans > 60 (> 60); eGFR For Non-African Americans > 60 (> 60)
[2020-06-29] MEDS ORDERED: *HR* OxyCODONE/APAP 5/325 TABLET PO ONE (21:06)
[2020-06-29] MEDS ORDERED: Naloxone 0.4 MG/ML INJ IVP PRN (22:04)
[2020-06-30] MEDS ORDERED: D5% in Water 1,000 ML IVC PRN (00:58)
[2020-06-30] MEDS ORDERED: *HR* Dextrose 50 % in Water (Vial) 50 ML VIAL IVP PRN (00:58)
[2020-06-30] MEDS ORDERED: Dextrose Gel 15 GM/37.5 ML TUBE PO PRN ×2 (00:58)
[2020-06-30] MEDS ORDERED: 0.9 % Sodium Chloride 1,000 ML IVC SCH (01:00)
[2020-06-30] MEDS: Ketorolac 30 MG/ML VIAL IVP PRN ×2 (01:21→05:28)
[2020-06-30] MEDS: Insulin LISPRO 300 UNITS/3 ML VIAL SQ SCH ×4 (01:22→16:38)
[2020-06-30] MEDS ORDERED: Fluticasone Propionate Nasal 50 MCG/SPRAY BOTTLE NS PRN (01:43)
[2020-06-30 02:18] LABS: Hematocrit 43.4 % (35.3-44.9); Hemoglobin 13.5 g/dL (11.5-15.4); Mean Corpuscular HGB Conc 31.1 g/dL (31.6-35.5); Mean Corpuscular Hemoglobin 29.5 pg (28.0-33.3); Mean Corpuscular Volume 94.8 fL (83.0-100.0); Platelet Count 277 K/mcL (140-400); Red Blood Count 4.58 M/mcL (3.82-4.97); Red Cell Distribution Width 12.8 % (11.5-14.5); White Blood Count 7.4 K/mcL (4.3-11.1)
[2020-06-30 02:38] LABS: BUN/Creatinine Ratio 12 (6-26); Blood Urea Nitrogen 7 mg/dL (6-20); Calcium 8.4 mg/dL (8.6-10.3); Carbon Dioxide 25 mEq/L (23-29); Chloride 103 mEq/L (98-107); Glucose 120 mg/dL (70-105); Osmolality,Calculated 281 (280-300); Potassium 3.8 mEq/L (3.5-5.1); Sodium 136 mEq/L (136-145); eGFR For African Americans > 60 (> 60); eGFR For Non-African Americans > 60 (> 60)
[2020-06-30] MEDS: *HR* Heparin 5,000 UNIT/ML VIAL SQ SCH ×3 (05:29→20:35)
[2020-06-30] MEDS: Topiramate 25 MG CAP.SPRINK PO SCH ×2 (07:50→20:35)
[2020-06-30] MEDS: Acetaminophen/Butalbital/CaffeineTABLET PO PRN (07:53)
[2020-06-30] MEDS ORDERED: Cyanocobalamin (B-12) 1,000 MCG/ML VIAL IM SCH (09:00)
[2020-06-30] MEDS ORDERED: DULOXETINE HCL 60 MG PO SCH (09:00)
[2020-06-30] MEDS ORDERED: *HR* HYDROcodone/Acet 5/325 mg TABLET PO ONE (11:19)
[2020-06-30] MEDS ORDERED: Ondansetron 4 MG/2 ML VIAL IVP ONE (11:19)
[2020-07-01] MEDS: 0.9 % Sodium Chloride 1,000 ML IVC SCH ×2 (00:09→11:37)
[2020-07-01] MEDS: Ketorolac 30 MG/ML VIAL IVP PRN ×3 (00:10→20:37)
[2020-07-01] MEDS: Ondansetron 4 MG/2 ML VIAL IVP PRN ×3 (00:43→20:37)
[2020-07-01] MEDS ORDERED: Ergocalciferol (VIT D2) 50,000 UNIT (1.25MG) CAP PO SCH (01:43)
[2020-07-01 02:27] LABS: Hematocrit 38.2 % (35.3-44.9); Hemoglobin 11.8 g/dL (11.5-15.4); Mean Corpuscular HGB Conc 30.9 g/dL (31.6-35.5); Mean Corpuscular Hemoglobin 29.6 pg (28.0-33.3); Platelet Count 262 K/mcL (140-400); Red Blood Count 3.98 M/mcL (3.82-4.97); Red Cell Distribution Width 12.9 % (11.5-14.5); White Blood Count 6.4 K/mcL (4.3-11.1)
[2020-07-01] MEDS: Acetaminophen/Butalbital/CaffeineTABLET PO PRN (06:08)
[2020-07-01] MEDS: *HR* Heparin 5,000 UNIT/ML VIAL SQ SCH ×2 (06:08→22:29)
[2020-07-01] MEDS: Insulin LISPRO 300 UNITS/3 ML VIAL SQ SCH ×3 (08:17→17:10)
[2020-07-01] MEDS: Topiramate 25 MG CAP.SPRINK PO SCH ×2 (08:20→20:37)
[2020-07-01] MEDS ORDERED: 0.9 % Sodium Chloride 500 ML IVC PRN (11:12)
[2020-07-02 03:10] LABS: Hematocrit 35.3 % (35.3-44.9); Hemoglobin 11.3 g/dL (11.5-15.4); Mean Corpuscular Hemoglobin 30.4 pg (28.0-33.3); Mean Corpuscular Volume 94.9 fL (83.0-100.0); Mean Platelet Volume 10.2 fL (9.4-12.4); Platelet Count 249 K/mcL (140-400); Red Blood Count 3.72 M/mcL (3.82-4.97); Red Cell Distribution Width 13.1 % (11.5-14.5); White Blood Count 7.3 K/mcL (4.3-11.1)
[2020-07-02] MEDS: Ondansetron 4 MG/2 ML VIAL IVP PRN ×2 (03:49→13:29)
[2020-07-02] MEDS: Ketorolac 30 MG/ML VIAL IVP PRN (03:49)
[2020-07-02] MEDS: 0.9 % Sodium Chloride 1,000 ML IVC SCH ×3 (04:07→12:17)
[2020-07-02] MEDS: Insulin LISPRO 300 UNITS/3 ML VIAL SQ SCH ×3 (07:23→17:18)
[2020-07-02] MEDS: Topiramate 25 MG CAP.SPRINK PO SCH ×2 (08:31→20:33)
[2020-07-02] MEDS ORDERED: Metoprolol XL (24 HR) Succ 25 MG TAB.ER.24H PO SCH (09:00)
[2020-07-02] MEDS: *HR* OxyCODONE Immed Rel 5 MG TABLET PO PRN (17:58)
[2020-07-02] MEDS: Metoprolol XL (24 HR) Succ 25 MG TAB.ER.24H PO SCH (17:59)
[2020-07-02] MEDS ORDERED: Metoclopramide 10 MG/2 ML VIAL IVP ONE (20:31)
[2020-07-02] MEDS ORDERED: *HR* HYDROcodone/Acet 5/325 mg TABLET PO PRN (23:10)
[2020-07-03] MEDS: *HR* OxyCODONE Immed Rel 5 MG TABLET PO PRN (03:21)
[2020-07-03] MEDS: Acetaminophen/Butalbital/CaffeineTABLET PO PRN (05:53)
[2020-07-03 06:28] LABS: Hematocrit 40.9 % (35.3-44.9); Mean Corpuscular Hemoglobin 30.1 pg (28.0-33.3); Mean Platelet Volume 10.4 fL (9.4-12.4); Platelet Count 275 K/mcL (140-400); Red Blood Count 4.35 M/mcL (3.82-4.97); Red Cell Distribution Width 13.2 % (11.5-14.5); White Blood Count 10.3 K/mcL (4.3-11.1)
[2020-07-03 06:29] LABS: Hemoglobin 13.1 g/dL (11.5-15.4)
[2020-07-03] MEDS: Insulin LISPRO 300 UNITS/3 ML VIAL SQ SCH (08:04)
[2020-07-03] MEDS: Metoprolol XL (24 HR) Succ 25 MG TAB.ER.24H PO SCH (08:53)
[2020-07-03] MEDS: Topiramate 25 MG CAP.SPRINK PO SCH (08:54)
[2020-07-03] MEDS ORDERED: Metoclopramide 10 MG/2 ML VIAL IVP ONE (09:11)
[2020-07-03 10:04] VITALS: BP 153/92
== END 2020-07-03 10:51 | disposition home or self-care (01) ==
LOC: EMEROOARM 18:44 → 3BNU 18:44
PROVIDERS: ADMIT Student in an Organized Health Care Education/Training Program; ATTEND Student in an Organized Health Care Education/Training Program

== ENCOUNTER 2020-08-03 17:16 | Inpatient (IN) ==
[2020-08-03] MEDS ORDERED: 0.9 % Sodium Chloride 1,000 ML IVC ONE ×2 (17:41)
[2020-08-03] MEDS ORDERED: Prochlorperazine 10 MG/2 ML VIAL IVP STA (17:41)
[2020-08-03 18:04] LABS: VBG HCO3 27 mEq/L (21-27); VBG PCO2 54 mmHg (41-51); VBG PH 7.31 pH Units (7.32-7.42); VBG PO2 29 mmHg (25-50)
[2020-08-03 18:08] LABS: Basophils # 0.1 K/mcL (0.0-0.2); Basophils % 0.6 %; Eosinophils # 0.1 K/mcL (0.0-0.6); Eosinophils % 1.8 %; Hemoglobin 13.4 g/dL (11.5-15.4); Immature Granulocytes % 0.5 % (0-4); Lymphocytes # 2.6 K/mcL (0.6-4.6); Lymphocytes % 33.2 %; Mean Corpuscular HGB Conc 31.2 g/dL (31.6-35.5); Mean Corpuscular Hemoglobin 30.5 pg (28.0-33.3); Mean Corpuscular Volume 97.7 fL (83.0-100.0); Mean Platelet Volume 9.9 fL (9.4-12.4); Monocytes # 0.5 K/mcL (0.0-1.3); Monocytes % 6.7 %; Neutrophils # 4.5 K/mcL (1.6-8.9); Platelet Count 376 K/mcL (140-400); Segmented Neutrophils % 57.2 %; White Blood Count 7.9 K/mcL (4.3-11.1)
[2020-08-03 18:30] LABS: Alanine Aminotransferase 40 Units/L (7-52); Albumin 2.6 g/dL (3.5-5.7); Albumin/Globulin Ratio 0.7 (1.1-2.2); Alkaline Phosphatase 148 Units/L (34-104); Aspartate Amino Transferase 41 Units/L (13-39); BUN/Creatinine Ratio 8 (6-26); Bilirubin,Direct 0.1 mg/dL (0.0-0.2); Bilirubin,Indirect 0.2 mg/dL (0.0-1.0); Bilirubin,Total 0.3 mg/dL (0.3-1.0); Blood Urea Nitrogen 6 mg/dL (6-20); Calcium 8.4 mg/dL (8.6-10.3); Carbon Dioxide 25 mEq/L (23-29); Chloride 99 mEq/L (98-107); Globulin 3.6 g/dL (2.4-3.5); Glucose 212 mg/dL (70-105); Lipase 4 Units/L (11-82); Magnesium 1.7 mg/dL (1.6-2.6); Osmolality,Calculated 280 (280-300); Potassium 4.8 mEq/L (3.5-5.1); Sodium 133 mEq/L (136-145); Total Protein 6.2 g/dL (6.4-8.9); Troponin I < 0.03 ng/mL (< 0.04); eGFR For African Americans > 60 (> 60); eGFR For Non-African Americans > 60 (> 60)
[2020-08-03 19:17] LABS: Adenovirus Not Detected (Not Detect); Bordetella Pertussis Not Detected (Not Detect); Chlamydophila pneumoniae Not Detected (Not Detect); Coronavirus 229E Not Detected (Not Detect); Coronavirus HKU1 Not Detected (Not Detect); Coronavirus NL63 Not Detected (Not Detect); Coronavirus OC43 Not Detected (Not Detect); Human Metapneumovirus Not Detected (Not Detect); Human Rhinovirus/Enterovirus Not Detected (Not Detect); Influenza A Subtype 2009 H1 Not Detected (Not Detect); Influenza B Not Detected (Not Detect); Mycoplasma pneumoniae Not Detected (Not Detect); Parainfluenza Virus 1 Not Detected (Not Detect); Parainfluenza Virus 2 Not Detected (Not Detect); Parainfluenza Virus 3 Not Detected (Not Detect); Parainfluenza Virus 4 Not Detected (Not Detect); Respiratory Syncytial Virus Not Detected (Not Detect); SARS-CoV-2 Not Detected (Not Detect)
[2020-08-03] MEDS ORDERED: Naloxone 0.4 MG/ML INJ IVP PRN (21:57)
[2020-08-03 23:01] LABS: Bilirubin,Urine Negative (Negative); Blood,Urine Negative (Negative); Clarity,Urine Clear (Clear); Color,Urine Colorless (Yellow); Glucose,Urine (UA) Normal (Normal); Ketones,Urine Negative (Negative); Leukocyte Esterase,Urine Negative (Negative); Nitrite,Urine Negative (Negative); Protein,Urine Negative (Neg-Trace); Specific Gravity,Urine 1.007 (1.010-1.025); Urobilinogen,Urine Normal (Normal)
[2020-08-03 23:10] LABS: Amphetamine Screen,Urine Negative ng/mL (Cutoff=1000); Barbiturate Screen,Urine Positive ng/mL (Cutoff=200); Benzodiazepines Screen,Urine Negative ng/mL (Cutoff=200); Cannabinoid Screen,Urine Negative ng/mL (Cutoff = 50); Cocaine Screen,Urine Negative ng/mL (Cutoff= 300); Opiate Screen,Urine Negative ng/mL (Cutoff=300); Phencyclidine Screen,Urine Negative ng/mL (Cutoff=25)
[2020-08-04] MEDS ORDERED: D5% in Water 1,000 ML IVC PRN (00:57)
[2020-08-04] MEDS ORDERED: *HR* Dextrose 50 % in Water (Vial) 50 ML VIAL IVP PRN (00:57)
[2020-08-04] MEDS ORDERED: Dextrose Gel 15 GM/37.5 ML TUBE PO PRN ×2 (00:57)
[2020-08-04] MEDS: 0.9 % Sodium Chloride 1,000 ML IVC SCH ×3 (01:20→15:17)
[2020-08-04 05:06] LABS: Basophils % 0.5 %; Eosinophils # 0.1 K/mcL (0.0-0.6); Eosinophils % 1.4 %; Hematocrit 34.4 % (35.3-44.9); Hemoglobin 10.6 g/dL (11.5-15.4); Immature Granulocytes % 0.5 % (0-4); Mean Corpuscular HGB Conc 30.8 g/dL (31.6-35.5); Mean Corpuscular Hemoglobin 29.9 pg (28.0-33.3); Mean Corpuscular Volume 97.2 fL (83.0-100.0); Mean Platelet Volume 9.4 fL (9.4-12.4); Monocytes # 0.5 K/mcL (0.0-1.3); Monocytes % 7.3 %; Platelet Count 276 K/mcL (140-400); Red Blood Count 3.54 M/mcL (3.82-4.97); Red Cell Distribution Width 14.4 % (11.5-14.5); Segmented Neutrophils % 45.3 %; White Blood Count 6.6 K/mcL (4.3-11.1)
[2020-08-04 05:15] LABS: INR 1.1; Prothrombin Time 12.7 Seconds (9.4-12.1)
[2020-08-04 05:17] LABS: Activated Partial Thrombo Time 26.9 Seconds (26.0-36.0)
[2020-08-04] MEDS: Insulin LISPRO 300 UNITS/3 ML VIAL SUBQ SCH ×3 (07:08→17:47)
[2020-08-04 07:17] LABS: Alanine Aminotransferase 35 Units/L (7-52); Albumin 2.5 g/dL (3.5-5.7); Albumin/Globulin Ratio 0.7 (1.1-2.2); Alkaline Phosphatase 133 Units/L (34-104); Aspartate Amino Transferase 32 Units/L (13-39); BUN/Creatinine Ratio 10 (6-26); Bilirubin,Total 0.3 mg/dL (0.3-1.0); Blood Urea Nitrogen 6 mg/dL (6-20); Calcium 8.3 mg/dL (8.6-10.3); Carbon Dioxide 24 mEq/L (23-29); Chloride 107 mEq/L (98-107); Globulin 3.5 g/dL (2.4-3.5); Glucose 111 mg/dL (70-105); Osmolality,Calculated 286 (280-300); Potassium 4.9 mEq/L (3.5-5.1); Sodium 139 mEq/L (136-145); eGFR For African Americans > 60 (> 60); eGFR For Non-African Americans > 60 (> 60)
[2020-08-04] MEDS: Ondansetron 4 MG/2 ML VIAL IVP PRN ×2 (08:52→21:35)
[2020-08-04] MEDS ORDERED: *HR* HYDROmorphone 2 MG/ML SYRINGE IVP ONE ×2 (09:56→10:32)
[2020-08-04] MEDS ORDERED: *HR* Promethazine 25 MG/ML VIAL IM ONE ×3 (10:31→15:58)
[2020-08-04] MEDS ORDERED: Lidocaine -MPF 2% 2 ML VIAL ONE ×2 (10:46→11:04)
[2020-08-04] MEDS ORDERED: *HR* Propofol 200 MG/20 ML VIAL IVP ONE (10:46)
[2020-08-04] MEDS ORDERED: Gadolinium Contrast Agent (WT Based) IV PRN (11:22)
[2020-08-04] MEDS ORDERED: rOPINIRole 1 MG TABLET PO PRN (12:53)
[2020-08-04] MEDS: Metoprolol XL (24 HR) Succ 25 MG TAB.ER.24H PO SCH (15:17)
[2020-08-04] MEDS ORDERED: *HR* Metoprolol 5 MG/5 ML VIAL IVP ONE ×2 (15:17→22:48)
[2020-08-04] MEDS: Topiramate 25 MG CAP.SPRINK PO SCH (15:24)
[2020-08-04] MEDS ORDERED: *HR* HYDROmorphone (PF) 1 MG/ML SYRINGE IVP PRN (15:56)
[2020-08-04] MEDS: MetroNIDAZOLE 500 MG/100 ML 500 MG/100 ML BAG IVPB SCH (16:32)
[2020-08-04] MEDS: *HR* HYDROmorphone (PF) 1 MG/ML SYRINGE IVP PRN ×2 (16:32→21:31)
[2020-08-04] MEDS: *HR* Heparin 5,000 UNIT/ML VIAL SQ SCH (17:44)
[2020-08-04] MEDS: Gabapentin 300 MG CAPSULE PO SCH (19:54)
[2020-08-04] MEDS: Fluticasone Propionate Nasal 50 MCG/SPRAY BOTTLE NS SCH (19:54)
[2020-08-04] MEDS: Budesonide/Formoterol 80/4.5 1 PUFF INH IH SCH (22:58)
[2020-08-05] MEDS: MetroNIDAZOLE 500 MG/100 ML 500 MG/100 ML BAG IVPB SCH ×3 (00:12→18:12)
[2020-08-05] MEDS: Insulin LISPRO 300 UNITS/3 ML VIAL SUBQ SCH ×5 (01:37→20:40)
[2020-08-05] MEDS: *HR* HYDROmorphone (PF) 1 MG/ML SYRINGE IVP PRN ×3 (01:39→22:30)
[2020-08-05] MEDS: 0.9 % Sodium Chloride 1,000 ML IVC SCH ×2 (01:39→18:49)
[2020-08-05] MEDS: *HR* Promethazine 25 MG/ML VIAL IM PRN ×2 (02:51→13:55)
[2020-08-05] MEDS ORDERED: Ketorolac 15 MG/ML VIAL IVP PRN (03:05)
[2020-08-05] MEDS: *HR* Heparin 5,000 UNIT/ML VIAL SQ SCH ×2 (05:43→18:13)
[2020-08-05] MEDS: Budesonide/Formoterol 80/4.5 1 PUFF INH IH SCH ×2 (07:44→21:20)
[2020-08-05] MEDS: Ondansetron 4 MG/2 ML VIAL IVP PRN ×2 (07:59→18:53)
[2020-08-05] MEDS ORDERED: NON-FORMULARY MEDICATION 1 EACH EACH (Duloxetine Hcl [Cymbalta] 60 MG) PO SCH (09:00)
[2020-08-05] MEDS: Metoprolol XL (24 HR) Succ 25 MG TAB.ER.24H PO SCH (09:07)
[2020-08-05] MEDS: Fluticasone Propionate Nasal 50 MCG/SPRAY BOTTLE NS SCH ×2 (09:07→21:47)
[2020-08-05] MEDS: Topiramate 25 MG CAP.SPRINK PO SCH (09:07)
[2020-08-05] MEDS: Gabapentin 300 MG CAPSULE PO SCH ×2 (09:07→20:30)
[2020-08-05] MEDS ORDERED: GI Cocktail 40 ML EACH PO ONE (09:11)
[2020-08-05 09:45] LABS: Basophils % 0.4 %; Hematocrit 37.4 % (35.3-44.9); Hemoglobin 11.5 g/dL (11.5-15.4); Immature Granulocytes % 1.1 % (0-4); Lymphocytes # 1.5 K/mcL (0.6-4.6); Mean Corpuscular HGB Conc 30.7 g/dL (31.6-35.5); Mean Corpuscular Hemoglobin 29.6 pg (28.0-33.3); Mean Corpuscular Volume 96.4 fL (83.0-100.0); Mean Platelet Volume 9.6 fL (9.4-12.4); Monocytes # 0.7 K/mcL (0.0-1.3); Monocytes % 8.9 %; Neutrophils # 5.9 K/mcL (1.6-8.9); Platelet Count 318 K/mcL (140-400); Red Blood Count 3.88 M/mcL (3.82-4.97); Red Cell Distribution Width 14.9 % (11.5-14.5); Segmented Neutrophils % 71.6 %; White Blood Count 8.2 K/mcL (4.3-11.1)
[2020-08-05 10:05] LABS: Alanine Aminotransferase 24 Units/L (7-52); Albumin 2.3 g/dL (3.5-5.7); Albumin/Globulin Ratio 0.7 (1.1-2.2); Alkaline Phosphatase 119 Units/L (34-104); Aspartate Amino Transferase 15 Units/L (13-39); BUN/Creatinine Ratio 7 (6-26); Bilirubin,Total 0.3 mg/dL (0.3-1.0); Blood Urea Nitrogen 4 mg/dL (6-20); Calcium 6.9 mg/dL (8.6-10.3); Carbon Dioxide 21 mEq/L (23-29); Chloride 113 mEq/L (98-107); Globulin 3.1 g/dL (2.4-3.5); Glucose 143 mg/dL (70-105); Magnesium 1.4 mg/dL (1.6-2.6); Osmolality,Calculated 295 (280-300); Potassium 3.1 mEq/L (3.5-5.1); Sodium 143 mEq/L (136-145); Total Protein 5.4 g/dL (6.4-8.9); eGFR For African Americans > 60 (> 60); eGFR For Non-African Americans > 60 (> 60)
[2020-08-05 10:06] LABS: % Iron Saturation 77 % (15-50); Iron 91 mcg/dL (50-170); Transferrin 84 mg/dL (203-362)
[2020-08-05 10:20] LABS: Ferritin 428 ng/mL (10-120)
[2020-08-05 10:25] LABS: Folate 11.1 ng/mL (3.0-16.0)
[2020-08-05] MEDS: Pantoprazole 40 MG VIAL IVP SCH ×2 (11:57→18:13)
[2020-08-05] MEDS ORDERED: Isovue-370 500 ML BOTTLE IVP ONE (12:51)
[2020-08-05] MEDS ORDERED: Metoprolol XL (24 HR) Succ 25 MG TAB.ER.24H PO ONE (13:06)
[2020-08-05] MEDS ORDERED: Pantoprazole 40 MG VIAL IVP SCH (18:00)
[2020-08-05] MEDS ORDERED: Potassium Chloride Elixir 20 MEQ/15 ML UDC PO ONE (20:07)
[2020-08-05] MEDS: clonazePAM 0.5 MG TABLET PO PRN (20:30)
[2020-08-06] MEDS: MetroNIDAZOLE 500 MG/100 ML 500 MG/100 ML BAG IVPB SCH ×3 (00:25→17:48)
[2020-08-06] MEDS: *HR* HYDROmorphone (PF) 1 MG/ML SYRINGE IVP PRN ×3 (03:19→21:30)
[2020-08-06] MEDS: *HR* Heparin 5,000 UNIT/ML VIAL SQ SCH ×2 (05:23→17:47)
[2020-08-06] MEDS: Pantoprazole 40 MG VIAL IVP SCH ×2 (05:23→17:47)
[2020-08-06 05:45] LABS: Basophils # 0.1 K/mcL (0.0-0.2); Basophils % 0.4 %; Eosinophils % 0.2 %; Hematocrit 41.8 % (35.3-44.9); Hemoglobin 12.9 g/dL (11.5-15.4); Immature Granulocytes % 0.4 % (0-4); Lymphocytes % 16.3 %; Mean Corpuscular HGB Conc 30.9 g/dL (31.6-35.5); Mean Corpuscular Hemoglobin 30.1 pg (28.0-33.3); Mean Corpuscular Volume 97.7 fL (83.0-100.0); Mean Platelet Volume 9.4 fL (9.4-12.4); Monocytes # 0.8 K/mcL (0.0-1.3); Monocytes % 6.6 %; Neutrophils # 9.4 K/mcL (1.6-8.9); Platelet Count 351 K/mcL (140-400); Red Blood Count 4.28 M/mcL (3.82-4.97); Red Cell Distribution Width 14.9 % (11.5-14.5); Segmented Neutrophils % 76.1 %; White Blood Count 12.3 K/mcL (4.3-11.1)
[2020-08-06 06:38] LABS: BUN/Creatinine Ratio 5 (6-26); Blood Urea Nitrogen 3 mg/dL (6-20); Calcium 8.7 mg/dL (8.6-10.3); Carbon Dioxide 28 mEq/L (23-29); Chloride 108 mEq/L (98-107); Glucose 164 mg/dL (70-105); Osmolality,Calculated 292 (280-300); Potassium 4.1 mEq/L (3.5-5.1); Sodium 141 mEq/L (136-145); eGFR For African Americans > 60 (> 60); eGFR For Non-African Americans > 60 (> 60)
[2020-08-06] MEDS: Budesonide/Formoterol 80/4.5 1 PUFF INH IH SCH ×2 (08:15→19:50)
[2020-08-06] MEDS: Gabapentin 300 MG CAPSULE PO SCH ×2 (08:24→21:30)
[2020-08-06] MEDS: Insulin LISPRO 300 UNITS/3 ML VIAL SUBQ SCH ×4 (08:25→21:25)
[2020-08-06] MEDS: Fluticasone Propionate Nasal 50 MCG/SPRAY BOTTLE NS SCH ×2 (08:25→21:31)
[2020-08-06] MEDS: Topiramate 25 MG CAP.SPRINK PO SCH (08:25)
[2020-08-06] MEDS: Ondansetron 4 MG/2 ML VIAL IVP PRN ×2 (08:37→15:40)
[2020-08-06] MEDS ORDERED: Metoprolol XL (24 HR) Succ 50 MG TAB.ER.24H PO SCH (09:00)
[2020-08-06] MEDS: *HR* Promethazine 25 MG/ML VIAL IM PRN ×2 (12:00→21:30)
[2020-08-06] MEDS: carvediloL 25 MG TABLET PO SCH (12:57)
[2020-08-06] MEDS: clonazePAM 0.5 MG TABLET PO PRN (21:29)
[2020-08-07] MEDS: MetroNIDAZOLE 500 MG/100 ML 500 MG/100 ML BAG IVPB SCH ×3 (03:22→16:46)
[2020-08-07 05:05] LABS: Basophils # 0.1 K/mcL (0.0-0.2); Basophils % 0.4 %; Eosinophils # 0.1 K/mcL (0.0-0.6); Hematocrit 40.3 % (35.3-44.9); Hemoglobin 12.5 g/dL (11.5-15.4); Immature Granulocytes % 0.3 % (0-4); Lymphocytes # 2.7 K/mcL (0.6-4.6); Lymphocytes % 22.1 %; Mean Corpuscular Hemoglobin 30.3 pg (28.0-33.3); Mean Corpuscular Volume 97.6 fL (83.0-100.0); Mean Platelet Volume 10.1 fL (9.4-12.4); Monocytes % 7.8 %; Neutrophils # 8.3 K/mcL (1.6-8.9); Platelet Count 336 K/mcL (140-400); Red Blood Count 4.13 M/mcL (3.82-4.97); Red Cell Distribution Width 14.6 % (11.5-14.5); Segmented Neutrophils % 68.4 %; White Blood Count 12.2 K/mcL (4.3-11.1)
[2020-08-07] MEDS: *HR* Heparin 5,000 UNIT/ML VIAL SQ SCH ×2 (06:46→20:11)
[2020-08-07] MEDS: Pantoprazole 40 MG VIAL IVP SCH ×2 (06:46→20:12)
[2020-08-07 07:13] LABS: BUN/Creatinine Ratio 5 (6-26); Blood Urea Nitrogen 3 mg/dL (6-20); Calcium 8.7 mg/dL (8.6-10.3); Carbon Dioxide 28 mEq/L (23-29); Chloride 104 mEq/L (98-107); Glucose 150 mg/dL (70-105); Osmolality,Calculated 287 (280-300); Potassium 3.8 mEq/L (3.5-5.1); Sodium 139 mEq/L (136-145); eGFR For African Americans > 60 (> 60); eGFR For Non-African Americans > 60 (> 60)
[2020-08-07] MEDS: Gabapentin 300 MG CAPSULE PO SCH ×2 (08:12→20:12)
[2020-08-07] MEDS: Topiramate 25 MG CAP.SPRINK PO SCH (08:12)
[2020-08-07] MEDS: carvediloL 25 MG TABLET PO SCH ×2 (08:13→17:00)
[2020-08-07] MEDS: *HR* HYDROmorphone (PF) 1 MG/ML SYRINGE IVP PRN ×3 (08:13→22:39)
[2020-08-07] MEDS: *HR* Promethazine 25 MG/ML VIAL IM PRN (08:17)
[2020-08-07] MEDS: Fluticasone Propionate Nasal 50 MCG/SPRAY BOTTLE NS SCH (08:18)
[2020-08-07] MEDS: Insulin LISPRO 300 UNITS/3 ML VIAL SUBQ SCH ×4 (08:18→20:33)
[2020-08-07] MEDS: Budesonide/Formoterol 80/4.5 1 PUFF INH IH SCH ×2 (08:22→20:11)
[2020-08-07] MEDS ORDERED: 0.9 % Sodium Chloride 500 ML IVC ONE (11:54)
[2020-08-07] MEDS: Ondansetron 4 MG/2 ML VIAL IVP PRN (16:46)
[2020-08-08] MEDS: Fluticasone Propionate Nasal 50 MCG/SPRAY BOTTLE NS SCH ×3 (00:09→21:10)
[2020-08-08] MEDS: Ondansetron 4 MG/2 ML VIAL IVP PRN ×2 (00:38→14:52)
[2020-08-08] MEDS: MetroNIDAZOLE 500 MG/100 ML 500 MG/100 ML BAG IVPB SCH ×3 (00:38→16:45)
[2020-08-08] MEDS: Pantoprazole 40 MG VIAL IVP SCH (05:46)
[2020-08-08] MEDS: *HR* Heparin 5,000 UNIT/ML VIAL SQ SCH ×2 (05:46→18:12)
[2020-08-08] MEDS: *HR* Promethazine 25 MG/ML VIAL IM PRN ×2 (05:54→21:31)
[2020-08-08] MEDS: *HR* HYDROmorphone (PF) 1 MG/ML SYRINGE IVP PRN ×4 (05:55→21:32)
[2020-08-08] MEDS: Budesonide/Formoterol 80/4.5 1 PUFF INH IH SCH ×2 (07:15→20:23)
[2020-08-08] MEDS: Insulin LISPRO 300 UNITS/3 ML VIAL SUBQ SCH ×4 (08:32→21:09)
[2020-08-08] MEDS: Topiramate 25 MG CAP.SPRINK PO SCH (08:37)
[2020-08-08] MEDS: Gabapentin 300 MG CAPSULE PO SCH ×2 (08:38→21:54)
[2020-08-08] MEDS: carvediloL 25 MG TABLET PO SCH ×2 (08:38→18:12)
[2020-08-08] MEDS ORDERED: Milk and Molasses Enema 200 ML RC ONE (08:54)
[2020-08-08] MEDS ORDERED: Sennosides/Docusate Sodium TABLET PO PRN (16:18)
[2020-08-08] MEDS: 0.9 % Sodium Chloride 1,000 ML IVC SCH (16:44)
[2020-08-09] MEDS: MetroNIDAZOLE 500 MG/100 ML 500 MG/100 ML BAG IVPB SCH ×2 (00:05→08:33)
[2020-08-09] MEDS: 0.9 % Sodium Chloride 1,000 ML IVC SCH ×2 (03:37→12:54)
[2020-08-09 04:12] LABS: BUN/Creatinine Ratio 4 (6-26); Blood Urea Nitrogen 2 mg/dL (6-20); Calcium 7.8 mg/dL (8.6-10.3); Carbon Dioxide 29 mEq/L (23-29); Chloride 107 mEq/L (98-107); Glucose 102 mg/dL (70-105); Osmolality,Calculated 288 (280-300); Potassium 3.1 mEq/L (3.5-5.1); Sodium 141 mEq/L (136-145); eGFR For African Americans > 60 (> 60); eGFR For Non-African Americans > 60 (> 60)
[2020-08-09] MEDS: *HR* Heparin 5,000 UNIT/ML VIAL SQ SCH (05:23)
[2020-08-09] MEDS: Insulin LISPRO 300 UNITS/3 ML VIAL SUBQ SCH ×2 (08:24→12:56)
[2020-08-09] MEDS: carvediloL 25 MG TABLET PO SCH (08:32)
[2020-08-09] MEDS: Gabapentin 300 MG CAPSULE PO SCH (08:32)
[2020-08-09] MEDS: Topiramate 25 MG CAP.SPRINK PO SCH (08:32)
[2020-08-09] MEDS: Fluticasone Propionate Nasal 50 MCG/SPRAY BOTTLE NS SCH (08:33)
[2020-08-09] MEDS ORDERED: Potassium Chloride Elixir 20 MEQ/15 ML UDC PO ONE (08:43)
[2020-08-09] MEDS: Budesonide/Formoterol 80/4.5 1 PUFF INH IH SCH (08:49)
[2020-08-09] MEDS: *HR* HYDROmorphone (PF) 1 MG/ML SYRINGE IVP PRN ×2 (11:11→15:14)
[2020-08-09 12:10] VITALS: BP 115/56
== END 2020-08-09 17:46 | disposition home or self-care (01) | DRG 389 ==
LOC: EMEROOARM 17:16 → 3ANU 17:16 → SUATTDRO 20:25 → 3ANU 21:30
PROVIDERS: ADMIT Family Medicine; ATTEND Internal Medicine

== ENCOUNTER 2020-10-10 11:16 | Observation (INO) ==
[2020-10-10] MEDS ORDERED: *HR* HYDROmorphone (PF) 1 MG/ML SYRINGE IVP ONE (13:20)
[2020-10-10 14:10] LABS: Basophils % 0.6 %; Eosinophils # 0.1 K/mcL (0.0-0.6); Eosinophils % 0.9 %; Hematocrit 37.5 % (35.3-44.9); Hemoglobin 11.7 g/dL (11.5-15.4); Immature Granulocytes % 0.4 % (0-4); Lymphocytes # 1.8 K/mcL (0.6-4.6); Mean Corpuscular HGB Conc 31.2 g/dL (31.6-35.5); Mean Corpuscular Hemoglobin 31.3 pg (28.0-33.3); Mean Corpuscular Volume 100.3 fL (83.0-100.0); Mean Platelet Volume 10.2 fL (9.4-12.4); Monocytes # 0.5 K/mcL (0.0-1.3); Monocytes % 7.4 %; Neutrophils # 4.6 K/mcL (1.6-8.9); Platelet Count 239 K/mcL (140-400); Red Blood Count 3.74 M/mcL (3.82-4.97); Red Cell Distribution Width 12.9 % (11.5-14.5); Segmented Neutrophils % 64.7 %
[2020-10-10 14:43] LABS: Alanine Aminotransferase 43 Units/L (7-52); Albumin 2.7 g/dL (3.5-5.7); Albumin/Globulin Ratio 0.8 (1.1-2.2); Alkaline Phosphatase 163 Units/L (34-104); Aspartate Amino Transferase 44 Units/L (13-39); BUN/Creatinine Ratio 17 (6-26); Bilirubin,Total 0.4 mg/dL (0.3-1.0); Blood Urea Nitrogen 10 mg/dL (6-20); Calcium 8.3 mg/dL (8.6-10.3); Carbon Dioxide 26 mEq/L (23-29); Chloride 103 mEq/L (98-107); Globulin 3.2 g/dL (2.4-3.5); Glucose 107 mg/dL (70-105); Osmolality,Calculated 282 (280-300); Potassium 4.1 mEq/L (3.5-5.1); Sodium 136 mEq/L (136-145); Total Protein 5.9 g/dL (6.4-8.9); eGFR For African Americans > 60 (> 60); eGFR For Non-African Americans > 60 (> 60)
[2020-10-10] MEDS ORDERED: Naloxone 0.4 MG/ML INJ IVP PRN (16:12)
[2020-10-10 20:46] LABS: Prothrombin Time 11.2 Seconds (9.4-12.1)
[2020-10-10] MEDS ORDERED: Ondansetron 4 MG/2 ML VIAL IVP PRN (21:39)
[2020-10-10] MEDS ORDERED: Ketorolac 15 MG/ML VIAL IVP PRN (22:48)
[2020-10-10 23:14] LABS: Bilirubin,Urine Negative (Negative); Blood,Urine Negative (Negative); Clarity,Urine Clear (Clear); Color,Urine Colorless (Yellow); Glucose,Urine (UA) Normal (Normal); Ketones,Urine Negative (Negative); Leukocyte Esterase,Urine Negative (Negative); Nitrite,Urine Negative (Negative); PH,Urine 6.5 pH Units (5.0-8.0); Protein,Urine Negative (Neg-Trace); Specific Gravity,Urine 1.007 (1.010-1.025); Urobilinogen,Urine Normal (Normal)
[2020-10-10 23:29] LABS: Amphetamine Screen,Urine Negative ng/mL (Cutoff=1000); Barbiturate Screen,Urine Positive ng/mL (Cutoff=200); Benzodiazepines Screen,Urine Negative ng/mL (Cutoff=200); Cannabinoid Screen,Urine Negative ng/mL (Cutoff = 50); Cocaine Screen,Urine Negative ng/mL (Cutoff= 300); Opiate Screen,Urine Negative ng/mL (Cutoff=300); Phencyclidine Screen,Urine Negative ng/mL (Cutoff=25)
[2020-10-11] MEDS ORDERED: Morphine Sulfate 2 MG/ML SYRINGE IVP ONE (04:12)
[2020-10-11 04:53] LABS: Alanine Aminotransferase 44 Units/L (7-52); Albumin 3.1 g/dL (3.5-5.7); Albumin/Globulin Ratio 0.8 (1.1-2.2); Alkaline Phosphatase 189 Units/L (34-104); Aspartate Amino Transferase 30 Units/L (13-39); BUN/Creatinine Ratio 17 (6-26); Bilirubin,Total 0.4 mg/dL (0.3-1.0); Blood Urea Nitrogen 12 mg/dL (6-20); Calcium 8.6 mg/dL (8.6-10.3); Carbon Dioxide 23 mEq/L (23-29); Chloride 101 mEq/L (98-107); Globulin 3.7 g/dL (2.4-3.5); Glucose 122 mg/dL (70-105); Magnesium 1.7 mg/dL (1.6-2.6); Osmolality,Calculated 293 (280-300); Phosphorous 5.6 mg/dL (2.7-4.5); Potassium 3.6 mEq/L (3.5-5.1); Sodium 141 mEq/L (136-145); Total Protein 6.8 g/dL (6.4-8.9); eGFR For African Americans > 60 (> 60); eGFR For Non-African Americans > 60 (> 60)
[2020-10-11] MEDS ORDERED: *HR* Promethazine 25 MG/ML VIAL IM ONE (05:00)
[2020-10-11] MEDS ORDERED: *HR* Promethazine 25 MG/ML VIAL IM PRN (05:20)
[2020-10-11 05:23] LABS: Basophils # 0.1 K/mcL (0.0-0.2); Basophils % 0.5 %; Eosinophils % 0.1 %; Hematocrit 40.6 % (35.3-44.9); Hemoglobin 13.1 g/dL (11.5-15.4); Immature Granulocytes % 0.5 % (0-4); Lymphocytes # 2.8 K/mcL (0.6-4.6); Lymphocytes % 19.9 %; Mean Corpuscular HGB Conc 32.3 g/dL (31.6-35.5); Mean Corpuscular Hemoglobin 30.8 pg (28.0-33.3); Mean Corpuscular Volume 95.5 fL (83.0-100.0); Mean Platelet Volume 10.4 fL (9.4-12.4); Monocytes # 1.1 K/mcL (0.0-1.3); Monocytes % 8.1 %; Neutrophils # 9.9 K/mcL (1.6-8.9); Platelet Count 343 K/mcL (140-400); Red Blood Count 4.25 M/mcL (3.82-4.97); Red Cell Distribution Width 13.2 % (11.5-14.5); Segmented Neutrophils % 70.9 %
[2020-10-11] MEDS ORDERED: clonazePAM 0.5 MG TABLET PO PRN (08:48)
[2020-10-11] MEDS ORDERED: Acetaminophen/Butalbital/CaffeineTABLET PO PRN (09:31)
[2020-10-11] MEDS ORDERED: Prochlorperazine 10 MG/2 ML VIAL IVP ONE (09:31)
[2020-10-11] MEDS ORDERED: *HR* Labetalol 20 MG/4 ML SYRINGE IVP PRN (10:59)
[2020-10-11] MEDS: Ketorolac 30 MG/ML VIAL IVP PRN ×2 (11:04→18:43)
[2020-10-11] MEDS: Gabapentin 300 MG CAPSULE PO SCH (11:11)
[2020-10-11] MEDS: carvediloL 25 MG TABLET PO SCH ×2 (11:11→16:51)
[2020-10-11] MEDS: Acetaminophen 325 MG TABLET PO PRN (18:49)
[2020-10-12 01:59] LABS: Basophils # 0.1 K/mcL (0.0-0.2); Basophils % 0.6 %; Eosinophils # 0.1 K/mcL (0.0-0.6); Eosinophils % 1.3 %; Hematocrit 37.8 % (35.3-44.9); Immature Granulocytes % 0.3 % (0-4); Lymphocytes # 2.7 K/mcL (0.6-4.6); Lymphocytes % 28.6 %; Mean Corpuscular HGB Conc 31.7 g/dL (31.6-35.5); Mean Corpuscular Hemoglobin 31.3 pg (28.0-33.3); Mean Corpuscular Volume 98.4 fL (83.0-100.0); Mean Platelet Volume 9.8 fL (9.4-12.4); Monocytes # 0.8 K/mcL (0.0-1.3); Monocytes % 8.3 %; Neutrophils # 5.8 K/mcL (1.6-8.9); Platelet Count 270 K/mcL (140-400); Red Blood Count 3.84 M/mcL (3.82-4.97); Red Cell Distribution Width 13.3 % (11.5-14.5); Segmented Neutrophils % 60.9 %; White Blood Count 9.6 K/mcL (4.3-11.1)
[2020-10-12 02:17] LABS: Alanine Aminotransferase 29 Units/L (7-52); Albumin 2.5 g/dL (3.5-5.7); Albumin/Globulin Ratio 0.8 (1.1-2.2); Alkaline Phosphatase 150 Units/L (34-104); Aspartate Amino Transferase 20 Units/L (13-39); BUN/Creatinine Ratio 22 (6-26); Bilirubin,Total 0.4 mg/dL (0.3-1.0); Blood Urea Nitrogen 12 mg/dL (6-20); Carbon Dioxide 24 mEq/L (23-29); Chloride 107 mEq/L (98-107); Globulin 3.1 g/dL (2.4-3.5); Glucose 154 mg/dL (70-105); Osmolality,Calculated 289 (280-300); Potassium 3.9 mEq/L (3.5-5.1); Sodium 138 mEq/L (136-145); Total Protein 5.6 g/dL (6.4-8.9); eGFR For African Americans > 60 (> 60); eGFR For Non-African Americans > 60 (> 60)
[2020-10-12] MEDS: Ketorolac 30 MG/ML VIAL IVP PRN ×2 (02:22→11:40)
[2020-10-12] MEDS: Gabapentin 300 MG CAPSULE PO SCH (09:01)
[2020-10-12] MEDS: carvediloL 25 MG TABLET PO SCH (09:01)
[2020-10-12] MEDS: Acetaminophen 325 MG TABLET PO PRN (09:01)
[2020-10-12 10:13] LABS: Bilirubin,Urine Negative (Negative); Blood,Urine Negative (Negative); Clarity,Urine Clear (Clear); Color,Urine Yellow (Yellow); Glucose,Urine (UA) Normal (Normal); Ketones,Urine 10 mg/dL (Negative); Leukocyte Esterase,Urine Negative (Negative); Nitrite,Urine Negative (Negative); PH,Urine 5.5 pH Units (5.0-8.0); Protein,Urine Trace mg/dL (Neg-Trace); Specific Gravity,Urine 1.027 (1.010-1.025)
[2020-10-12 11:30] VITALS: BP 141/102
== END 2020-10-12 16:51 | disposition home or self-care (01) ==
LOC: 3NENU 11:16 → EMEROOARM 11:16 → SUATTDRO 15:29 → 3NENU 16:21
PROVIDERS: ADMIT Family Medicine; ATTEND Internal Medicine

== ENCOUNTER 2020-12-08 00:49 | Observation (INO) ==
[2020-12-08] MEDS ORDERED: 0.9 % Sodium Chloride 1,000 ML IVC ONE (01:34)
[2020-12-08 04:06] LABS: Basophils # 0.1 K/mcL (0.0-0.2); Basophils % 0.9 %; Eosinophils # 0.1 K/mcL (0.0-0.6); Eosinophils % 2.1 %; Hematocrit 27.7 % (35.3-44.9); Hemoglobin 8.8 g/dL (11.5-15.4); Immature Granulocytes % 0.5 % (0-4); Lymphocytes # 2.3 K/mcL (0.6-4.6); Lymphocytes % 39.9 %; Mean Corpuscular HGB Conc 31.8 g/dL (31.6-35.5); Mean Corpuscular Volume 97.5 fL (83.0-100.0); Mean Platelet Volume 10.2 fL (9.4-12.4); Monocytes # 0.5 K/mcL (0.0-1.3); Monocytes % 8.6 %; Neutrophils # 2.8 K/mcL (1.6-8.9); Platelet Count 192 K/mcL (140-400); Red Blood Count 2.84 M/mcL (3.82-4.97); Red Cell Distribution Width 14.8 % (11.5-14.5); White Blood Count 5.8 K/mcL (4.3-11.1)
[2020-12-08 04:30] LABS: INR 1.2; Prothrombin Time 13.4 Seconds (9.4-12.1)
[2020-12-08 04:33] LABS: Activated Partial Thrombo Time 42.3 Seconds (26.0-36.0)
[2020-12-08 04:37] LABS: Alanine Aminotransferase 48 Units/L (7-52); Albumin < 1.5 g/dL (3.5-5.7); Alkaline Phosphatase 191 Units/L (34-104); Aspartate Amino Transferase 51 Units/L (13-39); BUN/Creatinine Ratio 13 (6-26); Bilirubin,Total 0.7 mg/dL (0.3-1.0); Blood Urea Nitrogen 6 mg/dL (6-20); Calcium 6.5 mg/dL (8.6-10.3); Carbon Dioxide 25 mEq/L (23-29); Chloride 106 mEq/L (98-107); Glucose 158 mg/dL (70-105); Osmolality,Calculated 281 (280-300); Potassium 3.8 mEq/L (3.5-5.1); Sodium 135 mEq/L (136-145); Troponin I < 0.03 ng/mL (< 0.04); eGFR For African Americans > 60 (> 60); eGFR For Non-African Americans > 60 (> 60)
[2020-12-08] MEDS ORDERED: *HR* FentaNYL (PF) 100 MCG/2 ML VIAL IVP ONE (05:06)
[2020-12-08] MEDS ORDERED: Ondansetron 4 MG/2 ML VIAL IVP PRN (06:01)
[2020-12-08] MEDS ORDERED: Acetaminophen 325 MG TABLET PO PRN (06:01)
[2020-12-08] MEDS ORDERED: Naloxone 0.4 MG/ML INJ IVP PRN (06:01)
[2020-12-08] MEDS ORDERED: *HR* Promethazine 25 MG/ML VIAL IM PRN (06:01)
[2020-12-08] MEDS ORDERED: Melatonin 3 MG TABLET PO PRN (06:01)
[2020-12-08] MEDS ORDERED: Ringers Solution, Lactated 1,000 ML IVC SCH (06:15)
[2020-12-08] MEDS ORDERED: Acetaminophen/Butalbital/CaffeineTABLET PO PRN (08:59)
[2020-12-08] MEDS ORDERED: Albuterol 2.5 MG/3 ML NEBULIZER IH PRN (08:59)
[2020-12-08] MEDS ORDERED: Cyanocobalamin (B-12) 1,000 MCG/ML VIAL IM SCH (09:00)
[2020-12-08] MEDS ORDERED: tiZANidine 4 MG TABLET PO PRN (09:00)
[2020-12-08] MEDS ORDERED: clonazePAM 0.5 MG TABLET PO PRN (09:34)
[2020-12-08] MEDS ORDERED: SUMAtriptan 6 MG/0.5 ML SQ PRN (09:54)
[2020-12-08] MEDS ORDERED: Isovue-370 500 ML BOTTLE IVP ONE (10:26)
[2020-12-08] MEDS: Budesonide/Formoterol 80/4.5 1 PUFF INH IH SCH ×2 (10:29→20:38)
[2020-12-08] MEDS: Sennosides/Docusate Sodium TABLET PO SCH ×2 (10:34→20:30)
[2020-12-08] MEDS: Gabapentin 300 MG CAPSULE PO SCH ×2 (10:34→20:30)
[2020-12-08] MEDS: Fluticasone Propionate Nasal 50 MCG/SPRAY BOTTLE NS SCH ×2 (10:35→20:38)
[2020-12-08 11:34] LABS: Ferritin 773 ng/mL (10-120); Iron 56 mcg/dL (50-170); Transferrin < 75 mg/dL (203-362)
[2020-12-08 12:22] LABS: Folate 5.7 ng/mL (3.0-16.0)
[2020-12-08 13:02] LABS: Vitamin B12 > 1500 pg/mL (250-1100); Vitamin D 25 Hydroxy 12 ng/mL (30-80)
[2020-12-08] MEDS ORDERED: Albumin 25% 25gram/100mL 25 GM/100 ML IV.SOLN IVPB ONE (14:09)
[2020-12-08] MEDS ORDERED: SODIUM CHLORIDE/NAHCO3/KCL/PEG 4,000 ML SOLN.RECON PO ONE (17:00)
[2020-12-08 17:57] LABS: Adenovirus Not Detected (Not Detect); Bordetella Pertussis Not Detected (Not Detect); Chlamydophila pneumoniae Not Detected (Not Detect); Coronavirus 229E Not Detected (Not Detect); Coronavirus HKU1 Not Detected (Not Detect); Coronavirus NL63 Not Detected (Not Detect); Coronavirus OC43 Not Detected (Not Detect); Human Metapneumovirus Not Detected (Not Detect); Human Rhinovirus/Enterovirus Not Detected (Not Detect); Influenza A Subtype 2009 H1 Not Detected (Not Detect); Influenza B Not Detected (Not Detect); Mycoplasma pneumoniae Not Detected (Not Detect); Parainfluenza Virus 1 Not Detected (Not Detect); Parainfluenza Virus 2 Not Detected (Not Detect); Parainfluenza Virus 3 Not Detected (Not Detect); Parainfluenza Virus 4 Not Detected (Not Detect); Respiratory Syncytial Virus Not Detected (Not Detect); SARS-CoV-2 Not Detected (Not Detect)
[2020-12-08 18:51] LABS: Hematocrit 23.4 % (35.3-44.9)
[2020-12-08 18:52] LABS: Hemoglobin 7.2 g/dL (11.5-15.4)
[2020-12-08] MEDS ORDERED: Furosemide 20 MG/2 ML VIAL IVP ONE (19:09)
[2020-12-09 02:35] VITALS: BP 100/65
== END 2020-12-09 02:25 | disposition short-term general hospital (02) ==
LOC: EMEROOARM 00:49 → CDU 00:49 → 2NNU 16:50
PROVIDERS: ADMIT Internal Medicine; ATTEND Internal Medicine

== ENCOUNTER 2020-12-22 19:40 | Observation (INO) ==
[2020-12-22 20:23] LABS: Basophils # 0.1 K/mcL (0.0-0.2); Basophils % 1.1 %; Eosinophils # 0.1 K/mcL (0.0-0.6); Eosinophils % 1.4 %; Hematocrit 35.2 % (35.3-44.9); Hemoglobin 11.1 g/dL (11.5-15.4); Immature Granulocytes % 0.1 % (0-4); Lymphocytes # 2.6 K/mcL (0.6-4.6); Mean Corpuscular HGB Conc 31.5 g/dL (31.6-35.5); Mean Corpuscular Hemoglobin 31.2 pg (28.0-33.3); Mean Corpuscular Volume 98.9 fL (83.0-100.0); Mean Platelet Volume 10.6 fL (9.4-12.4); Monocytes # 0.6 K/mcL (0.0-1.3); Monocytes % 8.1 %; Neutrophils # 3.7 K/mcL (1.6-8.9); Platelet Count 332 K/mcL (140-400); Red Blood Count 3.56 M/mcL (3.82-4.97); Segmented Neutrophils % 52.3 %; White Blood Count 7.1 K/mcL (4.3-11.1)
[2020-12-22 20:45] LABS: BUN/Creatinine Ratio 14 (6-26); Blood Urea Nitrogen 8 mg/dL (6-20); Calcium 7.6 mg/dL (8.6-10.3); Carbon Dioxide 27 mEq/L (23-29); Chloride 107 mEq/L (98-107); Glucose 128 mg/dL (70-105); Osmolality,Calculated 288 (280-300); Potassium 3.9 mEq/L (3.5-5.1); Sodium 139 mEq/L (136-145); Troponin I < 0.03 ng/mL (< 0.04); eGFR For African Americans > 60 (> 60); eGFR For Non-African Americans > 60 (> 60)
[2020-12-22] MEDS ORDERED: Isovue-370 500 ML BOTTLE IVP ONE (20:59)
[2020-12-22 21:10] LABS: INR 1.1; Prothrombin Time 12.5 Seconds (9.4-12.1)
[2020-12-22 21:13] LABS: Activated Partial Thrombo Time 42.9 Seconds (26.0-36.0)
[2020-12-22 21:29] LABS: Adenovirus Not Detected (Not Detect); Coronavirus 229E Not Detected (Not Detect); Coronavirus HKU1 Not Detected (Not Detect); Coronavirus NL63 Not Detected (Not Detect); Coronavirus OC43 Not Detected (Not Detect); Human Metapneumovirus Not Detected (Not Detect); Human Rhinovirus/Enterovirus Not Detected (Not Detect); Influenza A Subtype 2009 H1 Not Detected (Not Detect); SARS-CoV-2 Not Detected (Not Detect)
[2020-12-22 21:30] LABS: Bordetella Pertussis Not Detected (Not Detect); Chlamydophila pneumoniae Not Detected (Not Detect); Influenza B Not Detected (Not Detect); Mycoplasma pneumoniae Not Detected (Not Detect); Parainfluenza Virus 1 Not Detected (Not Detect); Parainfluenza Virus 2 Not Detected (Not Detect); Parainfluenza Virus 3 Not Detected (Not Detect); Parainfluenza Virus 4 Not Detected (Not Detect); Respiratory Syncytial Virus Not Detected (Not Detect)
[2020-12-22] MEDS ORDERED: Ketorolac 15 MG/ML VIAL IVP ONE (23:07)
[2020-12-22] MEDS ORDERED: *HR* FentaNYL (PF) 100 MCG/2 ML VIAL IVP ONE (23:07)
[2020-12-23] MEDS ORDERED: Naloxone 0.4 MG/ML INJ IVP PRN (02:23)
[2020-12-23] MEDS ORDERED: Ondansetron 4 MG/2 ML VIAL IVP PRN (02:23)
[2020-12-23] MEDS ORDERED: Melatonin 3 MG TABLET PO PRN (02:23)
[2020-12-23] MEDS: Acetaminophen 325 MG TABLET PO PRN ×2 (03:21→10:23)
[2020-12-23 06:43] LABS: Basophils # 0.1 K/mcL (0.0-0.2); Eosinophils # 0.1 K/mcL (0.0-0.6); Eosinophils % 2.3 %; Hematocrit 34.9 % (35.3-44.9); Hemoglobin 10.8 g/dL (11.5-15.4); Immature Granulocytes % 0.4 % (0-4); Lymphocytes # 2.1 K/mcL (0.6-4.6); Mean Corpuscular HGB Conc 30.9 g/dL (31.6-35.5); Mean Corpuscular Hemoglobin 30.4 pg (28.0-33.3); Mean Corpuscular Volume 98.3 fL (83.0-100.0); Mean Platelet Volume 10.4 fL (9.4-12.4); Monocytes # 0.4 K/mcL (0.0-1.3); Monocytes % 8.1 %; Neutrophils # 2.5 K/mcL (1.6-8.9); Platelet Count 319 K/mcL (140-400); Red Blood Count 3.55 M/mcL (3.82-4.97); Red Cell Distribution Width 17.2 % (11.5-14.5); Segmented Neutrophils % 47.2 %; White Blood Count 5.2 K/mcL (4.3-11.1)
[2020-12-23 06:53] LABS: Prothrombin Time 12.1 Seconds (9.4-12.1)
[2020-12-23 07:06] LABS: Alanine Aminotransferase 33 Units/L (7-52); Albumin 1.8 g/dL (3.5-5.7); Albumin/Globulin Ratio 0.6 (1.1-2.2); Alkaline Phosphatase 226 Units/L (34-104); Aspartate Amino Transferase 42 Units/L (13-39); BUN/Creatinine Ratio 12 (6-26); Bilirubin,Total 0.8 mg/dL (0.3-1.0); Blood Urea Nitrogen 7 mg/dL (6-20); Calcium 7.6 mg/dL (8.6-10.3); Carbon Dioxide 28 mEq/L (23-29); Chloride 107 mEq/L (98-107); Globulin 3.1 g/dL (2.4-3.5); Glucose 91 mg/dL (70-105); Magnesium 1.6 mg/dL (1.6-2.6); Osmolality,Calculated 286 (280-300); Phosphorous 3.9 mg/dL (2.7-4.5); Potassium 3.9 mEq/L (3.5-5.1); Sodium 139 mEq/L (136-145); Total Protein 4.9 g/dL (6.4-8.9); Troponin I < 0.03 ng/mL (< 0.04); eGFR For African Americans > 60 (> 60); eGFR For Non-African Americans > 60 (> 60)
[2020-12-23] MEDS ORDERED: Fluticasone Propionate Nasal 50 MCG/SPRAY BOTTLE NS PRN (07:35)
[2020-12-23] MEDS ORDERED: clonazePAM 0.5 MG TABLET PO PRN (07:35)
[2020-12-23] MEDS ORDERED: Ipratropium/Albuterol Neb 3 ML IH PRN (07:35)
[2020-12-23] MEDS ORDERED: Acetaminophen/Butalbital/CaffeineTABLET PO PRN (07:35)
[2020-12-23] MEDS ORDERED: *HR* Dextrose 50 % in Water (Vial) 50 ML VIAL IVP PRN (08:18)
[2020-12-23] MEDS ORDERED: D5% in Water 1,000 ML IVC PRN (08:18)
[2020-12-23] MEDS ORDERED: Dextrose Gel 15 GM/37.5 ML TUBE PO PRN ×2 (08:18)
[2020-12-23] MEDS ORDERED: Furosemide 40 MG/4 ML VIAL IVP SCH (09:00)
[2020-12-23] MEDS: Furosemide 40 MG/4 ML VIAL IVP SCH ×2 (10:18→19:53)
[2020-12-23] MEDS: Gabapentin 300 MG CAPSULE PO SCH ×3 (10:18→19:53)
[2020-12-23] MEDS: Sennosides/Docusate Sodium TABLET PO SCH ×2 (10:19→19:54)
[2020-12-23] MEDS: Metoprolol XL (24 HR) Succ 50 MG TAB.ER.24H PO SCH (10:19)
[2020-12-23] MEDS: *HR* Enoxaparin 100 MG/ML SYRINGE SQ SCH ×2 (10:23→16:48)
[2020-12-23] MEDS: Insulin LISPRO 300 UNITS/3 ML VIAL SUBQ SCH ×2 (11:31→16:37)
[2020-12-23 11:42] LABS: Bilirubin,Urine Negative (Negative); Blood,Urine Trace (Negative); Clarity,Urine Turbid (Clear); Color,Urine Light-Yellow (Yellow); Glucose,Urine (UA) Normal (Normal); Hyaline Casts,Urine Few per lpf (None Seen); Ketones,Urine Negative (Negative); Leukocyte Esterase,Urine Large (Negative); Mucus,Urine Few per lpf (None-Few); Nitrite,Urine Positive (Negative); PH,Urine 7.5 pH Units (5.0-8.0); Protein,Urine Negative (Neg-Trace); RBC,Urine 15-30 per hpf (0-3); Specific Gravity,Urine 1.021 (1.010-1.025); Squamous Epithelial Cell,Urine Few per hpf (None-Few); Urobilinogen,Urine Normal (Normal); WBC,Urine TNTC per hpf (0-3)
[2020-12-23] MEDS ORDERED: Perflutren Lipid Microsphere 1.3 ML in 0.9 % Sodium Chloride 8.7 ML IVP PRN (12:53)
[2020-12-23] MEDS: cefTRIAXone 1,000 MG in Water for inj. (sterile) 10 ML IVP SCH (12:58)
[2020-12-23] MEDS: Nitroglycerin 0.4 MG TAB.SUBL SL PRN ×2 (12:58→13:07)
[2020-12-23] MEDS: *HR* OxyCODONE/APAP 5/325 TABLET PO PRN (16:48)
[2020-12-24] MEDS: *HR* OxyCODONE/APAP 5/325 TABLET PO PRN ×3 (00:08→17:34)
[2020-12-24] MEDS: Insulin LISPRO 300 UNITS/3 ML VIAL SUBQ SCH ×4 (00:09→15:46)
[2020-12-24] MEDS: *HR* Enoxaparin 100 MG/ML SYRINGE SQ SCH ×2 (05:26→17:33)
[2020-12-24] MEDS: Furosemide 40 MG/4 ML VIAL IVP SCH ×2 (09:11→20:44)
[2020-12-24] MEDS: cefTRIAXone 1,000 MG in Water for inj. (sterile) 10 ML IVP SCH (09:11)
[2020-12-24] MEDS: Gabapentin 300 MG CAPSULE PO SCH ×3 (09:12→20:45)
[2020-12-24] MEDS: Metoprolol XL (24 HR) Succ 50 MG TAB.ER.24H PO SCH (09:12)
[2020-12-24] MEDS: Sennosides/Docusate Sodium TABLET PO SCH ×2 (09:12→20:44)
[2020-12-25] MEDS: *HR* Enoxaparin 100 MG/ML SYRINGE SQ SCH (05:17)
[2020-12-25] MEDS: Insulin LISPRO 300 UNITS/3 ML VIAL SUBQ SCH (07:13)
[2020-12-25 08:44] LABS: BUN/Creatinine Ratio 9 (6-26); Blood Urea Nitrogen 5 mg/dL (6-20); Calcium 7.8 mg/dL (8.6-10.3); Carbon Dioxide 31 mEq/L (23-29); Chloride 103 mEq/L (98-107); Glucose 128 mg/dL (70-105); Osmolality,Calculated 285 (280-300); Potassium 4.1 mEq/L (3.5-5.1); Sodium 138 mEq/L (136-145); eGFR For African Americans > 60 (> 60); eGFR For Non-African Americans > 60 (> 60)
[2020-12-25 08:50] LABS: Magnesium 1.6 mg/dL (1.6-2.6); Phosphorous 4.3 mg/dL (2.7-4.5)
[2020-12-25] MEDS: *HR* OxyCODONE/APAP 5/325 TABLET PO PRN (08:50)
[2020-12-25] MEDS: cefTRIAXone 1,000 MG in Water for inj. (sterile) 10 ML IVP SCH (08:51)
[2020-12-25] MEDS: Furosemide 40 MG/4 ML VIAL IVP SCH (08:52)
[2020-12-25] MEDS: Gabapentin 300 MG CAPSULE PO SCH (08:52)
[2020-12-25] MEDS: Metoprolol XL (24 HR) Succ 50 MG TAB.ER.24H PO SCH (08:52)
[2020-12-25] MEDS: Sennosides/Docusate Sodium TABLET PO SCH (08:52)
[2020-12-25 10:26] VITALS: BP 115/82
[2020-12-26] MEDS ORDERED: Cyanocobalamin (B-12) 1,000 MCG/ML VIAL IM SCH (09:00)
== END 2020-12-25 12:03 | disposition home or self-care (01) ==
LOC: EMEROOARM 19:40 → 2ANU 19:40
PROVIDERS: ADMIT Internal Medicine; ATTEND Internal Medicine

== ENCOUNTER 2021-01-03 14:29 | Observation (INO) ==
[2021-01-03 16:29] LABS: Basophils # 0.1 K/mcL (0.0-0.2); Basophils % 0.5 %; Eosinophils # 0.2 K/mcL (0.0-0.6); Eosinophils % 1.1 %; Hematocrit 27.5 % (35.3-44.9); Immature Granulocytes % 0.6 % (0-4); Lymphocytes # 1.9 K/mcL (0.6-4.6); Lymphocytes % 13.7 %; Mean Corpuscular HGB Conc 31.3 g/dL (31.6-35.5); Mean Corpuscular Hemoglobin 32.5 pg (28.0-33.3); Mean Corpuscular Volume 103.8 fL (83.0-100.0); Mean Platelet Volume 9.8 fL (9.4-12.4); Monocytes # 0.9 K/mcL (0.0-1.3); Monocytes % 6.4 %; Platelet Count 280 K/mcL (140-400); Red Blood Count 2.65 M/mcL (3.82-4.97); Red Cell Distribution Width 18.6 % (11.5-14.5); Segmented Neutrophils % 77.7 %
[2021-01-03 16:40] LABS: Hemoglobin 8.6 g/dL (11.5-15.4); White Blood Count 14.1 K/mcL (4.3-11.1)
[2021-01-03] MEDS ORDERED: 0.9 % Sodium Chloride 1,000 ML IVC ONE (16:45)
[2021-01-03 16:55] LABS: Alanine Aminotransferase 37 Units/L (7-52); Albumin 1.9 g/dL (3.5-5.7); Albumin/Globulin Ratio 0.6 (1.1-2.2); Alkaline Phosphatase 191 Units/L (34-104); Aspartate Amino Transferase 69 Units/L (13-39); BUN/Creatinine Ratio 9 (6-26); Bilirubin,Direct 0.4 mg/dL (0.0-0.2); Bilirubin,Indirect 0.4 mg/dL (0.0-1.0); Bilirubin,Total 0.8 mg/dL (0.3-1.0); Blood Urea Nitrogen 6 mg/dL (6-20); Calcium 7.7 mg/dL (8.6-10.3); Carbon Dioxide 31 mEq/L (23-29); Chloride 102 mEq/L (98-107); Glucose 145 mg/dL (70-105); Osmolality,Calculated 284 (280-300); Potassium 3.3 mEq/L (3.5-5.1); Sodium 137 mEq/L (136-145); Total Protein 4.9 g/dL (6.4-8.9); eGFR For African Americans > 60 (> 60); eGFR For Non-African Americans > 60 (> 60)
[2021-01-03] MEDS ORDERED: 0.9 % Sodium Chloride 500 ML IVC SCH (18:15)
[2021-01-03 18:16] LABS: Bilirubin,Urine Negative (Negative); Blood,Urine Negative (Negative); Clarity,Urine Clear (Clear); Color,Urine Yellow (Yellow); Glucose,Urine (UA) Normal (Normal); Ketones,Urine Negative (Negative); Leukocyte Esterase,Urine Small (Negative); Mucus,Urine Few per lpf (None-Few); Nitrite,Urine Negative (Negative); PH,Urine 6.5 pH Units (5.0-8.0); Protein,Urine Negative (Neg-Trace); RBC,Urine 0-3 per hpf (0-3); Specific Gravity,Urine 1.019 (1.010-1.025); Squamous Epithelial Cell,Urine Few per hpf (None-Few); Urobilinogen,Urine Normal (Normal); WBC,Urine 0-3 per hpf (0-3)
[2021-01-03] MEDS: 0.9 % Sodium Chloride 1,000 ML IVC SCH (20:47)
[2021-01-03] MEDS ORDERED: methylPREDNISolone 125 MG/2 ML VIAL IVP ONE (22:10)
[2021-01-03] MEDS ORDERED: 0.9 % Sodium Chloride 500 ML IVC ONE (23:57)
[2021-01-04] MEDS: *HR* Enoxaparin 100 MG/ML SYRINGE SQ SCH ×2 (04:57→18:30)
[2021-01-04] MEDS: 0.9 % Sodium Chloride 1,000 ML IVC SCH ×2 (04:57→14:34)
[2021-01-04] MEDS ORDERED: Melatonin 3 MG TABLET PO PRN (05:53)
[2021-01-04] MEDS ORDERED: Ondansetron 4 MG/2 ML VIAL IVP PRN (05:53)
[2021-01-04] MEDS ORDERED: Naloxone 0.4 MG/ML INJ IVP PRN (05:53)
[2021-01-04] MEDS ORDERED: Acetaminophen 325 MG TABLET PO PRN (05:53)
[2021-01-04 06:35] LABS: Basophils % 0.2 %; Hematocrit 29.6 % (35.3-44.9); Hemoglobin 9.3 g/dL (11.5-15.4); Immature Granulocytes % 0.5 % (0-4); Lymphocytes # 0.5 K/mcL (0.6-4.6); Lymphocytes % 8.4 %; Mean Corpuscular HGB Conc 31.4 g/dL (31.6-35.5); Mean Corpuscular Hemoglobin 32.2 pg (28.0-33.3); Mean Corpuscular Volume 102.4 fL (83.0-100.0); Mean Platelet Volume 9.7 fL (9.4-12.4); Monocytes # 0.1 K/mcL (0.0-1.3); Monocytes % 1.2 %; Neutrophils # 5.4 K/mcL (1.6-8.9); Platelet Count 312 K/mcL (140-400); Red Blood Count 2.89 M/mcL (3.82-4.97); Red Cell Distribution Width 18.7 % (11.5-14.5); Segmented Neutrophils % 89.7 %
[2021-01-04 06:57] LABS: Alanine Aminotransferase 43 Units/L (7-52); Albumin 1.9 g/dL (3.5-5.7); Albumin/Globulin Ratio 0.6 (1.1-2.2); Alkaline Phosphatase 226 Units/L (34-104); Aspartate Amino Transferase 109 Units/L (13-39); BUN/Creatinine Ratio 11 (6-26); Bilirubin,Total 0.9 mg/dL (0.3-1.0); Blood Urea Nitrogen 6 mg/dL (6-20); Calcium 7.5 mg/dL (8.6-10.3); Carbon Dioxide 29 mEq/L (23-29); Chloride 104 mEq/L (98-107); Globulin 3.2 g/dL (2.4-3.5); Glucose 178 mg/dL (70-105); Magnesium 1.5 mg/dL (1.6-2.6); Osmolality,Calculated 288 (280-300); Phosphorous 3.3 mg/dL (2.7-4.5); Potassium 3.9 mEq/L (3.5-5.1); Sodium 138 mEq/L (136-145); Total Protein 5.1 g/dL (6.4-8.9); eGFR For African Americans > 60 (> 60); eGFR For Non-African Americans > 60 (> 60)
[2021-01-04] MEDS ORDERED: Magnesium Sulfate 1 GM/102 ML PIGGYBACK IVPB ONE (06:57)
[2021-01-04 06:58] LABS: Troponin I < 0.03 ng/mL (< 0.04)
[2021-01-04] MEDS ORDERED: Dextrose Gel 15 GM/37.5 ML TUBE PO PRN ×2 (07:05)
[2021-01-04] MEDS ORDERED: *HR* Dextrose 50 % in Water (Vial) 50 ML VIAL IVP PRN (07:05)
[2021-01-04] MEDS ORDERED: D5% in Water 1,000 ML IVC PRN (07:05)
[2021-01-04] MEDS ORDERED: SUMAtriptan 6 MG/0.5 ML SQ ONE (08:24)
[2021-01-04] MEDS ORDERED: Cyanocobalamin (B-12) 1,000 MCG/ML VIAL IM SCH (13:45)
[2021-01-04] MEDS ORDERED: Albuterol 2.5 MG/3 ML NEBULIZER IH PRN (13:45)
[2021-01-04] MEDS: Insulin LISPRO 300 UNITS/3 ML VIAL SUBQ SCH ×3 (14:13→21:20)
[2021-01-04] MEDS: tiZANidine 4 MG TABLET PO SCH ×2 (14:19→21:36)
[2021-01-04] MEDS: clonazePAM 0.5 MG TABLET PO PRN (14:20)
[2021-01-04] MEDS: Gabapentin 300 MG CAPSULE PO SCH (21:37)
[2021-01-05] MEDS: *HR* Enoxaparin 100 MG/ML SYRINGE SQ SCH ×2 (05:05→18:01)
[2021-01-05] MEDS ORDERED: Ringers Solution, Lactated 500 ML IVC ONE (05:45)
[2021-01-05] MEDS ORDERED: Furosemide 20 MG/2 ML VIAL IVP ONE ×2 (07:43→13:27)
[2021-01-05] MEDS ORDERED: Perflutren Lipid Microsphere 1.3 ML in 0.9 % Sodium Chloride 8.7 ML IVP PRN ×2 (07:52→08:37)
[2021-01-05] MEDS ORDERED: Cyanocobalamin (B-12) 1,000 MCG/ML VIAL IM SCH (08:15)
[2021-01-05] MEDS ORDERED: Metoprolol XL (24 HR) Succ 50 MG TAB.ER.24H PO SCH (09:00)
[2021-01-05] MEDS ORDERED: Thiamine (B-1) 100 MG TABLET PO SCH (09:00)
[2021-01-05] MEDS: Gabapentin 300 MG CAPSULE PO SCH (09:09)
[2021-01-05] MEDS: tiZANidine 4 MG TABLET PO SCH ×2 (09:09→15:32)
[2021-01-05] MEDS: Insulin LISPRO 300 UNITS/3 ML VIAL SUBQ SCH ×3 (09:10→16:30)
[2021-01-05] MEDS ORDERED: Ibuprofen 200 MG TABLET PO ONE (13:52)
[2021-01-05 15:51] VITALS: BP 105/69
[2021-01-05] MEDS: clonazePAM 0.5 MG TABLET PO PRN (18:01)
== END 2021-01-05 18:50 | disposition short-term general hospital (02) ==
LOC: EMEROOARM 14:29 → 2NNU 14:29 → SUATTDRO 01-04 04:34 → 2NNU 01-04 05:20
PROVIDERS: ADMIT Family Medicine; ATTEND Internal Medicine

== ENCOUNTER 2021-09-19 16:36 | Observation (INO) ==
[2021-09-19] MEDS ORDERED: Isovue-370 500 ML BOTTLE IVP ONE (17:22)
[2021-09-19] MEDS ORDERED: 0.9 % Sodium Chloride 1,000 ML IVC ONE ×2 (17:23→18:23)
[2021-09-19 18:08] LABS: Basophils % 0.3 %; Eosinophils # 0.1 K/mcL (0.0-0.6); Eosinophils % 1.4 %; Hemoglobin 12.6 g/dL (11.5-15.4); Immature Granulocytes % 0.1 % (0-4); Lymphocytes # 2.8 K/mcL (0.6-4.6); Lymphocytes % 39.5 %; Mean Corpuscular HGB Conc 31.5 g/dL (31.6-35.5); Mean Corpuscular Hemoglobin 31.3 pg (28.0-33.3); Mean Corpuscular Volume 99.5 fL (83.0-100.0); Monocytes # 0.6 K/mcL (0.0-1.3); Monocytes % 8.1 %; Neutrophils # 3.6 K/mcL (1.6-8.9); Platelet Count 335 K/mcL (140-400); Red Blood Count 4.02 M/mcL (3.82-4.97); Segmented Neutrophils % 50.6 %
[2021-09-19 18:24] LABS: Alanine Aminotransferase 22 Units/L (7-52); Albumin 3.4 g/dL (3.5-5.7); Alkaline Phosphatase 144 Units/L (34-104); Aspartate Amino Transferase 25 Units/L (13-39); BUN/Creatinine Ratio 16 (6-26); Bilirubin,Total 0.3 mg/dL (0.3-1.0); Blood Urea Nitrogen 13 mg/dL (6-20); Carbon Dioxide 31 mEq/L (23-29); Chloride 100 mEq/L (98-107); Globulin 3.3 g/dL (2.4-3.5); Glucose 168 mg/dL (70-105); Magnesium 1.7 mg/dL (1.6-2.6); Osmolality,Calculated 288 (280-300); Potassium 3.5 mEq/L (3.5-5.1); Sodium 137 mEq/L (136-145); Total Protein 6.7 g/dL (6.4-8.9); Troponin I < 0.03 ng/mL (< 0.04); eGFR For African Americans > 60 (> 60); eGFR For Non-African Americans > 60 (> 60)
[2021-09-19 18:59] LABS: Bilirubin,Urine Negative (Negative); Blood,Urine Negative (Negative); Clarity,Urine Clear (Clear); Color,Urine Light-Yellow (Yellow); Glucose,Urine (UA) Normal (Normal); Hyaline Casts,Urine Moderate per lpf (None Seen); Ketones,Urine Negative (Negative); Leukocyte Esterase,Urine Moderate (Negative); Mucus,Urine Few per lpf (None-Few); Nitrite,Urine Negative (Negative); Protein,Urine Trace mg/dL (Neg-Trace); RBC,Urine 0-3 per hpf (0-3); Specific Gravity,Urine 1.016 (1.010-1.025); Squamous Epithelial Cell,Urine Few per hpf (None-Few); Urobilinogen,Urine Normal (Normal)
[2021-09-19] MEDS ORDERED: cefTRIAXone 1,000 MG in 0.9 % Sodium Chloride 10 ML IVP ONE (19:31)
[2021-09-19] MEDS ORDERED: Ketorolac 30 MG/ML VIAL IVP ONE (19:37)
[2021-09-19] MEDS ORDERED: 0.9 % Sodium Chloride 1,000 ML IVC SCH ×2 (22:45→23:15)
[2021-09-20] MEDS ORDERED: Prochlorperazine 10 MG/2 ML VIAL IVP ONE (00:04)
[2021-09-20] MEDS ORDERED: Albumin 25% 25gram/100mL 25 GM/100 ML IV.SOLN IVPB ONE (02:40)
[2021-09-20] MEDS ORDERED: *HR* Dextrose 50 % in Water (Syg) 50 ML SYRINGE IVP PRN (02:45)
[2021-09-20] MEDS ORDERED: D5% in Water 1,000 ML IVC PRN (02:45)
[2021-09-20] MEDS ORDERED: Dextrose Gel 15 GM/37.5 ML TUBE PO PRN ×2 (02:45)
[2021-09-20] MEDS ORDERED: Naloxone 0.4 MG/ML INJ IVP PRN (02:50)
[2021-09-20] MEDS ORDERED: *HR* LORazepam 2 MG/ML VIAL IVP ONE (03:03)
[2021-09-20] MEDS: Acetaminophen/Butalbital/CaffeineTABLET PO SCH ×2 (03:41→20:27)
[2021-09-20] MEDS ORDERED: Perflutren Lipid Microsphere 1.3 ML in 0.9 % Sodium Chloride 8.7 ML IVP PRN (04:10)
[2021-09-20] MEDS: Insulin LISPRO 300 UNITS/3 ML VIAL SUBQ SCH ×5 (06:03→20:54)
[2021-09-20] MEDS: *HR* Enoxaparin 80 MG/0.8 ML SYRINGE SQ SCH ×2 (06:07→17:02)
[2021-09-20] MEDS: cefTRIAXone 1,000 MG in 0.9 % Sodium Chloride 10 ML IVPB SCH ×2 (06:07→17:01)
[2021-09-20 06:09] LABS: Mean Corpuscular HGB Conc 31.2 g/dL (31.6-35.5); Mean Corpuscular Hemoglobin 31.6 pg (28.0-33.3); Mean Corpuscular Volume 101.2 fL (83.0-100.0); Mean Platelet Volume 9.9 fL (9.4-12.4); Platelet Count 245 K/mcL (140-400); Red Blood Count 3.26 M/mcL (3.82-4.97); Red Cell Distribution Width 15.2 % (11.5-14.5); White Blood Count 6.8 K/mcL (4.3-11.1)
[2021-09-20 06:11] LABS: Estimated Average Glucose 111 mg/dl; Hemoglobin A1C 5.5 %
[2021-09-20 06:16] LABS: Prothrombin Time 10.6 Seconds (9.4-12.1)
[2021-09-20 06:41] LABS: Hemoglobin 10.3 g/dL (11.5-15.4)
[2021-09-20 07:11] LABS: BUN/Creatinine Ratio 14 (6-26); Blood Urea Nitrogen 10 mg/dL (6-20); Calcium 8.6 mg/dL (8.6-10.3); Carbon Dioxide 23 mEq/L (23-29); Chloride 110 mEq/L (98-107); Chol/HDL Ratio 2.3 (0-4.9); Cholesterol 150 mg/dL (< 200); Glucose 79 mg/dL (70-105); HDL Cholesterol 64 mg/dL (40-59); LDL Cholesterol,Calculated 62 mg/dL (< 100); Osmolality,Calculated 292 (280-300); Potassium 3.7 mEq/L (3.5-5.1); Sodium 142 mEq/L (136-145); Triglycerides 119 mg/dL (< 150); eGFR For African Americans > 60 (> 60); eGFR For Non-African Americans > 60 (> 60)
[2021-09-20 07:13] LABS: Thyroid Stimulating Hormone 2.341 mcIU/mL (0.340-5.600)
[2021-09-20] MEDS: Sennosides/Docusate Sodium TABLET PO SCH ×2 (08:54→20:27)
[2021-09-20] MEDS ORDERED: Isovue-370 500 ML BOTTLE IVP ONE (09:09)
[2021-09-20] MEDS: *HR* HYDROcodone/Acet 5/325 mg TABLET PO PRN ×2 (09:46→17:48)
[2021-09-20] MEDS: Ondansetron 4 MG/2 ML VIAL IVP PRN (13:38)
[2021-09-20] MEDS ORDERED: *HR* Metoprolol 5 MG/5 ML VIAL IVP ONE (14:48)
[2021-09-20] MEDS: clonazePAM 0.5 MG TABLET PO PRN (17:01)
[2021-09-20] MEDS ORDERED: Melatonin 3 MG TABLET PO STA (20:00)
[2021-09-20 21:07] LABS: Creatine Kinase 39 Units/L (30-223); Troponin I < 0.03 ng/mL (< 0.04)
[2021-09-21] MEDS: cefTRIAXone 1,000 MG in 0.9 % Sodium Chloride 10 ML IVPB SCH (05:34)
[2021-09-21] MEDS: *HR* Enoxaparin 80 MG/0.8 ML SYRINGE SQ SCH ×2 (05:35→18:03)
[2021-09-21] MEDS ORDERED: SUMAtriptan 6 MG/0.5 ML SQ PRN (07:39)
[2021-09-21] MEDS: rOPINIRole 1 MG TABLET PO SCH (08:07)
[2021-09-21] MEDS: Sennosides/Docusate Sodium TABLET PO SCH ×2 (08:11→20:04)
[2021-09-21] MEDS: Gabapentin 300 MG CAPSULE PO SCH ×2 (08:11→20:04)
[2021-09-21] MEDS: Insulin LISPRO 300 UNITS/3 ML VIAL SUBQ SCH (08:17)
[2021-09-21] MEDS: *HR* HYDROcodone/Acet 5/325 mg TABLET PO PRN ×3 (08:40→23:25)
[2021-09-21] MEDS: Ondansetron 4 MG/2 ML VIAL IVP PRN ×2 (08:41→15:01)
[2021-09-21 10:09] LABS: Bilirubin,Urine Negative (Negative); Blood,Urine Negative (Negative); Clarity,Urine Clear (Clear); Color,Urine Light-Yellow (Yellow); Glucose,Urine (UA) Normal (Normal); Ketones,Urine 10 mg/dL (Negative); Leukocyte Esterase,Urine Negative (Negative); Nitrite,Urine Negative (Negative); PH,Urine 6.5 pH Units (5.0-8.0); Protein,Urine Trace mg/dL (Neg-Trace); Specific Gravity,Urine 1.015 (1.010-1.025); Urobilinogen,Urine Normal (Normal)
[2021-09-21 12:56] LABS: Hematocrit 38.5 % (35.3-44.9); Mean Corpuscular HGB Conc 30.9 g/dL (31.6-35.5); Mean Corpuscular Hemoglobin 31.2 pg (28.0-33.3); Mean Corpuscular Volume 100.8 fL (83.0-100.0); Mean Platelet Volume 9.6 fL (9.4-12.4); Platelet Count 267 K/mcL (140-400); Red Blood Count 3.82 M/mcL (3.82-4.97); Red Cell Distribution Width 15.6 % (11.5-14.5); White Blood Count 7.6 K/mcL (4.3-11.1)
[2021-09-21 13:05] LABS: Hemoglobin 11.9 g/dL (11.5-15.4)
[2021-09-21 18:00] LABS: BUN/Creatinine Ratio 7 (6-26); Blood Urea Nitrogen 4 mg/dL (6-20); Calcium 8.6 mg/dL (8.6-10.3); Carbon Dioxide 28 mEq/L (23-29); Chloride 107 mEq/L (98-107); Glucose 174 mg/dL (70-105); Osmolality,Calculated 293 (280-300); Potassium 3.1 mEq/L (3.5-5.1); Sodium 141 mEq/L (136-145); eGFR For African Americans > 60 (> 60); eGFR For Non-African Americans > 60 (> 60)
[2021-09-21] MEDS: Acetaminophen/Butalbital/CaffeineTABLET PO SCH (20:03)
[2021-09-21] MEDS: clonazePAM 0.5 MG TABLET PO PRN (20:08)
[2021-09-22 01:41] LABS: Basophils % 0.4 %; Eosinophils # 0.1 K/mcL (0.0-0.6); Eosinophils % 1.2 %; Hematocrit 36.7 % (35.3-44.9); Hemoglobin 11.5 g/dL (11.5-15.4); Immature Granulocytes % 0.5 % (0-4); Lymphocytes # 3.3 K/mcL (0.6-4.6); Lymphocytes % 44.6 %; Mean Corpuscular HGB Conc 31.3 g/dL (31.6-35.5); Mean Corpuscular Hemoglobin 31.1 pg (28.0-33.3); Mean Corpuscular Volume 99.2 fL (83.0-100.0); Mean Platelet Volume 10.1 fL (9.4-12.4); Monocytes # 0.8 K/mcL (0.0-1.3); Monocytes % 10.2 %; Neutrophils # 3.2 K/mcL (1.6-8.9); Platelet Count 271 K/mcL (140-400); Red Cell Distribution Width 15.4 % (11.5-14.5); Segmented Neutrophils % 43.1 %; White Blood Count 7.3 K/mcL (4.3-11.1)
[2021-09-22 01:55] LABS: Alanine Aminotransferase 15 Units/L (7-52); Alkaline Phosphatase 106 Units/L (34-104); Aspartate Amino Transferase 22 Units/L (13-39); BUN/Creatinine Ratio 9 (6-26); Bilirubin,Total 0.3 mg/dL (0.3-1.0); Blood Urea Nitrogen 5 mg/dL (6-20); Calcium 8.8 mg/dL (8.6-10.3); Carbon Dioxide 25 mEq/L (23-29); Chloride 113 mEq/L (98-107); Glucose 84 mg/dL (70-105); Osmolality,Calculated 296 (280-300); Potassium 4.3 mEq/L (3.5-5.1); Sodium 145 mEq/L (136-145); eGFR For African Americans > 60 (> 60); eGFR For Non-African Americans > 60 (> 60)
[2021-09-22] MEDS: *HR* Enoxaparin 80 MG/0.8 ML SYRINGE SQ SCH ×2 (06:03→17:46)
[2021-09-22] MEDS: *HR* HYDROcodone/Acet 5/325 mg TABLET PO PRN ×3 (08:16→20:56)
[2021-09-22] MEDS: Sennosides/Docusate Sodium TABLET PO SCH ×2 (08:16→20:55)
[2021-09-22] MEDS: Ondansetron 4 MG/2 ML VIAL IVP PRN ×2 (08:17→14:27)
[2021-09-22] MEDS: rOPINIRole 1 MG TABLET PO SCH (08:17)
[2021-09-22] MEDS: Gabapentin 300 MG CAPSULE PO SCH ×2 (08:17→20:56)
[2021-09-22] MEDS ORDERED: cefTRIAXone 1,000 MG in 0.9 % Sodium Chloride 10 ML IVP SCH (09:00)
[2021-09-22] MEDS: Cholecalciferol (D-3) 1,000 UNIT (25MCG) TABLET PO SCH (10:40)
[2021-09-22] MEDS: clonazePAM 0.5 MG TABLET PO PRN (19:06)
[2021-09-22] MEDS: Acetaminophen/Butalbital/CaffeineTABLET PO SCH (20:55)
[2021-09-23 02:22] VITALS: TEMP 98.6; O2SAT 95
[2021-09-23] MEDS: *HR* Enoxaparin 80 MG/0.8 ML SYRINGE SQ SCH (06:01)
[2021-09-23 06:07] LABS: Basophils % 0.3 %; Eosinophils # 0.1 K/mcL (0.0-0.6); Eosinophils % 2.1 %; Hematocrit 39.1 % (35.3-44.9); Hemoglobin 11.9 g/dL (11.5-15.4); Immature Granulocytes % 0.2 % (0-4); Lymphocytes # 2.3 K/mcL (0.6-4.6); Lymphocytes % 40.5 %; Mean Corpuscular HGB Conc 30.4 g/dL (31.6-35.5); Mean Corpuscular Hemoglobin 31.2 pg (28.0-33.3); Mean Corpuscular Volume 102.4 fL (83.0-100.0); Mean Platelet Volume 9.8 fL (9.4-12.4); Monocytes # 0.4 K/mcL (0.0-1.3); Monocytes % 6.5 %; Neutrophils # 2.9 K/mcL (1.6-8.9); Platelet Count 226 K/mcL (140-400); Red Blood Count 3.82 M/mcL (3.82-4.97); Segmented Neutrophils % 50.4 %; White Blood Count 5.7 K/mcL (4.3-11.1)
[2021-09-23 06:46] LABS: Alanine Aminotransferase 12 Units/L (7-52); Albumin 3.2 g/dL (3.5-5.7); Albumin/Globulin Ratio 1.1 (1.1-2.2); Alkaline Phosphatase 110 Units/L (34-104); Aspartate Amino Transferase 14 Units/L (13-39); BUN/Creatinine Ratio 11 (6-26); Bilirubin,Total 0.2 mg/dL (0.3-1.0); Blood Urea Nitrogen 6 mg/dL (6-20); Calcium 8.8 mg/dL (8.6-10.3); Carbon Dioxide 26 mEq/L (23-29); Chloride 107 mEq/L (98-107); Globulin 2.9 g/dL (2.4-3.5); Glucose 120 mg/dL (70-105); Osmolality,Calculated 293 (280-300); Potassium 3.3 mEq/L (3.5-5.1); Sodium 142 mEq/L (136-145); Total Protein 6.1 g/dL (6.4-8.9); eGFR For African Americans > 60 (> 60); eGFR For Non-African Americans > 60 (> 60)
[2021-09-23 08:12] VITALS: BP 131/90; PULSE 96
[2021-09-23] MEDS: Ondansetron 4 MG/2 ML VIAL IVP PRN (09:28)
[2021-09-23] MEDS: Gabapentin 300 MG CAPSULE PO SCH (09:29)
[2021-09-23] MEDS: *HR* HYDROcodone/Acet 5/325 mg TABLET PO PRN (09:29)
[2021-09-23] MEDS: Cholecalciferol (D-3) 1,000 UNIT (25MCG) TABLET PO SCH (09:29)
[2021-09-23] MEDS: Sennosides/Docusate Sodium TABLET PO SCH (09:29)
[2021-09-23] MEDS: rOPINIRole 1 MG TABLET PO SCH (09:29)
== END 2021-09-23 12:05 | disposition home or self-care (01) ==
LOC: 3ANU 16:36 → EMEROOARM 16:36 → 3ANU 09-20 01:29
PROVIDERS: ADMIT Internal Medicine; ATTEND Internal Medicine

== ENCOUNTER 2022-01-11 22:01 | Observation (INO) ==
[2022-01-11] MEDS ORDERED: Iopamidol - 370 500 ML MLS IVP ONE (22:37)
[2022-01-11 22:44] LABS: Basophils % 0.5 %; Hemoglobin 12.7 g/dL (11.5-15.4); Immature Granulocytes % 0.8 % (0-4); Lymphocytes # 0.9 K/mcL (0.6-4.6); Mean Corpuscular Hemoglobin 30.1 pg (28.0-33.3); Mean Corpuscular Volume 97.2 fL (83.0-100.0); Mean Platelet Volume 9.4 fL (9.4-12.4); Monocytes # 0.1 K/mcL (0.0-1.3); Monocytes % 1.9 %; Neutrophils # 5.1 K/mcL (1.6-8.9); Platelet Count 389 K/mcL (140-400); Red Blood Count 4.22 M/mcL (3.82-4.97); Red Cell Distribution Width 14.6 % (11.5-14.5); Segmented Neutrophils % 82.8 %; White Blood Count 6.2 K/mcL (4.3-11.1)
[2022-01-11] MEDS ORDERED: Aspirin 325 MG TABLET PO ONE (22:46)
[2022-01-11 23:06] LABS: BUN/Creatinine Ratio 12 (6-26); Blood Urea Nitrogen 9 mg/dL (6-20); Calcium 8.8 mg/dL (8.6-10.3); Carbon Dioxide 24 mEq/L (23-29); Chloride 106 mEq/L (98-107); Glucose 193 mg/dL (70-105); Osmolality,Calculated 296 (280-300); Potassium 3.3 mEq/L (3.5-5.1); Sodium 141 mEq/L (136-145); Troponin I < 0.03 ng/mL (< 0.04); eGFR For African Americans > 60 (> 60); eGFR For Non-African Americans > 60 (> 60)
[2022-01-11 23:47] LABS: Activated Partial Thrombo Time 38.4 Seconds (26.0-36.0)
[2022-01-11 23:50] LABS: Magnesium 1.7 mg/dL (1.6-2.6)
[2022-01-12 00:04] LABS: Thyroid Stimulating Hormone 0.695 mcIU/mL (0.340-5.600)
[2022-01-12] MEDS ORDERED: Morphine Sulfate 2 MG/ML SYRINGE IVP ONE (00:05)
[2022-01-12] MEDS ORDERED: 0.9 % Sodium Chloride 1,000 ML IV ONE (00:05)
[2022-01-12 00:35] LABS: Adenovirus Not Detected (Not Detect); Bordetella Pertussis Not Detected (Not Detect); Chlamydophila pneumoniae Not Detected (Not Detect); Coronavirus 229E Not Detected (Not Detect); Coronavirus HKU1 Not Detected (Not Detect); Coronavirus NL63 Not Detected (Not Detect); Coronavirus OC43 Not Detected (Not Detect); Human Metapneumovirus Not Detected (Not Detect); Human Rhinovirus/Enterovirus Not Detected (Not Detect); Influenza A Subtype 2009 H1 Not Detected (Not Detect); Influenza B Not Detected (Not Detect); Mycoplasma pneumoniae Not Detected (Not Detect); Parainfluenza Virus 1 Not Detected (Not Detect); Parainfluenza Virus 2 Not Detected (Not Detect); Parainfluenza Virus 3 Not Detected (Not Detect); Parainfluenza Virus 4 Not Detected (Not Detect); Respiratory Syncytial Virus Not Detected (Not Detect); SARS-CoV-2 Not Detected (Not Detect)
[2022-01-12] MEDS: Nitroglycerin 0.4 MG TAB.SUBL SL PRN ×3 (01:11→01:21)
[2022-01-12] MEDS ORDERED: *HR* HYDROmorphone (PF) 1 MG/ML SYRINGE IVP STA (01:29)
[2022-01-12] MEDS ORDERED: *HR* HYDROmorphone (PF) 1 MG/ML SYRINGE IVP ONE (02:51)
[2022-01-12] MEDS ORDERED: *HR* Labetalol 20 MG/4 ML SYRINGE IVP ONE (04:27)
[2022-01-12] MEDS ORDERED: Naloxone 0.4 MG/ML INJ IVP PRN (05:26)
[2022-01-12] MEDS ORDERED: Dextrose Gel 15 GM/37.5 ML TUBE PO PRN ×2 (05:54)
[2022-01-12] MEDS ORDERED: *HR* Dextrose 50 % in Water (Syg) 50 ML SYRINGE IVP PRN (05:54)
[2022-01-12] MEDS ORDERED: D5% in Water 1,000 ML IVC PRN (05:54)
[2022-01-12 06:31] LABS: Mean Corpuscular HGB Conc 31.2 g/dL (31.6-35.5); Mean Corpuscular Hemoglobin 30.6 pg (28.0-33.3); Mean Corpuscular Volume 97.9 fL (83.0-100.0); Mean Platelet Volume 9.3 fL (9.4-12.4); Platelet Count 358 K/mcL (140-400); Red Blood Count 3.37 M/mcL (3.82-4.97); Red Cell Distribution Width 14.7 % (11.5-14.5); White Blood Count 8.1 K/mcL (4.3-11.1)
[2022-01-12 06:34] LABS: Hemoglobin 10.3 g/dL (11.5-15.4)
[2022-01-12 06:38] LABS: Amphetamine Screen,Urine Negative ng/mL (Cutoff=1000); Barbiturate Screen,Urine Positive ng/mL (Cutoff=200); Benzodiazepines Screen,Urine Positive ng/mL (Cutoff=300); Cannabinoid Screen,Urine Negative ng/mL (Cutoff = 50); Cocaine Screen,Urine Negative ng/mL (Cutoff= 300); Opiate Screen,Urine Positive ng/mL (Cutoff=300); Phencyclidine Screen,Urine Negative ng/mL (Cutoff=25)
[2022-01-12 06:42] LABS: Bilirubin,Urine Negative (Negative); Blood,Urine Negative (Negative); Clarity,Urine Clear (Clear); Color,Urine Yellow (Yellow); Glucose,Urine (UA) Normal (Normal); Hyaline Casts,Urine Few per lpf (None Seen); Ketones,Urine Trace mg/dL (Negative); Leukocyte Esterase,Urine Small (Negative); Mucus,Urine Few per lpf (None-Few); Nitrite,Urine Negative (Negative); Protein,Urine 30 mg/dL (Neg-Trace); RBC,Urine 0-3 per hpf (0-3); Specific Gravity,Urine > 1.030 (1.010-1.025); Squamous Epithelial Cell,Urine Few per hpf (None-Few); Urobilinogen,Urine Normal (Normal)
[2022-01-12 06:47] LABS: BUN/Creatinine Ratio 13 (6-26); Blood Urea Nitrogen 7 mg/dL (6-20); Calcium 8.1 mg/dL (8.6-10.3); Carbon Dioxide 26 mEq/L (23-29); Chloride 108 mEq/L (98-107); Cholesterol 134 mg/dL (< 200); Glucose 121 mg/dL (70-105); HDL Cholesterol 67 mg/dL (40-59); LDL Cholesterol,Calculated 51 mg/dL (< 100); Osmolality,Calculated 289 (280-300); Sodium 140 mEq/L (136-145); Triglycerides 78 mg/dL (< 150); eGFR For African Americans > 60 (> 60); eGFR For Non-African Americans > 60 (> 60)
[2022-01-12] MEDS: Aspirin Enteric Coated 81 MG Tablet PO SCH (07:40)
[2022-01-12] MEDS: *HR* Enoxaparin 80 MG/0.8 ML SYRINGE SQ SCH ×2 (07:40→17:28)
[2022-01-12] MEDS: Ondansetron 4 MG/2 ML VIAL IVP PRN (08:44)
[2022-01-12] MEDS ORDERED: Ketorolac 30 MG/ML VIAL IVP ONE (09:54)
[2022-01-12] MEDS ORDERED: *HR* OxyCODONE/APAP 5/325 TABLET PO PRN (09:55)
[2022-01-12] MEDS: Insulin LISPRO 300 UNITS/3 ML VIAL SUBQ SCH ×3 (10:20→19:01)
[2022-01-12] MEDS ORDERED: Perflutren Lipid Microsphere 1.3 ML in 0.9 % Sodium Chloride 8.7 ML IVP PRN (10:58)
[2022-01-12] MEDS ORDERED: Metoprolol XL (24 HR) Succ 25 MG TAB.ER.24H PO SCH (11:00)
[2022-01-12] MEDS ORDERED: clonazePAM 0.5 MG TABLET PO PRN (11:34)
[2022-01-12] MEDS ORDERED: Fluticasone Propionate Nasal 50 MCG/SPRAY BOTTLE NS PRN (11:34)
[2022-01-12] MEDS ORDERED: Scopolamine Patch 1.5 MG PATCH.TD72 TD SCH (11:45)
[2022-01-12] MEDS: rOPINIRole 1 MG TABLET PO SCH (12:08)
[2022-01-12] MEDS: Metoprolol XL (24 HR) Succ 25 MG TAB.ER.24H PO SCH (12:09)
[2022-01-12] MEDS: lisinopriL 5 MG TABLET PO SCH (12:09)
[2022-01-12] MEDS: tiZANidine 4 MG TABLET PO SCH ×3 (12:12→21:57)
[2022-01-12] MEDS: *HR* HYDROcodone/Acet 5/325 mg TABLET PO PRN (17:28)
[2022-01-12] MEDS ORDERED: 0.9 % Sodium Chloride 1,000 ML ONE (19:04)
[2022-01-12] MEDS: Budesonide/Formoterol 80/4.5 1 PUFF INH IH SCH (19:54)
[2022-01-12] MEDS: Gabapentin 300 MG CAPSULE PO SCH (21:57)
[2022-01-12] MEDS: Acetaminophen/Butalbital/CaffeineTABLET PO SCH (21:57)
[2022-01-13] MEDS: Insulin LISPRO 300 UNITS/3 ML VIAL SUBQ SCH ×5 (00:16→23:45)
[2022-01-13 02:18] LABS: Hematocrit 28.3 % (35.3-44.9); Mean Corpuscular HGB Conc 30.4 g/dL (31.6-35.5); Mean Corpuscular Hemoglobin 30.4 pg (28.0-33.3); Mean Platelet Volume 9.5 fL (9.4-12.4); Platelet Count 297 K/mcL (140-400); Red Blood Count 2.83 M/mcL (3.82-4.97)
[2022-01-13 02:20] LABS: Hemoglobin 8.6 g/dL (11.5-15.4)
[2022-01-13 02:47] LABS: BUN/Creatinine Ratio 8 (6-26); Blood Urea Nitrogen 4 mg/dL (6-20); C-Reactive Protein < 5 mg/L (Less than 10); Calcium 7.9 mg/dL (8.6-10.3); Carbon Dioxide 26 mEq/L (23-29); Chloride 111 mEq/L (98-107); Glucose 114 mg/dL (70-105); Osmolality,Calculated 292 (280-300); Potassium 4.1 mEq/L (3.5-5.1); Sodium 142 mEq/L (136-145); eGFR For African Americans > 60 (> 60); eGFR For Non-African Americans > 60 (> 60)
[2022-01-13] MEDS: *HR* HYDROcodone/Acet 5/325 mg TABLET PO PRN (02:57)
[2022-01-13] MEDS: *HR* Enoxaparin 80 MG/0.8 ML SYRINGE SQ SCH ×2 (05:55→17:05)
[2022-01-13] MEDS ORDERED: Regadenoson 0.4 MG/5 ML SYRINGE IVP ONE (07:36)
[2022-01-13] MEDS: Acetaminophen 325 MG TABLET PO PRN (09:51)
[2022-01-13] MEDS: Budesonide/Formoterol 80/4.5 1 PUFF INH IH SCH ×2 (10:35→19:29)
[2022-01-13] MEDS: rOPINIRole 1 MG TABLET PO SCH (12:40)
[2022-01-13] MEDS: tiZANidine 4 MG TABLET PO SCH ×3 (12:40→21:12)
[2022-01-13] MEDS: Aspirin Enteric Coated 81 MG Tablet PO SCH (12:40)
[2022-01-13] MEDS: Metoprolol XL (24 HR) Succ 25 MG TAB.ER.24H PO SCH (12:40)
[2022-01-13] MEDS: Gabapentin 300 MG CAPSULE PO SCH ×2 (12:41→21:12)
[2022-01-13] MEDS: Loratadine 10 MG TABLET PO SCH (12:41)
[2022-01-13] MEDS: lisinopriL 5 MG TABLET PO SCH (12:41)
[2022-01-13] MEDS: Ondansetron 4 MG/2 ML VIAL IVP PRN (12:43)
[2022-01-13] MEDS: Acetaminophen/Butalbital/CaffeineTABLET PO SCH (21:12)
[2022-01-13] MEDS ORDERED: 0.9 % Sodium Chloride 500 ML IVC ONE ×2 (22:56→23:33)
[2022-01-13 23:29] LABS: Hematocrit 28.5 % (35.3-44.9); Hemoglobin 8.7 g/dL (11.5-15.4); Mean Corpuscular HGB Conc 30.5 g/dL (31.6-35.5); Mean Corpuscular Hemoglobin 30.6 pg (28.0-33.3); Mean Corpuscular Volume 100.4 fL (83.0-100.0); Mean Platelet Volume 9.8 fL (9.4-12.4); Platelet Count 309 K/mcL (140-400); Red Blood Count 2.84 M/mcL (3.82-4.97); White Blood Count 6.5 K/mcL (4.3-11.1)
[2022-01-14] MEDS ORDERED: 0.9 % Sodium Chloride 1,000 ML IVC ONE (00:24)
[2022-01-14] MEDS ORDERED: Iopamidol - 370 500 ML MLS IVP ONE (01:39)
[2022-01-14] MEDS: 0.9 % Sodium Chloride 1,000 ML IVC SCH ×2 (02:00→12:47)
[2022-01-14] MEDS: Acetaminophen 325 MG TABLET PO PRN (04:17)
[2022-01-14] MEDS: Ondansetron 4 MG/2 ML VIAL IVP PRN ×2 (04:18→14:33)
[2022-01-14] MEDS: Insulin LISPRO 300 UNITS/3 ML VIAL SUBQ SCH ×2 (05:53→12:45)
[2022-01-14] MEDS: *HR* Enoxaparin 80 MG/0.8 ML SYRINGE SQ SCH (06:11)
[2022-01-14 06:18] LABS: Hematocrit 30.2 % (35.3-44.9); Hemoglobin 9.2 g/dL (11.5-15.4); Mean Corpuscular HGB Conc 30.5 g/dL (31.6-35.5); Mean Corpuscular Hemoglobin 30.5 pg (28.0-33.3); Mean Platelet Volume 9.5 fL (9.4-12.4); Platelet Count 305 K/mcL (140-400); Red Blood Count 3.02 M/mcL (3.82-4.97); White Blood Count 5.3 K/mcL (4.3-11.1)
[2022-01-14 06:37] LABS: BUN/Creatinine Ratio 7 (6-26); Blood Urea Nitrogen 4 mg/dL (6-20); Calcium 7.5 mg/dL (8.6-10.3); Carbon Dioxide 26 mEq/L (23-29); Chloride 110 mEq/L (98-107); Glucose 96 mg/dL (70-105); Osmolality,Calculated 285 (280-300); Potassium 3.4 mEq/L (3.5-5.1); Sodium 139 mEq/L (136-145); eGFR For African Americans > 60 (> 60); eGFR For Non-African Americans > 60 (> 60)
[2022-01-14] MEDS ORDERED: Calcium Gluconate 1gm/50mL 1 GM/50 ML BAG IVPB ONE (07:38)
[2022-01-14] MEDS: Budesonide/Formoterol 80/4.5 1 PUFF INH IH SCH (08:07)
[2022-01-14] MEDS: rOPINIRole 1 MG TABLET PO SCH (08:19)
[2022-01-14] MEDS: tiZANidine 4 MG TABLET PO SCH ×2 (08:19→14:33)
[2022-01-14] MEDS: Metoprolol XL (24 HR) Succ 25 MG TAB.ER.24H PO SCH (08:20)
[2022-01-14] MEDS: Loratadine 10 MG TABLET PO SCH (08:20)
[2022-01-14] MEDS: Gabapentin 300 MG CAPSULE PO SCH (08:20)
[2022-01-14] MEDS: Aspirin Enteric Coated 81 MG Tablet PO SCH (08:20)
[2022-01-14] MEDS ORDERED: Ketorolac 30 MG/ML VIAL IVP ONE (08:24)
[2022-01-14 11:06] VITALS: BP 108/59; PULSE 65; TEMP 98.3; O2SAT 97
== END 2022-01-14 17:24 | disposition home or self-care (01) ==
LOC: 2NENU 22:01 → EMEROOARM 22:01 → SUATTDRO 01-12 05:12 → 2NENU 01-12 05:22
PROVIDERS: ADMIT Student in an Organized Health Care Education/Training Program; ATTEND Internal Medicine

== ENCOUNTER 2022-01-31 15:25 | Observation (INO) ==
[2022-01-31] MEDS ORDERED: Ipratropium/Albuterol Neb 3 ML IH ONE (15:55)
[2022-01-31] MEDS ORDERED: Iopamidol - 370 500 ML MLS IVP ONE (15:55)
[2022-01-31] MEDS ORDERED: 0.9 % Sodium Chloride 1,000 ML IVC ONE ×2 (15:55)
[2022-01-31] MEDS ORDERED: Ondansetron 4 MG/2 ML VIAL IVP ONE (15:55)
[2022-01-31] MEDS ORDERED: *HR* FentaNYL (PF) 100 MCG/2 ML VIAL IVP ONE ×2 (15:55→19:07)
[2022-01-31 17:14] LABS: Basophils % 0.5 %; Eosinophils % 0.2 %; Hematocrit 38.8 % (35.3-44.9); Immature Granulocytes % 0.6 % (0-4); Lymphocytes # 0.9 K/mcL (0.6-4.6); Lymphocytes % 14.8 %; Mean Corpuscular HGB Conc 30.9 g/dL (31.6-35.5); Mean Corpuscular Hemoglobin 30.9 pg (28.0-33.3); Mean Platelet Volume 10.4 fL (9.4-12.4); Monocytes # 0.4 K/mcL (0.0-1.3); Monocytes % 5.6 %; Neutrophils # 4.9 K/mcL (1.6-8.9); Platelet Count 312 K/mcL (140-400); Red Blood Count 3.88 M/mcL (3.82-4.97); Red Cell Distribution Width 15.8 % (11.5-14.5); Segmented Neutrophils % 78.3 %; White Blood Count 6.2 K/mcL (4.3-11.1)
[2022-01-31 17:21] LABS: BUN/Creatinine Ratio 14 (6-26); Blood Urea Nitrogen 11 mg/dL (6-20); Calcium 7.9 mg/dL (8.6-10.3); Carbon Dioxide 28 mEq/L (23-29); Chloride 108 mEq/L (98-107); Glucose 279 mg/dL (70-105); Osmolality,Calculated 305 (280-300); Potassium 3.5 mEq/L (3.5-5.1); Sodium 143 mEq/L (136-145); Troponin I < 0.03 ng/mL (< 0.04); eGFR For African Americans > 60 (> 60); eGFR For Non-African Americans > 60 (> 60)
[2022-01-31 18:01] LABS: Adenovirus Not Detected (Not Detect); Bordetella Pertussis Not Detected (Not Detect); Chlamydophila pneumoniae Not Detected (Not Detect); Coronavirus 229E Not Detected (Not Detect); Coronavirus HKU1 Not Detected (Not Detect); Coronavirus NL63 Not Detected (Not Detect); Coronavirus OC43 Not Detected (Not Detect); Human Metapneumovirus Not Detected (Not Detect); Human Rhinovirus/Enterovirus Not Detected (Not Detect); Influenza A Subtype 2009 H1 Not Detected (Not Detect); Influenza B Not Detected (Not Detect); Mycoplasma pneumoniae Not Detected (Not Detect); Parainfluenza Virus 1 Not Detected (Not Detect); Parainfluenza Virus 2 Not Detected (Not Detect); Parainfluenza Virus 3 Not Detected (Not Detect); Parainfluenza Virus 4 Not Detected (Not Detect); Respiratory Syncytial Virus Not Detected (Not Detect); SARS-CoV-2 Not Detected (Not Detect)
[2022-01-31] MEDS ORDERED: 0.9 % Sodium Chloride 500 ML IVC ONE (19:07)
[2022-01-31] MEDS ORDERED: 0.9 % Sodium Chloride 1,000 ML ONE (20:00)
[2022-01-31] MEDS ORDERED: Naloxone 0.4 MG/ML INJ IVP PRN (21:24)
[2022-01-31] MEDS ORDERED: *HR* Dextrose 50 % in Water (Syg) 50 ML SYRINGE IVP PRN (22:42)
[2022-01-31] MEDS ORDERED: D5% in Water 1,000 ML IVC PRN (22:42)
[2022-01-31] MEDS ORDERED: Dextrose Gel 15 GM/37.5 ML TUBE PO PRN ×2 (22:42)
[2022-01-31] MEDS: Ondansetron 4 MG/2 ML VIAL IVP PRN (23:25)
[2022-02-01] MEDS ORDERED: captopriL 25 MG TABLET PO ONE (00:23)
[2022-02-01] MEDS ORDERED: *HR* LORazepam 0.5 MG TABLET PO ONE (01:19)
[2022-02-01] MEDS ORDERED: Iopamidol - 370 500 ML MLS IVP ONE (01:41)
[2022-02-01] MEDS: Insulin LISPRO 300 UNITS/3 ML VIAL SUBQ SCH ×5 (01:42→22:36)
[2022-02-01] MEDS ORDERED: Metoprolol XL (24 HR) Succ 25 MG TAB.ER.24H PO ONE (03:42)
[2022-02-01] MEDS ORDERED: Melatonin 3 MG TABLET PO PRN (03:43)
[2022-02-01 05:55] LABS: Chol/HDL Ratio 1.7 (0-4.9)
[2022-02-01] MEDS ORDERED: clonazePAM 0.5 MG TABLET PO PRN (08:00)
[2022-02-01] MEDS: Ondansetron 4 MG/2 ML VIAL IVP PRN ×2 (08:20→21:03)
[2022-02-01] MEDS: rOPINIRole 1 MG TABLET PO SCH (08:49)
[2022-02-01] MEDS: Aspirin Enteric Coated 81 MG Tablet PO SCH (08:50)
[2022-02-01] MEDS: DilTIAZem CD (24hr) 120 MG CAP.ER.24H PO SCH (08:50)
[2022-02-01] MEDS: Gabapentin 300 MG CAPSULE PO SCH ×2 (08:50→20:55)
[2022-02-01] MEDS ORDERED: NIFEdipine XL (24 HR) 30 MG TAB.ER.24 PO SCH (09:00)
[2022-02-01] MEDS ORDERED: Furosemide Oral Soln 40 MG/4 ML UDC PO SCH (09:00)
[2022-02-01] MEDS: *HR* Enoxaparin 80 MG/0.8 ML SYRINGE SQ SCH ×2 (09:19→17:12)
[2022-02-01] MEDS ORDERED: *HR* Labetalol 20 MG/4 ML SYRINGE IVP PRN (09:22)
[2022-02-01] MEDS: Metoprolol XL (24 HR) Succ 25 MG TAB.ER.24H PO SCH ×3 (09:23→20:55)
[2022-02-01] MEDS: Furosemide 20 MG/2 ML VIAL IVP SCH ×2 (09:41→20:55)
[2022-02-01] MEDS ORDERED: Metoclopramide 10 MG/2 ML VIAL IVP ONE (09:45)
[2022-02-01] MEDS: *HR* Labetalol 20 MG/4 ML SYRINGE IVP PRN ×2 (10:48→11:53)
[2022-02-01 13:10] LABS: Bilirubin,Urine Negative (Negative); Blood,Urine Negative (Negative); Clarity,Urine Clear (Clear); Color,Urine Colorless (Yellow); Glucose,Urine (UA) Normal (Normal); Ketones,Urine Negative (Negative); Leukocyte Esterase,Urine Negative (Negative); Nitrite,Urine Negative (Negative); PH,Urine 6.5 pH Units (5.0-8.0); Protein,Urine Negative (Neg-Trace); Specific Gravity,Urine 1.013 (1.010-1.025); Urobilinogen,Urine Normal (Normal)
[2022-02-01] MEDS ORDERED: amLODIPine 5 MG TABLET PO STA (15:36)
[2022-02-01] MEDS ORDERED: SUMAtriptan 6 MG/0.5 ML SQ PRN (16:25)
[2022-02-01] MEDS ORDERED: Scopolamine Patch 1.5 MG PATCH.TD72 TD SCH (16:30)
[2022-02-01] MEDS ORDERED: Furosemide 20 MG/2 ML VIAL IVP SCH (21:00)
[2022-02-01] MEDS ORDERED: Acetaminophen/Butalbital/CaffeineTABLET PO SCH (21:00)
[2022-02-01] MEDS ORDERED: Metoprolol XL (24 HR) Succ 25 MG TAB.ER.24H PO SCH (21:00)
[2022-02-02 02:06] LABS: Basophils # 0.1 K/mcL (0.0-0.2); Basophils % 0.7 %; Eosinophils # 0.2 K/mcL (0.0-0.6); Eosinophils % 1.9 %; Hematocrit 40.1 % (35.3-44.9); Hemoglobin 12.3 g/dL (11.5-15.4); Immature Granulocytes % 0.4 % (0-4); Lymphocytes # 2.3 K/mcL (0.6-4.6); Lymphocytes % 24.6 %; Mean Corpuscular HGB Conc 30.7 g/dL (31.6-35.5); Mean Corpuscular Hemoglobin 31.3 pg (28.0-33.3); Mean Platelet Volume 10.2 fL (9.4-12.4); Monocytes # 1.1 K/mcL (0.0-1.3); Monocytes % 11.9 %; Neutrophils # 5.5 K/mcL (1.6-8.9); Platelet Count 356 K/mcL (140-400); Red Blood Count 3.93 M/mcL (3.82-4.97); Red Cell Distribution Width 16.2 % (11.5-14.5); Segmented Neutrophils % 60.5 %; White Blood Count 9.2 K/mcL (4.3-11.1)
[2022-02-02 02:35] LABS: Albumin 2.8 g/dL (3.5-5.7); Albumin/Globulin Ratio 0.9 (1.1-2.2); Bilirubin,Indirect 0.3 mg/dL (0.0-1.0); Bilirubin,Total 0.3 mg/dL (0.3-1.0); Globulin 3.2 g/dL (2.4-3.5)
[2022-02-02 02:54] LABS: BUN/Creatinine Ratio 10 (6-26); Blood Urea Nitrogen 5 mg/dL (6-20); Calcium 8.2 mg/dL (8.6-10.3); Carbon Dioxide 25 mEq/L (23-29); Chloride 101 mEq/L (98-107); Glucose 150 mg/dL (70-105); Magnesium 1.6 mg/dL (1.6-2.6); Osmolality,Calculated 288 (280-300); Phosphorous 4.4 mg/dL (2.7-4.5); Potassium 3.7 mEq/L (3.5-5.1); Sodium 139 mEq/L (136-145); eGFR For African Americans > 60 (> 60); eGFR For Non-African Americans > 60 (> 60)
[2022-02-02] MEDS: *HR* Enoxaparin 80 MG/0.8 ML SYRINGE SQ SCH (05:35)
[2022-02-02] MEDS: Ondansetron 4 MG/2 ML VIAL IVP PRN (05:46)
[2022-02-02 06:47] VITALS: O2SAT 93
[2022-02-02] MEDS ORDERED: Loratadine 10 MG TABLET PO SCH (09:00)
[2022-02-02] MEDS ORDERED: Pantoprazole 40 MG VIAL IVP SCH (09:00)
[2022-02-02] MEDS: Insulin LISPRO 300 UNITS/3 ML VIAL SUBQ SCH (09:14)
[2022-02-02] MEDS: Furosemide 20 MG/2 ML VIAL IVP SCH (09:15)
[2022-02-02] MEDS: rOPINIRole 1 MG TABLET PO SCH (09:15)
[2022-02-02] MEDS: Metoprolol XL (24 HR) Succ 25 MG TAB.ER.24H PO SCH (09:15)
[2022-02-02] MEDS: DilTIAZem CD (24hr) 120 MG CAP.ER.24H PO SCH (09:16)
[2022-02-02] MEDS: Aspirin Enteric Coated 81 MG Tablet PO SCH (09:16)
[2022-02-02] MEDS: Gabapentin 300 MG CAPSULE PO SCH (09:16)
[2022-02-02] MEDS ORDERED: Prochlorperazine 10 MG/2 ML VIAL IVP ONE (10:02)
[2022-02-02 10:39] VITALS: BP 125/81; PULSE 120; TEMP 97.8
== END 2022-02-02 13:34 | disposition home or self-care (01) ==
LOC: EMEROOARM 15:25 → 3BNU 15:25 → SUATTDRO 21:25 → 3BNU 22:15
PROVIDERS: ADMIT Internal Medicine; ATTEND Internal Medicine

== ENCOUNTER 2022-02-15 07:04 | Inpatient (IN) ==
[2022-02-15] MEDS ORDERED: Ringers Solution, Lactated 1,000 ML IVC ONE ×2 (07:48→08:32)
[2022-02-15] MEDS ORDERED: Ondansetron 4 MG/2 ML VIAL IVP ONE (07:52)
[2022-02-15 08:04] LABS: Immature Granulocytes % 2.6 % (0-4); Mean Corpuscular Hemoglobin 31.1 pg (28.0-33.3); Monocytes % 4.2 %
[2022-02-15 08:05] LABS: Basophils % 0.2 %; Eosinophils % 0.1 %; Hematocrit 17.5 % (35.3-44.9); Lymphocytes # 1.6 K/mcL (0.6-4.6); Lymphocytes % 11.5 %; Mean Corpuscular HGB Conc 29.1 g/dL (31.6-35.5); Mean Corpuscular Volume 106.7 fL (83.0-100.0); Mean Platelet Volume 9.9 fL (9.4-12.4); Monocytes # 0.6 K/mcL (0.0-1.3); Neutrophils # 11.2 K/mcL (1.6-8.9); Platelet Count 350 K/mcL (140-400); Red Blood Count 1.64 M/mcL (3.82-4.97); Red Cell Distribution Width 14.5 % (11.5-14.5); Segmented Neutrophils % 81.4 %; White Blood Count 13.7 K/mcL (4.3-11.1)
[2022-02-15 08:11] LABS: Hemoglobin 5.1 g/dL (11.5-15.4)
[2022-02-15 08:28] LABS: Alanine Aminotransferase 12 Units/L (7-52); Albumin 1.9 g/dL (3.5-5.7); Albumin/Globulin Ratio 0.9 (1.1-2.2); Alkaline Phosphatase 118 Units/L (34-104); Aspartate Amino Transferase 21 Units/L (13-39); BUN/Creatinine Ratio 42 (6-26); Bilirubin,Indirect 0.2 mg/dL (0.0-1.0); Bilirubin,Total 0.2 mg/dL (0.3-1.0); Blood Urea Nitrogen 37 mg/dL (6-20); Carbon Dioxide 17 mEq/L (23-29); Chloride 110 mEq/L (98-107); Globulin 2.2 g/dL (2.4-3.5); Glucose 324 mg/dL (70-105); Osmolality,Calculated 311 (280-300); Potassium 5.4 mEq/L (3.5-5.1); Sodium 140 mEq/L (136-145); Total Protein 4.1 g/dL (6.4-8.9); eGFR For African Americans > 60 (> 60); eGFR For Non-African Americans > 60 (> 60)
[2022-02-15 08:29] LABS: Troponin I < 0.03 ng/mL (< 0.04)
[2022-02-15 08:41] LABS: VBG HCO3 17 mEq/L (21-27); VBG PCO2 37 mmHg (41-51); VBG PH 7.27 pH Units (7.32-7.42); VBG PO2 55 mmHg (25-50)
[2022-02-15] MEDS ORDERED: Iopamidol - 370 500 ML MLS IVP ONE ×2 (09:00→09:02)
[2022-02-15 09:15] LABS: Influenza A PCR Negative (Negative); Influenza B PCR Negative (Negative); Resp. Syncytial Virus PCR Negative (Negative)
[2022-02-15 09:20] LABS: SARS-CoV-2 by PCR (In House) Negative (Negative)
[2022-02-15] MEDS ORDERED: Morphine Sulfate 2 MG/ML SYRINGE IVP ONE (09:39)
[2022-02-15] MEDS ORDERED: Pantoprazole 40 MG VIAL IVP ONE (09:53)
[2022-02-15] MEDS ORDERED: 0.9 % Sodium Chloride 250 ML ONE ×2 (09:59→16:58)
[2022-02-15] MEDS ORDERED: Naloxone 0.4 MG/ML INJ IVP PRN (10:17)
[2022-02-15] MEDS ORDERED: Melatonin 3 MG TABLET PO PRN (10:17)
[2022-02-15] MEDS ORDERED: *HR* Dextrose 50 % in Water (Syg) 50 ML SYRINGE IVP PRN (10:21)
[2022-02-15] MEDS ORDERED: Dextrose Gel 15 GM/37.5 ML TUBE PO PRN ×2 (10:21)
[2022-02-15] MEDS ORDERED: D5% in Water 1,000 ML IVC PRN (10:21)
[2022-02-15] MEDS ORDERED: Pantoprazole 40 MG in 0.9 % Sodium Chloride Mini Bag 100 ML IVC SCH (10:30)
[2022-02-15 10:35] LABS: INR 1.1; Prothrombin Time 12.7 Seconds (9.4-12.1)
[2022-02-15 10:37] LABS: Activated Partial Thrombo Time 26.3 Seconds (26.0-36.0)
[2022-02-15] MEDS ORDERED: clonazePAM 0.5 MG TABLET PO PRN (10:49)
[2022-02-15] MEDS ORDERED: Lidocaine -MPF 2% 5 ML VIAL ONE (14:25)
[2022-02-15] MEDS ORDERED: *HR* Succinylcholine 200 MG/10 ML VIAL IVP ONE (14:25)
[2022-02-15] MEDS ORDERED: Ondansetron 4 MG/2 ML VIAL ONE (14:25)
[2022-02-15] MEDS ORDERED: *HR* Labetalol 20 MG/4 ML SYRINGE IVP ONE (14:25)
[2022-02-15] MEDS ORDERED: *HR* HYDROmorphone (PF) 1 MG/ML SYRINGE IVP ONE (15:53)
[2022-02-15] MEDS: Insulin LISPRO 300 UNITS/3 ML VIAL SUBQ SCH ×3 (15:58→20:19)
[2022-02-15] MEDS: Scopolamine Patch 1.5 MG PATCH.TD72 TD SCH (16:09)
[2022-02-15 16:13] LABS: Hematocrit 22.8 % (35.3-44.9)
[2022-02-15 16:14] LABS: Hemoglobin 7.1 g/dL (11.5-15.4)
[2022-02-15] MEDS: Ondansetron 4 MG/2 ML VIAL IVP PRN (19:06)
[2022-02-15] MEDS: *HR* HYDROmorphone 2 MG TABLET PO PRN (20:09)
[2022-02-15] MEDS: Gabapentin 300 MG CAPSULE PO SCH (20:09)
[2022-02-15] MEDS: Budesonide/Formoterol 80/4.5 1 PUFF INH IH SCH (20:10)
[2022-02-15] MEDS ORDERED: *HR* HYDROmorphone 2 MG/ML SYRINGE IVP ONE (21:20)
[2022-02-16] MEDS: Insulin LISPRO 300 UNITS/3 ML VIAL SUBQ SCH ×6 (01:24→20:07)
[2022-02-16] MEDS: Ondansetron 4 MG/2 ML VIAL IVP PRN (02:06)
[2022-02-16] MEDS: *HR* HYDROmorphone 2 MG TABLET PO PRN ×4 (02:06→20:06)
[2022-02-16 02:14] LABS: Hematocrit 27.1 % (35.3-44.9); Hemoglobin 8.5 g/dL (11.5-15.4); Hemoglobin 8.6 g/dL (11.5-15.4)
[2022-02-16 02:28] LABS: BUN/Creatinine Ratio 47 (6-26); Blood Urea Nitrogen 34 mg/dL (6-20); Calcium 7.6 mg/dL (8.6-10.3); Carbon Dioxide 23 mEq/L (23-29); Chloride 112 mEq/L (98-107); Glucose 133 mg/dL (70-105); Osmolality,Calculated 304 (280-300); Potassium 4.9 mEq/L (3.5-5.1); Sodium 142 mEq/L (136-145); eGFR For African Americans > 60 (> 60); eGFR For Non-African Americans > 60 (> 60)
[2022-02-16 05:10] LABS: Basophils % 0.2 %; Eosinophils % 0.2 %; Hematocrit 25.4 % (35.3-44.9); Hemoglobin 8.1 g/dL (11.5-15.4); Immature Granulocytes % 0.9 % (0-4); Lymphocytes # 3.1 K/mcL (0.6-4.6); Lymphocytes % 22.3 %; Mean Corpuscular HGB Conc 31.9 g/dL (31.6-35.5); Mean Corpuscular Hemoglobin 30.9 pg (28.0-33.3); Mean Platelet Volume 9.8 fL (9.4-12.4); Monocytes # 0.9 K/mcL (0.0-1.3); Monocytes % 6.5 %; Neutrophils # 9.8 K/mcL (1.6-8.9); Platelet Count 269 K/mcL (140-400); Red Blood Count 2.62 M/mcL (3.82-4.97); Segmented Neutrophils % 69.9 %
[2022-02-16 05:11] LABS: Mean Corpuscular Volume 96.9 fL (83.0-100.0)
[2022-02-16] MEDS: Budesonide/Formoterol 80/4.5 1 PUFF INH IH SCH ×2 (07:58→20:19)
[2022-02-16 08:01] LABS: mecA/C Methicillin-Resist Gene DETECTED (Not Detect)
[2022-02-16 08:02] LABS: A.calcoaceticus-baumannii cplx Not Detected (Not Detect); Bacteroides fragilis by PCR Not Detected (Not Detect); Candida albicans by PCR Not Detected (Not Detect); Candida auris by PCR Not Detected (Not Detect); Candida glabrata by PCR Not Detected (Not Detect); Candida krusei by PCR Not Detected (Not Detect); Candida parapsilosis by PCR Not Detected (Not Detect); Candida tropicalis by PCR Not Detected (Not Detect); Crypto. neoformans/gattii PCR Not Detected (Not Detect); Enterobacter cloacae Cmplx PCR Not Detected (Not Detect); Enterobacterales by PCR Not Detected (Not Detect); Enterococcus faecalis by PCR Not Detected (Not Detect); Enterococcus faecium by PCR Not Detected (Not Detect); Escherichia coli by PCR Not Detected (Not Detect); Klebs. pneumoniae group by PCR Not Detected (Not Detect); Klebsiella aerogenes by PCR Not Detected (Not Detect); Klebsiella oxytoca by PCR Not Detected (Not Detect); Proteus by PCR Not Detected (Not Detect); Pseudomonas aeruginosa by PCR Not Detected (Not Detect); Salmonella species by PCR Not Detected (Not Detect); Serratia marcescens by PCR Not Detected (Not Detect); Staph epidermidis by PCR DETECTED (Not Detect); Staph lugdunensis by PCR Not Detected (Not Detect); Staphylococcus aureus by PCR Not Detected (Not Detect); Stenotrophomonas maltophilia Not Detected (Not Detect); Streptococcus agalactiae(B)PCR Not Detected (Not Detect); Streptococcus by PCR Not Detected (Not Detect); Streptococcus pneumoniae PCR Not Detected (Not Detect); Streptococcus pyogenes (A) PCR Not Detected (Not Detect)
[2022-02-16] MEDS: rOPINIRole 1 MG TABLET PO SCH (08:21)
[2022-02-16] MEDS: Gabapentin 300 MG CAPSULE PO SCH ×2 (08:22→20:06)
[2022-02-16 09:23] LABS: Hematocrit 26.4 % (35.3-44.9); Hemoglobin 8.5 g/dL (11.5-15.4)
[2022-02-16] MEDS ORDERED: Prochlorperazine 10 MG/2 ML VIAL IM PRN (10:27)
[2022-02-16] MEDS: Vancomycin 1,250 MG/262.5 ML IV.SOLN IVPB SCH (12:12)
[2022-02-16] MEDS: Prochlorperazine 10 MG/2 ML VIAL IVP PRN ×2 (13:53→20:37)
[2022-02-16 14:18] LABS: Hematocrit 25.3 % (35.3-44.9); Hemoglobin 8.2 g/dL (11.5-15.4)
[2022-02-17] MEDS: Insulin LISPRO 300 UNITS/3 ML VIAL SUBQ SCH ×7 (00:06→23:26)
[2022-02-17] MEDS: Vancomycin 1,250 MG/262.5 ML IV.SOLN IVPB SCH ×3 (00:09→23:31)
[2022-02-17] MEDS: *HR* HYDROmorphone 2 MG TABLET PO PRN ×3 (02:14→20:08)
[2022-02-17] MEDS: Prochlorperazine 10 MG/2 ML VIAL IVP PRN ×2 (02:30→20:08)
[2022-02-17 02:43] LABS: BUN/Creatinine Ratio 37 (6-26); Blood Urea Nitrogen 23 mg/dL (6-20); Calcium 7.5 mg/dL (8.6-10.3); Carbon Dioxide 25 mEq/L (23-29); Chloride 110 mEq/L (98-107); Glucose 99 mg/dL (70-105); Osmolality,Calculated 292 (280-300); Potassium 4.2 mEq/L (3.5-5.1); Sodium 139 mEq/L (136-145); eGFR For African Americans > 60 (> 60); eGFR For Non-African Americans > 60 (> 60)
[2022-02-17] MEDS ORDERED: *HR* OxyCODONE/APAP 10/325 TABLET PO ONE (03:08)
[2022-02-17] MEDS: rOPINIRole 1 MG TABLET PO SCH (07:27)
[2022-02-17] MEDS: Gabapentin 300 MG CAPSULE PO SCH ×2 (07:27→20:08)
[2022-02-17] MEDS: Budesonide/Formoterol 80/4.5 1 PUFF INH IH SCH ×2 (07:32→20:47)
[2022-02-17 09:06] LABS: Basophils % 0.5 %; Eosinophils # 0.2 K/mcL (0.0-0.6); Eosinophils % 3.1 %; Hematocrit 23.2 % (35.3-44.9); Hemoglobin 7.1 g/dL (11.5-15.4); Immature Granulocytes % 0.9 % (0-4); Lymphocytes % 26.4 %; Mean Corpuscular HGB Conc 30.6 g/dL (31.6-35.5); Mean Corpuscular Hemoglobin 30.9 pg (28.0-33.3); Mean Corpuscular Volume 100.9 fL (83.0-100.0); Mean Platelet Volume 9.4 fL (9.4-12.4); Monocytes # 0.5 K/mcL (0.0-1.3); Monocytes % 7.3 %; Neutrophils # 4.6 K/mcL (1.6-8.9); Platelet Count 268 K/mcL (140-400); Red Cell Distribution Width 16.8 % (11.5-14.5); Segmented Neutrophils % 61.8 %; White Blood Count 7.4 K/mcL (4.3-11.1)
[2022-02-17] MEDS: Ondansetron 4 MG/2 ML VIAL IVP PRN (10:45)
[2022-02-17 16:30] LABS: Basophils % 0.2 %; Eosinophils # 0.2 K/mcL (0.0-0.6); Eosinophils % 2.5 %; Hematocrit 23.7 % (35.3-44.9); Hemoglobin 7.2 g/dL (11.5-15.4); Immature Granulocytes % 0.7 % (0-4); Lymphocytes # 2.3 K/mcL (0.6-4.6); Lymphocytes % 27.2 %; Mean Corpuscular HGB Conc 30.4 g/dL (31.6-35.5); Mean Corpuscular Hemoglobin 30.5 pg (28.0-33.3); Mean Corpuscular Volume 100.4 fL (83.0-100.0); Mean Platelet Volume 9.4 fL (9.4-12.4); Monocytes # 0.7 K/mcL (0.0-1.3); Monocytes % 8.5 %; Neutrophils # 5.1 K/mcL (1.6-8.9); Nucleated Red Blood Cells 0.2 /100 WBC (0); Platelet Count 310 K/mcL (140-400); Red Blood Count 2.36 M/mcL (3.82-4.97); Red Cell Distribution Width 16.3 % (11.5-14.5); Segmented Neutrophils % 60.9 %; White Blood Count 8.3 K/mcL (4.3-11.1)
[2022-02-17 16:47] LABS: % Iron Saturation 26 % (15-50); Iron 49 mcg/dL (50-170); Transferrin 134 mg/dL (203-362)
[2022-02-18 03:05] LABS: Basophils % 0.4 %; Eosinophils # 0.2 K/mcL (0.0-0.6); Eosinophils % 2.3 %; Hematocrit 20.7 % (35.3-44.9); Hemoglobin 6.4 g/dL (11.5-15.4); Immature Granulocytes % 0.8 % (0-4); Lymphocytes # 2.2 K/mcL (0.6-4.6); Lymphocytes % 29.9 %; Mean Corpuscular HGB Conc 30.9 g/dL (31.6-35.5); Mean Corpuscular Hemoglobin 31.1 pg (28.0-33.3); Mean Corpuscular Volume 100.5 fL (83.0-100.0); Mean Platelet Volume 9.5 fL (9.4-12.4); Monocytes # 0.6 K/mcL (0.0-1.3); Monocytes % 8.7 %; Neutrophils # 4.3 K/mcL (1.6-8.9); Platelet Count 267 K/mcL (140-400); Red Blood Count 2.06 M/mcL (3.82-4.97); Red Cell Distribution Width 15.9 % (11.5-14.5); Segmented Neutrophils % 57.9 %; White Blood Count 7.4 K/mcL (4.3-11.1)
[2022-02-18 03:30] LABS: BUN/Creatinine Ratio 19 (6-26); Blood Urea Nitrogen 12 mg/dL (6-20); Calcium 7.5 mg/dL (8.6-10.3); Carbon Dioxide 30 mEq/L (23-29); Chloride 108 mEq/L (98-107); Glucose 84 mg/dL (70-105); Osmolality,Calculated 289 (280-300); Potassium 4.1 mEq/L (3.5-5.1); Sodium 140 mEq/L (136-145); eGFR For African Americans > 60 (> 60); eGFR For Non-African Americans > 60 (> 60)
[2022-02-18] MEDS: *HR* HYDROmorphone 2 MG TABLET PO PRN ×4 (03:38→20:05)
[2022-02-18] MEDS: Insulin LISPRO 300 UNITS/3 ML VIAL SUBQ SCH ×5 (03:39→20:07)
[2022-02-18] MEDS: Budesonide/Formoterol 80/4.5 1 PUFF INH IH SCH ×2 (07:39→20:48)
[2022-02-18] MEDS: Gabapentin 300 MG CAPSULE PO SCH ×2 (09:17→20:05)
[2022-02-18] MEDS: rOPINIRole 1 MG TABLET PO SCH (09:18)
[2022-02-18] MEDS: Scopolamine Patch 1.5 MG PATCH.TD72 TD SCH (09:18)
[2022-02-18 12:40] LABS: Hematocrit 25.9 % (35.3-44.9)
[2022-02-18 12:50] LABS: Hemoglobin 8.1 g/dL (11.5-15.4)
[2022-02-18] MEDS: Prochlorperazine 10 MG/2 ML VIAL IVP PRN (13:17)
[2022-02-18] MEDS: Pantoprazole 40 MG VIAL IVP SCH (16:59)
[2022-02-19] MEDS: *HR* HYDROmorphone 2 MG TABLET PO PRN ×5 (00:24→19:50)
[2022-02-19] MEDS: Insulin LISPRO 300 UNITS/3 ML VIAL SUBQ SCH ×6 (00:43→19:51)
[2022-02-19 01:00] LABS: Basophils % 0.3 %; Eosinophils # 0.2 K/mcL (0.0-0.6); Eosinophils % 2.4 %; Hemoglobin 7.4 g/dL (11.5-15.4); Immature Granulocytes % 0.6 % (0-4); Lymphocytes % 32.5 %; Mean Corpuscular HGB Conc 32.2 g/dL (31.6-35.5); Mean Corpuscular Hemoglobin 31.5 pg (28.0-33.3); Mean Corpuscular Volume 97.9 fL (83.0-100.0); Mean Platelet Volume 9.3 fL (9.4-12.4); Monocytes # 0.5 K/mcL (0.0-1.3); Neutrophils # 3.5 K/mcL (1.6-8.9); Platelet Count 239 K/mcL (140-400); Red Blood Count 2.35 M/mcL (3.82-4.97); Red Cell Distribution Width 16.9 % (11.5-14.5); Segmented Neutrophils % 56.2 %; White Blood Count 6.3 K/mcL (4.3-11.1)
[2022-02-19 01:09] LABS: BUN/Creatinine Ratio 24 (6-26); Blood Urea Nitrogen 11 mg/dL (6-20); Calcium 7.4 mg/dL (8.6-10.3); Carbon Dioxide 32 mEq/L (23-29); Chloride 105 mEq/L (98-107); Glucose 88 mg/dL (70-105); Osmolality,Calculated 287 (280-300); Potassium 3.8 mEq/L (3.5-5.1); Sodium 139 mEq/L (136-145); eGFR For African Americans > 60 (> 60); eGFR For Non-African Americans > 60 (> 60)
[2022-02-19 04:15] LABS: Folate 5.5 ng/mL (3.0-16.0)
[2022-02-19] MEDS: Prochlorperazine 10 MG/2 ML VIAL IVP PRN (04:30)
[2022-02-19] MEDS: Pantoprazole 40 MG VIAL IVP SCH ×2 (05:41→17:02)
[2022-02-19] MEDS: Budesonide/Formoterol 80/4.5 1 PUFF INH IH SCH ×2 (07:36→19:50)
[2022-02-19] MEDS: rOPINIRole 1 MG TABLET PO SCH (08:46)
[2022-02-19] MEDS: Gabapentin 300 MG CAPSULE PO SCH ×2 (08:46→19:51)
[2022-02-19] MEDS ORDERED: *HR* Propofol 200 MG/20 ML VIAL IVP ONE (13:34)
[2022-02-19] MEDS ORDERED: Lidocaine -MPF 2% 5 ML VIAL ONE (13:35)
[2022-02-19] MEDS: Metoprolol XL (24 HR) Succ 25 MG TAB.ER.24H PO SCH (14:22)
[2022-02-19 14:58] LABS: Hematocrit 26.5 % (35.3-44.9); Hemoglobin 8.3 g/dL (11.5-15.4)
[2022-02-20] MEDS: Insulin LISPRO 300 UNITS/3 ML VIAL SUBQ SCH ×6 (03:23→19:57)
[2022-02-20] MEDS: *HR* HYDROmorphone 2 MG TABLET PO PRN ×4 (03:24→20:38)
[2022-02-20] MEDS: Prochlorperazine 10 MG/2 ML VIAL IVP PRN ×2 (03:28→14:26)
[2022-02-20 04:35] LABS: Basophils % 0.4 %; Eosinophils # 0.1 K/mcL (0.0-0.6); Eosinophils % 2.1 %; Hematocrit 25.4 % (35.3-44.9); Hemoglobin 7.9 g/dL (11.5-15.4); Immature Granulocytes % 0.8 % (0-4); Lymphocytes # 1.5 K/mcL (0.6-4.6); Lymphocytes % 29.8 %; Mean Corpuscular HGB Conc 31.1 g/dL (31.6-35.5); Mean Corpuscular Hemoglobin 31.1 pg (28.0-33.3); Mean Platelet Volume 9.5 fL (9.4-12.4); Monocytes # 0.4 K/mcL (0.0-1.3); Monocytes % 8.1 %; Platelet Count 283 K/mcL (140-400); Red Blood Count 2.54 M/mcL (3.82-4.97); Red Cell Distribution Width 16.8 % (11.5-14.5); Segmented Neutrophils % 58.8 %; White Blood Count 5.2 K/mcL (4.3-11.1)
[2022-02-20 04:53] LABS: BUN/Creatinine Ratio 17 (6-26); Blood Urea Nitrogen 8 mg/dL (6-20); Calcium 7.7 mg/dL (8.6-10.3); Carbon Dioxide 34 mEq/L (23-29); Chloride 104 mEq/L (98-107); Glucose 92 mg/dL (70-105); Osmolality,Calculated 290 (280-300); Potassium 3.7 mEq/L (3.5-5.1); Sodium 141 mEq/L (136-145); eGFR For African Americans > 60 (> 60); eGFR For Non-African Americans > 60 (> 60)
[2022-02-20] MEDS: Pantoprazole 40 MG VIAL IVP SCH (05:43)
[2022-02-20] MEDS: Gabapentin 300 MG CAPSULE PO SCH ×2 (09:21→20:39)
[2022-02-20] MEDS: Metoprolol XL (24 HR) Succ 25 MG TAB.ER.24H PO SCH (09:21)
[2022-02-20] MEDS: rOPINIRole 1 MG TABLET PO SCH (09:21)
[2022-02-20] MEDS: Budesonide/Formoterol 80/4.5 1 PUFF INH IH SCH ×2 (10:33→20:00)
[2022-02-20] MEDS ORDERED: Prochlorperazine 10 MG/2 ML VIAL IVP PRN (14:19)
[2022-02-21] MEDS: Insulin LISPRO 300 UNITS/3 ML VIAL SUBQ SCH ×6 (00:01→20:53)
[2022-02-21] MEDS: *HR* HYDROmorphone 2 MG TABLET PO PRN ×5 (05:10→22:20)
[2022-02-21 05:45] LABS: Basophils % 0.3 %; Eosinophils # 0.2 K/mcL (0.0-0.6); Eosinophils % 2.9 %; Hematocrit 26.6 % (35.3-44.9); Hemoglobin 8.3 g/dL (11.5-15.4); Immature Granulocytes % 0.8 % (0-4); Lymphocytes # 1.5 K/mcL (0.6-4.6); Lymphocytes % 24.5 %; Mean Corpuscular HGB Conc 31.2 g/dL (31.6-35.5); Mean Corpuscular Hemoglobin 31.2 pg (28.0-33.3); Mean Platelet Volume 9.5 fL (9.4-12.4); Monocytes # 0.6 K/mcL (0.0-1.3); Neutrophils # 3.8 K/mcL (1.6-8.9); Platelet Count 244 K/mcL (140-400); Red Blood Count 2.66 M/mcL (3.82-4.97); Segmented Neutrophils % 61.5 %; White Blood Count 6.2 K/mcL (4.3-11.1)
[2022-02-21 06:04] LABS: BUN/Creatinine Ratio 20 (6-26); Blood Urea Nitrogen 10 mg/dL (6-20); Calcium 7.6 mg/dL (8.6-10.3); Carbon Dioxide 30 mEq/L (23-29); Chloride 105 mEq/L (98-107); Glucose 97 mg/dL (70-105); Osmolality,Calculated 287 (280-300); Potassium 3.9 mEq/L (3.5-5.1); Sodium 139 mEq/L (136-145); eGFR For African Americans > 60 (> 60); eGFR For Non-African Americans > 60 (> 60)
[2022-02-21] MEDS: Budesonide/Formoterol 80/4.5 1 PUFF INH IH SCH ×2 (08:04→20:22)
[2022-02-21] MEDS: Gabapentin 300 MG CAPSULE PO SCH ×2 (08:15→20:49)
[2022-02-21] MEDS: Metoprolol XL (24 HR) Succ 25 MG TAB.ER.24H PO SCH (08:15)
[2022-02-21] MEDS: rOPINIRole 1 MG TABLET PO SCH (08:15)
[2022-02-21] MEDS: lisinopriL 5 MG TABLET PO SCH ×2 (09:39→20:48)
[2022-02-21] MEDS: Ondansetron 4 MG/2 ML VIAL IVP PRN ×2 (09:41→17:47)
[2022-02-21] MEDS: Sennosides/Docusate Sodium TABLET PO SCH (12:18)
[2022-02-21] MEDS: Scopolamine Patch 1.5 MG PATCH.TD72 TD SCH (12:18)
[2022-02-21] MEDS: *HR* Enoxaparin 80 MG/0.8 ML SYRINGE SQ SCH ×2 (12:20→17:46)
[2022-02-21] MEDS: Prochlorperazine 10 MG/2 ML VIAL IVP PRN ×2 (13:27→23:26)
[2022-02-21] MEDS: Sucralfate 1 GM TABLET PO SCH ×3 (13:32→22:21)
[2022-02-21] MEDS ORDERED: MOM Conc 10 ML UD.LIQ PO ONE (16:57)
[2022-02-21 19:31] LABS: Hematocrit 27.6 % (35.3-44.9); Hemoglobin 8.5 g/dL (11.5-15.4)
[2022-02-22] MEDS: *HR* HYDROmorphone 2 MG TABLET PO PRN ×3 (02:52→13:13)
[2022-02-22 03:35] LABS: Basophils % 0.5 %; Eosinophils # 0.2 K/mcL (0.0-0.6); Eosinophils % 2.2 %; Hematocrit 29.1 % (35.3-44.9); Hemoglobin 8.7 g/dL (11.5-15.4); Immature Granulocytes % 0.7 % (0-4); Lymphocytes # 1.9 K/mcL (0.6-4.6); Mean Corpuscular HGB Conc 29.9 g/dL (31.6-35.5); Mean Corpuscular Hemoglobin 30.5 pg (28.0-33.3); Mean Corpuscular Volume 102.1 fL (83.0-100.0); Mean Platelet Volume 9.5 fL (9.4-12.4); Monocytes # 0.5 K/mcL (0.0-1.3); Monocytes % 6.7 %; Neutrophils # 4.8 K/mcL (1.6-8.9); Platelet Count 346 K/mcL (140-400); Red Blood Count 2.85 M/mcL (3.82-4.97); Red Cell Distribution Width 16.9 % (11.5-14.5); Segmented Neutrophils % 63.9 %; White Blood Count 7.4 K/mcL (4.3-11.1)
[2022-02-22 03:52] VITALS: O2SAT 93
[2022-02-22 05:08] LABS: BUN/Creatinine Ratio 33 (6-26); Blood Urea Nitrogen 14 mg/dL (6-20); Calcium 7.9 mg/dL (8.6-10.3); Carbon Dioxide 32 mEq/L (23-29); Chloride 105 mEq/L (98-107); Glucose 103 mg/dL (70-105); Osmolality,Calculated 291 (280-300); Potassium 4.1 mEq/L (3.5-5.1); Sodium 140 mEq/L (136-145); eGFR For African Americans > 60 (> 60); eGFR For Non-African Americans > 60 (> 60)
[2022-02-22] MEDS: Insulin LISPRO 300 UNITS/3 ML VIAL SUBQ SCH ×4 (06:07→12:30)
[2022-02-22] MEDS: *HR* Enoxaparin 80 MG/0.8 ML SYRINGE SQ SCH (06:07)
[2022-02-22] MEDS: Sucralfate 1 GM TABLET PO SCH ×2 (08:23→12:27)
[2022-02-22] MEDS: Metoprolol XL (24 HR) Succ 25 MG TAB.ER.24H PO SCH (08:23)
[2022-02-22] MEDS: lisinopriL 5 MG TABLET PO SCH (08:23)
[2022-02-22] MEDS: Gabapentin 300 MG CAPSULE PO SCH (08:25)
[2022-02-22] MEDS: Sennosides/Docusate Sodium TABLET PO SCH (08:25)
[2022-02-22] MEDS: Ondansetron 4 MG/2 ML VIAL IVP PRN (08:28)
[2022-02-22] MEDS: Budesonide/Formoterol 80/4.5 1 PUFF INH IH SCH (09:35)
[2022-02-22 13:10] VITALS: BP 123/80; PULSE 75; TEMP 97.9
[2022-02-22] MEDS: Prochlorperazine 10 MG/2 ML VIAL IVP PRN (13:52)
[2022-02-22] MEDS ORDERED: rOPINIRole 1 MG TABLET PO SCH (21:00)
== END 2022-02-22 15:37 | disposition home health service (06) | DRG 811 ==
LOC: EMEROOARM 07:04 → 2NNU 11:57 → SUATTDRO 11:57 → 2NNU 13:25 → 2NENU 02-18 13:45
PROVIDERS: ADMIT Internal Medicine; ATTEND Student in an Organized Health Care Education/Training Program

== ENCOUNTER 2022-02-26 16:18 | Observation (INO) ==
[2022-02-26] MEDS ORDERED: Ondansetron 4 MG/2 ML VIAL IVP ONE (17:19)
[2022-02-26] MEDS ORDERED: 0.9 % Sodium Chloride 1,000 ML IVC ONE (17:19)
[2022-02-26 18:26] LABS: Basophils % 0.4 %; Eosinophils # 0.1 K/mcL (0.0-0.6); Eosinophils % 1.5 %; Hematocrit 31.2 % (35.3-44.9); Hemoglobin 9.5 g/dL (11.5-15.4); Immature Granulocytes % 0.4 % (0-4); Lymphocytes % 37.4 %; Mean Corpuscular HGB Conc 30.4 g/dL (31.6-35.5); Mean Corpuscular Hemoglobin 30.5 pg (28.0-33.3); Mean Corpuscular Volume 100.3 fL (83.0-100.0); Mean Platelet Volume 9.6 fL (9.4-12.4); Monocytes # 0.6 K/mcL (0.0-1.3); Monocytes % 10.4 %; Neutrophils # 2.7 K/mcL (1.6-8.9); Platelet Count 349 K/mcL (140-400); Red Blood Count 3.11 M/mcL (3.82-4.97); Red Cell Distribution Width 16.4 % (11.5-14.5); Segmented Neutrophils % 49.9 %; White Blood Count 5.4 K/mcL (4.3-11.1)
[2022-02-26 18:27] LABS: VBG Ionized Calcium 1.17 mmol/L (1.15-1.35)
[2022-02-26 18:32] LABS: Bilirubin,Urine Negative (Negative); Blood,Urine Negative (Negative); Clarity,Urine Turbid (Clear); Color,Urine Light-Yellow (Yellow); Glucose,Urine (UA) Normal (Normal); Ketones,Urine Negative (Negative); Leukocyte Esterase,Urine Small (Negative); Mucus,Urine Few per lpf (None-Few); Nitrite,Urine Negative (Negative); PH,Urine 6.5 pH Units (5.0-8.0); Protein,Urine Negative (Neg-Trace); RBC,Urine 0-3 per hpf (0-3); Squamous Epithelial Cell,Urine Few per hpf (None-Few); Urobilinogen,Urine Normal (Normal)
[2022-02-26 18:39] LABS: Activated Partial Thrombo Time 36.5 Seconds (26.0-36.0); Prothrombin Time 10.6 Seconds (9.4-12.1)
[2022-02-26 19:12] LABS: BUN/Creatinine Ratio 22 (6-26); Blood Urea Nitrogen 13 mg/dL (6-20); Calcium 8.3 mg/dL (8.6-10.3); Carbon Dioxide 25 mEq/L (23-29); Chloride 105 mEq/L (98-107); Glucose 160 mg/dL (70-105); Magnesium 1.7 mg/dL (1.6-2.6); Osmolality,Calculated 286 (280-300); Phosphorous 3.6 mg/dL (2.7-4.5); Potassium 4.1 mEq/L (3.5-5.1); Sodium 136 mEq/L (136-145); Thyroid Stimulating Hormone 4.008 mcIU/mL (0.340-5.600); Troponin I < 0.03 ng/mL (< 0.04); eGFR For African Americans > 60 (> 60); eGFR For Non-African Americans > 60 (> 60)
[2022-02-26] MEDS ORDERED: Naloxone 0.4 MG/ML INJ IVP PRN (20:19)
[2022-02-26] MEDS ORDERED: Fluticasone Propionate Nasal 50 MCG/SPRAY BOTTLE NS PRN (20:59)
[2022-02-26] MEDS ORDERED: SUMAtriptan 6 MG/0.5 ML SQ PRN (21:00)
[2022-02-26] MEDS ORDERED: Scopolamine Patch 1.5 MG PATCH.TD72 TD SCH (21:00)
[2022-02-26] MEDS ORDERED: (Rizatriptan Benzoate [Maxalt] 10 MG Tablet) PO PRN (21:18)
[2022-02-26] MEDS: tiZANidine 4 MG TABLET PO SCH (21:36)
[2022-02-26] MEDS: Sucralfate 1 GM TABLET PO SCH (21:36)
[2022-02-26] MEDS: Gabapentin 300 MG CAPSULE PO SCH (21:36)
[2022-02-26] MEDS: Budesonide/Formoterol 80/4.5 1 PUFF INH IH SCH (22:48)
[2022-02-27 02:56] LABS: Basophils % 0.6 %; Eosinophils # 0.1 K/mcL (0.0-0.6); Eosinophils % 2.2 %; Hematocrit 26.6 % (35.3-44.9); Immature Granulocytes % 0.4 % (0-4); Lymphocytes # 1.8 K/mcL (0.6-4.6); Lymphocytes % 35.9 %; Mean Corpuscular HGB Conc 30.1 g/dL (31.6-35.5); Mean Corpuscular Hemoglobin 30.1 pg (28.0-33.3); Mean Platelet Volume 9.6 fL (9.4-12.4); Monocytes # 0.5 K/mcL (0.0-1.3); Monocytes % 9.2 %; Neutrophils # 2.6 K/mcL (1.6-8.9); Platelet Count 310 K/mcL (140-400); Red Blood Count 2.66 M/mcL (3.82-4.97); Red Cell Distribution Width 16.4 % (11.5-14.5); Segmented Neutrophils % 51.7 %
[2022-02-27 03:12] LABS: BUN/Creatinine Ratio 17 (6-26); Blood Urea Nitrogen 12 mg/dL (6-20); Calcium 7.5 mg/dL (8.6-10.3); Carbon Dioxide 24 mEq/L (23-29); Chloride 108 mEq/L (98-107); Glucose 134 mg/dL (70-105); Magnesium 1.6 mg/dL (1.6-2.6); Osmolality,Calculated 292 (280-300); Potassium 3.9 mEq/L (3.5-5.1); Sodium 140 mEq/L (136-145); eGFR For African Americans > 60 (> 60); eGFR For Non-African Americans > 60 (> 60)
[2022-02-27] MEDS: *HR* Enoxaparin 80 MG/0.8 ML SYRINGE SQ SCH ×2 (05:50→16:17)
[2022-02-27] MEDS: Gabapentin 300 MG CAPSULE PO SCH ×2 (08:18→20:51)
[2022-02-27] MEDS: *HR* HYDROcodone/Acet 5/325 mg TABLET PO PRN ×3 (08:18→20:51)
[2022-02-27] MEDS: tiZANidine 4 MG TABLET PO SCH ×3 (08:18→20:51)
[2022-02-27] MEDS: Aspirin Enteric Coated 81 MG Tablet PO SCH (08:18)
[2022-02-27] MEDS: Loratadine 10 MG TABLET PO SCH (08:18)
[2022-02-27] MEDS: Sucralfate 1 GM TABLET PO SCH ×4 (08:19→20:51)
[2022-02-27] MEDS ORDERED: rOPINIRole 1 MG TABLET PO SCH (09:00)
[2022-02-27] MEDS ORDERED: Prochlorperazine 10 MG/2 ML VIAL IVP PRN (09:42)
[2022-02-27] MEDS ORDERED: 0.9 % Sodium Chloride 500 ML IVC ONE (09:44)
[2022-02-27] MEDS: Budesonide/Formoterol 80/4.5 1 PUFF INH IH SCH ×2 (10:18→19:42)
[2022-02-27] MEDS: cefTRIAXone 1,000 MG in 0.9 % Sodium Chloride 10 ML IVP SCH (16:25)
[2022-02-27] MEDS: Acetaminophen/Butalbital/CaffeineTABLET PO SCH (20:52)
[2022-02-27] MEDS: clonazePAM 0.5 MG TABLET PO PRN (20:52)
[2022-02-28 01:54] LABS: Basophils % 0.7 %; Eosinophils # 0.1 K/mcL (0.0-0.6); Eosinophils % 1.7 %; Hemoglobin 8.3 g/dL (11.5-15.4); Immature Granulocytes % 0.2 % (0-4); Lymphocytes % 46.3 %; Mean Corpuscular HGB Conc 30.7 g/dL (31.6-35.5); Mean Corpuscular Hemoglobin 31.1 pg (28.0-33.3); Mean Corpuscular Volume 101.1 fL (83.0-100.0); Mean Platelet Volume 9.7 fL (9.4-12.4); Monocytes # 0.4 K/mcL (0.0-1.3); Monocytes % 9.7 %; Neutrophils # 1.8 K/mcL (1.6-8.9); Platelet Count 280 K/mcL (140-400); Red Blood Count 2.67 M/mcL (3.82-4.97); Red Cell Distribution Width 16.4 % (11.5-14.5); Segmented Neutrophils % 41.4 %; White Blood Count 4.2 K/mcL (4.3-11.1)
[2022-02-28 02:12] LABS: BUN/Creatinine Ratio 25 (6-26); Blood Urea Nitrogen 13 mg/dL (6-20); Calcium 7.2 mg/dL (8.6-10.3); Carbon Dioxide 24 mEq/L (23-29); Chloride 110 mEq/L (98-107); Glucose 133 mg/dL (70-105); Osmolality,Calculated 290 (280-300); Potassium 3.6 mEq/L (3.5-5.1); Sodium 139 mEq/L (136-145); eGFR For African Americans > 60 (> 60); eGFR For Non-African Americans > 60 (> 60)
[2022-02-28 02:13] LABS: Magnesium 1.6 mg/dL (1.6-2.6); Phosphorous 3.5 mg/dL (2.7-4.5)
[2022-02-28] MEDS: *HR* Enoxaparin 80 MG/0.8 ML SYRINGE SQ SCH ×2 (06:11→19:14)
[2022-02-28] MEDS: *HR* HYDROcodone/Acet 5/325 mg TABLET PO PRN ×3 (06:13→20:50)
[2022-02-28] MEDS: Budesonide/Formoterol 80/4.5 1 PUFF INH IH SCH ×2 (07:43→19:54)
[2022-02-28] MEDS: Sucralfate 1 GM TABLET PO SCH ×4 (08:24→20:49)
[2022-02-28] MEDS: Aspirin Enteric Coated 81 MG Tablet PO SCH (08:25)
[2022-02-28] MEDS: Loratadine 10 MG TABLET PO SCH (08:25)
[2022-02-28] MEDS: tiZANidine 4 MG TABLET PO SCH ×3 (08:26→20:49)
[2022-02-28] MEDS: Gabapentin 300 MG CAPSULE PO SCH ×2 (08:26→20:49)
[2022-02-28] MEDS: cefTRIAXone 1,000 MG in 0.9 % Sodium Chloride 10 ML IVP SCH (08:28)
[2022-02-28] MEDS ORDERED: lisinopriL 5 MG TABLET PO SCH (09:00)
[2022-02-28] MEDS: Metoprolol XL (24 HR) Succ 25 MG TAB.ER.24H PO SCH (12:51)
[2022-02-28] MEDS: amLODIPine 5 MG TABLET PO SCH (13:54)
[2022-02-28] MEDS: Acetaminophen/Butalbital/CaffeineTABLET PO SCH (20:49)
[2022-02-28] MEDS: clonazePAM 0.5 MG TABLET PO PRN (20:55)
[2022-02-28] MEDS ORDERED: rOPINIRole 1 MG TABLET PO SCH (21:00)
[2022-03-01 02:40] LABS: Hematocrit 29.5 % (35.3-44.9); Hemoglobin 8.9 g/dL (11.5-15.4); Mean Corpuscular HGB Conc 30.2 g/dL (31.6-35.5); Mean Corpuscular Hemoglobin 31.1 pg (28.0-33.3); Mean Corpuscular Volume 103.1 fL (83.0-100.0); Mean Platelet Volume 9.7 fL (9.4-12.4); Platelet Count 277 K/mcL (140-400); Red Blood Count 2.86 M/mcL (3.82-4.97); Red Cell Distribution Width 16.7 % (11.5-14.5); White Blood Count 4.7 K/mcL (4.3-11.1)
[2022-03-01 02:55] LABS: Blood Urea Nitrogen 10 mg/dL (6-20); Calcium 7.7 mg/dL (8.6-10.3); Carbon Dioxide 27 mEq/L (23-29); Chloride 111 mEq/L (98-107); Glucose 91 mg/dL (70-105); Magnesium 1.7 mg/dL (1.6-2.6); Osmolality,Calculated 293 (280-300); Phosphorous 3.9 mg/dL (2.7-4.5); Potassium 3.5 mEq/L (3.5-5.1); Sodium 142 mEq/L (136-145)
[2022-03-01 03:45] LABS: BUN/Creatinine Ratio 19 (6-26); eGFR For African Americans > 60 (> 60); eGFR For Non-African Americans > 60 (> 60)
[2022-03-01] MEDS: *HR* HYDROcodone/Acet 5/325 mg TABLET PO PRN ×2 (05:38→12:42)
[2022-03-01] MEDS: *HR* Enoxaparin 80 MG/0.8 ML SYRINGE SQ SCH (05:38)
[2022-03-01] MEDS ORDERED: Nitrofurantoin (BID) 100 MG CAPSULE PO SCH (08:00)
[2022-03-01] MEDS: Budesonide/Formoterol 80/4.5 1 PUFF INH IH SCH (08:08)
[2022-03-01] MEDS: Sucralfate 1 GM TABLET PO SCH ×3 (08:42→16:10)
[2022-03-01] MEDS: Aspirin Enteric Coated 81 MG Tablet PO SCH (08:42)
[2022-03-01] MEDS: Loratadine 10 MG TABLET PO SCH (08:43)
[2022-03-01] MEDS: Gabapentin 300 MG CAPSULE PO SCH (08:43)
[2022-03-01] MEDS: Metoprolol XL (24 HR) Succ 25 MG TAB.ER.24H PO SCH (08:43)
[2022-03-01] MEDS: amLODIPine 5 MG TABLET PO SCH (08:43)
[2022-03-01] MEDS: tiZANidine 4 MG TABLET PO SCH ×2 (08:44→15:13)
[2022-03-01] MEDS ORDERED: Metoprolol XL (24 HR) Succ 25 MG TAB.ER.24H PO SCH (09:00)
[2022-03-01] MEDS ORDERED: amLODIPine 5 MG TABLET PO SCH (09:00)
[2022-03-01 12:00] VITALS: TEMP 97.2; O2SAT 100
[2022-03-01 15:13] VITALS: BP 156/85; PULSE 75
[2022-03-01] MEDS ORDERED: Acetaminophen/Butalbital/CaffeineTABLET PO SCH (21:00)
== END 2022-03-01 16:32 | disposition home health service (06) ==
LOC: 2NENU 16:18 → EMEROOARM 16:18 → SUATTDRO 19:47 → 2NENU 20:41
PROVIDERS: ADMIT Internal Medicine; ATTEND Internal Medicine

== ENCOUNTER 2022-03-30 14:03 | Inpatient (IN) ==
[2022-03-30] MEDS ORDERED: 0.9 % Sodium Chloride 1,000 ML IVC ONE ×3 (14:07→15:12)
[2022-03-30] MEDS ORDERED: Ondansetron 4 MG/2 ML VIAL IVP ONE (14:07)
[2022-03-30] MEDS ORDERED: Pantoprazole 80 MG in 0.9 % Sodium Chloride 50 ML IVPB ONE (14:07)
[2022-03-30] MEDS ORDERED: Pantoprazole 40 MG VIAL IVP ONE (14:15)
[2022-03-30 14:22] LABS: Basophils % 0.2 %; Eosinophils # 0.1 K/mcL (0.0-0.6); Hematocrit 28.3 % (35.3-44.9); Immature Granulocytes % 0.6 % (0-4); Lymphocytes # 2.1 K/mcL (0.6-4.6); Mean Corpuscular HGB Conc 30.4 g/dL (31.6-35.5); Mean Corpuscular Hemoglobin 30.9 pg (28.0-33.3); Mean Corpuscular Volume 101.8 fL (83.0-100.0); Mean Platelet Volume 9.5 fL (9.4-12.4); Monocytes # 0.7 K/mcL (0.0-1.3); Monocytes % 8.1 %; Neutrophils # 6.1 K/mcL (1.6-8.9); Platelet Count 288 K/mcL (140-400); Red Blood Count 2.78 M/mcL (3.82-4.97); Red Cell Distribution Width 14.2 % (11.5-14.5); Segmented Neutrophils % 67.1 %
[2022-03-30 14:27] LABS: Hemoglobin 8.6 g/dL (11.5-15.4)
[2022-03-30 14:34] LABS: Prothrombin Time 10.8 Seconds (9.4-12.1)
[2022-03-30 14:37] LABS: Activated Partial Thrombo Time 36.7 Seconds (26.0-36.0)
[2022-03-30 14:39] LABS: BUN/Creatinine Ratio 41 (6-26); Blood Urea Nitrogen 29 mg/dL (6-20); Calcium 7.8 mg/dL (8.6-10.3); Carbon Dioxide 26 mEq/L (23-29); Chloride 106 mEq/L (98-107); Glucose 153 mg/dL (70-105); Osmolality,Calculated 295 (280-300); Potassium 4.2 mEq/L (3.5-5.1); Sodium 138 mEq/L (136-145); Troponin I < 0.03 ng/mL (< 0.04)
[2022-03-30] MEDS ORDERED: Iopamidol - 370 500 ML MLS IVP ONE (14:49)
[2022-03-30] MEDS ORDERED: 0.9 % Sodium Chloride 1,000 ML ONE (14:49)
[2022-03-30] MEDS ORDERED: Norepinephrine 4 MG/254 ML IV.SOLN IVC SCH (15:15)
[2022-03-30] MEDS ORDERED: Norepinephrine 4 MG/254 ML IV.SOLN IVC ONE (15:17)
[2022-03-30] MEDS ORDERED: 0.9 % Sodium Chloride 250 ML ONE (15:55)
[2022-03-30] MEDS ORDERED: Naloxone 0.4 MG/ML INJ IVP PRN (18:49)
[2022-03-30] MEDS ORDERED: Fluticasone Propionate Nasal 50 MCG/SPRAY BOTTLE NS PRN (21:02)
[2022-03-30] MEDS: Sucralfate 1 GM TABLET PO SCH (21:55)
[2022-03-30] MEDS: Pantoprazole 40 MG VIAL IVP SCH (21:55)
[2022-03-30] MEDS: *HR* HYDROcodone/Acet 5/325 mg TABLET PO PRN (21:55)
[2022-03-30] MEDS ORDERED: clonazePAM 0.5 MG TABLET PO PRN (21:56)
[2022-03-30] MEDS ORDERED: Acetaminophen/Butalbital/CaffeineTABLET PO SCH (22:00)
[2022-03-30 23:47] LABS: Bilirubin,Urine Negative (Negative); Blood,Urine Negative (Negative); Clarity,Urine Clear (Clear); Color,Urine Colorless (Yellow); Glucose,Urine (UA) Normal (Normal); Ketones,Urine Negative (Negative); Leukocyte Esterase,Urine Trace (Negative); Nitrite,Urine Negative (Negative); PH,Urine 6.5 pH Units (5.0-8.0); Protein,Urine Negative (Neg-Trace); RBC,Urine 0-3 per hpf (0-3); Specific Gravity,Urine 1.016 (1.010-1.025); Urobilinogen,Urine Normal (Normal)
[2022-03-31 03:15] LABS: Basophils % 0.2 %; Eosinophils # 0.1 K/mcL (0.0-0.6); Hematocrit 34.4 % (35.3-44.9); Immature Granulocytes % 0.5 % (0-4); Lymphocytes # 2.1 K/mcL (0.6-4.6); Lymphocytes % 26.4 %; Mean Corpuscular HGB Conc 30.5 g/dL (31.6-35.5); Mean Corpuscular Hemoglobin 30.2 pg (28.0-33.3); Mean Corpuscular Volume 98.9 fL (83.0-100.0); Mean Platelet Volume 9.4 fL (9.4-12.4); Monocytes # 0.4 K/mcL (0.0-1.3); Monocytes % 5.5 %; Neutrophils # 5.3 K/mcL (1.6-8.9); Platelet Count 284 K/mcL (140-400); Red Blood Count 3.48 M/mcL (3.82-4.97); Red Cell Distribution Width 16.1 % (11.5-14.5); Segmented Neutrophils % 66.4 %
[2022-03-31 03:16] LABS: Hemoglobin 10.5 g/dL (11.5-15.4)
[2022-03-31 03:28] LABS: VBG Ionized Calcium 1.14 mmol/L (1.15-1.35)
[2022-03-31 03:34] LABS: BUN/Creatinine Ratio 28 (6-26); Blood Urea Nitrogen 15 mg/dL (6-20); Carbon Dioxide 23 mEq/L (23-29); Chloride 113 mEq/L (98-107); Glucose 69 mg/dL (70-105); Magnesium 1.7 mg/dL (1.6-2.6); Osmolality,Calculated 295 (280-300); Phosphorous 4.3 mg/dL (2.7-4.5); Potassium 3.5 mEq/L (3.5-5.1); Sodium 143 mEq/L (136-145)
[2022-03-31] MEDS ORDERED: SUMAtriptan 6 MG/0.5 ML SQ PRN (04:04)
[2022-03-31] MEDS: Metoprolol XL (24 HR) Succ 25 MG TAB.ER.24H PO SCH ×2 (05:01→05:03)
[2022-03-31] MEDS: Pantoprazole 40 MG VIAL IVP SCH ×2 (05:01→16:22)
[2022-03-31] MEDS: amLODIPine 5 MG TABLET PO SCH (05:02)
[2022-03-31] MEDS: Sucralfate 1 GM TABLET PO SCH ×4 (06:45→20:15)
[2022-03-31] MEDS: *HR* HYDROcodone/Acet 5/325 mg TABLET PO PRN ×2 (06:46→12:56)
[2022-03-31] MEDS ORDERED: Budesonide/Formoterol 160/4.5 1 PUFF INH IH ONE (07:58)
[2022-03-31] MEDS ORDERED: Budesonide/Formoterol 80/4.5 1 PUFF INH IH ONE (08:00)
[2022-03-31] MEDS: Budesonide/Formoterol 80/4.5 1 PUFF INH IH SCH ×2 (08:00→19:32)
[2022-03-31] MEDS: Gabapentin 300 MG CAPSULE PO SCH ×2 (08:17→20:15)
[2022-03-31] MEDS: rOPINIRole 1 MG TABLET PO SCH (08:18)
[2022-03-31] MEDS: tiZANidine 4 MG TABLET PO SCH ×3 (08:18→20:15)
[2022-03-31] MEDS ORDERED: *HR* Heparin 5,000 UNIT/ML VIAL IVP PRN ×2 (13:47)
[2022-03-31] MEDS: Heparin 25,000UNIT/250ML 1/2NS 25,000 UNIT/250 ML IV.SOLN IVC SCH (14:04)
[2022-03-31 14:22] LABS: Hematocrit 34.6 % (35.3-44.9); Hemoglobin 10.8 g/dL (11.5-15.4); Mean Corpuscular HGB Conc 31.2 g/dL (31.6-35.5); Mean Corpuscular Hemoglobin 30.4 pg (28.0-33.3); Mean Corpuscular Volume 97.5 fL (83.0-100.0); Mean Platelet Volume 9.2 fL (9.4-12.4); Platelet Count 275 K/mcL (140-400); Red Blood Count 3.55 M/mcL (3.82-4.97); Red Cell Distribution Width 15.8 % (11.5-14.5); White Blood Count 6.5 K/mcL (4.3-11.1)
[2022-03-31 14:32] LABS: Heparin anti-factor XA UFH 0.13 IU/mL (0.30-0.70); INR 0.9; Prothrombin Time 10.4 Seconds (9.4-12.1)
[2022-03-31] MEDS ORDERED: Dextrose Gel 15 GM/37.5 ML TUBE PO PRN ×2 (15:08)
[2022-03-31] MEDS ORDERED: D5% in Water 1,000 ML IVC PRN (15:08)
[2022-03-31] MEDS ORDERED: *HR* Dextrose 50 % in Water (Syg) 50 ML SYRINGE IVP PRN (15:08)
[2022-03-31 16:28] LABS: Hemoglobin 10.2 g/dL (11.5-15.4)
[2022-03-31 16:34] LABS: Estimated Average Glucose 108 mg/dl; Hemoglobin A1C 5.4 %
[2022-03-31] MEDS ORDERED: *HR* Metoprolol 5 MG/5 ML VIAL IVP ONE (16:41)
[2022-03-31] MEDS: Insulin LISPRO 300 UNITS/3 ML VIAL SUBQ SCH ×2 (16:45→20:11)
[2022-03-31] MEDS ORDERED: Acetaminophen 325 MG TABLET PO PRN (16:46)
[2022-03-31] MEDS ORDERED: Acetaminophen IV 1,000 MG/100 ML BAG IVPB ONE (17:52)
[2022-03-31 20:43] LABS: Hematocrit 29.6 % (35.3-44.9); Hemoglobin 9.5 g/dL (11.5-15.4)
[2022-04-01] MEDS: *HR* OxyCODONE Oral Soln 5 MG/5 ML UD.LIQ PO PRN ×3 (01:15→15:05)
[2022-04-01 01:20] LABS: Basophils % 0.5 %; Eosinophils # 0.1 K/mcL (0.0-0.6); Eosinophils % 1.6 %; Hematocrit 29.3 % (35.3-44.9); Hemoglobin 9.6 g/dL (11.5-15.4); Immature Granulocytes % 0.4 % (0-4); Lymphocytes % 36.2 %; Mean Corpuscular HGB Conc 32.8 g/dL (31.6-35.5); Mean Corpuscular Hemoglobin 31.3 pg (28.0-33.3); Mean Corpuscular Volume 95.4 fL (83.0-100.0); Mean Platelet Volume 9.1 fL (9.4-12.4); Monocytes # 0.5 K/mcL (0.0-1.3); Monocytes % 8.2 %; Platelet Count 244 K/mcL (140-400); Red Blood Count 3.07 M/mcL (3.82-4.97); Red Cell Distribution Width 15.3 % (11.5-14.5); Segmented Neutrophils % 53.1 %; White Blood Count 5.6 K/mcL (4.3-11.1)
[2022-04-01 01:40] LABS: VBG Ionized Calcium 1.17 mmol/L (1.15-1.35)
[2022-04-01 01:42] LABS: Alanine Aminotransferase 12 Units/L (7-52); Albumin 2.7 g/dL (3.5-5.7); Alkaline Phosphatase 114 Units/L (34-104); Aspartate Amino Transferase 12 Units/L (13-39); BUN/Creatinine Ratio 20 (6-26); Bilirubin,Total 0.2 mg/dL (0.3-1.0); Blood Urea Nitrogen 9 mg/dL (6-20); Carbon Dioxide 26 mEq/L (23-29); Chloride 109 mEq/L (98-107); Globulin 2.6 g/dL (2.4-3.5); Glucose 85 mg/dL (70-105); Magnesium 1.6 mg/dL (1.6-2.6); Osmolality,Calculated 290 (280-300); Phosphorous 3.3 mg/dL (2.7-4.5); Potassium 3.4 mEq/L (3.5-5.1); Sodium 141 mEq/L (136-145); Total Protein 5.3 g/dL (6.4-8.9)
[2022-04-01] MEDS ORDERED: *HR* Metoprolol 5 MG/5 ML VIAL IVP ONE (03:49)
[2022-04-01] MEDS: Pantoprazole 40 MG VIAL IVP SCH ×2 (05:39→16:54)
[2022-04-01] MEDS ORDERED: *HR* Labetalol 20 MG/4 ML SYRINGE IVP ONE (06:55)
[2022-04-01] MEDS: Insulin LISPRO 300 UNITS/3 ML VIAL SUBQ SCH ×4 (08:01→20:13)
[2022-04-01] MEDS: tiZANidine 4 MG TABLET PO SCH ×3 (08:31→20:05)
[2022-04-01] MEDS: amLODIPine 5 MG TABLET PO SCH (08:31)
[2022-04-01] MEDS: rOPINIRole 1 MG TABLET PO SCH (08:32)
[2022-04-01] MEDS: Sucralfate 1 GM TABLET PO SCH ×4 (08:32→20:04)
[2022-04-01] MEDS: Gabapentin 300 MG CAPSULE PO SCH ×2 (08:32→20:05)
[2022-04-01] MEDS ORDERED: Acetaminophen IV 500 MG/50 ML BAG IVPB ONE (10:11)
[2022-04-01] MEDS: Budesonide/Formoterol 80/4.5 1 PUFF INH IH SCH ×2 (10:23→22:11)
[2022-04-01] MEDS: Heparin 25,000UNIT/250ML 1/2NS 25,000 UNIT/250 ML IV.SOLN IVC SCH (14:15)
[2022-04-01] MEDS: traZODone 50 MG TABLET PO SCH (20:05)
[2022-04-02] MEDS: *HR* OxyCODONE Oral Soln 5 MG/5 ML UD.LIQ PO PRN ×2 (05:13→13:00)
[2022-04-02] MEDS: Pantoprazole 40 MG VIAL IVP SCH ×2 (05:13→18:16)
[2022-04-02 06:01] LABS: Hematocrit 31.5 % (35.3-44.9); Hemoglobin 9.8 g/dL (11.5-15.4); Mean Corpuscular HGB Conc 31.1 g/dL (31.6-35.5); Mean Corpuscular Hemoglobin 30.1 pg (28.0-33.3); Mean Corpuscular Volume 96.6 fL (83.0-100.0); Mean Platelet Volume 9.9 fL (9.4-12.4); Platelet Count 272 K/mcL (140-400); Red Blood Count 3.26 M/mcL (3.82-4.97); Red Cell Distribution Width 15.1 % (11.5-14.5); White Blood Count 7.1 K/mcL (4.3-11.1)
[2022-04-02] MEDS: Budesonide/Formoterol 80/4.5 1 PUFF INH IH SCH ×2 (07:44→21:31)
[2022-04-02] MEDS: Insulin LISPRO 300 UNITS/3 ML VIAL SUBQ SCH ×4 (07:51→22:14)
[2022-04-02] MEDS: amLODIPine 5 MG TABLET PO SCH (08:24)
[2022-04-02] MEDS: Sucralfate 1 GM TABLET PO SCH ×4 (08:24→22:21)
[2022-04-02] MEDS: Gabapentin 300 MG CAPSULE PO SCH ×2 (08:25→22:11)
[2022-04-02] MEDS: Metoprolol XL (24 HR) Succ 25 MG TAB.ER.24H PO SCH (08:25)
[2022-04-02] MEDS: rOPINIRole 1 MG TABLET PO SCH (08:25)
[2022-04-02] MEDS: tiZANidine 4 MG TABLET PO SCH ×3 (08:25→22:21)
[2022-04-02] MEDS: Heparin 25,000UNIT/250ML 1/2NS 25,000 UNIT/250 ML IV.SOLN IVC SCH (12:15)
[2022-04-02] MEDS: traZODone 50 MG TABLET PO SCH (22:12)
[2022-04-03] MEDS: Budesonide/Formoterol 80/4.5 1 PUFF INH IH SCH (07:34)
[2022-04-03] MEDS: tiZANidine 4 MG TABLET PO SCH ×2 (08:09→15:35)
[2022-04-03] MEDS: Metoprolol XL (24 HR) Succ 25 MG TAB.ER.24H PO SCH (08:10)
[2022-04-03] MEDS: Gabapentin 300 MG CAPSULE PO SCH (08:10)
[2022-04-03] MEDS: Sucralfate 1 GM TABLET PO SCH ×3 (08:10→15:35)
[2022-04-03] MEDS: amLODIPine 5 MG TABLET PO SCH (08:10)
[2022-04-03] MEDS: Insulin LISPRO 300 UNITS/3 ML VIAL SUBQ SCH ×2 (08:11→11:57)
[2022-04-03] MEDS: Heparin 25,000UNIT/250ML 1/2NS 25,000 UNIT/250 ML IV.SOLN IVC SCH (08:12)
[2022-04-03] MEDS: *HR* OxyCODONE Oral Soln 5 MG/5 ML UD.LIQ PO PRN ×2 (08:27→15:34)
[2022-04-03] MEDS: Pantoprazole 40 MG VIAL IVP SCH (08:27)
[2022-04-03 08:50] LABS: Hematocrit 34.6 % (35.3-44.9); Hemoglobin 10.8 g/dL (11.5-15.4)
[2022-04-03 09:12] LABS: BUN/Creatinine Ratio 13 (6-26); Blood Urea Nitrogen 6 mg/dL (6-20); Calcium 8.8 mg/dL (8.6-10.3); Carbon Dioxide 30 mEq/L (23-29); Chloride 107 mEq/L (98-107); Glucose 112 mg/dL (70-105); Osmolality,Calculated 294 (280-300); Potassium 3.4 mEq/L (3.5-5.1); Sodium 143 mEq/L (136-145)
[2022-04-03] MEDS: rOPINIRole 1 MG TABLET PO SCH (11:55)
[2022-04-03] MEDS ORDERED: Lidocaine -MPF 2% 5 ML VIAL ONE (12:59)
[2022-04-03 16:06] VITALS: TEMP 98.9; O2SAT 96
[2022-04-03 19:35] VITALS: BP 159/99; PULSE 78
== END 2022-04-03 18:39 | disposition home or self-care (01) | DRG 377 ==
LOC: ICNU 14:03 → EMEROOARM 14:03 → ICNU 19:28 → SUATTDRO 19:30 → ICNU 19:51 → 2ANU 03-31 16:07
PROVIDERS: ADMIT Internal Medicine; ATTEND Family Medicine

== ENCOUNTER 2022-04-23 08:53 | Observation (INO) ==
[2022-04-23] MEDS ORDERED: Iopamidol - 370 500 ML MLS IVP ONE (09:10)
[2022-04-23] MEDS ORDERED: 0.9 % Sodium Chloride 1,000 ML IVC ONE ×2 (09:15→11:12)
[2022-04-23 09:34] LABS: Basophils % 0.4 %; Eosinophils # 0.1 K/mcL (0.0-0.6); Eosinophils % 0.7 %; Hematocrit 35.7 % (35.3-44.9); Hemoglobin 10.9 g/dL (11.5-15.4); Immature Granulocytes % 0.1 % (0-4); Lymphocytes # 1.8 K/mcL (0.6-4.6); Lymphocytes % 26.4 %; Mean Corpuscular HGB Conc 30.5 g/dL (31.6-35.5); Mean Corpuscular Volume 98.3 fL (83.0-100.0); Mean Platelet Volume 9.9 fL (9.4-12.4); Monocytes # 0.6 K/mcL (0.0-1.3); Monocytes % 8.1 %; Neutrophils # 4.5 K/mcL (1.6-8.9); Platelet Count 286 K/mcL (140-400); Red Blood Count 3.63 M/mcL (3.82-4.97); Red Cell Distribution Width 14.6 % (11.5-14.5); Segmented Neutrophils % 64.3 %; White Blood Count 6.9 K/mcL (4.3-11.1)
[2022-04-23 09:53] LABS: BUN/Creatinine Ratio 25 (6-26); Blood Urea Nitrogen 15 mg/dL (6-20); Calcium 8.2 mg/dL (8.6-10.3); Carbon Dioxide 26 mEq/L (23-29); Chloride 105 mEq/L (98-107); Glucose 257 mg/dL (70-105); Osmolality,Calculated 290 (280-300); Potassium 3.8 mEq/L (3.5-5.1); Sodium 135 mEq/L (136-145)
[2022-04-23] MEDS ORDERED: *HR* FentaNYL (PF) 100 MCG/2 ML VIAL IVP ONE (10:32)
[2022-04-23] MEDS ORDERED: Naloxone 0.4 MG/ML INJ IVP PRN (11:42)
[2022-04-23] MEDS ORDERED: Melatonin 3 MG TABLET PO PRN (11:42)
[2022-04-23] MEDS ORDERED: *HR* Dextrose 50 % in Water (Syg) 50 ML SYRINGE IVP PRN (11:47)
[2022-04-23] MEDS ORDERED: Dextrose Gel 15 GM/37.5 ML TUBE PO PRN ×2 (11:47)
[2022-04-23] MEDS ORDERED: D5% in Water 1,000 ML IVC PRN (11:47)
[2022-04-23] MEDS ORDERED: Ondansetron 4 MG/2 ML VIAL IVP ONE (11:57)
[2022-04-23] MEDS ORDERED: Metoclopramide 10 MG/2 ML VIAL IVP PRN (13:30)
[2022-04-23] MEDS: *HR* HYDROcodone/Acet 5/325 mg TABLET PO PRN (14:15)
[2022-04-23] MEDS ORDERED: Fluticasone Propionate Nasal 50 MCG/SPRAY BOTTLE NS PRN (15:31)
[2022-04-23] MEDS ORDERED: Scopolamine Patch 1.5 MG PATCH.TD72 TD SCH (15:45)
[2022-04-23] MEDS ORDERED: Rizatriptan Benzoate [Maxalt] 10 MG Tablet PO PRN (15:53)
[2022-04-23] MEDS: Prochlorperazine 10 MG/2 ML VIAL IVP PRN (16:13)
[2022-04-23] MEDS: Insulin LISPRO 300 UNITS/3 ML VIAL SUBQ SCH ×2 (16:14→21:39)
[2022-04-23] MEDS: *HR* Enoxaparin 80 MG/0.8 ML SYRINGE SQ SCH (18:37)
[2022-04-23 19:08] LABS: Hematocrit 41.3 % (35.3-44.9)
[2022-04-23 19:09] LABS: Hemoglobin 12.6 g/dL (11.5-15.4)
[2022-04-23] MEDS: tiZANidine 4 MG TABLET PO SCH (19:58)
[2022-04-23] MEDS: Gabapentin 300 MG CAPSULE PO SCH (19:59)
[2022-04-23] MEDS: Budesonide/Formoterol 80/4.5 1 PUFF INH IH SCH (20:12)
[2022-04-23] MEDS: Ondansetron 4 MG/2 ML VIAL IVP PRN (20:13)
[2022-04-23] MEDS ORDERED: *HR* Labetalol 20 MG/4 ML SYRINGE IVP ONE (20:24)
[2022-04-23] MEDS ORDERED: Acetaminophen/Butalbital/CaffeineTABLET PO SCH (21:00)
[2022-04-23] MEDS: Insulin DETEMIR 100 UNIT/ML X5UNITS SUBQ SCH (21:43)
[2022-04-24] MEDS: clonazePAM 0.5 MG TABLET PO PRN (00:28)
[2022-04-24] MEDS: *HR* HYDROcodone/Acet 5/325 mg TABLET PO PRN ×4 (00:28→22:11)
[2022-04-24] MEDS ORDERED: *HR* Labetalol 20 MG/4 ML SYRINGE IVP ONE (04:43)
[2022-04-24] MEDS ORDERED: Iopamidol - 370 500 ML MLS IVP ONE (04:59)
[2022-04-24] MEDS ORDERED: Acetaminophen IV 500 MG/50 ML BAG IVPB ONE (05:14)
[2022-04-24] MEDS ORDERED: 0.9 % Sodium Chloride 1,000 ML IVC SCH (05:15)
[2022-04-24] MEDS: *HR* Enoxaparin 80 MG/0.8 ML SYRINGE SQ SCH ×2 (05:41→17:54)
[2022-04-24 05:54] LABS: Basophils % 0.2 %; Eosinophils % 0.1 %; Hematocrit 34.6 % (35.3-44.9); Immature Granulocytes % 0.3 % (0-4); Lymphocytes # 1.6 K/mcL (0.6-4.6); Lymphocytes % 18.4 %; Mean Corpuscular HGB Conc 31.2 g/dL (31.6-35.5); Mean Corpuscular Hemoglobin 30.1 pg (28.0-33.3); Mean Corpuscular Volume 96.4 fL (83.0-100.0); Mean Platelet Volume 9.7 fL (9.4-12.4); Monocytes # 0.7 K/mcL (0.0-1.3); Neutrophils # 6.3 K/mcL (1.6-8.9); Platelet Count 320 K/mcL (140-400); Red Blood Count 3.59 M/mcL (3.82-4.97); Red Cell Distribution Width 14.9 % (11.5-14.5); White Blood Count 8.6 K/mcL (4.3-11.1)
[2022-04-24 06:02] LABS: Hemoglobin 10.8 g/dL (11.5-15.4)
[2022-04-24 06:09] LABS: BUN/Creatinine Ratio 16 (6-26); Blood Urea Nitrogen 10 mg/dL (6-20); Calcium 8.5 mg/dL (8.6-10.3); Carbon Dioxide 24 mEq/L (23-29); Chloride 111 mEq/L (98-107); Chol/HDL Ratio 2.2 (0-4.9); Cholesterol 145 mg/dL (< 200); Glucose 151 mg/dL (70-105); HDL Cholesterol 66 mg/dL (40-59); LDL Cholesterol,Calculated 53 mg/dL (< 100); Magnesium 1.4 mg/dL (1.6-2.6); Osmolality,Calculated 298 (280-300); Potassium 3.6 mEq/L (3.5-5.1); Sodium 143 mEq/L (136-145); Triglycerides 128 mg/dL (< 150)
[2022-04-24] MEDS: Metoprolol XL (24 HR) Succ 25 MG TAB.ER.24H PO SCH (07:31)
[2022-04-24] MEDS: Prochlorperazine 10 MG/2 ML VIAL IVP PRN (07:38)
[2022-04-24] MEDS: Budesonide/Formoterol 80/4.5 1 PUFF INH IH SCH ×2 (08:13→20:16)
[2022-04-24 08:57] LABS: Troponin I < 0.03 ng/mL (< 0.04)
[2022-04-24] MEDS: Gabapentin 300 MG CAPSULE PO SCH ×2 (09:29→20:51)
[2022-04-24] MEDS: tiZANidine 4 MG TABLET PO SCH ×2 (09:30→15:30)
[2022-04-24] MEDS: amLODIPine 5 MG TABLET PO SCH (09:30)
[2022-04-24] MEDS: Insulin LISPRO 300 UNITS/3 ML VIAL SUBQ SCH ×4 (09:30→20:51)
[2022-04-24] MEDS: rOPINIRole 1 MG TABLET PO SCH (09:32)
[2022-04-24] MEDS: Loratadine 10 MG TABLET PO SCH (09:32)
[2022-04-24 09:33] LABS: C-Reactive Protein < 5 mg/L (Less than 10)
[2022-04-24] MEDS: Furosemide Oral Soln 40 MG/4 ML UDC PO SCH (09:33)
[2022-04-24] MEDS ORDERED: 0.9 % Sodium Chloride 1,000 ML IVC ONE (12:16)
[2022-04-24 12:45] LABS: Hematocrit 33.1 % (35.3-44.9); Hemoglobin 10.1 g/dL (11.5-15.4)
[2022-04-24 15:18] LABS: Bilirubin,Urine Negative (Negative); Blood,Urine Negative (Negative); Clarity,Urine Clear (Clear); Color,Urine Colorless (Yellow); Glucose,Urine (UA) Normal (Normal); Ketones,Urine Negative (Negative); Leukocyte Esterase,Urine Negative (Negative); Nitrite,Urine Negative (Negative); PH,Urine 6.5 pH Units (5.0-8.0); Protein,Urine Negative (Neg-Trace); Specific Gravity,Urine 1.011 (1.010-1.025); Urobilinogen,Urine Normal (Normal)
[2022-04-24 15:39] LABS: Amphetamine Screen,Urine Negative ng/mL (Cutoff=1000); Barbiturate Screen,Urine Positive ng/mL (Cutoff=200); Benzodiazepines Screen,Urine Negative ng/mL (Cutoff=200); Cannabinoid Screen,Urine Negative ng/mL (Cutoff = 50); Cocaine Screen,Urine Negative ng/mL (Cutoff= 300); Opiate Screen,Urine Negative ng/mL (Cutoff=300); Phencyclidine Screen,Urine Negative ng/mL (Cutoff=25)
[2022-04-24] MEDS ORDERED: 0.9 % Sodium Chloride 500 ML IVC ONE ×2 (16:18→16:51)
[2022-04-24] MEDS: 0.9 % Sodium Chloride 1,000 ML IVC SCH ×2 (16:26→20:52)
[2022-04-24] MEDS: Insulin DETEMIR 100 UNIT/ML X5UNITS SUBQ SCH (21:04)
[2022-04-25] MEDS ORDERED: ALPRAZolam 0.25 MG TABLET PO ONE (00:15)
[2022-04-25] MEDS ORDERED: 0.9 % Sodium Chloride 1,000 ML IVC ONE (01:57)
[2022-04-25] MEDS ORDERED: *HR* LORazepam 2 MG/ML VIAL IVP ONE (03:51)
[2022-04-25] MEDS: *HR* Enoxaparin 80 MG/0.8 ML SYRINGE SQ SCH ×2 (04:06→17:02)
[2022-04-25] MEDS: *HR* HYDROcodone/Acet 5/325 mg TABLET PO PRN ×3 (04:11→21:08)
[2022-04-25] MEDS: Insulin LISPRO 300 UNITS/3 ML VIAL SUBQ SCH ×4 (07:28→21:11)
[2022-04-25] MEDS: amLODIPine 5 MG TABLET PO SCH (08:58)
[2022-04-25] MEDS: Gabapentin 300 MG CAPSULE PO SCH ×2 (08:58→21:08)
[2022-04-25] MEDS: Metoprolol XL (24 HR) Succ 25 MG TAB.ER.24H PO SCH (08:58)
[2022-04-25] MEDS: rOPINIRole 1 MG TABLET PO SCH (08:58)
[2022-04-25] MEDS: Loratadine 10 MG TABLET PO SCH (08:58)
[2022-04-25] MEDS: Furosemide 40 MG TABLET PO SCH (09:37)
[2022-04-25] MEDS: clonazePAM 0.5 MG TABLET PO PRN (09:38)
[2022-04-25] MEDS: Furosemide Oral Soln 40 MG/4 ML UDC PO SCH (09:39)
[2022-04-25] MEDS: Budesonide/Formoterol 80/4.5 1 PUFF INH IH SCH ×2 (09:40→20:16)
[2022-04-25] MEDS ORDERED: Metoprolol XL (24 HR) Succ 25 MG TAB.ER.24H PO ONE (11:15)
[2022-04-25 15:10] LABS: Basophils % 0.5 %; Eosinophils % 0.5 %; Hematocrit 28.2 % (35.3-44.9); Hemoglobin 8.8 g/dL (11.5-15.4); Immature Granulocytes % 0.3 % (0-4); Lymphocytes # 2.5 K/mcL (0.6-4.6); Mean Corpuscular HGB Conc 31.2 g/dL (31.6-35.5); Mean Corpuscular Hemoglobin 30.9 pg (28.0-33.3); Mean Corpuscular Volume 98.9 fL (83.0-100.0); Mean Platelet Volume 9.6 fL (9.4-12.4); Monocytes # 0.7 K/mcL (0.0-1.3); Monocytes % 9.6 %; Neutrophils # 4.3 K/mcL (1.6-8.9); Platelet Count 250 K/mcL (140-400); Red Blood Count 2.85 M/mcL (3.82-4.97); Red Cell Distribution Width 15.3 % (11.5-14.5); Segmented Neutrophils % 56.1 %; White Blood Count 7.7 K/mcL (4.3-11.1)
[2022-04-25 15:29] LABS: Alanine Aminotransferase 19 Units/L (7-52); Albumin 2.9 g/dL (3.5-5.7); Albumin/Globulin Ratio 1.2 (1.1-2.2); Alkaline Phosphatase 119 Units/L (34-104); Aspartate Amino Transferase 16 Units/L (13-39); BUN/Creatinine Ratio 19 (6-26); Bilirubin,Total 0.1 mg/dL (0.3-1.0); Blood Urea Nitrogen 11 mg/dL (6-20); Calcium 8.4 mg/dL (8.6-10.3); Carbon Dioxide 29 mEq/L (23-29); Chloride 109 mEq/L (98-107); Globulin 2.5 g/dL (2.4-3.5); Glucose 110 mg/dL (70-105); Osmolality,Calculated 296 (280-300); Potassium 3.9 mEq/L (3.5-5.1); Sodium 143 mEq/L (136-145); Total Protein 5.4 g/dL (6.4-8.9)
[2022-04-25 15:56] LABS: Hepatitis B Surface Antigen Nonreactive (Nonreactive)
[2022-04-25 16:25] LABS: Hepatitis B Core IgM Nonreactive (Nonreactive); Hepatitis C Virus Antibody Nonreactive (Nonreactive)
[2022-04-25 16:27] LABS: Hepatitis A Antibody IgM Nonreactive (Nonreactive)
[2022-04-25] MEDS: Ondansetron 4 MG/2 ML VIAL IVP PRN (17:09)
[2022-04-25] MEDS ORDERED: clonazePAM 0.5 MG TABLET PO PRN (17:26)
[2022-04-25] MEDS: Metoprolol XL (24 HR) Succ 50 MG TAB.ER.24H PO SCH (21:07)
[2022-04-26] MEDS: Ondansetron 4 MG/2 ML VIAL IVP PRN ×2 (03:50→12:50)
[2022-04-26] MEDS: *HR* HYDROcodone/Acet 5/325 mg TABLET PO PRN ×2 (03:50→09:47)
[2022-04-26] MEDS: *HR* Enoxaparin 80 MG/0.8 ML SYRINGE SQ SCH (05:58)
[2022-04-26 06:21] LABS: BUN/Creatinine Ratio 29 (6-26); Blood Urea Nitrogen 15 mg/dL (6-20); Calcium 8.5 mg/dL (8.6-10.3); Carbon Dioxide 31 mEq/L (23-29); Chloride 104 mEq/L (98-107); Glucose 136 mg/dL (70-105); Magnesium 1.5 mg/dL (1.6-2.6); Osmolality,Calculated 293 (280-300); Potassium 3.8 mEq/L (3.5-5.1); Sodium 140 mEq/L (136-145)
[2022-04-26 06:39] LABS: Basophils % 0.3 %; Eosinophils # 0.1 K/mcL (0.0-0.6); Eosinophils % 0.7 %; Hematocrit 29.3 % (35.3-44.9); Hemoglobin 9.1 g/dL (11.5-15.4); Immature Granulocytes % 0.5 % (0-4); Mean Corpuscular HGB Conc 31.1 g/dL (31.6-35.5); Mean Corpuscular Hemoglobin 30.5 pg (28.0-33.3); Mean Corpuscular Volume 98.3 fL (83.0-100.0); Mean Platelet Volume 9.9 fL (9.4-12.4); Monocytes # 1.1 K/mcL (0.0-1.3); Neutrophils # 11.8 K/mcL (1.6-8.9); Platelet Count 270 K/mcL (140-400); Red Blood Count 2.98 M/mcL (3.82-4.97); Red Cell Distribution Width 14.8 % (11.5-14.5); Segmented Neutrophils % 78.5 %
[2022-04-26 06:42] LABS: Basophils # 0.1 K/mcL (0.0-0.2)
[2022-04-26] MEDS: Insulin DETEMIR 100 UNIT/ML X5UNITS SUBQ SCH (07:10)
[2022-04-26] MEDS: Budesonide/Formoterol 80/4.5 1 PUFF INH IH SCH (07:16)
[2022-04-26 08:12] VITALS: BP 163/97; PULSE 99; TEMP 98.3; O2SAT 93
[2022-04-26] MEDS: Insulin LISPRO 300 UNITS/3 ML VIAL SUBQ SCH (09:19)
[2022-04-26] MEDS: Gabapentin 300 MG CAPSULE PO SCH (09:47)
[2022-04-26] MEDS: rOPINIRole 1 MG TABLET PO SCH (09:47)
[2022-04-26] MEDS: Metoprolol XL (24 HR) Succ 50 MG TAB.ER.24H PO SCH (09:47)
[2022-04-26] MEDS: amLODIPine 5 MG TABLET PO SCH (09:47)
[2022-04-26] MEDS: Furosemide 40 MG TABLET PO SCH (09:47)
[2022-04-26] MEDS: Loratadine 10 MG TABLET PO SCH (09:47)
[2022-04-26 11:50] LABS: Estimated Average Glucose 114 mg/dl; Hemoglobin A1C 5.6 %
== END 2022-04-26 15:17 | disposition home or self-care (01) ==
LOC: 2ANU 08:53 → EMEROOARM 08:53 → 2ANU 12:54
PROVIDERS: ADMIT Hospitalist; ATTEND Hospitalist